=== PATIENT | female | born 1985 | race Caucasian/White ===

== ENCOUNTER 2024-04-23 13:15 | Outpatient (CLI) | payer OTHER, SELFPAY ==
--- NOTE | 2024-04-23 14:30 | NEURO_ITS ---
Impression: # Complains of numbness of hands. Not diabetic. # Normal Nerve Conduction Study. # Normal needle/EMG exam. # Clinical correlation recommended. Nerve Conduction Studies Anti Sensory Summary Table Stim Site NR Peak (ms) P-T Amp (?V) Site1 Site2 Delta-P (ms) Dist (cm) Felix (m/s) Left Median Anti Sensory (2-3nd Digit) Wrist 2.2 17.1 Wrist 2-3nd Digit 2.2 14.0 64 Wrist 2.4 12.6 Wrist 2-3nd Digit 2.2 14.0 64 Right Median Anti Sensory (2-3nd Digit) Wrist 2.5 3.0 Wrist 2-3nd Digit 2.5 14.0 56 Wrist 3.1 13.5 Wrist 2-3nd Digit 2.5 14.0 56 Left Radial Anti Sensory (Base 1st Digit) Wrist 1.5 58.8 Wrist Base 1st Digit 1.5 0.0 Right Radial Anti Sensory (Base 1st Digit) Wrist 1.9 46.8 Wrist Base 1st Digit 1.9 0.0 Left Ulnar Anti Sensory (5th Digit) Wrist 2.3 45.3 Wrist 5th Digit 2.3 14.0 61 Right Ulnar Anti Sensory (5th Digit) Wrist 2.1 48.6 Wrist 5th Digit 2.1 14.0 67 Motor Summary Table Stim Site NR Onset (ms) O-P Amp (mV) Site1 Site2 Delta-0 (ms) Dist (cm) Felix (m/s) Left Median Motor (Abd Poll Brev) Wrist 3.7 2.8 Elbow Wrist 5.1 28.0 55 Elbow 8.8 2.2 Right Median Motor (Abd Poll Brev) Wrist 3.5 4.1 Elbow Wrist 5.3 30.0 57 Elbow 8.8 1.8 Left Ulnar Motor (Abd Dig Minimi) Wrist 2.5 8.4 A Elbow Wrist 4.8 30.0 63 A Elbow 7.3 7.4 Right Ulnar Motor (Abd Dig Minimi) Wrist 2.4 7.3 A Elbow Wrist 4.9 30.0 61 A Elbow 7.3 6.3 F Wave Studies NR F-Lat (ms) L-R F-Lat (ms) Left Median (Mrkrs) (Abd Poll Brev) 28.12 1.23 Right Median (Mrkrs) (Abd Poll Brev) 29.34 1.23 Left Ulnar (Mrkrs) (Abd Dig Min) 27.62 0.48 Right Ulnar (Mrkrs) (Abd Dig Min) 28.10 0.48 EMG Side Muscle Nerve Root Ins Act Fibs Amp Dur Recrt Comment Right 1stDorInt Ulnar C8-T1 Nml Nml Nml Nml Nml Right Ext Indicis Radial (Post Int) C7-8 Nml Nml Nml Nml Nml Right Ext Digitorum Radial (Post Int) C7-8 Nml Nml Nml Nml Nml Right BrachioRad Radial C5-6 Nml Nml Nml Nml Nml Right PronatorTeres Median C6-7 Nml Nml Nml Nml Nml Right Abd Poll Brev Median C8-T1 Nml Nml Nml Nml Nml Right ABD Dig Min Ulnar C8-T1 Nml Nml Nml Nml Nml Left 1stDorInt Ulnar C8-T1 Nml Nml Nml Nml Nml Left Ext Indicis Radial (Post Int) C7-8 Nml Nml Nml Nml Nml Left Ext Digitorum Radial (Post Int) C7-8 Nml Nml Nml Nml Nml Left BrachioRad Radial C5-6 Nml Nml Nml Nml Nml Left PronatorTeres Median C6-7 Nml Nml Nml Nml Nml Left Abd Poll Brev Median C8-T1 Nml Nml Nml Nml Nml Left ABD Dig Min Ulnar C8-T1 Nml Nml Nml Nml Nml MTDD
== END 2024-04-23 13:16 | disposition home or self-care (01) ==
LOC: ANHNEURO 13:16
PROVIDERS: PCP Internal Medicine Infectious Disease; Visit Provider Internal Medicine Infectious Disease
DX: G62.9 Polyneuropathy, unspecified (principal)
CPT/HCPCS: 95886; 95911

== ENCOUNTER 2024-08-01 07:46 | Outpatient (CLI) | payer OTHER, SELFPAY ==
--- NOTE | ~2024-08-01 | MMUS_ITS ---
EXAMINATION: MM diagnostic shira BI w lexy, US breast BI complete HISTORY: Nipple discharge. TECHNIQUE: Additional 3-D tomosynthesis images of the breasts were performed and synthetic 2-D images were generated. CAD analysis was submitted and interpreted. High resolution bilateral complete breas t ultrasound was performed. COMPARISON: None BREAST PARENCHYMAL COMPOSITION: Not dense: There are scattered areas of fibroglandular density. FINDINGS: MAMMOGRAPHIC FINDINGS: The breasts are symmetric. No suspicious masses, calcifications or architectural distortion in either breast to suggest malignancy. ULTRASOUND: Complete US of all 4 quadrants of the breast/s and retroareolar region was reviewed. Right breast ultrasound: At 10:00 in the subareolar location there is a 6 mm cyst. There are mildly p rominent subareolar ducts. Left breast ultrasound: There are prominent subareolar ducts at 2:00. No discrete solid or cystic mas s identified. IMPRESSION: 1. No evidence for malignancy in either breast. 2. Recommend correlation with MRI of the breast with contrast for further evaluation of bloody nipple discharge. BI-RADS Category 0: Incomplete: Needs additional imaging evaluation. Reviewed, dictated and finalized at location B. IMPRESSION: 1. No evidence for malignancy in either breast. 2. Recommend correlation with MRI of the breast with contrast for further evalu ation of bloody nipple discharge. BI-RADS Category 0: Incomplete: Needs additional imaging evaluation.
== END 2024-08-01 07:47 | disposition home or self-care (01) ==
LOC: MICIMG 07:47
PROVIDERS: PCP Physician Assistant; Visit Provider Physician Assistant
DX: N64.52 Nipple discharge (principal); R92.8 Other abnormal and inconclusive findings on diagnostic imaging of breast
CPT/HCPCS: 76641; 77062; 77066; G0279

== ENCOUNTER 2024-09-19 13:54 | Outpatient (CLI) | payer OTHER, SELFPAY ==
--- NOTE | ~2024-09-19 | US_ITS ---
EXAMINATION: US venous doppler [facility] DATE: 09/19/2024 14:53 INDICATION: Bilateral lower limb swelling TECHNIQUE: Grayscale ultrasound images without and with compression and Doppler ultrasound images of the bilateral lower extremity veins were obtained. COMPARISON: None. FINDINGS: The visualized portions of right common femoral vein, profunda (deep) femoral vein, femoral vein, pop liteal vein, posterior tibial veins, peroneal veins, gastrocnemius vein and greater saphenous vein ou tflow are patent. The visualized portions of left common femoral vein, profunda femoral vein, femoral vein, popliteal v ein, posterior tibial veins, peroneal veins, gastrocnemius vein and greater saphenous vein outflow ar e patent. IMPRESSION: 1. No deep venous thrombosis in either lower limb. Reviewed, dictated and finalized at location A. PRIMER POWDER BLENDER
== END 2024-09-19 13:55 | disposition home or self-care (01) ==
PROVIDERS: PCP Physician Assistant
DX: R60.0 Localized edema (principal)
CPT/HCPCS: 93970

== ENCOUNTER 2024-10-03 14:41 | Outpatient (CLI) | payer OTHER, SELFPAY ==
--- NOTE | ~2024-10-03 | MR_ITS ---
MR breast BI wo/w con 10/06/2024 11:17 BIOPROCESS DEVELOPMENT ENGINEER INDICATION: Nipple discharge TECHNIQUE: MRI of the breasts perform using standard protocol pre-and post IV contrast with the follo wing sequences: Axial T2 STIR, axial T1, axial vibrant T1 with fat suppression precontrast and multip hasic postcontrast. 20 cc MultiHance administered intravenously. COMPARISON: Mammogram and ultrasound dated 08/01/2024 FINDINGS: There are prominent subareolar ducts containing debris. There is marked background parenchy mal enhancement. No enhancing lesions following contrast administration. No areas of enhancement me eting threshold criteria on CAD analysis. No evidence of signal abnormalities in the axillary or int ernal mammary node distributions. LEFT BREAST: There are prominent subareolar ducts containing debris. There is marked background paren chymal enhancement. In the left breast in the lower outer quadrant at approximately 4:00, middle thir d there is nonmass-like enhancement with rapid plateau enhancement characteristics measuring 2.1 x 1 x 0.7 cm. No evidence of signal abnormalities in the axillary or internal mammary node distributions. IMPRESSION: 1: Prominent bilateral subareolar ducts. No discrete suspicious enhancing mass is identified. There i s nonmasslike enhancement in the left breast in the lower outer quadrant, nonspecific. No correspondi ng finding was seen on recent mammogram or ultrasound. Recommendation: Six-month follow-up diagnostic bilateral mammogram and bilateral breast ultrasound re commended. BI-RADS CATEGORY 3-PROBABLY BENIGN FINDING RECOMMENDATION: 6 month follow up recommended. Reviewed, dictated and finalized at location B. ROCESS DEVELOPMENT ENGINEER IMPRESSION: 1: Prominent bilateral subareolar ducts. No discrete suspicious enhancing mass is identified. There is nonmasslike enhancement in the left breast in the lower outer quadrant, nonspecific. No corresponding finding was seen on recent mammo gram or ultrasound. Recommendation: Six-month follow-up diagnostic bilateral mammogram and bilatera l breast ultrasound recommended. BI-RADS CATEGORY 3-PROBABLY BENIGN FINDING RECOMMENDATION: 6 month follow up recommended.
--- OUTSIDE RECORDS SUMMARY | 2024-10-06 22:15 | XMS_ITS | Encounter Summary ---
Author Organization [facility] Address [address] [place] [address] Care Team Providers Care Cafeteria Or Lunchroom Checker Name Role Phone Unavailable Primary Care Provider Unavailabl e Reason for Visit * Reason Onset Date Comments Scheduling 03/24/2019 Encounter Details Date Type Department Care Team (Late st Contact Info) Description 03/24/2019 Telephone [facility] - DICE DEALER [id number] [facility] [address] [place] [id number] [place] [address] [facility] [address] [place] [address] Scheduling Social History Tobacco Use Types Packs/Day Years Used Date Smoking Tobacco: Former Cigarettes Q uit: 08/07/2018 Smokeless Tobacco: Never Alcohol Use Standard Drinks/Week Comments Yes 0 (1 standard drink = 0.6 oz pur e alcohol) Sex and Gender Information Value Date Recorded Sex Assigned at Not on file Gender Identity Not on file Sexual Orientation Not on file documented as of this encounter Functional Status Functional Status Response Date of Assess ment Is person deaf or have serious hearing difficult y? No 03/18/2019 Is person blind or have serious difficulty seein g? No 03/18/2019 Does person have serious dif ficulty walking/climbing stairs? No 03/18/2019 Does person have difficulty dressing/bathing? No 03/18/2019 Does person have difficulty doing errands alone? No 03/18/2019 Cognitive Status Response Date of Assessm ent Does person have difficulty concentrating/remembering/making decisions? No 03/18/2019 documented as of this encounter Miscellaneous Notes * Telephone Encounter - Libia Harrington - 03/24/2019 11:37 AM CDT Left message for patient to contact the office. Patient is ok to see [facility] for this appointment type. * Telephone Encounter - Evy Prince - 03/24/2019 10:16 AM CDT Who is calling? self What is the reason for call? Patient called to schedule a blood pressure check following delivery. DOD 03/19/19. Patient states she was instructed to schedule appointment on 03/24 or 03/25. Agent unable to find available slot. Expected Response from the Clinic? Call back. documented in this encounter Plan of Treatment Not on file documented as of this encounter Visit Diagnoses Not on filedocumented in this encounter
--- OUTSIDE RECORDS SUMMARY | 2024-10-06 22:15 | XMS_ITS | Encounter Summary ---
Author Organization [facility] Address [address] [place] [address] Care Team Providers Care Housekeeper Manager Name Role Phone Unavailable Primary Care Provider Unavailabl e Reason for Visit * Reason Comments Care 6 week post vaginal Encounter Details Date Type Department Care Team (Late st Contact Info) Description 04/30/2019 10:40 AM CDT Office Visit [facility] Medical [facility] - NAVAL AIRCREWMAN MECHANICAL [address] [facility] [address] [place] [id number] [place] [address] [facility] [address] [place] [address] exam (HCC) (Primary Dx) Social History Tobacco Use Types Packs/Day Years Used Date Smoking Tobacco: Former Cigarettes Q uit: 08/07/2018 Smokeless Tobacco: Never Alcohol Use Standard Drinks/Week Comments Yes 0 (1 standard drink = 0.6 oz pur e alcohol) Sex and Gender Information Value Date Recorded Sex Assigned at Not on file Gender Identity Not on file Sexual Orientation Not on file documented as of this encounter Last Filed Vital Signs Vital Sign Reading Time Taken Comments Blood Pressure 120/84 04/30/2019 10:58 AM CDT Pulse - - Temperature - - Respiratory Rate - - Oxygen Saturation - - Inhaled Oxygen Concentration - - Weight 113.9 kg (251 lb) 04/30/2019 10:58 AM CDT Height 170.2 cm (5' 7 ) 04/30/2019 10:58 AM CDT Body Mass Index 39.31 04/30/2019 10:58 AM CDT documented in this encounter Functional Status Functional Status Response [...] No 03/18/2019 documented as of this encounter Progress Notes * Julissa Mcwilliams, DO - 04/30/2019 11:24 AM CDT Subjective: Rachelle Dia is a 33 year [id number] female who presents 6 weeks post following a spontaneous vaginal delivery. I have fully reviewed the and intrapartum course. coursehas been uncomplicated. Baby is doing well without problems. Baby is feeding human milk. Bleeding staining only . Bowel function is normal. Bladder function is normal. depression screening: negative Past Medical History: Diagnosis Date ??? Abnormal Pap smear of cervix reports 3 colposcopies starting at 16 y.o. ??? Back problem ??? Depression ??? History of anemia ??? History of headache ??? HPV in female Past Surgical History: Procedure Laterality Date ??? [place] Tooth Extraction Allergies Allergen Reactions ??? Eggs [Albumin] Swelling OB History Para Term AB Living 3 3 3 0 0 3 SAB TAB Ectopic Multiple Live Births 0 0 0 0 3 Family History Problem Relation Age of Onset ??? Hypertension Father ??? Diabetes - Type 2 Father ??? Diabetes - Type 2 Sister ??? Other - Cardiac Sister 38 CHF ??? Diabetes - Type 2 Maternal Grandmother ??? Diabetes - Type 2 Paternal Grandmother ??? CVA Paternal Grandfather ??? Other Brother from MVA Review of Systems A comprehensive review of systems was negative except as described in HPI. Objective: BP 120/84 Ht 5' 7 Wt 251 lb BMI 39.31 kg/m2 General Appearance: alert, cooperative, no distress, oriented to person, place, and time Breasts: symmetric, nontender, no masses or discharge Heart: regular rhythm, normal S1 and S2, without murmurs, gallops or rubs Abdomen: soft without mass, non-tender, with normal bowel sounds Pelvic: Vulva and vagina appear normal. Bimanual exam reveals normal uterus and adnexa. Assessment: exam s/p Plan: See orders. Contraception options discussed. Risks and benefits reviewed. Patient's choice of contraception is vasectomy Julissa Mcwilliams DO documented in this encounter Plan of Treatment Not on file documented as of this encounter Visit Diagnoses Diagnosis exam (HCC)- Primary Routine follow-up documented in this encounter
--- OUTSIDE RECORDS SUMMARY | 2024-10-06 22:15 | XMS_ITS | Clinical Summary ---
Author Organization [email or web address] Address [address] [place] [address] Care Team Providers Care Slope Runner Name Role Phone Unavailable Primary Care Provider Unavailabl e Source Comments [email or web address],non-owned Affiliates and Associated Physician Practices is amultiple site organization consisting of ambulatory clinics and hospital sitesin [place], [place], [place] and [place]. This disclosure is being madepursuant to the Care Everywhere program and may not contain all information available regarding this patient. Last updated 18.[employer] [email or web address] Allergies Active Allergy Reactions Criticality Noted Date Comments Albumin Swelling 05/23/2017 Medications * Be aware that medications may not be up to date on this document. Alwaysverify current medications with the patient. Medication Sig Dispensed Refills Start Date End Date Status Vit-Fe Fumarate-FA ( VITAMIN) 27-0.8 MG tablet Take 1 tablet by mouth once daily Active ferrous gluconate 324 (38 Fe) MG tabletIndications: Iron Deficiency Anemia Take 324 mg by mouth daily with breakfast Reasons: Anemia From Inadequate Iron in the Body Active ibuprofen (MOTRIN) 600 MG tablet Take 1 tablet by mouth every 6 hours 40 tablet 03/21/2019 Active docusate sodium (COLACE) 100 MG capsule Take 1 capsule by mouth 2 times daily 60 capsule 03/21/2019 Active Additional Information Patient not taking.Reported on 03/25/2019 Active Problems Problem Noted Date Diagnosed Date BMI 40.0-44.9, adult 02/28/2019 Resolved Problems Problem Noted Date Diagnosed Date Resolved Date Encounter for supervision of normal in third trimester 02/28/2019 03/22/2019 Lower abdominal pain 02/26/2019 019 screening for feta l growth retardation using ultrasonics 12/09/2018 03/22/2019 Overview (07/22/2022): IMO 2021 Update Placenta previa without hemo rrhage, antepartum 12/09/2018 02/10/2019 Screening, , for ma lformation by ultrasound 11/07/2018 03/22/2019 Obesity affecting 11/07/2018 03/22/2019 Group b Streptococcus urinar y tract infection affecting , antepartum, first trimester 09/19/2018 03/22/2019 Overview (09/19/2018): Will require antibiotics in labor for GBBS Immunizations Name Administration Dates Next Due TDAP (7yrs+) 01/10/2019 Family History Medical History Relation Name Comments Other Brother 3 from MVA Diabetes - Type 2 Father Hypertension Father Diabetes - Type 2 Maternal Grandmother CVA Paternal Grandfather Diabetes - Type 2 Paternal Grandmother Diabetes - Type 2 Sister Other - Cardiac Sister CHF Relation Name Status Comments Brother 1 Alive Brother 2 Alive Brother 3 Father Alive Maternal Grandfather Maternal Grandmother Mother Alive Paternal Grandfather Paternal Grandmother Alive Sister Alive Social History Tobacco Use Types Packs/Day Years Used Date Smoking Tobacco: Former Cigarettes Q uit: 08/07/2018 Smokeless Tobacco: Never Tobacco Cessation:Ready to Q uit: No; Counseling Given: Yes Alcohol Use Standard Drinks/Week Comments Yes 0 (1 standard drink = 0.6 oz pur e alcohol) Sex and Gender Information Value Date Recorded Sex Assigned at Not on file Gender Identity Not on file Sexual Orientation Not on file Last Filed Vital Signs Vital Sign Reading Time Taken Comments Blood Pressure 120/84 04/30/2019 10:58 AM CDT Pulse 76 03/22/2019 7:45 AM CDT Temperature 36.3 ??C (97.3 ??F) 03/22/2019 7:45 AM CD T Respiratory Rate 18 03/22/2019 7:45 AM CDT Oxygen Saturation 100% 03/22/2019 7:45 AM CDT Inhaled Oxygen Concentration - - Weight 113.9 kg (251 lb) 04/30/2019 10:58 AM CDT Height 170.2 cm (5' 7 ) 04/30/2019 10:58 AM CDT Body Mass Index 39.31 04/30/2019 10:58 AM CDT Plan of Treatment Health Maintenance Due Date Last Done Comments HEPATITIS C SCREENING 08/02/2003 HEPATITIS B VACCINE (1 of 3 - 19+ 3-dose series) 2004 PAP with HPV 08/07/2023 08/07/2018, 05/23/2017 DEPRESSION SCREENING 10/22/2023 COVID-19 VACCINE (1 - 2023-2 5 season) 2024 INFLUENZA VACCINE (#1) 2024 DTAP/TDAP/TD VACCINES (2 - T d or Tdap) 01/10/2029 01/10/2019 ZOSTER VACCINE (1 of 2) 2035 HIV SCREENING Completed 08/07/2018 HIB VACCINE Aged Out No longer eligi ble based on patient's age to complete this topic HPV VACCINE Aged Out No longer eligi ble based on patient's age to complete this topic MENINGOCOCCAL VACCINE Aged Out No marge flakita eligible based on patient's age to complete this topic PNEUMOCOCCAL VACCINE Aged Out No long er eligible based on patient's age to complete this topic Procedures Procedure Name Priority Date/Time Associated Diagnosis Comments STREP B JOHN Routine 03/11/2019 2:03 PM CDT care, subsequent , third trimester (HCC) 37 weeks gestation of (HCC) GTT 3 HR (100G) GESTATIONAL DIAGNOSTIC Routine 01/20/2019 7:16 AM CDT Abnormal maternal glucose tolerance, antepartum (HCC) HIV-1 HIV-2 ANTIGEN/ANTIBODY W RFLX Routine 08/07/2018 4:50 PM CDT care, subsequent , first trimester (HCC) 7 weeks gestation of (HCC) Positive test (HCC) Special screening examination for human papillomavirus (HPV) Screening examination for venereal disease PAP IG LB+CT+NG+TV+HPV APTIMA RFLX Routine 08/07/2018 3:34 PM CDT care, subsequent , first trimester (HCC) 7 weeks gestation of (HCC) Positive test (HCC) Special screening examination for human papillomavirus (HPV) Screening examination for venereal disease from Last 3 Months or Most Recently Relevant to Health Maintenance Results * STREP B JOHN (03/11/2019 2:03 PM CDT) Strep B JOHN Negative Negative [facility] ACCOUNT BILL Comment: Centers for Disease Control and Prevention (CDC) and [place] [employer] of [employer]stetricians and Gynecologists (ACOG) guidelines for prevention of group B streptococcal (GBS) disease specify co-collection of a vaginal and rectal swab specimen to maximize sensitivity of GBS detection. Per the CDC and ACOG, swabbing both the lower vagina and rectum substantially increases the yield of detection compared with sampling the vagina alone. ? . Penicillin G, ampicillin, or cefazolin are indicated for intrapartum prophylaxis of GBS colonization. Reflex susceptibility testing should be performed prior to use of clindamycin only on GBS isolates from penicillin-allergic women who are considered a high risk for anaphylaxis. Treatment with vancomycin without additional testing is warranted if resistance to clindamycin is noted. Microbiology MISCELLANEOUS SAMPLES / Unknown 03/11/2019 2:03 PM CDT 03/11/2019 Narrative Resulting Agency Comment Lab Testing performed at: [address] ??[facility] [phone] Julissa Mcwilliams DO LAB - MICROBIOLOGY O RDERABLES [facility] ACCOUNT BILL [address] [place] [address] * (ABNORMAL) GTT 3 HR (100G) GESTATIONAL DIAGNOSTIC (01/20/2019 7:16 AM CDT) Glucose Fasting Gest Tolerance 78 65 - 94 mg/dL [facility] ACCOUNT BILL GTT1Hr 157 65 - 179 mg/dL [facility] ACCOUNT BILL Glucose - 2 hour 137 65 - 154 mg/dL [facility] ACCOUNT BILL GTT 3Hr 64(L) 65 - 139 mg/dL [facility] ACCOUNT BILL Note [facility] ACCOUNT BILL Comment: For diagnosis of gestational diabetes, at least two values must meet or exceed normal limits, which is based on 100 gm of oral glucose challenge. FASTING Blood BLOOD SPECIMEN / Unknown 01/20/2019 7:16 AM CDT 01/20/2019 Narrative Resulting Agency Comment [facility] [address] ??[facility] [id number] Julissa Mcwilliams DO LAB - CHEMISTRY ORDE RABLES [facility] ACCOUNT BILL [address] [place] [address] * HIV-1 HIV-2 ANTIGEN/ANTIBODY W RFLX (08/07/2018 4:50 PM CDT) HIV Screen 4th Generation w Reflex Non Reactive Non Reactive [facility] ACCOUNT BILL Blood BLOOD SPECIMEN / Unknown 08/07/2018 4:50 PM CDT 08/07/2018 Narrative Resulting Agency Comment [facility] [address] ??[facility] [phone] Julissa Mcwilliams DO LAB - SEROLOGY ORDER FADY Performing Organization Address City/[facility]/ZIP Co de Phone Number [facility] ACCOUNT BILL [address] [place] [address] * PAP IG LB+CT+NG+TV+HPV APTIMA RFLX 16,18/45 (08/07/2018 3:34 PM CDT) Diagnosis [facility] ACCOUNT BILL Comment: NEGATIVE FOR INTRAEPITHELIAL LESION AND MALIGNANCY. THIS SPECIMEN WAS RESCREENED PART OF OUR DYE RANGE FEEDER PROGRAM. Specimen Adequacy [facility] ACCOUNT BILL Comment: Satisfactory for evaluation. ??No endocervical component is identified. An endocervical component is not commonly seen in the patient. Clinician Provided ICD10 [facility] ACCOUNT BILL Comment: Z34.81 Z3A.01 Z32.01 Z11.51 Z11.3 Z68.36 Performed by [facility] ACCOUNT BILL Comment:Mercy Simons, Label Printing Machinist (ASCP) QC Reviewed by [facility] ACCOUNT BILL Comment:[facility] Label Printing Machinist (ASCP) Comment . [facility] ACCOUNT BILL Note [facility] ACCOUNT BILL Comment: The Pap smear is a screening test designed to aid in the detection of premalignant and malignant conditions of the uterine cervix. ??It is not a diagnostic procedure and should not be used as the sole means of detecting cervical cancer. ??Both false-positive and false-negative reports do occur. ? . IGLBP CPT Code Automation [facility] ACCOUNT BILL Comment: This liquid based ThinPrep(R) pap test was screened with the use of an image guided system. Human papillomavirus Aptima Negative Negative [facility] ACCOUNT BILL Comment: This test detects fourteen high-risk HPV types (16/18/31/33/35/39/45/ 51/52/56/58/59/66/68) without differentiation. Chlamydia trachomatis JOHN Negative Negative [facility] ACCOUNT BILL GC JOHN Negative Negative [facility] ACCOUNT BILL Trichomonas vaginalis by JOHN Negative Negative [facility] ACCOUNT BILL PART OF UTERINE CERVIX / Unknown 08/07/2018 3:34 PM CDT 08/07/2018 Narrative [facility] ACCOUNT BILL - 08/12/2018 11:06 PM CDT Source.............Cervix;Endocervix LMP / Prev Treat...None Other.............. No. of containers..01 ThinPrep Vial Resulting Agency Comment [facility] [address] [facility] ??[place] [phone] Julissa Mcwilliams DO LAB - PATHOLOGY/CYTO LOGY ORDERABLES [facility] ACCOUNT BILL [address] [place] [address] from Last 3 Months or Most Recently Relevant to Health Maintenance Advance Directives * Full Code (Latest Code Status on File) Date Activated Date Inactivated Comments 03/18/2019 11:54 PM 03/22/2019 12:05 PM * Full Code Date Activated Date Inactivated Comments 02/26/2019 12:58 PM 02/26/2019 3:41 PM
--- OUTSIDE RECORDS SUMMARY | 2024-10-06 22:15 | XMS_ITS | Patient Health Summary ---
Author Organization [facility] Address [address] [place] [address] Care Team Providers Care Extractor Operator Solvent Process Name Role Phone Unavailable Primary Care Provider Unavailabl e Note from [facility],non-owned Affiliates and Associated Physician Practices is amultiple site organization consisting of ambulatory clinics and hospital sitesin [place], [place], [place] and [place]. This disclosure is being madepursuant to the Care Everywhere program and may not contain all information available regarding this patient. Last updated 18.[facility] Allergies * Albumin(Swelling) Medications * Be aware that medications may not be up to date on this document. Alwaysverify current medications with the patient. * Vit-Fe Fumarate-FA ( VITAMIN) 27-0.8 MG tablet Take 1 tablet by mouth once daily * ferrous gluconate 324 (38 Fe) MG tablet Take 324 mg by mouth daily with breakfast Reasons: Anemia From Inadequate Iron in the Body * ibuprofen (MOTRIN) 600 MG tablet(Started 03/21/2019) Take 1 tablet by mouth every 6 hours * docusate sodium (COLACE) 100 MG capsule(Started 03/21/2019) Take 1 capsule by mouth 2 times daily Active Problems Problem Noted Date Diagnosed Date BMI 40.0-44.9, adult 02/28/2019 Resolved Problems Problem Noted Date Diagnosed Date Resolved Date Encounter for supervision of normal in third trimester 02/28/2019 03/22/2019 Lower abdominal pain 02/26/2019 019 screening for feta l growth retardation using ultrasonics 12/09/2018 03/22/2019 Placenta previa without hemo rrhage, antepartum 12/09/2018 02/10/2019 Screening, , for ma lformation by ultrasound 11/07/2018 03/22/2019 Obesity affecting 11/07/2018 03/22/2019 Group b Streptococcus urinar y tract infection affecting , antepartum, first trimester 09/19/2018 03/22/2019 Immunizations * TDAP (7yrs+)(Given 01/10/2019) Social History Tobacco Use Types Packs/Day Years [...] Mass Index 39.31 04/30/2019 10:58 AM CDT Procedures * LDH BLOOD(Performed 03/21/2019) * URIC ACID BLOOD(Performed 03/21/2019) * COMPREHENSIVE METABOLIC PANEL(Performed 03/21/2019) * CBC W AUTO DIFFERENTIAL(Performed 03/21/2019) * NEURAXIAL BLOCK(Performed 03/19/2019) * LDH BLOOD(Performed 03/19/2019) * URIC ACID BLOOD(Performed 03/19/2019) * COMPREHENSIVE METABOLIC PANEL(Performed 03/19/2019) * URINALYSIS REFLEX TO MICROSCOPIC NO CULTURE(Performed 03/19/2019) * PROTEIN CREATININE RATIO URINE RANDOM PNL(Performed 03/19/2019) * URINE DRUG SCREEN IMMUNOASSAY(Performed 03/19/2019) * TYPE + SCREEN PANEL(Performed 03/18/2019) * CBC W AUTO DIFFERENTIAL(Performed 03/18/2019) * BIOPHYSICAL PROFILE W NST(Performed 03/18/2019) Performed for Supervision of high-risk of young multigravida ([facility]), Obesity affecting in third trimester ([facility]), BMI 40.0-44.9, adult ([facility]) * STREP B JOHN(Performed 03/11/2019) Performed for care, subsequent , third trimester ([facility]), 37 weeks gestation of ([facility]) * BIOPHYSICAL PROFILE W NST(Performed 03/11/2019) Performed for Supervision of high-risk of young multigravida ([facility]), Obesity affecting in third trimester (HCC), BMI 40.0-44.9, adult ([facility]) * BIOPHYSICAL PROFILE W NST(Performed 03/04/2019) Performed for Obesity affecting in third trimester ([facility]) * BIOPHYSICAL PROFILE WO NST(Performed 02/28/2019) Performed for Excessive growth affecting management of in third trimester, single or unspecified fetus ([facility]) * URINE MICROSCOPIC ONLY REFLEX TO CULTURE(Performed 02/26/2019) Performed for Lower abdominal pain * URINALYSIS REFLEX MICROSCOPIC REFLEX CULTURE(Performed 02/26/2019) Performed for Lower abdominal pain * CULTURE URINE(Performed 02/26/2019) Performed for Lower abdominal pain * SONOGRAM - COMPLETE(Performed 02/14/2019) Performed for Excessive growth affecting management of in third trimester, single or unspecified fetus ([facility]) * CULTURE URINE(Performed 02/10/2019) Performed for care, subsequent , third trimester ([facility]), 33 weeks gestation of ([facility]), Hematuria, unspecified type * GTT 3 HR (100G) GESTATIONAL DIAGNOSTIC(Performed 01/20/2019) Performed for Abnormal maternal glucose tolerance, antepartum ([facility]) * SONOGRAM - COMPLETE(Performed 01/17/2019) Performed for Uterine size date discrepancy , third trimester ([facility]) * RPR(Performed 01/13/2019) Performed for care, subsequent , second trimester ([facility]), 25 weeks gestation of ([facility]) * CBC W/O DIFFERENTIAL(Performed 01/13/2019) Performed for care, subsequent , second trimester ([facility]), 25 weeks gestation of ([facility]) * GLUCOSE CHALLENGE(Performed 01/13/2019) Performed for care, subsequent , second trimester ([facility]), 25 weeks gestation of ([facility]) * SONOGRAM - LIMITED(Performed 12/10/2018) Performed for Screening, , for malformation by ultrasound (HCC) * SONOGRAM - COMPLETE(Performed 12/06/2018) Performed for Obesity affecting in second trimester (HCC) * SONOGRAM - COMPLETE(Performed 11/07/2018) Performed for care, subsequent , first trimester (HCC), 7 weeks gestation of (HCC), Positive test (HCC), Special screening examination for human papillomavirus (HPV), Screening examination for venereal disease * CULTURE URINE(Performed 10/23/2018) Performed for care, subsequent , second trimester (HCC), 18 weeks gestation of (HCC), Hematuria, unspecified type * FIRST TRI NUCHAL TRANSLUCENCY W:SEQ SCREEN(Performed 09/17/2018) Performed for care, subsequent , first trimester (HCC), 7 weeks gestation of (HCC), Positive test (HCC), Special screening examination for human papillomavirus (HPV), Screening examination for venereal disease * CULTURE URINE(Performed 09/16/2018) Performed for care, subsequent , first trimester (HCC), 12 weeks gestation of (HCC), Hematuria, unspecified type * HIV-1 HIV-2 ANTIGEN/ANTIBODY W RFLX(Performed 08/07/2018) Performed for care, subsequent , first trimester (HCC), 7 weeks gestation of (HCC), Positive test (HCC), Special screening examination for human papillomavirus (HPV), Screening examination for venereal disease * PROFILE I W/ HBSAG(Performed 08/07/2018) Performed for care, subsequent , first trimester (HCC), 7 weeks gestation of (HCC), Positive test (HCC), Special screening examination for human papillomavirus (HPV), Screening examination for venereal disease * HEMOGLOBIN ELECTROPHORESIS(Performed 08/07/2018) Performed for care, subsequent , first trimester (HCC), 7 weeks gestation of (HCC), Positive test (HCC), Special screening examination for human papillomavirus (HPV), Screening examination for venereal disease * CYSTIC FIBROSIS MUTATION PANEL(Performed 08/07/2018) Performed for care, subsequent , first trimester (HCC), 7 weeks gestation of (HCC), Positive test (HCC), Special screening examination for human papillomavirus (HPV), Screening examination for venereal disease * HEMOGLOBIN A1C(Performed 08/07/2018) Performed for care, subsequent , first trimester (HCC), 7 weeks gestation of (HCC), Positive test (HCC), Special screening examination for human papillomavirus (HPV), Screening examination for venereal disease * DRUG ABUSE URINE PANEL 7(Performed 08/07/2018) Performed for care, subsequent , first trimester (HCC), 7 weeks gestation of (HCC), Positive test (HCC), Special screening examination for human papillomavirus (HPV), Screening examination for venereal disease * CULTURE URINE(Performed 08/07/2018) Performed for care, subsequent , first trimester (HCC), 7 weeks gestation of (HCC), Positive test (HCC), Special screening examination for human papillomavirus (HPV), Screening examination for venereal disease * PAP IG LB+CT+NG+TV+HPV APTIMA RFLX 16,1845(Performed 08/07/2018) Performed for care, subsequent , first trimester (HCC), 7 weeks gestation of (HCC), Positive test (HCC), Special screening examination for human papillomavirus (HPV), Screening examination for venereal disease * HCG URINE QUALITATIVE - POINT OF CARE (AMB) STL(Performed 08/07/2018) Performed for care, subsequent , first trimester (HCC), 7 weeks gestation of (HCC), Positive test (HCC), Special screening examination for human papillomavirus (HPV), Screening examination for venereal disease * PATHOLOGY SPECIMEN(Performed 08/08/2017) Performed for ASCUS with positive high risk HPV cervical * ESTRADIOL(Performed 08/08/2017) Performed for Secondary amenorrhea * FSH + LH PANEL(Performed 08/08/2017) Performed for Secondary amenorrhea * PROLACTIN(Performed 08/08/2017) Performed for Secondary amenorrhea * HCG BETA BLOOD QUANTITATIVE(Performed 08/08/2017) Performed for Secondary amenorrhea * TSH HI LOW REFLEX FREE T4(Performed 08/08/2017) Performed for Secondary amenorrhea * TSH HI LOW REFLEX FREE T4(Performed 05/23/2017) Performed for Irregular menses * PAP IG LB+CT+NG+TV+HPV APTIMA RFLX 16,18/45(Performed 05/23/2017) Performed for Routine gynecological examination, Screening examination for venereal disease, Special screening examination for human papillomavirus (HPV) * XR HAND RIGHT 3VW OR MORE(Performed 04/19/2017) Performed for Fall, initial encounter * XR ELBOW RIGHT 3VW OR MORE(Performed 04/19/2017) Performed for Fall, initial encounter * VARICELLA ZOSTER ANTIBODY IGG(Performed 10/26/2015) * RUBEOLA ANTIBODY IGG(Performed 10/26/2015) * MUMPS ANTIBODY IGG(Performed 10/26/2015) * RUBELLA ANTIBODY IGG(Performed 10/26/2015) * HEPATITIS B SURFACE ANTIBODY(Performed 10/26/2015) Results * URIC ACID BLOOD (03/21/2019 8:56 AM CDT) Only the most recent of2 resultswithin the time period is included. Pathologist [facility] Uric Acid 5.9 2.6 - 6.0 mg/dL 03/21/2019 9:26 AM CDT [facility] Blood BLOOD SPECIMEN / Unknown Venipuncture / Unknown 03/21/2019 8:56 AM CDT 03/21/2019 9:01 AM CDT Julissa Mcwilliams DO LAB - CHEMISTRY PEDRO LANG [facility] [address] [place] [address] * (ABNORMAL) CBC W AUTO DIFFERENTIAL (03/21/2019 8:56 AM CDT) Only the most recent of2 resultswithin the time period is included. WBC 7.9 4.4 - 10.7 x10E9/L 03/21/2019 9:10 AM CDT [facility] WBC Corrected x10E9/L 03/21/2019 9:10 AM CDT [facility] RBC 3.64(L) 3.80 - 5.20 x10E12/L 03/21/2019 9:10 AM CDT [facility] Hemoglobin 10.4(L) 12.0 - 15.6 gm/dL 03/21/2019 9:10 AM CDT [facility] Hematocrit 31.2(L) 35.9 - 45.5 % 03/21/2019 9:10 AM CDT [facility] MCV 85.7 80.7 - 98.3 fl 03/21/2019 9:10 AM CDT [facility] MCH 28.6 26.7 - 34.0 pg 03/21/2019 9:10 AM CDT [facility] MCHC 33.3 30.8 - 35.9 gm/dL 03/21/2019 9:10 AM T [facility] Platelet Count 203 153 - 416 x10E9/L 03/21/2019 9:10 AM [facility] RDW-CV 13.8 12.1 - 14.9 % 03/21/2019 9:10 AM T [facility] MPV 9.0(L) 9.4 - 12.9 fl 03/21/2019 9:10 AM [facility] Neutrophils % 74.9(H) 44.0 - 73.0 % 03/21/2019 9:10 AM T [facility] Lymphocytes % 17.1(L) 20.0 - 43.0 % 03/21/2019 9:10 AM [facility] Monocytes % 5.2 5.0 - 13.0 % 03/21/2019 9:10 AM [facility] Eosinophils % 2.1 0.0 - 6.0 % 03/21/2019 9:10 AM [facility] Basophils % 0.3 0.0 - 2.0 % 03/21/2019 9:10 AM T [facility] Immature Granulocytes 0.4 0 - 1 % 03/21/2019 9:10 AM [facility] Neutrophil Absolute 5.93 2.01 - 7.14 x10E9/L 03/21/2019 9:10 AM [facility] Lymphocytes Absolute 1.35 1.07 - 3.94 x10E9/L 03/21/2019 9:10 AM [facility] Monocytes Absolute 0.41 0.26 - 1.07 x10E9/L 03/21/2019 9:10 AM T [facility] Eosinophils Absolute 0.17 0 - 0.47 x10E9/L 03/21/2019 9:10 AM [facility] Basophils Absolute 0.02 0 - 0.08 x10E9/L 03/21/2019 9:10 AM [facility] Immature Granulocytes Absolute 0.03 0.00 - 0.06 x10E9/L 03/21/2019 9:10 AM [facility] nRBC Auto 0 /100 WBC 03/21/2019 9:10 AM T [facility] Blood BLOOD SPECIMEN / Unknown Venipuncture / Unknown 03/21/2019 8:56 AM CDT 03/21/2019 9:01 AM CDT Julissa Mcwilliams LAB - HEMATOLOGY ORD ERABLES [facility] [address] [place] [address] * (ABNORMAL) COMPREHENSIVE METABOLIC PANEL (03/21/2019 8:56 AM CDT) Only the most recent of2 resultswithin the time period is included. Glucose 80 74 - 106 mg/dL 03/21/2019 9:29 AM [facility] Sodium 140 136 - 145 mmol/L 03/21/2019 9:29 AM [facility] Potassium 3.6 3.5 - 5.1 mmol/L 03/21/2019 9:29 AM [facility] Chloride 106 98 - 107 mmol/L 03/21/2019 9:29 AM T [facility] CO2 24 23 - 31 mmol/L 03/21/2019 9:29 AM T [facility] Calcium 9.0 8.4 - 10.2 mg/dL 03/21/2019 9:29 AM [facility] Anion Gap 10 8 - 16 mmol/L 03/21/2019 9:29 AM [facility] BUN 7 7 - 18.7 mg/dL 03/21/2019 9:29 AM T [facility] Creatinine 0.66 0.55 - 1.02 mg/dL 03/21/2019 9:29 AM [facility] Alkaline Phosphatase 110 40 - 150 U/L 03/21/2019 9:29 AM T [facility] ALT 17 13 - 61 U/L 03/21/2019 9:29 AM [facility] AST 25 5 - 34 U/L 03/21/2019 9:29 AM [facility] Protein Total 6.0(L) 6.4 - 8.3 gm/dL 03/21/2019 9:29 AM [facility] Albumin 3.1(L) 3.5 - 5.2 gm/dL 03/21/2019 9:29 AM CDT [facility] Bilirubin Total 0.3 0.2 - 1.0 mg/dL 03/21/2019 9:29 AM CDT [facility] eGFR by MDRD >60 >60 mL/min/1.7 3m2 03/21/2019 9:29 AM CDT [facility] eGFR by MDRD >60 >60 mL/min/1.7 3m2 03/21/2019 9:29 AM CDT [facility] Blood BLOOD SPECIMEN / Unknown Venipuncture / Unknown 03/21/2019 8:56 AM CDT 03/21/2019 9:01 AM CDT Narrative [facility] - 03/21/2019 9:29 AM CDT Attention clinician: BUN Reference Range has changed. Julissa Mcwilliams DO LAB - CHEMISTRY PEDRO LANG Performing Organization Address [facility] de Phone Number [facility] [address] [place], [place] [id number] * (ABNORMAL) LDH BLOOD (03/21/2019 8:56 AM CDT) Only the most recent of2 resultswithin the time period is included. LDH 271(H) 125 - 220 U/L 03/21/2019 9:26 AM CDT [facility] Blood BLOOD SPECIMEN / Unknown Venipuncture / Unknown 03/21/2019 8:56 AM CDT 03/21/2019 9:01 AM CDT Julissa Mcwilliams DO LAB - CHEMISTRY ORDNancy LANG Performing Organization Address [facility] de Phone Number [facility] [address] [place] [address] * (ABNORMAL) URINALYSIS REFLEX TO MICROSCOPIC NO CULTURE (03/19/2019 3:34 AM CDT) Color UA Yellow Straw, Yellow 03/19/2019 6:12 AM CDT [facility] Clarity UA Slt Cloudy(A) Clear 03/19/2019 6:12 AM CDT [facility] Glucose UA Negative Negative 03/19/2019 6:12 AM CDT [facility] Bilirubin UA Negative Negative 03/19/2019 6:12 AM CDT [facility] Ketone UA Negative Negative 03/19/2019 6:12 AM CDT [facility] Specific Dupo UA 1.011 1.005 - 1.030 03/19/2019 6:12 AM CDT [facility] Blood UA Negative Negative 03/19/2019 6:12 AM CDT [facility] pH UA 7.0 5.0 - 8.0 pH 03/19/2019 6:12 AM CDT [facility] Protein UA Negative Negative 03/19/2019 6:12 AM CDT [facility] Urobilinogen UA Negative Negative mg/dL 03/19/2019 6:12 AM CDT [facility] Nitrite UA Negative Negative 03/19/2019 6:12 AM CDT [facility] Leukocyte UA Negative Negative 03/19/2019 6:12 AM CDT [facility] Urine Microscopy Urine microscopy not indicated 03/19/2019 6:12 AM CDT [facility] Urine URINE SPECIMEN OBTAINED BY CLEAN CATCH PROCEDURE / Unknown Collection / Unknown 03/19/2019 3:34 AM CDT 03/19/2019 6:03 AM CDT Narrative [facility] - 03/19/2019 6:12 AM CDT Julissa Mcwilliams DO LAB - URINALYSIS ORD ERABLES [facility] [address] [place] [address] * DRUG SCREEN TOX URINE PANEL (03/19/2019 3:34 AM CDT) [facility] Amphetamines Screen Urine Not Detected Not Detected 03/19/2019 4:08 AM CDT [facility] Barbiturates Screen Urine Not Detected Not Detected 03/19/2019 4:08 AM CDT [facility] Benzodiazepines Screen Urine Not Detected Not Detected 03/19/2019 4:08 AM CDT [facility] Cannabinoids Screen Urine Not Detected Not Detected 03/19/2019 4:08 AM CDT [facility] Cocaine Screen Urine Not Detected Not Detected 03/19/2019 4:08 AM CDT [facility] Methadone Screen Urine Not Detected Not Detected 03/19/2019 4:08 AM CDT [facility] Opiate Screen Urine Not Detected Not Detected 03/19/2019 4:08 AM CDT [facility] Phencyclidine Screen Urine Not Detected Not Detected 03/19/2019 4:08 AM CDT [facility] Urine URINE / Unknown Collection / Unknown 03/19/2019 3:34 AM CDT 03/19/2019 3:43 AM CDT Narrative [facility] - 03/19/2019 4:08 AM CDT This drug screen is designed for MEDICAL purposes only. It is not to be used for legal purposes, including but not limited to worker's comp, police investigations, occupational issues, child custody, etc. ??Any positive result is only presumptive and must be confirmed with a separate confirmatory test ordered by the physician. Drug Screening Test Cutoff Values: AMPHETAMINES ?1000 ng/mL BARBITURATES ? 200 ng/mL BENZODIAZEPINES ??200 ng/mL CANNABINOIDS(THC) 50 ng/mL COCAINE ?300 ng/mL METHADONE ?300 ng/mL OPIATES ?300 ng/mL PHENCYCLIDINE(PCP)25 ng/mL Julissa Mcwilliams DO LAB - URINE CHEMISTR Y ORDERABLES Performing Organization Address [facility] Co de Phone Number [facility] [id number] [place] [address] * PROTEIN CREATININE RATIO URINE RANDOM PNL (03/19/2019 3:34 AM CDT) Protein Urine 7.8 mg/dL 03/19/2019 6:22 AM CDT [facility] Creatinine Urine 70.41 mg/dL 03/19/2019 6:22 AM CDT [facility] Protein/Creatin ine Ratio Urine 0.11 03/19/2019 6:22 AM CDT [facility] Urine URINE SPECIMEN OBTAINED BY CLEAN CATCH PROCEDURE / Unknown Collection / Unknown 03/19/2019 3:34 AM CDT 03/19/2019 6:03 AM CDT Julissa Mcwilliams DO LAB - URINE CHEMISTR Y ORDERABLES Performing Organization Address [facility] Co de Phone Number [facility] [address] [place] [address] * TYPE + SCREEN PANEL (03/18/2019 11:57 PM CDT) ABO O 03/19/2019 1:33 AM CDT [facility] Rh Type Positive 03/19/2019 1:33 AM CDT [facility] Comment:History checked. Col lect retype. Antibody Screen Negative 03/19/2019 1:33 AM CDT [facility] Blood Bank BLOOD SPECIMEN / Unknown Venipuncture / Unknown 03/18/2019 11:57 PM CDT 03/19/2019 12:10 AM CDT Julissa Mcwilliams DO LAB - BLOOD BANK ORD ERABLES [facility] [address] [place] [address], [facility] * BIOPHYSICAL PROFILE W NST (03/18/2019 11:42 AM CDT) Only the most recent of3 resultswithin the time period is included. Anatomical Region Laterality Modality Other 03/18/2019 11:4 2 AM CDT Narrative 03/18/2019 12:11 PM CDT ?[facility] ? TESTING CENTER ?FAX: ?? Pat. Name: ?RACHELLE DIA. No: ?[id number] Study Date: ?? 03/18/2019 ??11:42am , Age: ? 1985, 33 Pregnancies: ?? 3, Para 2002 Height: ? 67 in Weight: ? 231 lb LMP: ?Unknown GA by Base: ?? 38w6d ?? HELEN: 03/26/2019 GA Selected: ??38w6d (From [facility]) HELEN: ?03/26/2019 Referring MD: Julissa Mcwilliams MD Group Work Program Director: ??Deisy Cordoba, [facility] CPT4: ? 90389,21427 BMI: ?36.18 Hist/Ind: ? testing (BPP) ?LGA (02/14, resolved on 03/11) ?Class II obesity ?Completed anatomy Heart Rate: 150 bpm Amniotic Fluid Index: 16.9cm (07.2-22.8) Biophysical Profile: 05/29 Breathin ?? Tone: 2 ?? Movement: ??2 ?? AFV: ??2 EVAL, PLACENTA Presentation: cephalic Placenta: right lateral Heart Rate: 150 bpm Amniotic Fluid Volume: normal CLINICAL SUMMARY Study Number: 10 ?? A single fetus is identified in cephalic presentation. ??The placenta is right lateral. ??The amniotic fluid volume is normal. ?? The amniotic fluid index is 16.86 cm. ?? IMPRESSION: Single, cephalic IUP at 38w6d. ?? normal amniotic fluid volume. ?? Reassuring BPP. RECOMMEND: Follow up ultrasound as clinically indicated. ?? Thanks for allowing us the opportunity to care for your patient. Tejinder Solorio MD <Electronic Signature> ??03/18/2019 12:11pm Julissa Mcwilliams DO [facility] ORDERABLES * STREP B JOHN (03/11/2019 2:03 PM CDT) Strep B JOHN Negative Negative [facility] ACCOUNT BILL Comment: Centers for Disease Control and Prevention (CDC) and [place] [employer]ians [employer] Gynec[employer] (ACOG) guidelines [...] Resulting Agency Comment Lab Testing performed at: [facility] ??[facility] [id number] Julissa Mcwilliams DO LAB - MICROBIOLOGY O RDERABLES [facility] ACCOUNT [facility] [address] [place] [address] * BIOPHYSICAL PROFILE WO NST (02/28/2019 9:53 AM CDT) Anatomical Region Laterality Modality Other 02/28/2019 9:53 AM CDT Narrative 02/28/2019 10:29 AM CDT ?[facility] ?[facility] ? TESTING CENTER ?FAX: ?? Pat. Name: ?RACHELLE DIA Pat. No: ?[id number] Study Date: ?? 02/28/2019 ??9:53am , Age: ? 1985, 33 Pregnancies: ?? 3, Para 2002 Height: ? 67 in Weight: ? 231 lb LMP: ?Unknown GA by Base: ?? 36w2d ?? HELEN: 03/26/2019 GA Selected: ??36w2d (From [facility]) HELEN: ?03/26/2019 Referring MD: Julissa Mcwilliams MD Group Work Program Director: ??Maryam Lara, [place], [place] CPT4: ? 37193,75103 BMI: ?36.18 Hist/Ind: ? LGA ?Class II obesity ?Completed Anatomy Heart Rate: 164 bpm Amniotic Fluid Index: 16.0cm (07.6-24.8) Q1: 3.2cm ??Q2: 2.7cm ??Q3: 3.3cm ??Q4: 6.8cm ?? Biophysical Profile: 05/29 Breathin ?? Tone: 2 ?? Movement: ??2 ?? AFV: ??2 EVAL, PLACENTA Presentation: cephalic Placenta: right lateral:posterior Heart Rate: 164 bpm Amniotic Fluid Volume: Normal CLINICAL SUMMARY Study Number: 7 ?? A tucker fetus is identified in cephalic presentation. ??The placenta is right lateral,posterior. ??The amniotic fluid volume Normal. IMPRESSION: Single, live IUP at 36w2d. Normal amniotic fluid volume Reassuring BPP without NST RECOMMEND: Continue weekly 8 point biophysical profiles. Thank you for allowing us the opportunity to care for your patient Flo Beltran MD <Electronic Signature> ??02/28/2019 10:29am Julissa Mcwilliams [facility] ORDERABLES * (ABNORMAL) URINE MICROSCOPIC ONLY REFLEX TO CULTURE (02/26/2019 1:18 PM CDT) Reflex Status Culture to follow 02/26/2019 1:36 PM CDT [facility] RBC UA 0-2 None Seen, 0-2, 3-5 # /hpf 02/26/2019 1:36 PM CDT [facility] WBC UA 11-20(A) None Seen, 0-5 # /hpf 02/26/2019 1:36 PM CDT [facility] Bacteria UA 3+(A) None Seen 02/26/2019 1:36 PM CDT [facility] Squamous Epithelial Cells 11-20(A) None Seen, 0-2, 3-5 /hpf 02/26/2019 1:36 PM CDT [facility] Mucus UA 2+ /LPF 02/26/2019 1:36 PM CDT [facility] Amorphous Crystals Occasional( A) None seen /hpf 02/26/2019 1:36 PM CDT [facility] Urine URINE SPECIMEN OBTAINED BY CLEAN CATCH PROCEDURE / Unknown Collection / Unknown 02/26/2019 1:18 PM CDT 02/26/2019 1:22 PM CDT Narrative [facility] - 02/26/2019 1:36 PM CDT Cheryl Germain XRAY TECH-IT SUPPORT SPECIALIST LAB - URINALYSI S ORDERABLES [facility] [address] [place] [address] * (ABNORMAL) URINALYSIS REFLEX MICROSCOPIC REFLEX CULTURE (02/26/2019 1:18 PM CDT) Color UA Yellow Straw, Yellow 02/26/2019 1:35 PM CDT [facility] Clarity UA Cloudy(A) Clear 02/26/2019 1:35 PM CDT [facility] Glucose UA Negative Negative 02/26/2019 1:35 PM CDT [facility] Bilirubin UA Negative Negative 02/26/2019 1:35 PM CDT [facility] Ketone UA Negative Negative 02/26/2019 1:35 PM CDT [facility] Specific Dupo UA 1.023 1.005 - 1.030 02/26/2019 1:35 PM CDT [facility] Blood UA Negative Negative 02/26/2019 1:35 PM CDT [facility] pH UA 6.0 5.0 - 8.0 pH 02/26/2019 1:35 PM CDT [facility] Protein UA 1+(A) Negative 02/26/2019 1:35 PM CDT [facility] Urobilinogen UA Negative Negative mg/dL 02/26/2019 1:35 PM CDT [facility] Nitrite UA Negative Negative 02/26/2019 1:35 PM CDT [facility] Leukocyte UA 3+(A) Negative 02/26/2019 1:35 PM CDT [facility] Urine Microscopy Urine microscopy to follow 02/26/2019 1:35 PM CDT [facility] Reflex Status Culture to follow 02/26/2019 1:35 PM CDT [facility] Urine URINE SPECIMEN OBTAINED BY CLEAN CATCH PROCEDURE / Unknown Collection / Unknown 02/26/2019 1:18 PM CDT 02/26/2019 1:22 PM CDT Narrative [facility] - 02/26/2019 1:35 PM CDT Ascorbic Acid can cause false negative urine strip tests for blood, glucose, nitrite, and bilirubin. Cheryl Germain APRN-[facility] LAB - URINALYSI S ORDERABLES Performing Organization Address City/[facility]/ZIP Co de Phone Number [facility] [address] [place] [address] * CULTURE URINE (02/26/2019 1:18 PM CDT) Only the most recent of5 resultswithin the time period is included. Culture Urine 10,000-50,000 CFU/mL urogenital sirena CHUCK 02/27/2019 1:34 PM CDT [facility] Urine URINE SPECIMEN OBTAINED BY CLEAN CATCH PROCEDURE / Unknown Collection / Unknown 02/26/2019 1:18 PM CDT 02/26/2019 1:22 PM CDT Cheryl Bryant [place] XRAY TECH-IT SUPPORT SPECIALIST LAB - MICROBIOL OGY ORDERABLES [facility] [address] [place] [id number] [place] [address] * SONOGRAM - COMPLETE (02/14/2019 11:31 AM CDT) Only the most recent of4 resultswithin the time period is included. Anatomical Region Laterality Modality Other 02/14/2019 11:3 1 AM CDT Narrative 02/14/2019 1:31 PM CDT ?[facility] ?[facility] ? TESTING CENTER ?FAX: ?? Pat. Name: ?RACHELLE DIA Pat. No: ?[id number] Study Date: ?? 02/14/2019 ??11:31am , Age: ? 1985, 33 Pregnancies: ?? 3, Para 2002 Height: ? 67 in Weight: ? 231 lb LMP: ?Unknown GA by Base: ?? 34w2d ?? HELEN: 03/26/2019 GA by US: ? 36w1d ?? HELEN: 03/13/2019 GA Selected: ??34w2d (From [facility]) HELEN: ?03/26/2019 Referring MD: Julissa Mcwilliams MD Group Work Program Director: ??Maryam Lara, MONICA, JESS CPT4: ? 88869 BMI: ?36.18 Hist/Ind: ? LGA ?Class II obesity ?Completed Anatomy MEASUREMENTS & AGE ? GROWTH EVALUATION Measurement ??GA ? Range ? Srce %for GA Ratios ----- ---- ------- BPD ??8.6 cm 34w4d (61c4p-39g4z) Hadl BPD 56% FL/BPD 0.83 (0.71 - 0.87) HC ??32.1 cm 36w2d (29j4j-11e3h) Hadl HC ??65% FL/AC ??0.21 (0.20 - 0.24) AC ??33.5 cm 37w3d (89q2o-29e3l) Hadl AC ??>99 HC/AC ??0.96 (0.94 - 1.13) FL ?? 7.1 cm 36w3d (69h5h-12j1n) Hadl FL ??89% CI ? 0.74 (0.70 - 0.86) HL ?? 6.7 cm 39w1d (31f6n-43f3n) Chente HL ??>95 GA for sonogram 36w1d (92f2w-66j7p) ?? Weight Estimate: based on (BPD,HC,AC,FL) Avg ?Weight: 3001 gm (2563-3439gm) Had ? : 6lbs, 9oz ? Normal: 2439 gm (1830- 3049gm) Had ? Wt% ? 96% for 34w2d Heart Rate: 144 bpm Amniotic Fluid Index: 19.0cm (08.0-24.8) Q1: 3.5cm ??Q2: 4.6cm ??Q3: 5.4cm ??Q4: 5.5cm ?? EVAL, PLACENTA Presentation: cephalic Placenta: right lateral:posterior Heart Rate: 144 bpm Amniotic Fluid Volume: Normal CLINICAL SUMMARY Study Number: 6 ?? A single fetus is identified in cephalic presentation. ??The measurements today are consistent with Excessive growth. ??The HELEN selected is based on a prior ultrasound. ??The amniotic fluid volume is Normal. ??The placenta is right lateral,posterior. ??No major malformations are seen within the limitations of ultrasound examination. ?? IMPRESSION: Single, live, IUP at 34w2d . EFW at the 96th %ile . ?? normal amniotic fluid volume. ?? RECOMMEND: Begin weekly 8 point biophysical profile at 36 weeks through delivery. ?? Thank you for allowing us the opportunity to care for your patient. Flo Beltran MD <Electronic Signature> ??02/14/2019 01:31pm Julissa Posey Oj ANAYA MFM ORDERABLES * (ABNORMAL) GTT 3 HR (100G) GESTATIONAL [...] AM CDT 01/20/2019 Narrative Resulting Agency Comment [facility] ??[facility] [phone] Julissa Kalpesh Mcwilliams DO LAB - CHEMISTRY ORDNancy LANG [facility] ACCOUNT BILL [address] [place] [address] * RPR (01/13/2019 10:54 AM CDT) Pathologist [facility] RPR Non Reactive Non Reactive [facility] ACCOUNT BILL Blood BLOOD SPECIMEN / Unknown 01/13/2019 10:54 AM CDT 01/13/2019 Narrative Resulting Agency Comment [facility] [place] [address] ??[facility] [phone] Julissa Posey Oj ANAYA LAB - CHEMISTRY ORDE RICKEY [facility] ACCOUNT BILL [address] [place] [address] * (ABNORMAL) CBC W/O DIFFERENTIAL (01/13/2019 10:53 AM CDT) WBC 8.4 3.4 - 10.8 x10E3/uL [facility] ACCOUNT BILL RBC 3.96 3.77 - 5.28 x10E6/uL [facility] ACCOUNT BILL Hemoglobin 11.0(L) 11.1 - 15.9 g/dL [facility] ACCOUNT BILL Hematocrit 33.6(L) 34.0 - 46.6 % [facility] ACCOUNT BILL MCV 85 79 - 97 fL [facility] ACCOUNT BILL MCH 27.8 26.6 - 33.0 pg [facility] ACCOUNT BILL MCHC 32.7 31.5 - 35.7 g/dL [facility] ACCOUNT BILL RDW 13.6 12.3 - 15.4 % [facility] ACCOUNT BILL Platelet Count 237 150 - 379 x10E3/uL [facility] ACCOUNT BILL nRBC NOT NEEDED [facility] ACCOUNT BILL Comment: FASTING Ancillary determined the test is not needed Blood BLOOD SPECIMEN / Unknown 01/13/2019 10:53 AM CDT 01/13/2019 Narrative Resulting Agency Comment [facility] [address] ??[facility] [phone] Julissa Mcwilliams DO LAB - HEMATOLOGY ORD NKECHI Performing Organization Address City/[facility]/ZIP Co de Phone Number [facility] ACCOUNT BILL [address] [place] [address] * GLUCOSE CHALLENGE (01/13/2019 10:53 AM CDT) [facility] Signature GTT 1Hr 134 65 - 139 mg/dL [facility] ACCOUNT BILL Comment: According to ADA, a glucose threshold of >139 mg/dL after 50-gram load identifies approximately 80% of women with gestational diabetes mellitus, while the sensitivity is further increased to approximately 90% by a threshold of >129 mg/dL. FASTING Blood BLOOD SPECIMEN / Unknown 01/13/2019 10:53 AM CDT 01/13/2019 Narrative Resulting Agency Comment [facility] [address] ??[facility] [phone] Julissa Mcwilliams DO LAB - CHEMISTRY PEDRO LANG Performing Organization Address City/[facility]/ZIP Co de Phone Number [facility] ACCOUNT BILL [address] [place] [address] * SONOGRAM - LIMITED (12/10/2018 7:13 AM RUBBER COMPOUNDER) Anatomical Region Laterality Modality Other 12/10/2018 7:13 AM RUBBER COMPOUNDER Narrative 12/10/2018 10:58 AM RUBBER COMPOUNDER ?[facility] ?[facility] ? TESTING [facility]ENTER ?FAX: ?? Pat. Name: ?RACHELLE DIA Pat. No: ?[id number] Study Date: ?? 12/10/2018 ??7:13am , Age: ? 1985, 33 Pregnancies: ?? 3, Para 2 Height: ? 67 in Weight: ? 231 lb LMP: ?Unknown GA by Base: ?? 24w6d ?? HELEN: 03/26/2019 GA Selected: ??24w6d (From [facility]) HELEN: ?03/26/2019 Referring MD: Julissa Mcwilliams MD Group Work Program Director: ??Emma Fagan RDMS CPT4: ? 54774 BMI: ?36.18 Hist/Ind: ? Follow up anatomic survey ?Class II obesity Heart Rate: 150 bpm Amniotic Fluid Index: 06.2cm (Deepest Pocket) EVAL, PLACENTA Presentation: breech Placenta: posterior Heart Rate: 150 bpm Amniotic Fluid Volume: normal Anatomy!Normal!Abnormal!Suboptimal!Prev. Seen!Comments Cranium ?! ?! ?! ?! ? x ?! Mdl (CSP/Thal! ?! ?! ?! ? x ?! Ventricles ?? ! ?! ?! ?! ? x ?! Choroid Plexu! ?! ?! ?! ? x ?! Cerebellum ?? ! ?! ?! ?! ? x ?! Cisterna M. ??! ?! ?! ?! ? x ?! Nuchal Fold ??! ?! ?! ?! ? x ?! Profile ?! ?! ?! ?! ? x ?! Nasal Bone ?? ! ?! ?! ?! ? x ?! Lip ?! ?! ?! ?! ? x ?! Spine ?! ?! ?! ?! ? x ?! Lungs ?! ?! ?! ?! ? x ?! 4 Chamber Hea! ?! ?! ?! ? x ?! LVOT ? ! ?! ?! ?! ? x ?! RVOT ? ! ?! ?! ?! ? x ?! 3 Vessel View! ?! ?! ?! ? x ?! Cross-over ?? ! ?! ?! ?! ? x ?! Ductal Arch ??! ?! ?! ?! ? x ?! Aortic Arch ??! ?! ?! ?! ? x ?! Caval View ?? ! ?! ?! ?! ? x ?! Situs ?! ?! ?! ?! ? x ?! Diaphragm ?! ?! ?! ?! ? x ?! Stomach ?! ?! ?! ?! ? x ?! Bowel ?! ?! ?! ?! ? x ?! Kidneys ?! ?! ?! ?! ? x ?! Bladder ?! ?! ?! ?! ? x ?! 3 Vessel Cord! ?! ?! ?! ? x ?! Cord In! ?! ?! ?! ? x ?! Upper Extremi! ?? x ??! ?! ?! ?! Hands ?! ?? x ??! ?! ?! ?! Lower Extreme! ?! ?! ?! ? x ?! Feet ? ! ?! ?! ?! ? x ?! External Cady! ?! ?! ?! ? x ?! CLINICAL SUMMARY Study Number: 4 A single fetus is identified in breech presentation. ??The placenta is posterior. ??The amniotic fluid volume is normal. The amniotic fluid index is N/A cm. IMPRESSION: Single, breech IUP at 24w6d ?? normal amniotic fluid volume Completed anatomy screen RECOMMEND: Follow up ultrasound as clinically indicated. Thanks for allowing us the opportunity to care for your patient. Tejinder Solorio MD <Electronic Signature> ??12/10/2018 10:58am Tejinder Solorio MD [facility] ORDERABLES * FIRST TRI NUCHAL TRANSLUCENCY W:SEQ SCREEN (09/17/2018 7:32 AM RUBBER COMPOUNDER) Anatomical Region Laterality Modality Other 09/17/2018 7:32 AM RUBBER COMPOUNDER Narrative 09/17/2018 4:41 PM RUBBER COMPOUNDER ?[facility] ?[facility] ? TESTING CENTER ?FAX: ?? Pat. Name: ?MINH DIAICA Pat. No: ?[id number] Study Date: ?? 09/17/2018 ??7:32am , Age: ? 1985, 33 Pregnancies: ?? 3, Para 2 Height: ? 67 in Weight: ? 231 lb LMP: ?Unknown GA by US: ? 13w1d ?? HELEN: 03/24/2019 GA Selected: ??12w6d (From Known E) HELEN: ?03/26/2019 Referring MD: Julissa Mcwilliams MD Group Work Program Director: ??Maryam Lara RDMS CPT4: ? 67486,[address] BMI: ?36.18 Hist/Ind: ? Nuchal Translucency ?Maternal obesity MEASUREMENTS & AGE ? GROWTH EVALUATION Measurement ??GA ? Range ? Srce %for GA Ratios ----- ---- ------- CRL ??6.9 cm 13w1d (05p3e-92s2b) Hadl CRL 61% GA for sonogram 13w1d (16b0a-14a3x) based on (CRL) Avg ? Markers for Chromosomal Abnormality: NT ?? 2.0 mm (Normal) Heart Rate: 162 bpm EVAL, PLACENTA Location: intrauterine Gestational Sac: normal Yolk Sac: visualized Embryo: visualized Heart Rate: 162 bpm Anatomy!Seen!Not Seen!Comments Myometrium ?? ! ??x ! ?! Right Ovary ??! ??x ! ?! Left Ovary ?? ! ??x ! ?! Cul de sac ?? ! ??x ! ?! Calvarium ?! ??x ! ?! Midline Falx ! ??x ! ?! 4th Ventricle! ??x ! ?! Ventricles ?? ! ??x ! ?! Choroid Plexu! ??x ! ?! Neck/Dorsum ??! ??x ! ?! Stomach ?! ??x ! ?! Upper Extremi! ??x ! ?! Lower Extremi! ??x ! ?! CLINICAL SUMMARY Study Number 1 A tucker intrauterine with cardiac activity is see. ?? The heart rate is 162 bpm. ??The HELEN selected is confirmed by a prior ultrasound. ??No evidence of free fluid is seen in the pelvis. ?? The right ovary was seen and appears normal. ??The left ovary was seen and appears normal. NUCHAL TRANSLUCENCY: The nuchal translucency is 2.0 mm and blood was obtained for serum screening. IMPRESSION: Tucker, live, IUP at 12w6d Normal NT measurement, sequential screen initiated No major malformations seen at this time RECOMMEND: Patient may return for 2nd blood draw to complete sequential screen at 15-22 weeks. Repeat ultrasound at 20 weeks to evaluate anatomy We anticipate results of first look aneuploidy screening within one week Thank you for allowing us the opportunity to care for your patient. Tejinder Solorio MD <Electronic Signature> ??09/17/2018 04:40pm Julissa Mcwilliams DO MFM ORDERABLES * HIV-1 HIV-2 ANTIGEN/ANTIBODY W RFLX (08/07/2018 4:50 PM CDT) HIV Screen 4th Generation w Reflex Non Reactive Non Reactive [facility] ACCOUNT BILL Blood BLOOD SPECIMEN / Unknown 08/07/2018 4:50 PM CDT 08/07/2018 Narrative Resulting Agency Comment [facility] [address] ??[facility] [phone] Julissa Mcwilliams DO LAB - SEROLOGY ORDER FADY [facility] ACCOUNT BILL [address] [place] [address] * (ABNORMAL) PROFILE I W/ HBSAG (08/07/2018 4:49 PM CDT) Hepatitis B Virus Surface Antigen Negative Negative [facility] ACCOUNT BILL RPR Non Reactive Non Reactive [facility] ACCOUNT BILL Rubella Antibody 2.06 Immune >0.99 index [facility] ACCOUNT BILL Comment: ? Non-immune ? <0.90 ? Equivocal ??0.90 - 0.99 ? Immune ? >0.99 ABO O [facility] ACCOUNT BILL Rh Type Positive [facility] ACCOUNT BILL Comment: Please note: Prior records for this patient's ABO / Rh type are not available for additional verification. Antibody Screen Negative Negative [facility] ACCOUNT BILL WBC 10.6 3.4 - 10.8 x10E3/uL [facility] ACCOUNT BILL RBC 4.42 3.77 - 5.28 x10E6/uL [facility] ACCOUNT BILL Hemoglobin 13.3 11.1 - 15.9 g/dL [facility] ACCOUNT BILL Hematocrit 38.0 34.0 - 46.6 % [facility] ACCOUNT BILL MCV 86 79 - 97 fL [facility] ACCOUNT BILL MCH 30.1 26.6 - 33.0 pg [facility] ACCOUNT BILL MCHC 35.0 31.5 - 35.7 g/dL [facility] ACCOUNT BILL RDW 13.9 12.3 - 15.4 % [facility] ACCOUNT BILL Platelet Count 269 150 - 379 x10E3/uL [facility] ACCOUNT BILL Granulocytes % 68 Not Estab. % [facility] ACCOUNT BILL Lymphocytes % 23 Not Estab. % [facility] Monocytes % 6 Not Estab. % [facility] Eosinophils % 3 Not Estab. % [facility] ACCOUNT BILL Basophils % 0 Not Estab. % [facility] ACCOUNT BILL Immature Cells NOT NEEDED [facility] ACCOUNT BILL Comment:Ancillary determined the test is not needed Granulocytes Absolute 7.1(H) 1.4 - 7.0 x10E3/uL [facility] ACCOUNT BILL Lymphocytes Absolute 2.5 0.7 - 3.1 x10E3/uL [facility] ACCOUNT BILL Monocytes Absolute 0.7 0.1 - 0.9 x10E3/uL [facility] ACCOUNT BILL Eosinophils Absolute 0.3 0.0 - 0.4 x10E3/uL [facility] ACCOUNT BILL Basophils Absolute 0.0 0.0 - 0.2 x10E3/uL [facility] ACCOUNT BILL Immature Granulocytes 0 Not Estab. % [facility] ACCOUNT BILL Immature Granulocytes Absolute 0.0 0.0 - 0.1 x10E3/uL [facility] ACCOUNT BILL nRBC NOT NEEDED [facility] ACCOUNT BILL Comment:Ancillary determined the test is not needed Comment Hematology NOT NEEDED [facility] ACCOUNT BILL Comment:Ancillary determined the test is not needed Blood BLOOD SPECIMEN / Unknown 08/07/2018 4:49 PM CDT 08/07/2018 Narrative Resulting Agency Comment [facility] [address] [place] [address] ??[facility] [phone] Julissa Mcwilliams DO LAB - CHEMISTRY PEDRO LANG [facility] ACCOUNT BILL [address] [place] [address] * HEMOGLOBIN ELECTROPHORESIS (08/07/2018 4:49 PM CDT) Hemoglobin F 0.0 0.0 - 2.0 % [facility] ACCOUNT BILL Hemoglobin A 97.4 96.4 - 98.8 % [facility] ACCOUNT BILL Hemoglobin S 0.0 0.0 % [facility] ACCOUNT BILL Hemoglobin C 0.0 0.0 % [facility] ACCOUNT BILL Hemoglobin A2 2.6 1.8 - 3.2 % [facility] ACCOUNT BILL Hemoglobin Variant NOT NEEDED [facility] ACCOUNT BILL Comment:Ancillary determined the test is not needed Interpretation [facility] ACCOUNT BILL Comment:Normal adult hemoglo bin present. Blood BLOOD SPECIMEN / Unknown 08/07/2018 4:49 PM CDT 08/07/2018 Narrative Resulting Agency Comment [facility] [place] [address] ??[place] [phone] Julissa Mcwilliams DO LAB - CHEMISTRY PEDRO LANG [facility] ACCOUNT ARVIND [address] [place] [address] * CYSTIC FIBROSIS MUTATION PNL (08/07/2018 4:49 PM CDT) Cystic Fibrosis Screen Comment: [facility] ACCOUNT ARVIND Comment: RESULTS: Negative for 32 mutations analyzed INTERPRETATION: This individual is negative for the mutations analyzed. This negative result may need further interpretation depending on the clinical indication. ??This result reduces but does not eliminate the risk to be a CF carrier. COMMENTS: The detection rate varies with ethnicity and is listed below. ??The presence of an undetected mutation in the CF gene cannot be ruled out. ??In the absence of family history, the remaining risk that a person with a negative result could have at least one CF mutation is listed in the table. ??If there is a family history of CF, these risk figures do not apply. ??As detailed information regarding this individual's family history would permit a more accurate assessment of this individual's risk to be a carrier of cystic fibrosis, please contact [facility] [email or web address] at for a revised report. Mutation Detection ??Detection rates are based on mutation Rates among Ethnic ??frequencies in patients affected with Groups ?cystic fibrosis. ??Among individuals ?with an atypical or mild presentation ?(e.g. congenital absence of the vas ?deferens, pancreatitis) detection ? rates may vary from those provided here: ? Carrier risk ?reduction when no ? family history ?Detection Ethnicity ? Rate Ashkenazi ? 11/16 to ?97% Spiritism ? 11/15 to ?90% (non-) -Uruguayan ? to ?69% ? to ?73% ? to ?55% This interpretation is based on the clinical and family relationship information provided and the current understanding of the molecular genetics of this condition. MUTATIONS ANALYZED: G85E ?V520F ?V1962A ? 2183AA to G R117H ? G542X ?L7769T ? 2184delA R334W ? S549N ?394delTT ? 2789+5G to A R347H ? S549R ?621+1G to T ?3120+1G to A R347P ? G551D ?711+1G to T ?3659delC A455E ? R553X ?1078delT ? 3849+10kbC to T DannuH485 ?? R560T ?1717-1G to A ?? 3876delA JwkzeG529 ?? R4755V ?? 1898+1G to A ?? 3905insT METHODS/LIMITATIONS: DNA is isolated from the sample and tested for the 32 CF mutations on the Holmes Array Platform ([employer]). Regions of the CFTR gene are amplified enzymatically and subjected to a solution-phase multiplex allele-specific primer extension with subsequent hybridization to a bead array and fluorescence detection. ??Polymorphisms F508C, I506V and I507V are included in this panel to rule out false positive [id number] homozygotes. ??Reflex testing of 5T is included in the panel for R117H interpretation. False positive or negative results may occur for reasons that include genetic variants, blood transfusions, bone marrow transplantation, erroneous representation of family relationships or contamination of a sample with maternal cells. REFERENCES: 1. Updates on Carrier Screening for Cystic Fibrosis. (2011) ?? Am J Ob Gynecol 117(4):6296-6268 2. Torey et al. (2004) Dea Med 6:387-91 3. Yasmin et al. (2002) Dea Med 4:379-391 4. Preconception and carrier screening for cystic ?? fibrosis: (2001)ACOG.ACMG publication Results Released By: Dustin Mccallum, Ph.D., Explosion Welder Released By: Dustin Mccallum, Ph.D., Director Comment [facility] ACCOUNT BILL Comment: The assay provides information intended to be used for carrier screening in adults of reproductive age, as an aid in screening, and as a confirmatory test for another medically established diagnosis in newborns and children. The test is not indicated for use in diagnostic testing, pre-implantation screening, or for any stand-alone diagnostic purposes without confirmation by another medically established diagnostic product or procedure. Blood BLOOD SPECIMEN / Unknown 08/07/2018 4:49 PM CDT 08/07/2018 Narrative Resulting Agency Comment [facility] [place] [address] [place] [phone] Julissa Mcwilliams DO LAB - HEMATOLOGY ORD ERABLES [facility] ACCOUNT BILL [address] [place] [address] * HEMOGLOBIN A1C (08/07/2018 3:51 PM CDT) Hemoglobin A1c 5.2 4.2 - 6.3 % [facility] ACCOUNT BILL Comment:AVERAGE GLUCOSE MG/D L BLOOD 103 mg/dL Blood BLOOD SPECIMEN / Unknown 08/07/2018 3:51 PM CDT 08/07/2018 Narrative Resulting Agency Comment [facility] [address] ??[place] [phone] Julissa Mcwilliams DO LAB - CHEMISTRY ORDE RICKEY [facility] ACCOUNT BILL [address] [place] [address] * (ABNORMAL) DRUG ABUSE URINE PANEL 7 (08/07/2018 3:35 PM CDT) Amphetamines Screen Urine Negative Cutoff=1 000 ng/mL [facility] ACCOUNT BILL Comment:Amphetamine test inc ludes Amphetamine and Methamphetamine. Barbiturates Screen Urine Negative Cutoff=3 00 ng/mL [facility] ACCOUNT BILL Benzodiazepines Screen Urine Negative Cutoff=3 00 ng/mL [facility] ACCOUNT BILL Cannabinoids Screen Urine See Final Results Cutoff=5 0 ng/mL [facility] ACCOUNT BILL Cannabinoid Positive(A) Cutoff=5 0 [facility] ACCOUNT BILL Carboxy THC GC/MS Confirmation >300 Cutoff=1 5 ng/mL [facility] ACCOUNT BILL Cocaine Screen Urine Negative Cutoff=3 00 ng/mL [facility] ACCOUNT BILL Opiate Screen Urine Negative Cutoff=3 00 ng/mL [facility] ACCOUNT BILL Comment:Opiate test includes Codeine and Morphine only. Phencyclidine Screen Urine Negative Cutoff=2 5 ng/mL [facility] ACCOUNT BILL Urine URINE / Unknown 08/07/2018 3 :35 PM CDT 08/07/2018 Narrative Resulting Agency Comment [facility] [place] [address] ??[place] [phone] Julissa Mcwilliams DO LAB - URINE CHEMISTR Y ORDERABLES [facility] ACCOUNT BILL [address] [place] [address] * PAP IG LB+CT+NG+TV+HPV APTIMA RFLX 16,18/45 (08/07/2018 3:34 PM CDT) Only the most recent of2 resultswithin the time period is included. Diagnosis [facility] ACCOUNT BILL Comment: NEGATIVE FOR INTRAEPITHELIAL LESION AND MALIGNANCY. THIS SPECIMEN WAS RESCREENED PART OF OUR DISK OPERATOR PROGRAM. Specimen Adequacy [facility] ACCOUNT BILL Comment: Satisfactory for evaluation. ??No endocervical component is identified. An endocervical component is not commonly seen in the patient. Clinician Provided ICD10 [facility] ACCOUNT BILL Comment: Z34.81 Z3A.01 Z32.01 Z11.51 Z11.3 Z68.36 Performed by [facility] ACCOUNT BILL Comment:Mercy Simons, [place] (ASCP) QC Reviewed by [facility] ACCOUNT BILL Comment:Jo Melgar Bosch [facility] [place] (ASC) Comment . [facility] ACCOUNT BILL Note [facility] [...] ThinPrep Vial Resulting Agency Comment [facility] [place] [phone] Julissa Mcwilliams DO LAB - PATHOLOGY/CYTO LOGY ORDERABLES [facility] ACCOUNT BILL [address] [place] [address] * (ABNORMAL) HCG URINE QUALITATIVE - POINT OF CARE (AMB) STL (08/07/2018) HCG Qual Urine Positive(A) Negative HCG Urine QC NEG NEGATIVE NEGATIVE - POSITIVE HCG Urine QC POS POSITIVE NEGATIVE - POSITIVE Expiration Date 02/19/2020 Lot # [id number] Urine URINE / Unknown 08/07/2018 Julissa Mcwilliams DO LAB - POINT OF CARE ORDERABLES * PATHOLOGY SPECIMEN (08/08/2017 1:13 PM CDT) Material [facility] ACCOUNT BILL Comment: Material submitted: ?. PART A: CERVICAL BIOPSY PART B: CERVICAL BIOPSY Clinician Provided ICD10 [facility] ACCOUNT BILL Comment: Clinician provided ICD-10: R87.610 R87.810 N91.1 F Diagnosis [facility] ACCOUNT BILL Comment: Diagnosis: Part A: CERVICAL BIOPSY: LOW-GRADE SQUAMOUS INTRAEPITHELIAL LESION (ZACKERY 1). TRANSFORMATION ZONE IDENTIFIED. . Part B: CERVICAL BIOPSY: BENIGN ENDOCERVICAL TISSUE AND MUCUS. . COMMENT: The histologic features of this specimen are consistent with patient's recent pap smear. MXB/08/13/2017 Signed [facility] ACCOUNT BILL Comment: Electronically signed: ? . Kristina Buchanan MD, Pathologist Grossed [facility] ACCOUNT BILL Comment: Gross description: ? . 2 CONTAINERS, FORMALIN-FILLED, LABELED WITH PATIENT IDENTIFICATION. Part A: CERVICAL BIOPSY: 1 FRAGMENT(S) OF WIGGINS MUCOID TISSUE MEASURING 0.4 X 0.3 X 0.1 CM. FILTERED AND SUBMITTED RECEIVED IN CASSETTE(S) A. Part B: CERVICAL BIOPSY: MULTIPLE FRAGMENT(S) OF SOFT MATERIAL, BLOOD, AND MUCUS MEASURING 1.8 X 1.6 X 0.2 CM IN AGGREGATE. FILTERED AND SUBMITTED IN CASSETTE(S) B. /MIL LMS/MIL Pathologist Provided ICD10 [facility] ACCOUNT BILL Comment: Pathologist provided ICD-10: N87.0 CPT [facility] ACCOUNT BILL Comment: CPT ?. 826822, [id number] Pathology/Cytolog y CERVICAL BIOPSY SPECIMEN / Unknown 08/08/2017 1:13 PM CDT 08/09/2017 Narrative Resulting Agency Comment [facility] [address] ??[facility] [phone] Julissa Mcwilliams DO LAB - PATHOLOGY/CYTO LOGY ORDERABLES [facility] ACCOUNT BILL [address] [place] [address] * TSH HI LOW REFLEX FREE T4 (08/08/2017 12:58 PM CDT) Only the most recent of2 resultswithin the time period is included. TSH 1.04 0.358 - 3.740 ulU/mL [facility] ACCOUNT BILL Blood BLOOD SPECIMEN / Unknown 08/08/2017 12:58 PM CDT 08/08/2017 Narrative Resulting Agency Comment [facility] [address] ??[place] [phone] Julissa Posey Tiffanywesly DO LAB - CHEMISTRY ORDE [employer] [facility] ACCOUNT BILL [address] [place] [address] * PROLACTIN (08/08/2017 12:58 PM CDT) Prolactin 15.00 ng/mL [facility] ACCOUNT BILL Comment: Prolactin Reference Interval: ?Female Non: 2.80 - ??29.20 ??ng/mL ? Female : 9.70 - 208.50 ??ng/mL Female Postmenopausal: 1.80 - ??20.39 ??ng/mL ?Male: 2.10 - ??17.70 ??ng/mL Blood BLOOD SPECIMEN / Unknown 08/08/2017 12:58 PM CDT 08/08/2017 Narrative Resulting Agency Comment [facility] [address] ??[place] [phone] Julissa Kalpesh Mcwilliams DO LAB - CHEMISTRY ORDE RABIMANIN [facility] ACCOUNT BILL [address] [place] [address] * ESTRADIOL (08/08/2017 12:58 PM CDT) Estradiol 172.6 pg/mL [facility] ACCOUNT BILL Comment: ? Adult Female: ? Follicular phase ?? 12.5 - ?? 166.0 ? Ovulation phase ?85.8 - ?? 498.0 ? Luteal phase ? 43.8 - ?? 211.0 ? Postmenopausal ? <6.0 - ?54.7 ? 1st trimester ? 215.0 - >4300.0 ? Girls (1-10 years) ?6.0 - ?27.0 Viky ECLIA methodology Blood BLOOD SPECIMEN / Unknown 08/08/2017 12:58 PM CDT 08/08/2017 Narrative Resulting Agency Comment [facility] [address] ??[facility] [phone] Julissa Mcwilliams DO LAB - CHEMISTRY PEDRO LANG [facility] ACCOUNT BILL [address] [place] [address] * HCG BETA BLOOD QUANTITATIVE (08/08/2017 12:58 PM CDT) hCG Value <1 mIU/mL [facility] ACCOUNT BILL Comment: ? hCG Reference Range, mIU/mL: ? Males ? 0-2.0 ? Non Females ? 0-6.0 ? Perimenopausal Females ages 41-55* ?0-7.7 ? Postmenopausal Females age >55* ? 0-14 ? Females, Weeks after Last Menstrual Period ?0.2-1 week ? 5-50 ?1 - 2 weeks ?50-500 ?2 - 3 weeks ?100-5000 ?3 - 4 weeks ?500-10,000 ?4 - 5 weeks ?1000-50,000 ?5 - 6 weeks ?10,000-100,000 ?6 - 8 weeks ?15,000-200,000 ?2 - 3 months ? 10,000-100,000 ?Trophoblastic Disease ?>100,000 *In higher than expected hCG in females > age 40, a serum FSH >20 IU/L makes unlikely. Blood BLOOD SPECIMEN / Unknown 08/08/2017 12:58 PM CDT 08/08/2017 Narrative Resulting Agency Comment [facility] [address] ??[place] [phone] Julissa Mcwilliams DO LAB - CHEMISTRY PEDRO LANG [facility] ACCOUNT BILL [address] [place] [address] * FSH + LH PANEL (08/08/2017 12:58 PM CDT) LH 3.7 mIU/mL [facility] ACCOUNT BILL Comment: ? LH Reference Range Adult Female: ?Normally menstruating: ?Follicular ? 1.9 - 12.5 ??mIU/mL ?Midcycle Peak ?8.7 - 76.3 ??mIU/mL ?Luteal ? 0.5 - 16.9 ??mIU/mL ?<0.1 - ??1.5 ??mIU/mL ?Postmenopausal ?15.9 - 54.0 ??mIU/mL ?Contraceptives ? 0.7 - ??5.6 ??mIU/mL Adult Male: 20 - 70 years : 1.5 - ??9.3 ??mIU/mL ?> 70 years : 3.1 - 34.6 ??mIU/mL Children : ? <0.1 - 6.0 ?? mIU/mL FSH 1.84 mIU/mL [facility] ACCOUNT BILL Comment: ?FSH Reference Range Adult Female: ? Normally menstruating: ? Follicular ?2.5 - 10.2 ??mIU/mL ? Midcycle Peak ? 3.4 - 33.4 ??mIU/mL ? Luteal ?1.5 - ??9.1 ??mIU/mL ?<0.3 ??mIU/mL ? Postmenopausal ?? 23.0 - 116.3 mIU/mL Males 13-70 years: ?1.4 - 18.1 ??mIU/mL Blood BLOOD SPECIMEN / Unknown 08/08/2017 12:58 PM CDT 08/08/2017 Narrative Resulting Agency Comment [facility] [address] [place] [address] ??[facility] [phone] Julissa Mcwilliams DO LAB - CHEMISTRY PEDRO LANG [facility] Organization Address City/State/ZIP Co de Phone Number [facility] ACCOUNT BILL [address] [place] [address] * XR HAND 3+ VW RIGHT (04/19/2017 4:42 PM CDT) Anatomical Region Laterality Modality Wrist / Hand Radiographic Natalia ging 04/19/2017 4:41 PM CDT Impressions 04/19/2017 4:42 PM CDT No acute fracture. Narrative 04/19/2017 4:42 PM CDT Right hand 3 views unilateral INDICATION: Fall right hand pain 3 views of the right hand are provided. There is normal alignment. There is no fracture or dislocation evident. Procedure Note Columba Berger MD - 04/19/2017 Right hand 3 views unilateral INDICATION: Fall right hand pain 3 views of the right hand are provided. There is normal alignment. There is no fracture or dislocation evident. IMPRESSION No acute fracture. Mulu Jamie Viau XRAY TECH-IT SUPPORT SPECIALIST DIAGNOSTIC IMAGIN G ORDERABLES * XR ELBOW 3+ VW RIGHT (04/19/2017 4:42 PM CDT) Anatomical Region Laterality Modality Upper Extremity Radiographic Natalia ging 04/19/2017 4:42 PM CDT Impressions 04/19/2017 4:43 PM CDT No acute fracture. Narrative 04/19/2017 4:43 PM CDT Right elbow 3 views unilateral INDICATION: Fall right elbow pain 3 views of the right elbow are provided. There is normal alignment. There is normal mineralization. No acute fractures are evident. Procedure Note Columba Berger MD - 04/19/2017 Right elbow 3 views unilateral INDICATION: Fall right elbow pain 3 views of the right elbow are provided. There is normal alignment. There is normal mineralization. No acute fractures are evident. IMPRESSION No acute fracture. Mulu Mendez XRAY TECH-IT SUPPORT SPECIALIST DIAGNOSTIC IMAGIN G ORDERABLES * RUBEOLA ANTIBODY IGG (10/26/2015 8:15 AM RUBBER COMPOUNDER) Measles (Rubeola) Antibody IgG 131.0 Immune >29.9 AU/mL 10/28/2015 12:21 PM RUBBER COMPOUNDER [facility] ([facility]) Comment: ? Negative ?<25.0 ? Equivocal 25.0 - 29.9 ? Positive ?>29.9 Presence of antibodies to Rubeola is presumptive evidence of immunity except when acute infection is suspected. Blood specimen (specimen) BLOOD SPECIMEN / Unknown Venipuncture / Unknown 10/26/2015 8:15 AM RUBBER COMPOUNDER 10/26/2015 7:57 PM RUBBER COMPOUNDER Narrative [facility] ([facility]) - 10/28/2015 12:21 PM RUBBER COMPOUNDER Performed at: ??01 - [address] ??[id number] Client Account Representative: Karsten Lake PhD, Phone: ??[phone] Provider Unknown LAB - CHEMISTRY PEDRO LANG Performing Organization Address City/[facility]/ZIP Co de Phone Number [facility] ([facility]) * MUMPS ANTIBODY IGG (10/26/2015 8:15 AM RUBBER COMPOUNDER) Mumps Virus Antibody IgG Index 93.4 Immune >10.9 AU/mL 10/28/2015 12:21 PM RUBBER COMPOUNDER [facility] ([facility]) Comment: ?Negative ? <9.0 ?Equivocal ??9.0 - 10.9 ?Positive ?>10.9 A positive result generally indicates past exposure to Mumps virus or previous vaccination. Blood specimen (specimen) BLOOD SPECIMEN / Unknown Venipuncture / Unknown 10/26/2015 8:15 AM RUBBER COMPOUNDER 10/26/2015 7:57 PM RUBBER COMPOUNDER Narrative [facility] ([facility]) - 10/28/2015 12:21 PM RUBBER COMPOUNDER Performed at: ??[address] - [address] ??[id number] Client Account Representative: Karsten Lake PhD, Phone: ??[phone] Provider Unknown LAB - CHEMISTRY PEDRO LNAG Performing Organization Address [facility]/ZIP Co de Phone Number [facility] ([facility]) * VARICELLA ZOSTER ANTIBODY IGG (10/26/2015 8:15 AM RUBBER COMPOUNDER) Varicella zoster Virus Antibody IgG 2153 Immune >165 index 10/28/2015 12:21 PM RUBBER COMPOUNDER [facility] ([facility]) Comment: ? Negative ?<135 ? Equivocal ?135 - 165 ? Positive ?>165 A positive result generally indicates exposure to the pathogen or administration of specific immunoglobulins, but it is not indication of active infection or stage of disease. Blood specimen (specimen) BLOOD SPECIMEN / Unknown Venipuncture / Unknown 10/26/2015 8:15 AM RUBBER COMPOUNDER 10/26/2015 7:57 PM RUBBER COMPOUNDER Narrative [facility] ([facility]) - 10/28/2015 12:21 PM RUBBER COMPOUNDER Performed at: ??[address] ??[id number] Client Account Representative: Karsten Lake PhD, Phone: ??[phone] Provider Unknown LAB - CHEMISTRY ORDE RICKEY Performing Organization Address [facility] de Phone Number [facility] * RUBELLA ANTIBODY IGG (10/26/2015 8:15 AM RUBBER COMPOUNDER) Rubella Antibody IgG Positive - Immune 10/26/2015 8:36 PM RUBBER COMPOUNDER [facility] Blood BLOOD SPECIMEN / Unknown Venipuncture / Unknown 10/26/2015 8:15 AM RUBBER COMPOUNDER 10/26/2015 7:57 PM RUBBER COMPOUNDER Provider Unknown LAB - SEROLOGY ORDER FADY Performing Organization Address [facility] Co de Phone Number [facility] [address] [place] [address] * HEPATITIS B SURFACE ANTIBODY (10/26/2015 8:15 AM RUBBER COMPOUNDER) HBsAb Non Reactive Non Reactive 10/26/2015 8:23 PM RUBBER COMPOUNDER [facility] Blood BLOOD SPECIMEN / Unknown Venipuncture / Unknown 10/26/2015 8:15 AM RUBBER COMPOUNDER 10/26/2015 7:57 PM RUBBER COMPOUNDER Provider Unknown LAB - CHEMISTRY PEDRO LANG [facility] [address] [place], [place] [id number]
--- OUTSIDE RECORDS SUMMARY | 2024-10-06 22:15 | XMS_ITS | Encounter Summary ---
Author Organization [facility] Address [address] [place] [place] [address] Care Team Providers Care Whipper Name Role Phone Unavailable Primary Care Provider Unavailabl e Reason for Visit * Reason Comments Hospital Follow-up b/p check Encounter Details Date Type Department Care Team (Late st Contact Info) Description 03/25/2019 9:30 AM CDT Office Visit [facility] - GOVERNMENT SALES MANAGER [address] [place] [id number] Marilee Pete APRN-[facility] [address] [address] care and examination (HCC) (Primary Dx) Social History Tobacco Use [...] Sign Reading Time Taken Comments Blood Pressure 130/90 03/25/2019 9:36 AM CDT Pulse - - Temperature - - Respiratory Rate - - Oxygen Saturation - - Inhaled Oxygen Concentration - - Weight 116.8 kg (257 lb 6.4 oz) 03/25/2019 9:36 AM CDT Height 170.2 cm (5' 7 ) 03/25/2019 9:36 AM CDT Body Mass Index 40.31 03/25/2019 9:36 AM CDT documented in this encounter Functional [...] as of this encounter Progress Notes * Marilee Pete APRN-CNP - 03/25/2019 9:41 AM CDT BP check Subjective: Rachelle Dia is a 33 year old female who presents to the office 6 days following Vaginal delivery with mildly elevaed BP . Eating a regular diet without difficulty. Bowel movements and urination are Normal. The patient is not having any pain except knees and at epidural site. No headache, visual changes. Slight pedal edema. . Baby has been to dental professional and is doing well. Denies symptoms of depression. Objective: BP 130/90 Ht 5' 7 Wt 257 lb 6.4 oz BMI 40.31 kg/m2 Body mass index is 40.31 kg/(m^2). General: alert, cooperative, no distress Abdomen: soft without mass, non-tender, with normal bowel sounds, no organomegaly Incision: none Pelvic: examination not indicated Assessment: ICD-10-CM 1. care and examination Z39.2 Plan: Report any increased swelling, headaches. Increase activity slowly and as tolerated. Healthy diets, plenty of fluids. Return at 6 weeks post op . No orders of the defined types were placed in this encounter. documented in this encounter Plan of Treatment Not on file documented as of this encounter Visit Diagnoses Diagnosis care and examination (HCC)- Primary documented in this encounter
--- OUTSIDE RECORDS SUMMARY | 2024-10-06 22:15 | XMS_ITS | Referral Summary ---
Author Organization [facility] Address [address] [place] [address] Care Team Providers Care Chlorine Operator Name Role Phone Unavailable Primary Care Provider Unavailabl e Source Comments [facility],non-owned Affiliates and Associated Physician Practices is amultiple site organization consisting of ambulatory clinics and hospital sitesin [place], [place], [place] and [place]. This disclosure is being madepursuant to the Care Everywhere program and may not contain all information available regarding this patient. Last updated 18.[facility] Allergies Active Allergy Reactions Criticality Noted Date [...] Administration Dates Next Due TDAP (7yrs+) 01/10/2019 Social History Tobacco Use Types Packs/Day Years [...] Mass Index 39.31 04/30/2019 10:58 AM CDT Functional Status Functional Status Response Date of [...] person have difficulty concentrating/remembering/making decisions? No 03/18/2019 Plan of Treatment Not on file Procedures Procedure Name Priority Date/Time Associated Diagnosis [...] venereal disease PAP IG LB+CT+NG+TV+HPV APTIMA RFLX 16,18/45 Routine 08/07/2018 3:34 PM CDT care, subsequent [...] for Disease Control and Prevention (CDC) and Citizen Of The [place] Congress of Obstetricians and Gynecologists (ACOG) guidelines [...] Resulting Agency Comment Lab Testing performed at: [facility] [address] ??[facility] [id number] Julissa Mcwilliams DO LAB - MICROBIOLOGY O RDERAELAINA [facility] ACCOUNT BILL [address] [place] [address] * (ABNORMAL) GTT 3 HR (100G) GESTATIONAL DIAGNOSTIC (01/20/2019 7:16 AM CDT) Pathologist [facility] Glucose Fasting Gest Tolerance 78 65 - [...] CDT 01/20/2019 Narrative Resulting Agency Comment [facility] [address] [facility] ??[facility] [phone] Julissa Mcwilliams DO LAB - CHEMISTRY ORDE RAB Performing Organization Address City/[facility]/ZIP Co de Phone Number [facility] ACCOUNT BILL [address] [place] [address] * HIV-1 HIV-2 ANTIGEN/ANTIBODY W RFLX (08/07/2018 4:50 PM CDT) Pathologist [facility] HIV Screen 4th Generation w Reflex Non Reactive Non Reactive [facility] ACCOUNT BILL Blood BLOOD SPECIMEN / Unknown 08/07/2018 4:50 PM CDT 08/07/2018 Narrative Resulting Agency Comment [facility] [address] ??[place] [id number] Julissa Mcwilliams DO LAB - SEROLOGY ORDER FADY [facility] ACCOUNT BILL [address] [place] [address] * PAP IG LB+CT+NG+TV+HPV APTIMA RFLX 16,18/45 (08/07/2018 3:34 PM CDT) Diagnosis [facility] ACCOUNT BILL Comment: NEGATIVE FOR INTRAEPITHELIAL LESION AND MALIGNANCY. THIS SPECIMEN WAS RESCREENED PART OF OUR TRAFFIC ANALYSIS TECHNICIAN PROGRAM. Specimen Adequacy [facility] ACCOUNT BILL Comment: Satisfactory for evaluation. ??No endocervical component is identified. An endocervical component is not commonly seen in the patient. Clinician Provided ICD10 [facility] ACCOUNT BILL Comment: Z34.81 Z3A.01 Z32.01 Z11.51 Z11.3 Z68.36 Performed by [facility] ACCOUNT BILL Comment:Mercy Simons, Showroom Salesperson (ASC) QC Reviewed by [facility] ACCOUNT BILL Comment:Danitza [facility] Showroom Salesperson ([facility]) Comment . [facility] ACCOUNT BILL Note [facility] [...] containers..01 ThinPrep Vial Resulting Agency Comment [facility] [address] ??[place] [phone] Julissa Mcwilliams DO LAB - PATHOLOGY/CYTO LOGY ORDERABLES [facility] ACCOUNT BILL [address] [place] [address] from Last 3 Months or Most Recently Relevant to Health Maintenance Advance Directives * Full Code (Latest Code Status on File) Date Activated Date Inactivated Comments 03/18/2019 11:54 PM 03/22/2019 12:05 PM * Full Code Date Activated Date Inactivated Comments 02/26/2019 12:58 PM 02/26/2019 3:41 PM
--- OUTSIDE RECORDS SUMMARY | 2024-10-06 22:16 | XMS_ITS | Encounter Summary ---
Author Organization [facility] Address [address] [facility] [place] [address] Care Team Providers Care Brazing Machine Operator Helper Name Role Phone Unavailable Primary Care Provider Unavailabl e Reason for Visit * Reason Comments Routine Visit Encounter Details Date Type Department Care Team (Late st Contact Info) Description 02/28/2019 10:40 AM CDT visit [facility] - DIRECTOR ON AIR [id number] [place] [address] [place] [address] [place]us[place] [id number] [place] [address] [place] [id number] GA: 36w2d Social History Tobacco Use Types Packs/Day Years Used Date Smoking Tobacco: Former Cigarettes Q uit: 08/07/2018 Smokeless Tobacco: Never Alcohol Use Standard Drinks/Week Comments Yes 0 (1 standard drink = 0.6 oz pur e alcohol) Comments Yes Sex and Gender Information Value Date Recorded Sex Assigned at Not on file Gender Identity Not on file Sexual Orientation Not on file documented as of this encounter Last Filed Vital Signs Vital Sign Reading Time Taken Comments Blood Pressure 120/78 02/28/2019 11:30 AM CDT Pulse - - Temperature - - Respiratory Rate - - Oxygen Saturation - - Inhaled Oxygen Concentration - - Weight 121.1 kg (267 lb) 02/28/2019 11:30 AM CDT Height 170.2 cm (5' 7 ) 02/28/2019 11:30 AM CDT Body Mass Index 41.82 02/28/2019 11:30 AM CDT documented in this encounter Patient Instructions * Patient Instructions* Eusebio Powell MD - 02/28/2019 12:17 PM CDT Return to office in 1 week for your next visit. documented in this encounter Progress Notes * Eusebio Powell MD - 02/28/2019 11:56 AM CDT S: Patient has no obstetric complaints or issues. motion has been good. No spotting. Contractions: None. No abnormal vaginal discharge or leaking fluid. Last ultrasound on 02/14 had LGA fetus in96%tile (AC 99%tile). Has weekly monitoring with MFM. O: Obstetric exam is normal. See flowchart. SVE cl//-3 A/P: 1. IUP at 36.2wks 2. status reassuring 3. kick counts were reviewed, to be performed BID. PIH and PTL precautions reviewed. 4. Patient to present to L&D if water breaks, bleeding or decreased movement. 5. LGA fetus- f/b MFM and has growth scan in 1-2 weeks (fetus in 96%tile). 6. Rachelle to RTO in 1 week. Patient had GBS in urine on urine culture in 08/2018, for which she was treated. Will need GBS prophylaxis in labor. Eusebio Powell MD documented in this encounter Plan of Treatment Not on file documented as of this encounter Visit Diagnoses Diagnosis care, subsequent , third trimester (HCC)- Primary 36 weeks gestation of (HCC) state, incidental documented in this encounter
--- OUTSIDE RECORDS SUMMARY | 2024-10-06 22:16 | XMS_ITS | Encounter Summary ---
Author Organization [facility] Address [address] [facility] [place] [address] Care Team Providers Care Donor Recruiter Name Role Phone Unavailable Primary Care Provider Unavailabl e Encounter Details Date Type Department Care Team (Late st Contact Info) Description 02/17/2019 Orders Only [facility] - NEEDLE LOOM OPERATOR HELPER [address] [facility] [address] [place] [address] [place] [address] [facility] [address] [place] [address] Excessive growth affecting management of in third trimester, single or unspecified fetus (HCC) Social History Tobacco Use Types Packs/Day Years [...] on file documented as of this encounter Plan of Treatment Scheduled Orders Name Type Priority Associated Diagnoses Orde r Schedule BIOPHYSICAL PROFILE WO NST MATRNL MED Routine Excessive growth affecting management of in third trimester, single or unspecified fetus (HCC) Once weekly for 4 Occurrences starting 02/17/2019 until 02/18/2020, 1 completed documented as of this encounter Results * BIOPHYSICAL PROFILE WO NST (02/28/2019 9:53 AM CDT) Anatomical Region Laterality Modality Other 02/28/2019 9:53 AM CDT Narrative 02/28/2019 10:29 AM CDT ?[facility] ?[facility] ? TESTING CENTER ?FAX: ?? Pat. Name: ?RACHELLE DIA Pat. No: ?[id number] Study Date: ?? 02/28/2019 ??9:53am , Age: ? 1985, 33 Pregnancies: ?? 3, Para 2002 Height: ? 67 in Weight: ? 231 lb LMP: ?Unknown GA by Base: ?? 36w2d ?? HELEN: 03/26/2019 GA Selected: ??36w2d (From Baselfl) HELEN: ?03/26/2019 Referring MD: Julissa Mcwilliams MD Supervisor Litharge: ??Maryam Lara, [place], [facility] CPT4: ? 73941,[id number] BMI: ?36.18 Hist/Ind: ? LGA ?Class II [...] MD <Electronic Signature> ??02/28/2019 10:29am Julissa Mcwilliams DO M ORDERABLES documented in this encounter Visit Diagnoses Diagnosis Excessive growth affecting management of in third trimester, single or unspecified fetus (HCC)- Primary Excessive growth affecting management of in third trimester, single or unspecified fetus (HCC) BMI 40.0-44.9, adult (HCC) Body Mass Index 40.0-44.9, adult Encounter for supervision of other normal in third trimester (HCC) Obesity affecting in third trimester (HCC) Obesity complicating in third trimester (HCC) Obesity complicating , childbirth, or the puerperium, antepartum condition or complication Obesity, unspecified classification, unspecified obesity type, unspecified whether serious comorbidity present 36 weeks gestation of (HCC) state, incidental documented in this encounter
--- OUTSIDE RECORDS SUMMARY | 2024-10-06 22:16 | XMS_ITS | Encounter Summary ---
Author Organization [facility] Address [address] [place] [address] Care Team Providers Care Sausage Machine Operator Name Role Phone Unavailable Primary Care Provider Unavailabl e Encounter Details Date Type Department Care Team (Late st Contact Info) Description 09/19/2018 Orders Only [facility] - PROFESSOR OF EARLY CHILDHOOD EDUCATION [address] [facility] [address] [place] [address] [place] [address] [facility] [address] [place] [address] Group b Streptococcus urinary tract infection affecting , antepartum, first trimester (HCC) Social History Tobacco Use Types Packs/Day Years Used Date Smoking Tobacco: Every Day Cigarettes Smokeless Tobacco: Never Alcohol Use Standard Drinks/Week Comments Yes 0 (1 standard drink = 0.6 oz pur e alcohol) Comments Yes Sex and Gender Information Value Date Recorded Sex Assigned at Not on file Gender Identity Not on file Sexual Orientation Not on file documented as of this encounter Plan of Treatment Not on file documented as of this encounter Visit Diagnoses Diagnosis Group b Streptococcus urinary tract infection affecting , antepartum, first trimester (HCC)- Primary documented in this encounter
--- OUTSIDE RECORDS SUMMARY | 2024-10-06 22:16 | XMS_ITS | Encounter Summary ---
Author Organization [facility] Address [address] [place] [address] Care Team Providers Care Clerk Guide Name Role Phone Unavailable Primary Care Provider Unavailabl e Reason for Visit * Reason Onset Date Comments Pain 02/26/2019 Encounter Details Date Type Department Care Team (Late st Contact Info) Description 02/26/2019 Telephone [facility] - COMPOSITION MIXER [address] [facility] [address] [place] [address] [place] [address] [facility] [address] [place] [address] Pain Social History Tobacco Use Types Packs/Day Years [...] on file documented as of this encounter Miscellaneous Notes * Telephone Encounter - Marina Chiu RN - 02/26/2019 12:11 PM CDT Pt reports having cramping like contractions.She states she has been drinking adequate amounts of fluids. She states she is having some drainage. Advised pt to go to OB Triage at [facility] for evaluation. Pt given directions. documented in this encounter Plan of Treatment Not on file documented as of this encounter Visit Diagnoses Not on filedocumented in this encounter
--- OUTSIDE RECORDS SUMMARY | 2024-10-06 22:16 | XMS_ITS | Encounter Summary ---
Author Organization [facility] Address [address] [place] [address] Care Team Providers Care Assembler Liquid Center Name Role Phone Unavailable Primary Care Provider Unavailabl e Encounter Details Date Type Department Care Team (Latest Contact Info) Description 11/07/2018 10:05 AM PAPER PROCESSING MACHINE HELPER - 11/07/2018 10:09 AM [facility] Hospital Encounter Maternal & Care at [facility] [address] [facility] , [address] [place] [address] Tejinder Solorio MD [address] [facility] [address] [place] [address] Discharge Disposition: Home or Self Care Social History Tobacco Use Types Packs/Day Years Used Date Smoking Tobacco: Every Day Cigarettes Smokeless Tobacco: Never Alcohol Use Standard Drinks/Week Comments Yes 0 (1 standard drink = 0.6 oz pur e alcohol) Comments Yes Sex and Gender Information Value Date Recorded Sex Assigned at Not on file Gender Identity Not on file Sexual Orientation Not on file documented as of this encounter Medications at Time of Discharge Medication Sig Dispensed Refills Start Date End Date Vit-Fe Fumarate-FA ( VITAMIN) 27-0.8 MG tablet Take 1 tablet by mouth once daily documented as of this encounter Plan of Treatment Not on file documented as of this encounter Visit Diagnoses Not on filedocumented in this encounter
--- OUTSIDE RECORDS SUMMARY | 2024-10-06 22:16 | XMS_ITS | Encounter Summary ---
Author Organization [facility] Address [address] [facility] [place] [address] Care Team Providers Care Master Welder Name Role Phone Unavailable Primary Care Provider Unavailabl e Encounter Details Date Type Department Care Team (Latest Contact Info) Description 02/14/2019 11:04 AM CDT - 02/14/2019 11:59 PM CDT Hospital Encounter Maternal & Care at [facility] [address] [facility] , [address] [place] [address] Flo Beltran MD Discharge Disposition: Home or Self Care Social [...] on file documented as of this encounter Procedures Procedure Name Priority Date/Time Associated Diagnosis Comments SONOGRAM - COMPLETE Routine 02/14/2019 1 1:31 AM CDT Excessive growth affecting management of in third trimester, single or unspecified fetus (HCC) documented in this encounter Results * SONOGRAM - COMPLETE (02/14/2019 11:31 AM CDT) Anatomical Region Laterality Modality Other 02/14/2019 11:3 1 AM CDT Narrative 02/14/2019 1:31 PM CDT ?[facility] ?[facility] DIVISION OF MATERNAL MEDICINE ? TESTING CENTER ?FAX: ?? Pat. Name: ?RACHELLE DIA Pat. No: ?[id number] Study Date: ?? 02/14/2019 ??11:31am , Age: ? 1985, 33 Pregnancies: ?? 3, Para 2002 Height: ? 67 in Weight: ? 231 lb LMP: ?Unknown GA by Base: ?? 34w2d ?? HELEN: 03/26/2019 GA by US: ? 36w1d ?? HELEN: 03/13/2019 GA Selected: ??34w2d (From [facility]) HELEN: ?03/26/2019 Referring MD: Julissa Mcwilliams MD Printer Technician: ??Maryam Lara, MONICA, RDLUNA CPT4: ? 40493 BMI: ?36.18 Hist/Ind: ? LGA ?Class II obesity ?Completed Anatomy MEASUREMENTS & AGE ? GROWTH EVALUATION Measurement ??GA ? Range ? Srce %for GA Ratios ----- ---- ------- BPD ??8.6 cm 34w4d (76t2u-15z6t) Hadl BPD 56% FL/BPD 0.83 (0.71 - 0.87) HC ??32.1 cm 36w2d (80w5y-65u8k) Hadl HC ??65% FL/AC ??0.21 (0.20 - 0.24) AC ??33.5 cm 37w3d (48x0e-97b0r) Hadl AC ??>99 HC/AC ??0.96 (0.94 - 1.13) FL ?? 7.1 cm 36w3d (05h1w-97d2l) Hadl FL ??89% CI ? 0.74 (0.70 - 0.86) HL ?? 6.7 cm 39w1d (57b0f-44y8b) Chente HL ??>95 GA for sonogram 36w1d (85y0v-43v9l) ?? Weight Estimate: based on (BPD,HC,AC,FL) Avg [...] Beltran MD <Electronic Signature> ??02/14/2019 01:31pm Julissa Mcwilliams DO MFM ORDERABLES documented in this encounter Visit Diagnoses Diagnosis Excessive growth affecting management of in third trimester, single or unspecified fetus (HCC) screening for growth retardation using ultrasonics (HCC) screening for growth retardation using ultrasonics Obesity affecting in third trimester (HCC) Screening, , for malformation by ultrasound ([facility]) Encounter for routine screening for malformation using ultrasonics 34 weeks gestation of ([facility]) state, incidental documented in this encounter
--- OUTSIDE RECORDS SUMMARY | 2024-10-06 22:16 | XMS_ITS | Encounter Summary ---
Author Organization [facility] Address [address] [facility] [place] [address] Care Team Providers Care Coating Manager Name Role Phone Unavailable Primary Care Provider Unavailabl e Encounter Details Date Type Department Care Team (Late st Contact Info) Description 10/26/2015 Lab Requisition [facility] [address] [place] [address] Unknown, Provider Social History Tobacco Use Types Packs/Day Years Used Date Smoking Tobacco: Never Assessed Sex and Gender Information Value Date Recorded Sex Assigned at Not on file Gender Identity Not on file Sexual Orientation Not on file documented as of this encounter Plan of Treatment Not on file documented as of this encounter Visit Diagnoses Not on filedocumented in this encounter
--- OUTSIDE RECORDS SUMMARY | 2024-10-06 22:16 | XMS_ITS | Encounter Summary ---
Author Organization [facility] Address [address] [place] [address] Care Team Providers Care Rn Neonatal Icu Name Role Phone Unavailable Primary Care Provider Unavailabl e Encounter Details Date Type Department Care Team (Latest Contact Info) Description 02/28/2019 9:30 AM CDT - 02/28/2019 11:59 PM CDT Hospital Encounter Maternal & Care at [facility] [address] [facility] , [address] [place] [address] Flo Beltran MD Discharge Disposition: [...] Sig Dispensed Refills Start Date End Date ferrous gluconate 324 (38 Fe) MG tabletIndications:Iron Deficiency Anemia Take 324 mg by mouth daily with breakfast Reasons: Anemia From Inadequate Iron in the Body Vit-Fe Fumarate-FA ( VITAMIN) 27-0.8 MG tablet Take 1 tablet by mouth once daily documented as of this encounter Plan of Treatment Not on file documented as of this encounter Procedures Procedure Name Priority Date/Time Associated Diagnosis Comments BIOPHYSICAL PROFILE WO NST Routine 02/28/2019 9:53 AM CDT Excessive growth affecting management of in third trimester, single or unspecified fetus (HCC) documented in this encounter Results * BIOPHYSICAL PROFILE WO NST (02/28/2019 9:53 AM CDT) Anatomical Region Laterality Modality Other 02/28/2019 9:53 AM CDT Narrative 02/28/2019 10:29 AM CDT ?[facility] ?[facility] DIVISION OF MATERNAL MEDICINE ? TESTING CENTER ?FAX: ?? Pat. Name: ?RACHELLE DIA Pat. No: ?[id number] Study Date: ?? 02/28/2019 ??9:53am , Age: ? 1985, 33 Pregnancies: ?? 3, Para 2002 Height: ? 67 in Weight: ? 231 lb LMP: ?Unknown GA by Base: ?? 36w2d ?? HELEN: 03/26/2019 GA Selected: ??36w2d (From [facility]) HELEN: ?03/26/2019 Referring MD: Julissa Mcwilliams MD 4 H Youth Development Specialist: ??Maryam Lara RDMS, JESS CPT4: ? 27346,35865 BMI: ?36.18 Hist/Ind: ? LGA ?Class II [...] <Electronic Signature> ??02/28/2019 10:29am Julissa Mcwilliams DO Diana ORDERABLES documented in this encounter Visit Diagnoses Diagnosis Excessive growth affecting management of in third trimester, single or unspecified fetus (HCC) BMI 40.0-44.9, adult ([facility]) Body Mass Index 40.0-44.9, adult Encounter for [...]
--- OUTSIDE RECORDS SUMMARY | 2024-10-06 22:16 | XMS_ITS | Encounter Summary ---
Author Organization [facility] Address [address] [place] [address] Care Team Providers Care Debt Management Counselor Name Role Phone Unavailable Primary Care Provider Unavailabl e Reason for Visit * Reason Onset Date Comments Appointment 01/21/2019 Encounter Details Date Type Department Care Team (Late st Contact Info) Description 01/21/2019 Telephone [facility] Group - COLLISION WORKER [address] [facility] [address] [place] [address] [place] [address] [facility] [address] [place] [address] Appointment Social History Tobacco Use Types Packs/Day Years [...] encounter Miscellaneous Notes * Telephone Encounter - Mela Calvillo RN - 01/21/2019 10:27 AM CDT Patient notified of date/time/location of appointment in [facility]. * Telephone Encounter - Mela Calvillo RN - 01/21/2019 10:27 AM CDT ----- Message from Loni Forte sent at 01/21/2019 9:04 AM CDT ----- Regarding: RE: Growth in 4 weeks Sunday, 02/14, 8:45; arrival time 8:30. Please notify patient. Thank you. ----- Message ----- From: Mela Calvillo RN Sent: 01/20/2019 3:40 PM To: [facility] Med Pool Subject: Growth in 4 weeks Order Placed?:Yes New Patient or F/U:Follow up Insurance:[employer] Referring OB:Oj HELEN: 03/26/2019 Diabetic: YES or NO: Type 1 or GDM: No Multiple Fetuses: No Procedure:Growth Indication/s for procedure:LGA Clinical Sales Consultant needed? No Language: MFM Co-Management ( state on order)::No Additional studies as recommended ( state on order):[YES /NO:[id number]) Additional Comments: documented in this encounter Plan of Treatment Not on file documented as of this encounter Visit Diagnoses Not on filedocumented in this encounter
--- OUTSIDE RECORDS SUMMARY | 2024-10-06 22:16 | XMS_ITS | Encounter Summary ---
Author Organization [facility] Address [address] [place] [address] Care Team Providers Care Ship Scaler Name Role Phone Unavailable Primary Care Provider Unavailabl e Encounter Details Date Type Department Care Team (Late st Contact Info) Description 02/21/2019 Orders Only [facility] - PROOF READER [address] [facility] [address] [place] [address] [place] [address] [facility] [place] [address] Excessive growth affecting management of [...] as of this encounter Visit Diagnoses Diagnosis Excessive growth affecting management of in third trimester, single or unspecified fetus (HCC) documented in this encounter
--- OUTSIDE RECORDS SUMMARY | 2024-10-06 22:16 | XMS_ITS | Encounter Summary ---
Author Organization [facility] Address [address] [place] [address] Care Team Providers Care Record Changer Tester Name Role Phone Unavailable Primary Care Provider Unavailabl e Reason for Referral * Evaluate - Closed Specialty Diagnoses / Procedures Referred By Eileen potter Referred To Contact Nutrition Services Diagnoses Excessive weight gain during in first trimester (HCC[place] [address] [facility] [employer] [address] [place] [id number] Referral ID Status Reason Start Date Expiration Date V isits Requested Visits Authorized [id number] Closed Specialty Services Required 09/16/2018 03/15/2019 4 4 DDLE BUG DRIVER Reason for Visit * Reason Comments Routine Visit Encounter Details Date Type Department Care Team (Late st Contact Info) Description 09/16/2018 3:20 PM STRADDLE BUG DRIVER visit [facility] - CONSTRUCTION COST ESTIMATOR [address] [facility] [address] [place] [address] [place] [address] [address] [address] [place] [address] GA: 12w5d Social History Tobacco Use Types Packs/Day Years [...] Sign Reading Time Taken Comments Blood Pressure 126/80 09/16/2018 3:34 PM STRADDLE BUG DRIVER Pulse - - Temperature - - Respiratory Rate - - Oxygen Saturation - - Inhaled Oxygen Concentration - - Weight 109.3 kg (241 lb) 09/16/2018 3:34 PM STRADDLE BUG DRIVER Height 170.2 cm (5' 7 ) 09/16/2018 3:34 PM STRADDLE BUG DRIVER Body Mass Index 37.75 09/16/2018 3:34 PM STRADDLE BUG DRIVER documented in this encounter Progress Notes * Julissa Mcwilliams DO - 09/16/2018 9:50 PM CST 12w5d Patient has no obstetric complaints or issues. motion has not been detected. No spotting. Contractions: None. No LOF. Obstetric exam is normal. Rachelle to RTO in 4 weeks. Has NT scheduled for tomorrow. Patient to present for evaluation if water breaks or bleeding. Weight gain of 10 pounds in 3 weeks, excessive. Patient reports 100 pound weight gain in previous pregnancies. Plan nutrition consult now. DDLE BUG DRIVER * Gricelda Ramírez LPN - 09/16/2018 3:38 PM CST 1+ blood DDLE BUG DRIVER documented in this encounter Plan of Treatment Scheduled Referrals Name Type Priority Associated Diagnoses Order Schedule AMB REFERRAL TO MED NUTRITION THERAPY Outpatient Referral Routine Excessive weight gain during in first trimester (HCC) 1 Occurrences starting 09/16/2018 until 09/16/2019 documented as of this encounter Procedures Procedure Name Priority Date/Time Associated Diagnosis Comments CULTURE URINE Routine 09/16/2018 3:39 PM STRADDLE BUG DRIVER care, subsequent , first trimester (HCC) 12 weeks gestation of (HCC) Hematuria, unspecified type documented in this encounter Results * (ABNORMAL) CULTURE URINE (09/16/2018 3:39 PM STRADDLE BUG DRIVER) Urine Culture Routine Final report(A) [facility] ACCOUNT BILL Result 1 (A) [facility] ACCOUNT BILL Comment: Beta hemolytic Streptococcus, group B 10,000-25,000 colony forming units per mL Penicillin and ampicillin are drugs of choice for treatment of beta-hemolytic streptococcal infections. Susceptibility testing of penicillins and other beta-lactam agents approved by the FDA for treatment of beta-hemolytic streptococcal infections need not be performed routinely because nonsusceptible isolates are extremely rare in any beta-hemolytic streptococcus and have not been reported for Streptococcus pyogenes (group A). (CLSI 2011) Result 2 [facility] ACCOUNT BILL Comment: Mixed urogenital sirena 25,000-50,000 colony forming units per mL Urine URINE SPECIMEN OBTAINED BY CLEAN CATCH PROCEDURE / Unknown 09/16/2018 3:39 PM STRADDLE BUG DRIVER 09/16/2018 Narrative Resulting Agency Comment [facility] [address] [facility] ??[facility] [id number] Julisas Mcwilliams DO LAB - MICROBIOLOGY O RDERABLES [facility] ACCOUNT BILL [address] [place] [address] documented in this encounter Visit Diagnoses Diagnosis care, subsequent , first trimester (HCC)- Primary 12 weeks gestation of (HCC) state, incidental Hematuria, unspecified type Excessive weight gain during in first trimester (HCC) documented in this encounter
--- OUTSIDE RECORDS SUMMARY | 2024-10-06 22:16 | XMS_ITS | Encounter Summary ---
Author Organization [facility] Address [address] [facility] [address] Care Team Providers Care Sheltered Workshop Worker Name Role Phone Unavailable Primary Care Provider Unavailabl e Reason for Visit * Reason Comments Ultrasound Encounter Details Date Type Department Care Team (Latest Contact Info) Description 12/10/2018 7:00 AM EXCELLENCE CONSULTANT - 12/10/2018 11:59 PM EXCELLENCE CONSULTANT Hospital Encounter Maternal & Care at [facility] [address] [facility] , [address] [place] [address] Tejinder Solorio MD [address] [facility] [address] [place], [place] [id number] Discharge Disposition: Home or Self Care Social [...] once daily documented as of this encounter Progress Notes * Emma Fagan, LUXMS - 12/10/2018 11:59 PM CST Immediately following patients departure from the [facility] dept on 12/06 it was brought to my attention that I had accidentally scanned the incorrect arm on the ultrasound. I immediately called the patient in attempt to have her return for correct imaging to complete her exam. Mrs. Dia was not able to return at that time so she was set up to return to the department on the next business day that I was in the office. Since the return visit was an error on my part I have asked that she not bebilled for the Limited ultrasound on 12/10. LLENCE CONSULTANT documented in this encounter Plan of Treatment Not on file documented as of this encounter Procedures Procedure Name Priority Date/Time Associated Diagnosis Comments SONOGRAM - LIMITED Routine 12/10/2018 7: 13 AM EXCELLENCE CONSULTANT Screening, , for malformation by ultrasound (HCC) documented in this encounter Results * SONOGRAM - LIMITED (12/10/2018 7:13 AM EXCELLENCE CONSULTANT) Anatomical Region Laterality Modality Other 12/10/2018 7:13 AM EXCELLENCE CONSULTANT Narrative 12/10/2018 10:58 AM EXCELLENCE CONSULTANT ?[facility] ?[facility] DIVISION OF MATERNAL MEDICINE ? TESTING CENTER ?FAX: ?? Pat. Name: ?RACHELLE DIA Pat. No: ?[id number] Study Date: ?? 12/10/2018 ??7:13am , Age: ? 1985, 33 Pregnancies: ?? 3, Para 2 Height: ? 67 in Weight: ? 231 lb LMP: ?Unknown GA by Base: ?? 24w6d ?? HELEN: 03/26/2019 GA Selected: ??24w6d (From [facility]) HELEN: ?03/26/2019 Referring MD: Julissa Mcwilliams MD Readiness Paraprofessional: ??Emma Payalkelin, [facility] CPT4: ? [address]242 BMI: ?36.18 Hist/Ind: ? Follow up anatomic [...] <Electronic Signature> ??12/10/2018 10:58am Tejinder Solorio MD [facility] ORDERABLES documented in this encounter Visit Diagnoses Diagnosis Screening, , for malformation by ultrasound (HCC)- Primary Encounter for routine screening for malformation using ultrasonics Encounter for other screening follow-up (HCC) 24 weeks gestation of (HCC) state, incidental documented in this encounter
--- OUTSIDE RECORDS SUMMARY | 2024-10-06 22:16 | XMS_ITS | Encounter Summary ---
Author Organization [facility] Address [address] [place] [address] Care Team Providers Care Actimize Architect Name Role Phone Unavailable Primary Care Provider Unavailabl e Reason for Visit * Reason Onset Date Comments Letter for School or Work 09/17/2018 Encounter Details Date Type Department Care Team (Late st Contact Info) Description 09/17/2018 Telephone [facility] - ENTRY LEVEL MARKETING REPRESENTATIVE [address] [facility] [address] [place] [address] [place] [address] [facility] [address] [place] [address] Letter for School or Work Social History Tobacco Use Types Packs/Day Years [...] Telephone Encounter - Marina Chiu RN - 09/18/2018 8:31 AM CST Letter at front end mechanic. Pt will pick it up today. L ENGINEER'S AIDE * Telephone Encounter - Julissa Mcwilliams DO - 09/17/2018 6:29 PM CST Letter written. Please send to her work. Julissa Mcwilliams DO L ENGINEER'S AIDE * Telephone Encounter - Sarahi Melgar - 09/17/2018 9:45 AM CST Who is calling? self What is the reason for call? Dr. Mcwilliams told patient not to lift more than 20 lbs and not to push more than 50 lbs at her appointment yesterday. The patient's boss needs that in writing. Expected Response from the Clinic? The patient is requesting a call when the letter is ready to be picked up. 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
--- OUTSIDE RECORDS SUMMARY | 2024-10-06 22:16 | XMS_ITS | Encounter Summary ---
Author Organization [facility] Address [address] [facility] [place] [address] Care Team Providers Care Securities Analyst Name Role Phone Unavailable Primary Care Provider Unavailabl e Reason for Visit * Reason Onset Date Comments Encounter Opened In Error 07/06/2017 Encounter Details Date Type Department Care Team (Late st Contact Info) Description 07/06/2017 Telephone [facility] - GRAINING OPERATOR [address] [facility] [address] [place] [address] Stacey Rolbero, TOOL GRINDING TECHNICIAN-HYDRO GENERATION SUPERVISOR [address] [facility] [address] [place] [address] Encounter Opened In Error Social History Tobacco Use Types Packs/Day Years [...]
--- OUTSIDE RECORDS SUMMARY | 2024-10-06 22:16 | XMS_ITS | Encounter Summary ---
Author Organization [facility] Address [address] [facility] [place] [address] Care Team Providers Care Hospital Account Liaison Name Role Phone Unavailable Primary Care Provider Unavailabl e Reason for Visit * Reason Comments Routine Visit Encounter Details Date Type Department Care Team (Late st Contact Info) Description 03/05/2019 1:00 PM CDT visit [facility] - VIDEO PRODUCTION INTERN [address] [facility] [address] [place] [address] [place] [address] [facility] [address] [place] [address] GA: 37w0d Social History Tobacco Use Types Packs/Day Years [...] Sign Reading Time Taken Comments Blood Pressure 126/74 03/05/2019 1:05 PM CDT Pulse - - Temperature - - Respiratory Rate - - Oxygen Saturation - - Inhaled Oxygen Concentration - - Weight 122 kg (269 lb) 03/05/2019 1:05 PM CDT Height 170.2 cm (5' 7 ) 03/05/2019 1:05 PM CDT Body Mass Index 42.13 03/05/2019 1:05 PM CDT documented in this encounter Progress Notes * Julissa Mcwilliams DO - 03/05/2019 1:16 PM CDT 37w0d Patient has no obstetric complaints or issues. motion has been good. No spotting. Contractions: None. No LOF. Obstetric exam is normal. See obstetrical flow sheet above. Rachelle to RTO in 1 weeks. Has 8/ BPP yesterday. Growth scheduled for last week. kick counts recommended twice a day (4 kicks per hour). Patient to present to L&D if water breaks, bleeding or decreased movement. documented in this encounter Plan of Treatment Not on file documented as of this encounter Visit Diagnoses Diagnosis care, subsequent , third trimester (HCC)- Primary 37 weeks gestation of (HCC) state, incidental documented in this encounter
--- OUTSIDE RECORDS SUMMARY | 2024-10-06 22:16 | XMS_ITS | Encounter Summary ---
Author Organization [facility] Address [address] [place] [address] Care Team Providers Care Location And Measurement Technician Name Role Phone Unavailable Primary Care Provider Unavailabl e Reason for Visit * Reason Onset Date Comments Appointment 01/14/2019 Encounter Details Date Type Department Care Team (Late st Contact Info) Description 01/14/2019 Telephone [facility] Group - DIPLOMATIC INTERPRETER [address] [facility] [address] [place] [id number] [place] [address] [facility] [address] [place] [address] Appointment Social History Tobacco Use [...] Telephone Encounter - Mela Calvillo RN - 01/14/2019 4:03 PM CDT Patient notified of date/time/location of appointment in [facility]. * Telephone Encounter - Mela Calvillo RN - 01/14/2019 4:02 PM CDT ----- Message from Saba Chapin sent at 01/13/2019 2:55 PM CDT ----- Regarding: RE: Growth Growth US - 01/17/19 - 7:15; arrival time 7:05. Please notify the patient. Thanks! ----- Message ----- From: Mela Calvillo RN Sent: 01/10/2019 1:14 PM To: [facility] Med Pool Subject: Growth Order Placed?:Yes New Patient or F/U:Follow up Insurance:[employer] Referring OB:Oj HELEN: 03/26/19 Diabetic: YES or NO: Type 1 or GDM: No Multiple Fetuses: No Procedure:Growth Indication/s for procedure:LGA, Measures 34 cm at 29 weeks Glass Technician needed? No Language: MFM Co-Management ( state on order)::No Additional studies as recommended ( state on order):[YES /NO:[id number]) Additional Comments: documented in this encounter Plan of Treatment Not on file documented as of this encounter Visit Diagnoses Not on filedocumented in this encounter
--- OUTSIDE RECORDS SUMMARY | 2024-10-06 22:16 | XMS_ITS | Encounter Summary ---
Author Organization [facility] Address [address] [place] [address] Care Team Providers Care Correctional Officer Name Role Phone Unavailable Primary Care Provider Unavailabl e Reason for Visit * Reason Onset Date Comments Lab Collection Draw 01/06/2019 Encounter Details Date Type Department Care Team (Late st Contact Info) Description 01/06/2019 Telephone [facility] Medical Group - CREATIVE ART DIRECTOR [address] [facility] [address] [place] [id number] [place] [address] [facility] [address] [place] [address] Lab Collection Draw Social History Tobacco Use Types Packs/Day Years [...] encounter Miscellaneous Notes * Telephone Encounter - Cynthia Catherine - 01/06/2019 3:09 PM CDT Patient due for blood work, calling to remind patient. Orders are in Epic, 1hr gtt, CBC, RPR. Patient verbalized understanding. documented in this encounter Plan of Treatment Not on file documented as of this encounter Visit Diagnoses Not on filedocumented in this encounter
--- OUTSIDE RECORDS SUMMARY | 2024-10-06 22:16 | XMS_ITS | Encounter Summary ---
Author Organization [facility] Address [address] [place] [address] Care Team Providers Care Land Manager Name Role Phone Unavailable Primary Care Provider Unavailabl e Encounter Details Date Type Department Care Team (Late st Contact Info) Description 01/10/2019 11:40 AM CDT visit [facility] Medical [facility] - CONTRIBUTION SOLICITOR [address] [facility] [address] [place] [id number] [place] [address] [address] [address] [place] [id number] GA: 29w2d Social History Tobacco Use Types Packs/Day Years [...] Sign Reading Time Taken Comments Blood Pressure 116/70 01/10/2019 11:43 AM CDT Pulse - - Temperature - - Respiratory Rate - - Oxygen Saturation - - Inhaled Oxygen Concentration - - Weight 116.6 kg (257 lb) 01/10/2019 11:43 AM CDT Height 170.2 cm (5' 7 ) 01/10/2019 11:43 AM CDT Body Mass Index 40.25 01/10/2019 11:43 AM CDT documented in this encounter Progress Notes * Julissa Mcwilliams DO - 01/10/2019 12:23 PM CDT 29w2d Patient has no obstetric complaints or issues. Both hands tingling and pain after sleeping. motion has been good. No spotting. Contractions: None. No LOF. Obstetric exam is LGA. See obstetrical flow sheet above. Rachelle to RTO in 2 weeks. Needs 1 hour glucose and CBC next week. Plan growth scan with LGA kick counts recommended twice a day (4 kicks per hour). Patient to present to L&D if water breaks, bleeding or decreased movement. * Gricelda Ramírez LPN - 01/10/2019 11:54 AM CDT T dap 0.5 ml administered to right deltoid with no s/s of adverse reactions displayed. Tolerated injection well. No s/s of acute distress displayed. Consent signed. documented in this encounter Plan of Treatment Not on file documented as of this encounter Results * SONOGRAM - COMPLETE (01/17/2019 7:07 AM CDT) Anatomical Region Laterality Modality Other 01/17/2019 7:07 AM CDT Narrative 01/17/2019 9:10 AM CDT ?[facility] ?[facility] ? TESTING CENTER ?FAX: ?? Name: ?RACHELLE DIA. No: ?[id number] Study Date: ?? 01/17/2019 ??7:07am , Age: ? 1985, 33 Pregnancies: ?? 3, Para 2 Height: ? 67 in Weight: ? 231 lb LMP: ?Unknown GA by Base: ?? 30w2d ?? HELEN: 03/26/2019 GA by US: ? 32w4d ?? HELEN: 03/10/2019 GA Selected: ??30w2d (From [facility]) HELEN: ?03/26/2019 Referring MD: Julissa Mcwilliams MD Felt Washing Machine Tender: ??Maryam Lara, MONICA, RDCS CPT4: ? 34421 BMI: ?36.18 Hist/Ind: ? Size > Dates ?Class II obesity ?Completed Anatomy MEASUREMENTS & AGE ? GROWTH EVALUATION Measurement ??GA ? Range ? Srce %for GA Ratios ----- ---- ------- BPD ??8.0 cm 32w0d (25f8b-65f0e) Hadl BPD 85% FL/BPD 0.83 (0.71 - 0.87) HC ??29.7 cm 32w6d (05s5y-05c4l) Hadl HC ??84% FL/AC ??0.24 (0.20 - 0.24) AC ??27.7 cm 31w5d (70k7f-60g1k) Hadl AC ??85% HC/AC ??1.07 (0.97 - 1.16) FL ?? 6.6 cm 33w6d (24l7b-69w0j) Hadl FL ??98% CI ? 0.76 (0.70 - 0.86) HL ?? 5.8 cm 33w5d (27t1w-07v6i) Chente HL ??>95 GA for sonogram 32w4d (23o6z-83x8r) ?? Weight Estimate: based on (BPD,HC,AC,FL) Avg ?Weight: 1995 gm (1704-2287gm) Had ? : 4lbs, 6oz ? Normal: 1614 gm (1210- 2018gm) Had ? Wt% ? 97% for 30w2d Heart Rate: 148 bpm Amniotic Fluid Index: 16.8cm (08.9-23.5) Q1: 4.3cm ??Q2: 3.8cm ??Q3: 4.6cm ??Q4: 4.1cm ?? EVAL, PLACENTA Presentation: breech Placenta: posterior:right lateral Heart Rate: 148 bpm Amniotic Fluid Volume: normal CLINICAL SUMMARY Study Number: 5 ?? A single fetus is identified in breech presentation. ??The measurements today are consistent with Borderline LGA for the HELEN provided. ??The HELEN selected is based on a prior ultrasound examination. ??The amniotic fluid volume is normal. ??The placenta is posterior,right lateral. ??No major malformations are seen within the limitations of ultrasound examination. ?? IMPRESSION: Single, live, IUP at 30w2d . size at > 97 %ile. ?? normal amniotic fluid volume. ?? Anatomy survey is complete. ?? RECOMMEND: Follow up ultrasound in 4 weeks for growth. ?? Thank you for allowing us the opportunity to care for your patient. Flo Beltran MD <Electronic Signature> ??01/17/2019 09:10am Julissa Mcwilliams DO [employer] ORDERABLES documented in this encounter Visit Diagnoses Diagnosis care, subsequent , third trimester ([facility])- Primary 29 weeks gestation of ([facility]) state, incidental Need for Tdap vaccination Need for prophylactic vaccination with combined rjqlmssitd-[id number]-xdqrmvgwg (DTP) vaccine Uterine size date discrepancy , third trimester ([facility]) Uterine size date discrepancy , third trimester ([facility]) screening for growth retardation using ultrasonics ([facility]) screening for growth retardation using ultrasonics Placenta previa without hemorrhage, antepartum ([facility]) Placenta previa without hemorrhage, antepartum Screening, , for malformation by ultrasound ([facility]) Encounter for routine screening for malformation using ultrasonics Encounter for ultrasound to check growth ([facility]) 30 weeks gestation of ([facility]) state, incidental documented in this encounter
--- OUTSIDE RECORDS SUMMARY | 2024-10-06 22:16 | XMS_ITS | Encounter Summary ---
Author Organization [facility] Address [address] [place] [address] Care Team Providers Care Digester Operator Helper Name Role Phone Unavailable Primary Care Provider Unavailabl e Reason for Visit * Reason Onset Date Comments Scheduling 07/10/2017 Encounter Details Date Type Department Care Team (Late st Contact Info) Description 07/10/2017 Telephone [facility] - CANDY COUNTER CLERK [address] [facility] [address] [place] [address] Julissa Mcwilliams, [address] [facility] [address] [place] [address] Scheduling Social History Tobacco Use [...] * Telephone Encounter - Libia Harrington - 07/10/2017 11:07 AM CDT Left message for patient to contact the office to schedule a colposcopy with Dr. Mcwilliams next available. documented in this encounter Plan of Treatment Not on file documented as of this encounter Visit Diagnoses Not on filedocumented in this encounter
--- OUTSIDE RECORDS SUMMARY | 2024-10-06 22:16 | XMS_ITS | Encounter Summary ---
Author Organization [facility] Address [address] [place] [address] Care Team Providers Care Fabricator Special Items Name Role Phone Unavailable Primary Care Provider Unavailabl e Encounter Details Date Type Department Care Team (Late st Contact Info) Description 04/19/2017 3:50 PM CDT - 04/19/2017 4:25 PM CDT Hospital Encounter [facility] [address] [place] [address] Mulu Mendez, SUPERVISOR SHRIMP POND-OUTSIDE SALES ACCOUNT REPRESENTATIVE [address] [place] [address] Discharge Disposition: Home or Self Care Social History Tobacco Use Types Packs/Day Years Used Date Smoking Tobacco: Every Day Smokeless Tobacco: Never Sex and Gender Information Value Date Recorded Sex Assigned at Not on file Gender Identity Not on file Sexual Orientation Not on file documented as of this encounter Last Filed Vital Signs Vital Sign Reading Time Taken Comments Blood Pressure 126/73 04/19/2017 3:57 PM CDT Pulse 75 04/19/2017 3:57 PM CDT Temperature 37.1 ??C (98.8 ??F) 04/19/2017 3:57 PM CD T Respiratory Rate 18 04/19/2017 3:57 PM CDT Oxygen Saturation 99% 04/19/2017 3:57 PM CDT Inhaled Oxygen Concentration - - Weight 104.3 kg (230 lb) 04/19/2017 3:57 PM CDT Height 170.2 cm (5' 7 ) 04/19/2017 3:57 PM CDT Body Mass Index 36.02 04/19/2017 3:57 PM CDT documented in this encounter Discharge Instructions * Patient Instructions* Mulu Mendez, SUPERVISOR [employer]-OUTSIDE SALES ACCOUNT REPRESENTATIVE - 04/19/2017 4:47 PM CDT Images from the original note were not included. Instruction for Muscle Strain Negative for fracture today for both images obtained (elbow and hand) however some fx may not be present on xray immediately and that repeat imaging may be necessary or positive in the future. Recommend Ice, Elevation, Rest, and Compression. Sling for comfort as needed. Robaxin (muscle relaxer every 6 hours as needed for pain) may cause drowsiness, do not drive until you know how this medication affects you. Follow up If symptoms persist more than 1 week, please f/u with your Primary Care Provider (PCP), sooner for worsening symptoms. If you do not have one, I am happy to put in a referral for a PCP today for you and they will contact you in 24 hours to establish care. See information below regarding home care and when to seek immediate care in the ER. Muscle Strain WHAT YOU NEED TO KNOW: A muscle strain is a twist, pull, or tear of a muscle or tendon. A tendon is a strong elastic tissue that connects a muscle to a bone. Signs of a strained muscle include bruising and swelling over the area, pain with movement, and loss of strength. DISCHARGE INSTRUCTIONS: Seek care immediately or call 911 if: ?? You suddenly cannot feel or move your injured muscle. Contact your healthcare provider if: ?? Your pain and swelling worsen or do not go away. ?? You have questions or concerns about your condition or care. Medicines: ?? NSAIDs , such as ibuprofen, help decrease swelling, pain, and fever. This medicine is available with or without a doctor's order. NSAIDs can cause stomach bleeding or kidney problems in certain people. If you take blood thinner medicine, always ask your healthcare provider if NSAIDs are safe foryou. Always read the medicine label and follow directions. ?? Muscle relaxers help decrease pain and muscle spasms. ?? Take your medicine as directed. Contact your healthcare provider if you think your medicine is not helping or if you have side effects. Tell him or her if you are allergic to any medicine. Keep a list of the medicines, vitamins, and herbs you take. Include the amounts, and when and why you take them. Bring the list or the pill bottles to follow-up visits. Carry your medicine list with you in case of an emergency. Follow up with your healthcare provider as directed: Your healthcare provider may suggest that you have a follow-up visit before you go back to your usual activity. Write down your questions so you remember to ask them during your visits. Self-care: ?? 3 to 7 days after the injury: Use Rest, Ice, Compression, and Elevation (RICE) to help stop bruising and decrease pain and swelling. ?? Rest: Rest your muscle to allow your injury to heal. When the pain decreases, begin normal, slowmovements. For mild and moderate muscle strains, you should rest your muscles for about 2 days. However, if you have a severe muscle strain, you should rest for 10 to 14 days. You may need to use crutches to walk if your muscle strain is in your legs or lower body. ?? Ice: Put an ice pack on the injured area. Put a towel between the ice pack and your skin. Do notput the ice pack directly on your skin. You can use a package of frozen peas instead of an ice pack. ?? Compression: You may need to wrap an elastic bandage around the area to decrease swelling. It should be tight enough for you to feel support. Do not wrap it too tightly. ?? Elevation: Keep the injured muscle raised above your heart if possible. For example, if you havea strain of your lower leg muscle, lie down and prop your leg up on pillows. This helps decrease pain and swelling. ?? 3 to 21 days after the injury: Start to slowly and regularly exercise your strained muscle. Thiswill help it heal. If you feel pain, decrease how hard you are exercising. ?? 1 to 6 weeks after the injury: Stretch the injured muscle. Hold the stretch for about 30 seconds. Do this 4 times a day. You may stretch the muscle until you feel a slight pull. Stop stretching ifyou feel pain. ?? 2 weeks to 6 months after the injury: The goal of this phase is to return to the activity you were doing before the injury happened, without hurting the muscle again. ?? 3 weeks to 6 months after the injury: Keep stretching and strengthening your muscles to avoid injury. Slowly increase the time and distance that you exercise. You may still have signs and symptomsof muscle strain 6 months after the injury, even if you do things to help it heal. In this case, you may need surgery on the muscle. Prevent muscle strains: ?? Always wear proper shoes when you play sports: Replace your old running shoes with new ones often if you are a runner. Use special shoe inserts or arch supports to correct leg or foot problems. Ask your healthcare provider for more information on shoe supports. ?? Do warm up and cool down exercises: Do stretching exercises before you work out or do sports activities. These exercises will help loosen and decrease stress on your muscles. Cool down and stretchafter your workout. Do not stop and rest after a workout without cooling down first. ?? Keep your muscles strong with strength training exercises: Exercises such as weight lifting and stretching exercises help keep your muscles flexible and strong. A physical therapist or small engine trainer mayhelp you with these exercises. ?? Slowly start your exercise or sports training program: Follow your healthcare provider's advice on when to start exercising. Slowly increase time, distance, and how often you train. Sudden increases in how often you train may cause you to injure your muscle again. ?? 2016 [employer]. Information is for End User's use only and may not be sold, redistributed or otherwise used for commercial purposes. All illustrations and images included in CareNotes?? are the copyrighted property of [employer], [employer]. or [employer]. The above information is an educational interpreter only. It is not intended as medical advice for individual conditions or treatments. Talk to your doctor, nurse or pharmacist before following any medical regimen to see if it is safe and effective for you. documented in this encounter Progress Notes * Mulu Mendez APRN-CNP - 04/19/2017 4:14 PM CDT Provider contact with the patient: 04/19/2017 16:14 Rachelle Dia [id number] [facility] History Arm pain s/p fall HPI Source of information obtained from patient. Pt. is an obese 31 y.o. White/ female With no significant PMHwho presents to today for RUE pain s/p fall from a ladder approx. 5 ft. At 1930 yesterday. Pt. Reports she grabbed onto rope with right hand to brace/decr. Impact of fall and immediately felt pain in her right elbow and hand. Fell onto back. No head injury reported no LOC. Ibuprofen 800 mg this a.m. Without relief. No other symptomatic treatment measures trialed. Patient reports no Fever/chills,N/V/D and/or abdominal pain. No reports of shortness of breath/difficulty breathing or chest pain. Patient is fully immunized to the best of their knowledge. No history of travel outside the continental [place] within the last 21 days. No Known Allergies There is no immunization history on file for this patient. No past medical history on file. Social History Social History ??? Marital status: Single Spouse name: N/A ??? Number of children: N/A ??? Years of education: N/A Occupational History ??? Not on file. Social History Main Topics ??? Smoking status: Current Every Day Smoker ??? Smokeless tobacco: Never Used ??? Alcohol use Not on file ??? Drug use: Not on file ??? Sexual activity: Not on file Other Topics Concern ??? Not on file Social History Narrative ??? No narrative on file No past medical history on file. No past surgical history on file. No family history on file. Social History Social History ??? Marital status: Single Spouse name: N/A ??? Number of children: N/A ??? Years of education: N/A Occupational History ??? Not on file. Social History Main Topics ??? Smoking status: Current Every Day Smoker ??? Smokeless tobacco: Never Used ??? Alcohol use Not on file ??? Drug use: Not on file ??? Sexual activity: Not on file Other Topics Concern ??? Not on file Social History Narrative ??? No narrative on file No Known Allergies Review of Systems Review of Systems Constitutional: Negative for chills, fever and malaise/fatigue. Eyes: Negative for blurred vision, double vision and photophobia. Respiratory: Negative for cough, hemoptysis, shortness of breath and wheezing. Cardiovascular: Negative for chest pain, palpitations, leg swelling and PND. Gastrointestinal: Negative for abdominal pain, nausea and vomiting. Genitourinary: Negative for flank pain and hematuria. Musculoskeletal: Positive for falls and joint pain. Negative for back pain, myalgias and neck pain. Neurological: Negative for dizziness, tingling, sensory change, focal weakness, seizures, loss of consciousness, weakness and headaches. Physical Exam BP 126/73 Pulse 75 Temp 98.8 ??F (Oral) Resp 18 Ht 1.702 m (5' 7 ) Wt 104.3 kg (230 lb) LMP 02/22/2017 SpO2 99% BMI 36.02 kg/m2 Physical Exam Constitutional: She is oriented to person, place, and time. Vital signs are normal. She appears well-developed and well-nourished. She is cooperative. Non- toxic appearance. She does not appear ill. No distress. HENT: Head: Normocephalic and atraumatic. Head is without raccoon's eyes, without Waldron's sign, without abrasion and without laceration. Eyes: Pupils are equal, round, and reactive to light. Neck: Normal range of motion. Neck supple. No spinous process tenderness and no muscular tendernesspresent. No rigidity. No tracheal deviation and normal range of motion present. Cardiovascular: Normal rate and regular rhythm. Exam reveals no friction rub. No murmur heard. Pulmonary/Chest: Effort normal. No accessory muscle usage. No respiratory distress. She has no decreased breath sounds. She has no wheezes. She has no rales. Musculoskeletal: Normal range of motion. Right shoulder: She exhibits normal range of motion, no tenderness, no bony tenderness, no swelling, no effusion, no crepitus, no pain, no spasm, normal pulse and normal strength. Right elbow: She exhibits normal range of motion, no swelling and no deformity. Tenderness found. Medial epicondyle, lateral epicondyle and olecranon process tenderness noted. No radial head tenderness noted. Left forearm: She exhibits tenderness and swelling. She exhibits no bony tenderness. Right hand: She exhibits tenderness and swelling. She exhibits no bony tenderness, normal capillaryrefill and no deformity. Normal sensation noted. Decreased sensation is not present in the ulnar distribution, is not present in the medial distribution and is not present in the radial distribution.Decreased strength noted. She exhibits no finger abduction, no thumb/finger opposition and no wristextension trouble. Tenderness along the 4th and 5th metacarpals. Muscle tightness noted to the right proximal forearm Neurological: She is alert and oriented to person, place, and time. Skin: Skin is warm, dry and intact. No abrasion, no bruising and no ecchymosis noted. She is not diaphoretic. Nursing note and vitals reviewed. Medications Current Outpatient Prescriptions Medication Sig Dispense Refill ??? methocarbamol (ROBAXIN) 500 MG tablet Take 1 Tab by mouth every 6 hours as needed for Muscle Spasms Reasons: Musculoskeletal Pain 15 Tab 0 Procedures Procedures ECG Interpretation ECG Interpretation Lab/SPO2 Interpretation No results found for this visit on 04/19/17. No orders to display Progress Notes UC Course Patient well-appearing, A&O X3 and in no acute distress at time of arrival. After ROS and PE there were no concerning findings nor changes in patient's presentation during length of stay which would warrant immediate referral to the Emergency Department. Imaging Right elbow, right hand x-rays obtained to r/o fx and/or other bony abnormality in the presences ofpain/swelling, decr. ROM s/p Fall with no relief from Ibuprofen. Xr Elbow 3+ Vw Right Result Date: 04/19/2017 Right elbow 3 views unilateral INDICATION: Fall right elbow pain 3 views of the right elbow are provided. There is normal alignment. There is normal mineralization. No acute fractures are evident. No acute fracture. Xr Hand 3+ Vw Right Result Date: 04/19/2017 Right hand 3 views unilateral INDICATION: Fall right hand pain 3 views of the right hand are provided. There is normal alignment. There is no fracture or dislocation evident. No acute fracture. Ortho Care Pt. Declined offer for arm sling. An jace wrap was applied to the right hand/wrist with appropriate instructions on application and use. There was no neurovascular compromise appreciated s/p application. Referral Pt. currently not under the care of a primary care physician. Discussed with patient the importance of having an assigned PCP for continuum of Care to include the evaluation and management of acute/chronic conditions and preventative health services. Pt. Verbalized understanding. Order for PCP referral submitted per patient request. Patient Education Discussed with patient plan of care and recommended treatment diagnoses of muscle strain as well asrecommendations for follow up. Medical Decision Making I have reviewed the: Nursing Notes, Vitals. I have interpreted the following results: Oxygen Saturation. Clinical picture consistent with acute MSK strain vs sprain. Pt afebrile and non-septic appearing doubt septic joint or septic bursitis especially in current clinical setting. No indication for jointaspiration. No hx of gouty arthritis. No bony abnormality noted on XR. Tolerates PO OTC analgesics at home w/o difficulty, will prescribe Robaxin for muscle spasm/pain and encourage supportive care with RICE, and OTC analgesic. Pt. Declined sling for comfort, but did accept JACE wrap to right hand/wrist to support extremity while driving. Pt. Also advised that some fx may not be present on xray immediately and that repeat imaging may benecessary or positive in the future.Pt is appropriate for discharge home in setting of strict precautions with close follow up. Furthermore, patient understands return precautions and agrees to plan.All questions answered. Orders Placed This Encounter ??? XR HAND 3+ VW RIGHT ??? XR ELBOW 3+ VW RIGHT ??? AMB REFERRAL TO FAMILY PRACTICE ??? methocarbamol (ROBAXIN) 500 MG tablet Clinical Impression Final diagnoses: Elbow strain, right, initial encounter (Primary) Patient endorses good/positive support system, is in no acute distress at this time and is appropriate for discharge home from the Urgent Care setting. Pt. educated on diagnosis, prevention, treatment and plan of care. Also discussed with patient potential complications that may develop and was given specific warning signs to watch for that would require immediate ER evaluation. Discharge instructions and After Visit Summary reviewed and given to patient. Additional handout/information on Elbow pain also provided for patient to review. Patient instructed to follow up with PCP in 1 week for persistent and/or worsening symptoms-sooner for any other concerns. Questions encouraged; all questions answered. documented in this encounter Miscellaneous Notes * Addendum Note - Inez Omalley CPC - 04/19/2017 4:25 PM CDTEncounter addended by: Inez Omalley CPC on: 04/20/2017 11:10 AM
Actions taken: Visit diagnoses modified, Charge Capture section accepted documented in this encounter Plan of Treatment Not on file documented as of this encounter Results * XR HAND 3+ VW RIGHT (04/19/2017 [...] dislocation evident. IMPRESSION No acute fracture. Mulu L Enidu SUPERVISOR SHRIMP [employer]-OUTSIDE SALES ACCOUNT REPRESENTATIVE DIAGNOSTIC IMAGIN G ORDERABLES * XR ELBOW [...] are evident. IMPRESSION No acute fracture. Mulu L Viau SUPERVISOR [employer]-OUTSIDE SALES ACCOUNT REPRESENTATIVE DIAGNOSTIC IMAGIN G ORDERABLES documented in this encounter Visit Diagnoses Diagnosis Elbow strain, right, initial encounter- Primary Fall from ladder, initial encounter Fall, initial encounter Fall, initial encounter documented in this encounter
--- OUTSIDE RECORDS SUMMARY | 2024-10-06 22:16 | XMS_ITS | Encounter Summary ---
Author Organization [facility] Address [address] [place] [address] Care Team Providers Care Wedding Makeup Artist Name Role Phone Unavailable Primary Care Provider Unavailabl e Reason for Visit * Reason Comments Routine Visit Encounter Details Date Type Department Care Team (Late st Contact Info) Description 02/10/2019 2:40 PM CDT visit [facility] Medical [facility] [place] SCREED OPERATOR [id number] [facility] [address] [place] [id number] Julissa Mcwilliams, [address] [facility] [address] [place] [address] GA: 33w5d Social History Tobacco Use Types Packs/Day Years [...] Sign Reading Time Taken Comments Blood Pressure 118/72 02/10/2019 2:48 PM CDT Pulse - - Temperature - - Respiratory Rate - - Oxygen Saturation - - Inhaled Oxygen Concentration - - Weight 117.5 kg (259 lb) 02/10/2019 2:48 PM CDT Height 170.2 cm (5' 7 ) 02/10/2019 2:48 PM CDT Body Mass Index 40.57 02/10/2019 2:48 PM CDT documented in this encounter Progress Notes * Gricelda Ramírez LPN - 02/10/2019 3:04 PM CDT Trace of blood * Julissa Mcwilliams DO - 02/10/2019 2:56 PM CDT 33w5d Patient has no obstetric complaints or issues. motion has been good. No spotting. Contractions: None. No LOF. Obstetric exam is large for dates. See obstetrical flow sheet above. Rachelleto RTO in 2 weeks. Has ultrasound scheduled Sunday. Urine sent for culture kick counts recommended twice a day (4 kicks per hour). Patient to present to L&D if water breaks, bleeding or decreased movement. documented in this encounter Plan of Treatment Not on file documented as of this encounter Procedures Procedure Name Priority Date/Time Associated Diagnosis Comments CULTURE URINE Routine 02/10/2019 3:16 PM CDT care, subsequent , third trimester (HCC) 33 weeks gestation of (HCC) Hematuria, unspecified type documented in this encounter Results * CULTURE URINE (02/10/2019 3:16 PM CDT) Urine Culture Routine Final report [facility] ACCOUNT BILL Result 1 [facility] ACCOUNT BILL Comment: Mixed urogenital sirena 25,000-50,000 colony forming units per mL Urine URINE SPECIMEN OBTAINED BY CLEAN CATCH PROCEDURE / Unknown 02/10/2019 3:16 PM CDT 02/10/2019 Narrative Resulting Agency Comment Lab Testing performed at: [facility] [address] [facility] [address] ??[facility] [id number] Julissa Mcwilliams DO LAB - MICROBIOLOGY O RDERABLES [facility] ACCOUNT BILL [address] [place] [address] documented in this encounter Visit Diagnoses Diagnosis care, subsequent , third trimester (HCC)- Primary 33 weeks gestation of (HCC) state, incidental Hematuria, unspecified type documented in this encounter
--- OUTSIDE RECORDS SUMMARY | 2024-10-06 22:16 | XMS_ITS | Encounter Summary ---
Author Organization [facility] Address [address] [place] [address] Care Team Providers Care Microstrategy Architect Developer Name Role Phone Unavailable Primary Care Provider Unavailabl e Encounter Details Date Type Department Care Team (Latest Contact Info) Description 09/17/2018 7:15 AM MANAGER LICENSING - 09/17/2018 7:17 AM MANAGER LICENSING Hospital Encounter [facility] & Care at [facility] [address] , [address] [place] [address] Tejinder Solorio MD [address] [facility] [address] [place] [address] Discharge Disposition: Home or Self Care Social [...] Procedure Name Priority Date/Time Associated Diagnosis Comments FIRST TRI NUCHAL TRANSLUCENCY W:SEQ SCREEN Routine 09/17/2018 7:32 AM MANAGER LICENSING care, subsequent , first trimester (HCC) 7 weeks gestation of (HCC) Positive test (HCC) Special screening examination for human papillomavirus (HPV) Screening examination for venereal disease documented in this encounter Results * FIRST TRI NUCHAL TRANSLUCENCY W:SEQ SCREEN (09/17/2018 7:32 AM MANAGER LICENSING) Anatomical Region Laterality Modality Other 09/17/2018 7:32 AM MANAGER LICENSING Narrative 09/17/2018 4:41 PM MANAGER LICENSING ?[facility] ? TESTING CENTER ?FAX: ?? Pat. Name: ?RACHELLE DIA Pat. No: ?[id number] Study Date: ?? 09/17/2018 ??7:32am , Age: ? 1985, 33 Pregnancies: ?? 3, Para 2 Height: ? 67 in Weight: ? 231 lb LMP: ?Unknown GA by US: ? 13w1d ?? HELEN: 03/24/2019 GA Selected: ??12w6d (From Known E) HELEN: ?03/26/2019 Referring MD: Julissa Mcwilliams MD Biomedical Repair Technician: ??Maryam Lara RDMS CPT4: ? 46885,61744 BMI: ?36.18 Hist/Ind: ? Nuchal Translucency ?Maternal obesity MEASUREMENTS & AGE ? GROWTH EVALUATION Measurement ??GA ? Range ? Srce %for GA Ratios ----- ---- ------- CRL ??6.9 cm 13w1d ([id number]) Hadl CRL 61% GA for sonogram 13w1d ([id number]) based on (CRL) Avg ? Markers for [...] Solorio MD <Electronic Signature> ??09/17/2018 04:40pm Julissa PECK ORDERABLES documented in this encounter Visit Diagnoses Diagnosis care, subsequent , first trimester (HCC) 7 weeks gestation of (HCC) Positive test (HCC) examination or test, positive result Special screening examination for human papillomavirus (HPV) Screening examination for venereal disease Encounter for nuchal translucency testing (HCC) Other specified screening Obesity complicating in first trimester (HCC) Obesity complicating , childbirth, or the puerperium, antepartum condition or complication Obesity, unspecified classification, unspecified obesity type, unspecified whether serious comorbidity present 12 weeks gestation of (HCC) state, incidental documented in this encounter
--- OUTSIDE RECORDS SUMMARY | 2024-10-06 22:16 | XMS_ITS | Encounter Summary ---
Author Organization [facility] Address [address] [facility] [place] [address] Care Team Providers Care Assembler Final Name Role Phone Unavailable Primary Care Provider Unavailabl e Reason for Visit * Reason Comments Routine Visit Encounter Details Date Type Department Care Team (Late st Contact Info) Description 10/23/2018 9:20 AM WHEELAGE CLERK visit [facility] Medical [facility] - TRANSIT SPECIALIST [address] [facility] [address] [place] [address] [place] [address] [facility] [address] [place] [address] GA: 18w0d Social History Tobacco Use Types Packs/Day Years [...] Sign Reading Time Taken Comments Blood Pressure 116/72 10/23/2018 9:30 AM WHEELAGE CLERK Pulse - - Temperature - - Respiratory Rate - - Oxygen Saturation - - Inhaled Oxygen Concentration - - Weight 112 kg (247 lb) 10/23/2018 9:30 AM WHEELAGE CLERK Height 170.2 cm (5' 7 ) 10/23/2018 9:30 AM WHEELAGE CLERK Body Mass Index 38.69 10/23/2018 9:30 AM WHEELAGE CLERK documented in this encounter Progress Notes * Julissa Mcwilliams DO - 10/23/2018 10:14 AM CST 18w0d Patient has no obstetric complaints or issues. motion has been good. No spotting. Contractions: None. No LOF. Obstetric exam is normal. See obstetrical flow sheet above. Rachelle to RTO in 4 weeks. Weight gain discussed. Decrease apple juice and fried food. Patient to present to L&D if water breaks, bleeding or decreased movement. LAGE CLERK * Gricelda Ramírez LPN - 10/23/2018 9:31 AM CST Trace of blood LAGE CLERK documented in this encounter Plan of Treatment Not on file documented as of this encounter Procedures Procedure Name Priority Date/Time Associated Diagnosis Comments CULTURE URINE Routine 10/23/2018 9:33 AM WHEELAGE CLERK care, subsequent , second trimester (HCC) 18 weeks gestation of (HCC) Hematuria, unspecified type documented in this encounter Results * CULTURE URINE (10/23/2018 9:33 AM WHEELAGE CLERK) Urine Culture Routine Final report [facility] ACCOUNT BILL Result 1 [facility] ACCOUNT BILL Comment: Culture shows less than 10,000 colony forming units of bacteria per milliliter of urine. This colony count is not generally considered to be clinically significant. Urine URINE SPECIMEN OBTAINED BY CLEAN CATCH PROCEDURE / Unknown 10/23/2018 9:33 AM WHEELAGE CLERK 10/23/2018 Narrative Resulting Agency Comment [facility] [place] [address] ??[facility] [phone] Julissa Mcwilliams DO LAB - MICROBIOLOGY O RDERABLES [facility] ACCOUNT BILL [address] [place] [address] documented in this encounter Visit Diagnoses Diagnosis care, subsequent , second trimester (HCC)- Primary 18 weeks gestation of (HCC) state, incidental Hematuria, unspecified type documented in this encounter
--- OUTSIDE RECORDS SUMMARY | 2024-10-06 22:16 | XMS_ITS | Encounter Summary ---
Author Organization [facility] Address [address] [place] [address] Care Team Providers Care Hook Puller Name Role Phone Unavailable Primary Care Provider Unavailabl e Reason for Visit * Reason Comments Confirmation Of Encounter Details Date Type Department Care Team (Latest Contact Info) Description 08/07/2018 3:30 PM CDT Office Visit [facility] Medical [facility] - COMMUNICATION PROFESSOR [address] [facility] [address] [place] [address] Julissa Mcwilliams, [address] [facility] [address] [place] [address] care, subsequent , first trimester (HCC) (Primary Dx); 7 weeks gestation of (HCC); Positive test (HCC); Special screening examination for human papillomavirus (HPV); Screening examination for venereal disease; BMI 36.0-36.9,adult Social History Tobacco Use Types Packs/Day Years [...] Sign Reading Time Taken Comments Blood Pressure 118/74 08/07/2018 3:29 PM CDT Pulse - - Temperature - - Respiratory Rate - - Oxygen Saturation - - Inhaled Oxygen Concentration - - Weight 104.8 kg (231 lb) 08/07/2018 3:29 PM CDT Height 170.2 cm (5' 7 ) 08/07/2018 3:29 PM CDT Body Mass Index 36.18 08/07/2018 3:29 PM CDT documented in this encounter Progress Notes * Julissa Mcwilliams DO - 08/07/2018 4:14 PM CDT History and physical completed in navigator Ultrasound confirmed Intrauterine at 7 wks 0 days. Yolk sac visible. ASSESSMENT: New Ob Patient/Obesity (already had flu shot with work) PLAN: 1. vitamin prescription sent to pharmacy. 2. labs ordered 3. GC/CHL/BV cultures performed 4. Pap performed 5. Expected weight gain and nutrition reviewed 6. RTO 2 weeks with DOCTOR OF NAPRAPATHY for education 7. Urine sent for culture. 8. Plan first trimester NT Julissa Mcwilliams DO * Gricelda Ramírez LPN - 08/07/2018 3:50 PM CDT TRACE OF BLOOD documented in this encounter Plan of Treatment Not on file documented as of this encounter Procedures Procedure Name Priority Date/Time Associated Diagnosis Comments HIV-1 HIV-2 ANTIGEN/ANTIBODY W RFLX Routine 08/07/2018 4:50 PM CDT care, subsequent , first trimester (HCC) 7 weeks gestation of (HCC) Positive test (HCC) Special screening examination for human papillomavirus (HPV) Screening examination for venereal disease PROFILE I W/ HBSAG Routine 08/07/2018 4:49 PM CDT care, subsequent , first trimester (HCC) 7 weeks gestation of (HCC) Positive test (HCC) Special screening examination for human papillomavirus (HPV) Screening examination for venereal disease HEMOGLOBIN ELECTROPHORESIS Routine 08/07/2018 4:49 PM CDT care, subsequent , first trimester (HCC) 7 weeks gestation of (HCC) Positive test (HCC) Special screening examination for human papillomavirus (HPV) Screening examination for venereal disease CYSTIC FIBROSIS MUTATION PANEL Routine 08/07/2018 4:49 PM CDT care, subsequent , first trimester (HCC) 7 weeks gestation of (HCC) Positive test (HCC) Special screening examination for human papillomavirus (HPV) Screening examination for venereal disease HEMOGLOBIN A1C Routine 08/07/2018 3:51 PM CDT care, subsequent , first trimester (HCC) 7 weeks gestation of (HCC) Positive test (HCC) Special screening examination for human papillomavirus (HPV) Screening examination for venereal disease DRUG ABUSE URINE PANEL 7 Routine 08/07/2018 3:35 PM CDT care, subsequent , first trimester (HCC) 7 weeks gestation of (HCC) Positive test (HCC) Special screening examination for human papillomavirus (HPV) Screening examination for venereal disease CULTURE URINE Routine 08/07/2018 3:35 PM CDT care, subsequent , first trimester [...] papillomavirus (HPV) Screening examination for venereal disease HCG URINE QUALITATIVE - POINT OF CARE (AMB) STL Routine 08/07/2018 care, subsequent , first trimester (HCC) 7 weeks gestation of (HCC) Positive test (HCC) Special screening examination for human papillomavirus (HPV) Screening examination for venereal disease documented in this encounter Results * SONOGRAM - COMPLETE (11/07/2018 10:19 AM LAB TECHNICIAN) Anatomical Region Laterality Modality Other 11/07/2018 10:1 9 AM LAB TECHNICIAN Narrative 11/07/2018 1:33 PM LAB TECHNICIAN ?[facility] ?[facility]IC[facility] ? TESTING CENTER ?FAX: ?? Pat. Name: ?RACHELLE DIA Pat. No: ?[id number] Study Date: ?? 11/07/2018 ??10:19am , Age: ? 1985, 33 Pregnancies: ?? 3, Para 2 Height: ? 67 in Weight: ? 231 lb LMP: ?Unknown GA by Base: ?? 20w1d ?? HELEN: 03/26/2019 GA by US: ? 20w6d ?? HELEN: 03/21/2019 GA Selected: ??20w1d (From [facility]) HELEN: ?03/26/2019 Referring MD: Julissa Mcwilliams MD Ceo & Board Director: ??Emma Fagan RDMS CPT4: ? 56882,51987 BMI: ?36.18 Hist/Ind: ? anatomic survey ?Class II obesity MEASUREMENTS & AGE ? GROWTH EVALUATION Measurement ??GA ? Range ? Srce %for GA Ratios ----- ---- ------- BPD ??4.8 cm 20w4d (71x8e-70x8e) Hadl BPD 70% FL/BPD 0.72 HC ??17.8 cm 20w2d (93v7g-43s4v) Hadl HC ??46% FL/AC ??0.22 AC ??16.3 cm 21w2d (26j8x-92w9c) Hadl AC ??80% HC/AC ??1.09 (1.06 - 1.24) FL ?? 3.5 cm 21w0d (65g9y-23b2s) Hadl FL ??73% CI ? 0.77 (0.70 - 0.86) HL ?? 3.3 cm 20w6d (31v4q-94m5l) Chente HL ??63% Cere 2.0 cm 19w4d (91s6e-64o1k) Hill Cere36% GA for sonogram 20w6d (43n5l-99v7k) ?? Weight Estimate: based on (BPD,HC,AC,FL) Avg ?Weight: 399 gm (341-457gm) Hadloc ? : 0lbs, 14oz ? Normal: 341 gm (255-426gm) Hadloc ? Wt% ? 91% for 20w1d Cervix: ??Length: 4.3 cm ??Approach: transvaginal Heart Rate: 155 bpm Amniotic Fluid Index: 04.7cm (Deepest Pocket) EVAL, PLACENTA Presentation: variable Umbilical Cord: 3 Vessels Placenta: posterior Cord Insert: not velamentous Heart Rate: 155 bpm Amniotic Fluid Volume: normal Anatomy!Normal!Abnormal!Suboptimal!Prev. Seen!Comments Cranium ?! ?? x ??! ?! ?! ?! Mdl (CSP/Thal! ?? x ??! ?! ?! ?! Ventricles ?? ! ?? x ??! ?! ?! ?! Choroid Plexu! ?? x ??! ?! ?! ?! Cerebellum ?? ! ?? x ??! ?! ?! ?! Cisterna M. ??! ?? x ??! ?! ?! ?! Nuchal Fold ??! ?? x ??! ?! ?! ?! Profile ?! ?? x ??! ?! ?! ?! Nasal Bone ?? ! ?? x ??! ?! ?! ?! Lip ?! ?? x ??! ?! ?! ?! Spine ?! ?? x ??! ?! ?! ?! Lungs ?! ?? x ??! ?! ?! ?! 4 Chamber Hea! ?? x ??! ?! ?! ?! LVOT ? ! ?? x ??! ?! ?! ?! RVOT ? ! ?? x ??! ?! ?! ?! 3 Vessel View! ?? x ??! ?! ?! ?! Cross-over ?? ! ?? x ??! ?! ?! ?! Ductal Arch ??! ?! ?! ?! ? x ?! Aortic Arch ??! ?? x ??! ?! ?! ?! Caval View ?? ! ?? x ??! ?! ?! ? x ?! Situs ?! ?? x ??! ?! ?! ?! Diaphragm ?! ?? x ??! ?! ?! ?! Stomach ?! ?? x ??! ?! ?! ?! Bowel ?! ?? x ??! ?! ?! ?! Kidneys ?! ?? x ??! ?! ?! ?! Bladder ?! ?? x ??! ?! ?! ?! 3 Vessel Cord! ?? x ??! ?! ?! ?! Cord In! ?? x ??! ?! ?! ?! Upper Extremi! ?! ?! ? x ?! ?!Left forearm is ?unremarkable, ?imaging of the ?right is ?suboptimal Hands ?! ?! ?! ? x ?! ?!Left hand is ?unremarkable, ?imaging of the ?right is ?suboptimal Lower Extreme! ?? x ??! ?! ?! ?! Feet ? ! ?? x ??! ?! ?! ?! External Cady! ?? x ??! ?! ?! ?!Female CLINICAL SUMMARY Study Number: 2 IMPRESSION: 1) Tucker gestation, 20w1d 2) Biometry is consistent with the previously established HELEN of 03/26/19 3) No abnormalities were detected on detailed anatomic survey 4) Imaging of the ductal arch and right forearm and hand was suboptimal, secondary to positioning 5) Transvaginal ultrasound reveals a minimum cervical length of 4.3 cm 6) A low-lying placenta cannot be excluded at this time secondary to a persistent lower uterine segment contraction during today's transvaginal imaging NOTE: The patient was advised that ultrasound does not allow detection of all structural or chromosomal abnormalities. ?? RECOMMEND: ?? Follow up ultrasound in 4 weeks to complete the anatomic survey and reevaluate placenta location and growth Thank you for allowing us the opportunity to care for your patient. Mela Dougherty MD <Electronic Signature> ??11/07/2018 01:32pm Julissa Mcwilliams DO MFM ORDERABLES * FIRST TRI NUCHAL TRANSLUCENCY W:SEQ SCREEN (09/17/2018 7:32 AM LAB TECHNICIAN) Anatomical Region Laterality Modality Other 09/17/2018 7:32 AM LAB TECHNICIAN Narrative 09/17/2018 4:41 PM LAB TECHNICIAN ?[facility] ?[facility] ? TESTING CENTER ?FAX: ?? Pat. Name: ?RACHELLE DIA Pat. No: ?[id number] Study Date: ?? 09/17/2018 ??7:32am , Age: ? 1985, 33 Pregnancies: ?? 3, Para 2 Height: ? 67 in Weight: ? 231 lb LMP: ?Unknown GA by US: ? 13w1d ?? HELEN: 03/24/2019 GA Selected: ??12w6d (From Known E) HELEN: ?03/26/2019 Referring MD: Julissa Mcwilliams MD Ceo & Board Director: ??Maryam Lara RDMS CPT4: ? 57953,67671 BMI: ?36.18 Hist/Ind: ? Nuchal Translucency ?Maternal obesity MEASUREMENTS & AGE ? GROWTH EVALUATION Measurement ??GA ? Range ? Srce %for GA Ratios ----- ---- ------- CRL ??6.9 cm 13w1d (13i5g-04q3z) Hadl CRL 61% GA for sonogram 13w1d (96j3u-94w5v) based on (CRL) Avg ? Markers for [...] <Electronic Signature> ??09/17/2018 04:40pm Julissa Mcwilliams DO [facility] ORDERABLES * HIV-1 HIV-2 ANTIGEN/ANTIBODY W RFLX (08/07/2018 4:50 PM CDT) HIV Screen 4th Generation w Reflex Non Reactive Non Reactive [facility] ACCOUNT BILL Blood BLOOD SPECIMEN / Unknown 08/07/2018 4:50 PM CDT 08/07/2018 Narrative Resulting Agency Comment [facility] [address] ??[facility] [phone] Julissa W Laue DO LAB - SEROLOGY ORDER FADY [facility] ACCOUNT BILL [address] [place] [address] * (ABNORMAL) PROFILE I W/ HBSAG (08/07/2018 [...] CDT 08/07/2018 Narrative Resulting Agency Comment [facility] [place] [address] [facility] ??[facility] [phone] Julissa Mcwilliams DO LAB - CHEMISTRY PEDRO LANG [facility] ACCOUNT BILL [address] [place] [address] * HEMOGLOBIN ELECTROPHORESIS (08/07/2018 4:49 PM CDT) [...] PM CDT 08/07/2018 Narrative Resulting Agency Comment [facility] [place] [address] ??[place] [phone] Julissa Mcwilliams DO LAB - CHEMISTRY PEDRO LANG [facility] ACCOUNT BILL [address] [place] [address] * CYSTIC FIBROSIS MUTATION PNL (08/07/2018 4:49 PM CDT) Cystic Fibrosis Screen Comment: [facility] ACCOUNT BILL Comment: RESULTS: Negative for 32 mutations analyzed [...] a carrier of cystic fibrosis, please contact [facility] at for a revised report. Mutation [...] ? Rate Ashkenazi ? 11/16 to ?97% Orthodoxy ? 11/15 to ?90% (non-) -Macedonian ? to ?69% ? to ?73% ? to ?55% This interpretation is based on the clinical and family relationship information provided and the current understanding of the molecular genetics of this condition. MUTATIONS ANALYZED: G85E ?V520F ?A2292H ? 2183AA to G R117H ? G542X ?T4086A ? 2184delA R334W ? S549N ?394delTT ? 2789+5G to A R347H ? S549R ?621+1G to T ?3120+1G to A R347P ? G551D ?711+1G to T ?3659delC A455E ? R553X ?1078delT ? 3849+10kbC to T PhbfnI871 ?? R560T ?1717-1G to A ?? 3876delA KyynzF226 ?? R1098D ?? 1898+1G to A ?? 3905insT METHODS/LIMITATIONS: DNA is isolated from the sample and tested for the 32 CF mutations on the Almo Array Platform (Jumptap). Regions of the CFTR gene are amplified enzymatically and subjected to a solution-phase multiplex allele-specific primer extension with subsequent hybridization to a bead array and fluorescence detection. ??Polymorphisms F508C, I506V and I507V are included in this panel to rule out false positive [id number] homozygotes. ??Reflex testing of 5T is included in the panel for R117H interpretation. False positive or negative results may occur for reasons that include genetic variants, blood transfusions, bone marrow transplantation, erroneous representation of family relationships or contamination of a sample with maternal cells. REFERENCES: 1. Updates on Carrier Screening for Cystic Fibrosis. (2011) ?? Am J Ob Gynecol 117(4):7495-5070 2. Torey et al. (2004) Dea Med 6:387-91 3. Yasmin et al. (2002) Dea Med 4:379-391 4. Preconception and carrier screening for cystic ?? fibrosis: (2001)ACOG.ACMG publication Results Released By: Dustin Mccallum, Ph.D., Welder Assistant Released By: Dustin Mccallum, Ph.D., Director Comment [...] Resulting Agency Comment [facility] [place] [address] [employer] ??[place] [id number] Julissa Mcwilliams DO LAB - HEMATOLOGY ORD ERABLES [facility] ACCOUNT BILL [address] [place] [address] * HEMOGLOBIN A1C (08/07/2018 3:51 PM CDT) Hemoglobin A1c 5.2 4.2 - 6.3 % [facility] ACCOUNT BILL Comment:AVERAGE GLUCOSE MG/D L BLOOD 103 mg/dL Blood BLOOD SPECIMEN / Unknown 08/07/2018 3:51 PM CDT 08/07/2018 Narrative Resulting Agency Comment [facility] [address] ??[facility] [phone] Julissa Mcwilliams DO LAB - CHEMISTRY ORDE RABLES [facility] ACCOUNT BILL [address] [place] [address] * CULTURE URINE (08/07/2018 3:35 PM CDT) Urine Culture Routine Final report [facility] ACCOUNT BILL Result 1 [facility] ACCOUNT BILL Comment: Mixed urogenital sirena Less than 10,000 colonies/mL Urine URINE SPECIMEN OBTAINED BY CLEAN CATCH PROCEDURE / Unknown 08/07/2018 3:35 PM CDT 08/07/2018 Narrative Resulting Agency Comment [facility] [address] ??[facility] [phone] Julissa Mcwilliams DO LAB - MICROBIOLOGY O RDERABLES [facility] ACCOUNT BILL [address] [place] [address] * (ABNORMAL) DRUG ABUSE URINE PANEL 7 [...] [place] [place] [address] ??[place] [id number] Julissa Mcwilliams DO LAB - URINE CHEMISTR Y ORDERABLES [facility] ACCOUNT BILL [address] [place] [address] * PAP IG LB+CT+NG+TV+HPV APTIMA RFLX 16,18/45 (08/07/2018 3:34 PM CDT) Diagnosis [facility] ACCOUNT BILL Comment: NEGATIVE FOR INTRAEPITHELIAL LESION AND MALIGNANCY. THIS SPECIMEN WAS RESCREENED PART OF OUR LINER CHECKER PROGRAM. Specimen Adequacy [facility] ACCOUNT BILL Comment: Satisfactory for evaluation. ??No endocervical component is identified. An endocervical component is not commonly seen in the patient. Clinician Provided ICD10 [facility] ACCOUNT BILL Comment: Z34.81 Z3A.01 Z32.01 Z11.51 Z11.3 Z68.36 Performed by [facility] ACCOUNT BILL Comment:Mercy Simons, Automobiles Salesperson ([facility]) QC Reviewed by [facility] ACCOUNT BILL Comment:Danitza Dougherty [facility] Autom[employer] Salesperson [facility] Comment . [facility] ACCOUNT BILL Note [facility] [...] Vial Resulting Agency Comment [facility] [place] [address] [facility] ??[place] [phone] Julissa Mcwilliams DO LAB - PATHOLOGY/CYTO LOGY ORDERABLES [facility] ACCOUNT BILL [address] [place] [address] * (ABNORMAL) HCG URINE QUALITATIVE - POINT OF CARE (AMB) STL (08/07/2018) HCG Qual Urine Positive(A) Negative HCG Urine QC NEG NEGATIVE NEGATIVE - POSITIVE HCG Urine QC POS POSITIVE NEGATIVE - POSITIVE Expiration Date 02/19/2020 Lot # [id number] Urine URINE / Unknown 08/07/2018 Julissa Mcwilliams DO LAB - POINT OF CARE ORDERABLES documented in this encounter Visit Diagnoses Diagnosis care, subsequent , first trimester (HCC)- Primary 7 weeks gestation of (HCC) Positive test (HCC) examination or test, positive result Special screening examination for human papillomavirus (HPV) Screening examination for venereal disease BMI 36.0-36.9,adult Body Mass Index 36.0-36.9, adult care, subsequent , first trimester ([facility]) 7 weeks gestation of ([facility]) Positive test ([facility]) examination or test, positive result Special screening examination for human papillomavirus (HPV) Screening examination for venereal disease Encounter for nuchal translucency testing ([facility]) Other specified screening Obesity complicating in first trimester ([facility]) Obesity complicating , childbirth, or the puerperium, antepartum condition or complication Obesity, unspecified classification, unspecified obesity type, unspecified whether serious comorbidity present 12 weeks gestation of ([facility]) state, incidental care, subsequent , first trimester ([facility]) 7 weeks gestation of ([facility]) Positive test ([facility]) examination or test, positive result Special screening examination for human papillomavirus (HPV) Screening examination for venereal disease Obesity affecting in second trimester ([facility]) Screening, , for malformation by ultrasound ([facility]) Encounter for routine screening for malformation using ultrasonics Encounter for screening for malformation ([facility]) 20 weeks gestation of ([facility]) state, incidental documented in this encounter
--- OUTSIDE RECORDS SUMMARY | 2024-10-06 22:16 | XMS_ITS | Encounter Summary ---
Author Organization [facility] Address [address] [place] [address] Care Team Providers Care Certified Medication Technician Name Role Phone Unavailable Primary Care Provider Unavailabl e Encounter Details Date Type Department Care Team (Late st Contact Info) Description 02/28/2019 Orders Only [facility] - ROUTE RELIEF DRIVER [address] [facility] [address] [place] [address] [place] [address] [facility] [address] [facility] [address] [place] [address] Excessive growth affecting management of [...]
--- OUTSIDE RECORDS SUMMARY | 2024-10-06 22:16 | XMS_ITS | Encounter Summary ---
Author Organization [facility] Address [address] [facility] [place] [address] Care Team Providers Care Fire Engine Pump Operator Name Role Phone Unavailable Primary Care Provider Unavailabl e Encounter Details Date Type Department Care Team (Latest Contact Info) Description 03/18/2019 11:15 AM CDT - 03/18/2019 11:14 PM CDT Hospital Encounter [facility] at [facility] [address] [facility] , [address] [place] [address] Tejinder Solorio MD [address] [facility] [address] [place] [address] Discharge Disposition: Home or Self Care Social [...] Sig Dispensed Refills Start Date End Date docusate sodium (COLACE) 100 MG capsule Take 1 capsule by mouth 2 times daily 60 capsule 03/21/2019 ferrous gluconate 324 (38 Fe) MG tabletIndications:Iro n Deficiency Anemia Take 324 mg by mouth daily with breakfast Reasons: Anemia From Inadequate Iron in the Body ibuprofen (MOTRIN) 600 MG tablet Take 1 tablet by mouth every 6 hours 40 tablet 03/21/2019 Vit-Fe Fumarate-FA ( VITAMIN) 27-0.8 MG tablet Take 1 tablet by mouth once daily ibuprofen (MOTRIN) 600 MG tablet Take 1 tablet by mouth every 6 hours as needed for Pain 120 tablet 03/22/2019 03/25/2019 documented as of this encounter Plan of Treatment Not on file documented as of this encounter Procedures Procedure Name Priority Date/Time Associated Diagnosis Comments BIOPHYSICAL PROFILE W NST Routine 03/18/2019 11:42 AM CDT Supervision of high-risk of young multigravida (HCC) Obesity affecting in third trimester (HCC) BMI 40.0-44.9, adult (HCC) documented in this encounter Results * BIOPHYSICAL PROFILE W NST (03/18/2019 11:42 AM CDT) Anatomical Region Laterality Modality Other 03/18/2019 11:4 2 AM CDT Narrative 03/18/2019 12:11 PM CDT ?[facility] ?[facility] ? TESTING CENTER ?FAX: ?? Pat. Name: ?RACHELLE DIA. No: ?[id number] Study Date: ?? 03/18/2019 ??11:42am , Age: ? 1985, 33 Pregnancies: ?? 3, Para 2002 Height: ? 67 in Weight: ? 231 lb LMP: ?Unknown GA by Base: ?? 38w6d ?? HELEN: 03/26/2019 GA Selected: ??38w6d (From [facility]) HELEN: ?03/26/2019 Referring MD: Julissa Mcwilliams MD Outside Industrial Sales Representative: ??Deisy Cordoba RDMS CPT4: ? 74983,49057 BMI: ?36.18 Hist/Ind: ? testing ([facility]) ?LGA [...] <Electronic Signature> ??03/18/2019 12:11pm Julissa Mcwilliams DO [facility] ORDERABLES documented in this encounter Visit Diagnoses Diagnosis Supervision of high-risk of young multigravida ([facility]) Supervision of high-risk of young multigravida Obesity affecting in third trimester ([facility]) BMI 40.0-44.9, adult ([facility]) Body Mass Index 40.0-44.9, adult screening for growth retardation using ultrasonics ([facility]) screening for growth retardation using ultrasonics Screening, , for malformation by ultrasound ([facility]) Encounter for routine screening for malformation using ultrasonics Obesity complicating in third trimester ([facility]) Obesity complicating , childbirth, or the puerperium, antepartum condition or complication Obesity, unspecified classification, unspecified obesity type, unspecified whether serious comorbidity present 38 weeks gestation of ([facility]) state, incidental documented in this encounter
--- OUTSIDE RECORDS SUMMARY | 2024-10-06 22:16 | XMS_ITS | Encounter Summary ---
Author Organization [facility] Address [address] [place] [address] Care Team Providers Care Mate Ship Name Role Phone Unavailable Primary Care Provider Unavailabl e Encounter Details Date Type Department Care Team (Latest Contact Info) Description 09/17/2018 7:18 AM LITHARGE MILL OPERATOR - 09/17/2018 11:59 PM LITHARGE MILL OPERATOR Hospital Encounter Maternal & Care at [facility] [address] [facility] , [address] [place] [address] Tejinder Solorio MD [address] [facility] [address] [place] [address] Discharge Disposition: Home or Self Care Social [...] Sign Reading Time Taken Comments Blood Pressure - - Pulse - - Temperature - - Respiratory Rate - - Oxygen Saturation - - Inhaled Oxygen Concentration - - Weight 108.9 kg (240 lb) 09/17/2018 8:05 AM LITHARGE MILL OPERATOR Height - - Body Mass Index 37.59 09/16/2018 3:34 PM LITHARGE MILL OPERATOR documented in this encounter Medications at Time of Discharge Medication Sig Dispensed Refills Start Date End Date Vit-Fe Fumarate-FA ( VITAMIN) 27-0.8 MG tablet Take 1 tablet by mouth once daily documented as of this encounter Progress Notes * Jocelyn Meier RN - 09/17/2018 8:06 AM CST NT fingerstick done and sent to lab. ARGE MILL OPERATOR documented in this encounter Plan of Treatment Not on file documented as of this encounter Visit Diagnoses Not on filedocumented in this encounter
--- OUTSIDE RECORDS SUMMARY | 2024-10-06 22:16 | XMS_ITS | Encounter Summary ---
Author Organization [facility] Address [address] [place] [address] Care Team Providers Care Felling Machine Operator Name Role Phone Unavailable Primary Care Provider Unavailabl e Reason for Visit * Reason Onset Date Comments Forms 03/10/2019 Encounter Details Date Type Department Care Team (Late st Contact Info) Description 03/10/2019 Telephone [facility] - TRAFFIC CONTROL SUPERVISOR [address] [facility] [address] [place] [address] Julissa Mcwilliams, [address] [facility] [address] [place] [address] Forms Social History Tobacco Use Types Packs/Day Years [...] encounter Miscellaneous Notes * Telephone Encounter - Quique Ashley - 03/10/2019 1:47 PM CDT Called patient to see how many weeks of FMLA she will be taking once the baby is born. documented in this encounter Plan of Treatment Not on file documented as of this encounter Visit Diagnoses Not on filedocumented in this encounter
--- OUTSIDE RECORDS SUMMARY | 2024-10-06 22:16 | XMS_ITS | Encounter Summary ---
Author Organization [facility] Address [address] [facility] [place] [address] Care Team Providers Care Ergonomics Consultant Name Role Phone Unavailable Primary Care Provider Unavailabl e Reason for Visit * Reason Comments Routine Visit Encounter Details Date Type Department Care Team (Late st Contact Info) Description 12/16/2018 3:40 PM ORGAN GRINDER visit [facility] Medical [facility] - LOGISTICS INTERN [address] [facility] [address] [place] [address] [place] [address] [facility] [address] [place] [address] GA: 25w5d Social History Tobacco Use Types Packs/Day Years [...] Sign Reading Time Taken Comments Blood Pressure 118/70 12/16/2018 3:58 PM ORGAN GRINDER Pulse - - Temperature - - Respiratory Rate - - Oxygen Saturation - - Inhaled Oxygen Concentration - - Weight 114.8 kg (253 lb) 12/16/2018 3:58 PM ORGAN GRINDER Height 170.2 cm (5' 7 ) 12/16/2018 3:58 PM ORGAN GRINDER Body Mass Index 39.63 12/16/2018 3:58 PM ORGAN GRINDER documented in this encounter Progress Notes * Julissa Mcwilliams DO - 12/16/2018 4:29 PM CST 25w5d Patient has no obstetric complaints or issues. motion has been good. No spotting. Contractions: None. No LOF. Obstetric exam is normal. See obstetrical flow sheet above. Rachelle to RTO in 3 weeks. Placenta low lying resolved. Works in [employer] shop. Worried about cleanliness of L&D andhospital. 1 hour GTT and H/H ordered. Patient to present to L&D if water breaks, bleeding or decreased movement. N GRINDER documented in this encounter Plan of Treatment Not on file documented as of this encounter Procedures Procedure Name Priority Date/Time Associated Diagnosis Comments RPR Routine 01/13/2019 10:54 AM CDT care, subsequent , second trimester (HCC) 25 weeks gestation of (HCC) CBC W/O DIFFERENTIAL Routine 01/13/2019 10:53 AM CDT care, subsequent , second trimester (HCC) 25 weeks gestation of (HCC) GLUCOSE CHALLENGE Routine 01/13/2019 10: 53 AM CDT care, subsequent , second trimester (HCC) 25 weeks gestation of (HCC) documented in this encounter Results * RPR (01/13/2019 10:54 AM CDT) RPR Non Reactive Non Reactive [facility] ACCOUNT BILL Blood BLOOD SPECIMEN / Unknown 01/13/2019 10:54 AM CDT 01/13/2019 Narrative Resulting Agency Comment [facility] [address] ??[facility] [phone] Julissa Mcwilliams DO LAB - CHEMISTRY PEDRO LANG [facility] Organization Address City/State/ZIP Co de Phone Number [facility] ACCOUNT BILL [address] [place] [address] * (ABNORMAL) CBC W/O DIFFERENTIAL (01/13/2019 10:53 [...] CDT 01/13/2019 Narrative Resulting Agency Comment [facility] [address] ??[facility] [phone] Julissa Mcwilliams DO LAB - HEMATOLOGY ORD ERABLES [facility] ACCOUNT BILL [address] [place] [address] * GLUCOSE CHALLENGE (01/13/2019 10:53 AM CDT) GTT 1Hr 134 65 - 139 mg/dL [facility] ACCOUNT BILL Comment: According to ADA, a glucose threshold of >139 mg/dL after 50-gram load identifies approximately 80% of women with gestational diabetes mellitus, while the sensitivity is further increased to approximately 90% by a threshold of >129 mg/dL. FASTING Blood BLOOD SPECIMEN / Unknown 01/13/2019 10:53 AM CDT 01/13/2019 Narrative Resulting Agency Comment [facility] [address] ??[facility] [phone] Julissa Mcwilliams DO LAB - CHEMISTRY ORDNancy LANG [facility] ACCOUNT BILL [address] [place] [address] documented in this encounter Visit Diagnoses Diagnosis care, subsequent , second trimester (HCC)- Primary 25 weeks gestation of (HCC) state, incidental documented in this encounter
--- OUTSIDE RECORDS SUMMARY | 2024-10-06 22:16 | XMS_ITS | Encounter Summary ---
Author Organization [facility] Address [address] [facility] [place] [address] Care Team Providers Care Environmental Scientists Name Role Phone Unavailable Primary Care Provider Unavailabl e Encounter Details Date Type Department Care Team (Late st Contact Info) Description 10/26/2015 Lab Requisition [facility] [address] [place] [address] Unknown, Provider Social History Tobacco Use Types Packs/Day Years Used Date Smoking Tobacco: Never Assessed Sex and Gender Information Value Date Recorded Sex Assigned at Not on file Gender Identity Not on file Sexual Orientation Not on file documented as of this encounter Plan of Treatment Not on file documented as of this encounter Procedures Procedure Name Priority Date/Time Associated Diagnosis Comments RUBEOLA ANTIBODY IGG Routine 10/26/2015 8:15 AM TAX ANALYST MUMPS ANTIBODY IGG Routine 10/26/2015 8: 15 AM TAX ANALYST VARICELLA ZOSTER ANTIBODY IGG Routine 10/26/2015 8:15 AM TAX ANALYST RUBELLA ANTIBODY IGG Routine 10/26/2015 8:15 AM TAX ANALYST HEPATITIS B SURFACE ANTIBODY Routine 10/26/2015 8:15 AM TAX ANALYST documented in this encounter Results * VARICELLA ZOSTER ANTIBODY IGG (10/26/2015 8:15 AM TAX ANALYST) Varicella zoster Virus Antibody IgG 2153 Immune >165 index 10/28/2015 12:21 PM TAX ANALYST [facility] ([facility]) Comment: ? Negative ?<135 ? Equivocal ?135 - 165 ? Positive ?>165 A positive result generally indicates exposure to the pathogen or administration of specific immunoglobulins, but it is not indication of active infection or stage of disease. Blood specimen (specimen) BLOOD SPECIMEN / Unknown Venipuncture / Unknown 10/26/2015 8:15 AM TAX ANALYST 10/26/2015 7:57 PM TAX ANALYST Narrative [facility] ([facility]) - 10/28/2015 12:21 PM TAX ANALYST Performed at: ??[address] - [address] ??[id number] Developer: Karsten Lake PhD, Phone: ??[phone] Provider Unknown LAB - CHEMI[facility]Y PEDRO [facility]ANG [facility] * RUBEOLA ANTIBODY IGG (10/26/2015 8:15 AM TAX ANALYST) Measles (Rubeola) Antibody IgG 131.0 Immune >29.9 AU/mL 10/28/2015 12:21 PM TAX ANALYST [facility] ([facility]) Comment: ? Negative ?<25.0 ? Equivocal 25.0 - 29.9 ? Positive ?>29.9 Presence of antibodies to Rubeola is presumptive evidence of immunity except when acute infection is suspected. Blood specimen (specimen) BLOOD SPECIMEN / Unknown Venipuncture / Unknown 10/26/2015 8:15 AM TAX ANALYST 10/26/2015 7:57 PM TAX ANALYST Narrative [facility] - 10/28/2015 12:21 PM TAX ANALYST Performed at: ??01 - [address] ??[id number] As400 Developer: Karsten Lake PhD, Phone: ??[phone] Provider Unknown LAB - CHEMISTRY PEDRO LANG Performing Organization Address [facility] de Phone Number [facility] ([facility]) * MUMPS ANTIBODY IGG (10/26/2015 8:15 AM TAX ANALYST) Pathologist [facility] Mumps Virus Antibody IgG Index 93.4 Immune >10.9 AU/mL 10/28/2015 12:21 PM TAX ANALYST [facility] Comment: ?Negative ? <9.0 ?Equivocal ??9.0 - 10.9 ?Positive ?>10.9 A positive result generally indicates past exposure to Mumps virus or previous vaccination. Blood specimen (specimen) BLOOD SPECIMEN / Unknown Venipuncture / Unknown 10/26/2015 8:15 AM TAX ANALYST 10/26/2015 7:57 PM TAX ANALYST Narrative [facility] ([facility]) - 10/28/2015 12:21 PM TAX ANALYST Performed at: ??01 - [address] ??[id number] As400 Developer: Karsten Lake PhD, Phone: ??[phone] Provider Unknown LAB - CHEMISTRY PEDRO LANG [facility] ([facility]) * RUBELLA ANTIBODY IGG (10/26/2015 8:15 AM TAX ANALYST) Rubella Antibody IgG Positive - Immune 10/26/2015 8:36 PM TAX ANALYST [facility] Blood BLOOD SPECIMEN / Unknown Venipuncture / Unknown 10/26/2015 8:15 AM TAX ANALYST 10/26/2015 7:57 PM TAX ANALYST Provider Unknown LAB - SEROLOGY ORDER FADY [facility] [address] [place], [place] [id number] * HEPATITIS B SURFACE ANTIBODY (10/26/2015 8:15 AM TAX ANALYST) Pathologist [facility] HBsAb Non Reactive Non Reactive 10/26/2015 8:23 PM TAX ANALYST [facility] Blood BLOOD SPECIMEN / Unknown Venipuncture / Unknown 10/26/2015 8:15 AM TAX ANALYST 10/26/2015 7:57 PM TAX ANALYST Provider Unknown LAB - CHEMISTRY ORDE RAB [facility] [address] [place] [address] documented in this encounter Visit Diagnoses Not on filedocumented in this encounter
--- OUTSIDE RECORDS SUMMARY | 2024-10-06 22:16 | XMS_ITS | Encounter Summary ---
Author Organization [facility] Address [address] [place] [address] Care Team Providers Care Gasoline Pump Installer Name Role Phone Unavailable Primary Care Provider Unavailabl e Reason for Visit * Reason Comments Routine Visit Encounter Details Date Type Department Care Team (Late st Contact Info) Description 11/21/2018 4:00 PM PHOTONICS TECHNICIAN visit [facility] Medical [facility] - PERSONAL ASSISTANT [address] [facility] [address] [place] [address] Marilee Pete APRN-CNP [address] [facility] [address] [place] [address] GA: 22w1d Social History Tobacco Use Types Packs/Day Years [...] Sign Reading Time Taken Comments Blood Pressure 104/62 11/21/2018 4:04 PM PHOTONICS TECHNICIAN Pulse - - Temperature - - Respiratory Rate - - Oxygen Saturation - - Inhaled Oxygen Concentration - - Weight 114.6 kg (252 lb 9.6 oz) 11/21/2018 4:04 PM PHOTONICS TECHNICIAN Height 170.2 cm (5' 7 ) 11/21/2018 4:04 PM PHOTONICS TECHNICIAN Body Mass Index 39.56 11/21/2018 4:04 PM PHOTONICS TECHNICIAN documented in this encounter Progress Notes * Marilee Pete APRN-CNP - 11/21/2018 4:19 PM CST 22w1d Patient has no obstetric complaints or issues. Taking PNV. motion has been good. No spotting.Contractions: None. No abnormal vaginal discharge or leaking fluid. Has f/u u/s scheduled. Obstetric exam is normal. See flowchart. ASSESSMENT ICD-10-CM 1. care, subsequent , second trimester Z34.82 2. 22 weeks gestation of Z3A.22 PLAN No orders of the defined types were placed in this encounter. Pelvic rest. kick counts were reviewed, to be performed BID. PTL precautions reviewed. Patient to present to L&D if water breaks, bleeding or decreased movement. Rachelle to RTO in 4 weeks. ONICS TECHNICIAN documented in this encounter Plan of Treatment Not on file documented as of this encounter Visit Diagnoses Diagnosis care, subsequent , second trimester (HCC)- Primary 22 weeks gestation of (HCC) state, incidental documented in this encounter
--- OUTSIDE RECORDS SUMMARY | 2024-10-06 22:16 | XMS_ITS | Encounter Summary ---
Author Organization [facility] Address [address] [facility] [place] [address] Care Team Providers Care Armature Winder Repair Helper Name Role Phone Unavailable Primary Care Provider Unavailabl e Encounter Details Date Type Department Care Team (Latest Contact Info) Description 03/11/2019 12:58 PM CDT - 03/11/2019 11:59 PM CDT Hospital Encounter Maternal & Care at [facility] [address] [facility] , [address] [place] [address] Tejinder Solorio MD [address] [facility] [address] [place] [address] Discharge Disposition: Home or Self Care Social [...] Diagnosis Comments BIOPHYSICAL PROFILE W NST Routine 03/11/2019 1:21 PM CDT Supervision of high-risk of young multigravida (HCC) Obesity affecting in third trimester (HCC) BMI 40.0-44.9, adult (HCC) documented in this encounter Results * BIOPHYSICAL PROFILE W NST (03/18/2019 11:42 AM CDT) Anatomical Region Laterality Modality Other 03/18/2019 11:4 2 AM CDT Narrative 03/18/2019 12:11 PM CDT ?[facility] ? TESTING CENTER ?FAX: ?? Pat. Name: ?RACHELLE DIA Pat. No: ?[id number] Study Date: ?? 03/18/2019 ??11:42am , Age: ? 1985, 33 Pregnancies: ?? 3, Para 2002 Height: ? 67 in Weight: ? 231 lb LMP: ?Unknown GA by Base: ?? 38w6d ?? HELEN: 03/26/2019 GA Selected: ??38w6d (From [facility]) HELEN: ?03/26/2019 Referring MD: Julissa Mcwilliams MD Card Checker: ??Deisy Cordoba RDMS CPT4: ? 95424,[id number] BMI: ?36.18 Hist/Ind: ? testing (BPP) ?LGA [...] <Electronic Signature> ??03/18/2019 12:11pm Julissa Mcwilliams DO MFM ORDERABLES * BIOPHYSICAL PROFILE W NST (03/11/2019 1:21 PM CDT) Anatomical Region Laterality Modality Other 03/11/2019 1:21 PM CDT Narrative 03/11/2019 1:45 PM CDT ?[facility] ?[facility] ? TESTING CENTER ?FAX: ?? Pat. Name: ?RACHELLE DIA Pat. No: ?[id number] Study Date: ?? 03/11/2019 ??1:21pm , Age: ? 1985, 33 Pregnancies: ?? 3, Para 2002 Height: ? 67 in Weight: ? 231 lb LMP: ?Unknown GA by Base: ?? 37w6d ?? HELEN: 03/26/2019 GA by US: ? 37w6d ?? HELEN: 03/26/2019 GA Selected: ??37w6d (From [facility]) HELEN: ?03/26/2019 Referring MD: Julissa Mcwilliams MD Card Checker: ??Maryam Lara, MONICA, JESS CPT4: ? 48020,[id number] BMI: ?36.18 Hist/Ind: ? testing (BPP) ?LGA ?Class II obesity ?Completed Anatomy MEASUREMENTS & AGE ? GROWTH EVALUATION Measurement ??GA ? Range ? Srce %for GA Ratios ----- ---- ------- BPD ??9.1 cm 37w0d (11v8q-70f2u) Hadl BPD 50% FL/BPD 0.84 (0.71 - 0.87) HC ??33.0 cm 37w4d (65d1n-36s4z) Hadl HC ??20% FL/AC ??0.22 (0.20 - 0.24) AC ??34.1 cm 38w0d (23v7p-23q2k) Hadl AC ??73% HC/AC ??0.97 (0.91 - 1.10) FL ?? 7.6 cm 39w0d (81n4f-91i5n) Hadl FL ??81% CI ? 0.80 (0.70 - 0.86) HL ?? 6.8 cm 39w4d (05t8c-98y1f) Chente HL ??78% GA for sonogram 37w6d (19f6o-14t3d) ?? Weight Estimate: based on (BPD,HC,AC,FL) Avg ?Weight: 3392 gm (2896-3887gm) Had ? : 7lbs, 7oz ? Normal: 3206 gm (2405- 4008gm) Had ? Wt% ? 67% for 37w6d Heart Rate: 160 bpm Amniotic Fluid Index: 17.0cm (07.3-24.0) Q1: 5.4cm ??Q2: 3.2cm ??Q3: 3.8cm ??Q4: 4.6cm ?? Biophysical Profile: 05/29 Breathin ?? Tone: 2 ?? Movement: ??2 ?? AFV: ??2 EVAL, PLACENTA Presentation: cephalic Placenta: posterior Heart Rate: 160 bpm Amniotic Fluid Volume: normal CLINICAL SUMMARY Study Number: 9 ?? A single fetus is identified in cephalic presentation. ??The measurements today are consistent with appropriate interval growth compared to previous study growth. ??The HELEN selected is based on a prior ultrasound. ??The estimated weight percentile is 67%. ??The placenta is posterior. ??The amniotic fluid volume is normal. ??The amniotic fluid index is 16.95 cm. ?? IMPRESSION: Single, cephalic IUP at 37w6d. ?? normal amniotic fluid volume. ?? AGA growth. ?? Reassuring BPP without NST RECOMMEND: Follow up ultrasound as clinically indicated and weekly BPP through delivery. Thanks for allowing us the opportunity to care for your patient. Tejinder Solorio MD <Electronic Signature> ??03/11/2019 01:44pm Julissa Mcwilliams DO Diana ORDERABLES documented in this encounter Visit Diagnoses Diagnosis Excessive growth affecting management of , antepartum, single or unspecified fetus ([facility])- Primary Supervision of high-risk of young multigravida ([facility]) Supervision of high-risk of young multigravida Obesity affecting in third trimester ([facility]) BMI 40.0-44.9, adult ([facility]) Body Mass Index 40.0-44.9, adult Obesity complicating in third trimester ([facility]) Obesity complicating , childbirth, or the puerperium, antepartum condition or complication Obesity, unspecified classification, unspecified obesity type, unspecified whether serious comorbidity present 37 weeks gestation of ([facility]) state, incidental Supervision of high-risk of young multigravida ([facility]) Supervision of high-risk of young multigravida Obesity affecting in third trimester ([facility]) BMI 40.0-44.9, adult ([facility]) Body Mass Index 40.0-44.9, adult screening for growth retardation using ultrasonics ([facility]) screening for growth retardation using ultrasonics Screening, , for malformation by ultrasound ([facility]) Encounter for routine screening for malformation using ultrasonics Obesity complicating in third trimester ([facility]) Obesity complicating , childbirth, or the puerperium, antepartum condition or complication Obesity, unspecified classification, unspecified obesity type, unspecified whether serious comorbidity present 38 weeks gestation of ([facility]) state, incidental documented in this encounter
--- OUTSIDE RECORDS SUMMARY | 2024-10-06 22:16 | XMS_ITS | Encounter Summary ---
Author Organization [facility] Address [address] [place] [address] Care Team Providers Care Sales Floor Team Member Name Role Phone Unavailable Primary Care Provider Unavailabl e Reason for Visit * Reason Comments Cramps Pt states she starte d cramping around 1100 today Encounter Details Date Type Department Care Team (Latest Contact Info) Description 02/26/2019 12:22 PM CDT - 02/26/2019 2:16 PM CDT Hospital Encounter Replaced by [facility] - Labor & Delivery [address] [place] [address] [place] [address] [facility] [address] [place] [address] Discharge Disposition: Home or Self Care Social [...] Sign Reading Time Taken Comments Blood Pressure 131/80 02/26/2019 1:48 PM CDT Pulse - - Temperature 36.7 ??C (98 ??F) 02/26/2019 1:48 PM CDT Respiratory Rate 18 02/26/2019 1:48 PM CDT Oxygen Saturation - - Inhaled Oxygen Concentration - - Weight 117.5 kg (259 lb) 02/26/2019 12:39 PM CDT Height 170.2 cm (5' 7 ) 02/26/2019 12:39 PM CDT Body Mass Index 40.57 02/26/2019 12:39 PM CDT documented in this encounter Discharge Summaries * Cheryl Germain - 02/26/2019 2:09 PM CDT DISCHARGE SUMMARY 02/26/2019 2:[address] Powell, agrees pt is stable medically to d/c home. Pt is not in labor Pt is patient doing well FHR is Baseline: 140 bpm Uterine contractions irregular mild Membranes intact Vitals: 02/26/19 1237 02/26/19 1239 BP: 121/78 Resp: 18 Temp: 98.2 ??F (36.8 ??C) Weight: 117.5 kg (259 lb) Height: 1.702 m (5' 7 ) Labs reviewed. Discharge disposition home Discharge activity activity as tolerated. Reviewed PTL, FKC, Pre-E education with pt. Discharge follow up: keep next scheduled appt. ALIVIA Murphy Time spent on discharge less than 30 min. documented in this encounter Discharge Instructions * Discharge Instructions* Jan Sanchez RN - 02/26/2019 2:13 PM CDT UNDELIVERED PATIENT DISCHARGE INSTRUCTIONS CALL YOUR DOCTOR ?? If you are less than 37 weeks and have move than 5 contractions an hour. ?? Blurring ofvision or spots before your eyes. ?? Ruptured membranes or leakage of vaginal fluid. ?? May be a steady trickle or large gush ?? May be clear, yellow, pink or green ?? Decreased movement--if your baby has stopped movingor is moving less than it normally does. Do Kick Counts as instructed. ?? Vaginal bleeding--bright red bleeding and/or clots needs medical care immediately. ?? Any temperature above 100 degrees. ?? Headache ?? Any burning or painful urination. ?? Increased swelling in your face, hands, or feet. ?? Stomach pains, cramps, nausea,or diarrhea. documented in this encounter Medications at Time [...] as of this encounter Progress Notes * Jan Sanchez RN - 02/26/2019 2:11 PM CDT Discharged patient instructions given pt verbalized understanding pt will follow up with her OB documented in this encounter H&P Notes * Cheryl Germain - 02/26/2019 12:51 PM CDT OB History and Physical Exam Subjective: Rachelle Dia is a 33 year old G 3 P 2 A 0 Estimated Date of Delivery: 03/26/19 female at 36w0d weeks tucker gestation. CC: She comes to OB triage for cramping HPI: Reports intermittent cramping rated 6-7/10 since 1100 this am. No alleviating/aggravating factors. Cramping about 20 minutes aprt. Hasn't felt since shortly before 12 pm. States would not have come to triage if not for her boss making her come.. +FM. Reports red discoloration in panties, unsure if it was blood. Last sex Sunday. Denies LOW Dating: LMP=US@ PNC: Dr. Mcwilliams, next appt Sunday Patient's complicated by: Patient Active Problem List: Group b Streptococcus urinary tract infection affecting , antepartum, first trimester Screening, , for malformation by ultrasound Obesity affecting screening for growth retardation using ultrasonics Gynecologic History: Pt has h/o abnl Pap smears Pt has h/o Cervical procedures, colpos Pt has h/oSTI's, HPV Obstetric History T2 L2 SAB0 TAB0 Ectopic0 Multiple0 Live Births2 # Outcome Date GA Lbr Darryl/2nd Weight Sex Delivery Anes PTL Lv 3 Current 2 Term 2012 41w0d 3629 g (8 lb) F Vag-Spont N KHADRA Name: Sallie 1 Term 2005 37w0d 3317 g (7 lb 5 oz) M Vag-Spont N KHADRA Name: Jorge Objective: Patient Vitals for the past 24 hrs: Temp Resp BP 02/26/19 1237 98.2 ??F (36.8 ??C) 18 121/78 Medical History: Past Medical History: Diagnosis Date ??? Abnormal Pap smear of cervix reports 3 colposcopies starting at 16 y.o. ??? Back problem ??? Depression ??? History of anemia ??? History of headache ??? HPV in female Surgical History: Past Surgical History: Procedure Laterality Date ??? [place] Tooth Extraction Family History: Family History Problem Relation Age of Onset ??? Hypertension Father ??? Diabetes - Type 2 Father ??? Diabetes - Type 2 Sister ??? Other - Cardiac Sister 38 CHF ??? Diabetes - Type 2 Maternal Grandmother ??? Diabetes - Type 2 Paternal Grandmother ??? CVA Paternal Grandfather ??? Other Brother from MVA Social History: Social History Substance Use Topics ??? Smoking status: Former Smoker Packs/day: 0.50 Types: Cigarettes Quit date: 08/07/2018 ??? Smokeless tobacco: Never Used ??? Alcohol use Yes ALLERGIES: Allergies Allergen Reactions ??? Eggs [Albumin] Swelling CURRENT MEDS: Prescriptions Prior to Admission Medication Sig Dispense Refill ??? ferrous gluconate 324 (38 Fe) MG tablet Take 324 mg by mouth daily with breakfast Reasons: Anemia From Inadequate Iron in the Body ??? Vit-Fe Fumarate-FA ( VITAMIN) 27-0.8 MG tablet Take 1 tablet by mouth once daily Review of Systems: Denies fevers/chills/nausea/vomitting/diarrhea Denies CP/calf tenderness. SOB 2 days ago, now resolved Denies LING/vision chg/RUQ pain Denies dysuria/urgency. Hematuria on urine dip in office per pt Physical Exam: General appearance:alert, cooperative,no distress Lungs: clear to auscultation bilaterally Heart: regular rate and rhythm Abdomen:gravid,NT,+ BS Extremities: NT bilat, edema absent Contractions: Irregular and mild Pelvis: EFG: nl appearing Urethra: nl Bladder: nl Vaginal/Pelvic Support: nl Perineum: nl Presentation: unsure Cervix: Dilation: Closed Effacement: Long Station: Floating Consistency: Medium Position: Posterior heart tones:baseline rate 140, variability: moderate, accelerations present, no decelerationspresent appropriate for GA Membranes: intact SSE: Lab Review: Blood type: O+/RI/-/-/-/- GBS: unknown UA: Assessment/Plan: IUP in a G 3 P 2 A 0 Estimated Date of Delivery: 03/26/19 female at 36w0d weeks gestation. 1. Admitted to OB triage-MDB 2. FWB: EFM- approp for GA, reassuring 3. R/O UTI 1. UA- Pending 4. R/O labor- not in 5. R/O Vaginal bleeding: Pt unsure if has been having vaginal bleeding. No blood noted on spec exam Dr. Mylene Calderon OB was notified of the patient's arrival to OB triage, discussed above findings, agrees with POC. Cheryl Schmidt APRN-FURNACE LOADER Time Spent: less than 30 min documented in this encounter Plan of Treatment Scheduled Orders Name Type Priority Associated Diagnoses Orde r Schedule NONSTRESS TEST OB Routine ONCE for 1 Occurrences starting 02/26/2019 until 02/26/2019 documented as of this encounter Procedures Procedure Name Priority Date/Time Associated Diagnosis Comments URINE MICROSCOPIC ONLY REFLEX TO CULTURE Routine 02/26/2019 1:18 PM CDT Lower abdominal pain URINALYSIS REFLEX MICROSCOPIC REFLEX CULTURE STAT 02/26/2019 1:18 PM CDT Lower abdominal pain CULTURE URINE Routine 02/26/2019 1:18 PM CDT Lower abdominal pain documented in this encounter Results * CULTURE URINE (02/26/2019 1:18 PM CDT) Culture Urine 10,000-50,000 CFU/mL urogenital sirena CHUCK 02/27/2019 1:34 PM CDT [facility] MICRO[facility]OLOG[facility] Urine URINE SPECIMEN OBTAINED BY CLEAN CATCH PROCEDURE / Unknown Collection / Unknown 02/26/2019 1:18 PM CDT 02/26/2019 1:22 PM CDT Cheryl Germain KILN STOKER-FURNACE LOADER LAB - MICROBIOL OGY ORDERABLES [facility] MICROBIOLOGY [address] [place] [address], [facility] [phone] * (ABNORMAL) URINE MICROSCOPIC ONLY REFLEX TO CULTURE (02/26/2019 1:18 PM CDT) Reflex Status Culture to follow 02/26/2019 1:36 PM CDT [facility] RBC UA 0-2 None Seen, 0-2, 3-5 # /hpf 02/26/2019 1:36 PM CDT [facility] WBC UA 11-20(A) None Seen, 0-5 # /hpf 02/26/2019 1:36 PM CDT [facility] Bacteria UA 3+(A) None Seen 02/26/2019 1:36 PM CDT [facility] Squamous Epithelial Cells 11-20(A) None Seen, 0-2, 3-5 /hpf 02/26/2019 1:36 PM CDT [facility] Mucus UA 2+ /LPF 02/26/2019 1:36 PM CDT [facility] Amorphous Crystals Occasional( A) None seen /hpf 02/26/2019 1:36 PM CDT [facility] Urine URINE SPECIMEN OBTAINED BY CLEAN CATCH PROCEDURE / Unknown Collection / Unknown 02/26/2019 1:18 PM CDT 02/26/2019 1:22 PM CDT Narrative [facility] - 02/26/2019 1:36 PM CDT Cheryl Bryant Esters KILN STOKER-FURNACE LOADER LAB - URINALYSI S ORDERABLES [facility] [address] [place] [address] * (ABNORMAL) URINALYSIS REFLEX MICROSCOPIC REFLEX CULTURE (02/26/2019 1:18 PM CDT) Color UA Yellow Straw, Yellow 02/26/2019 1:35 PM CDT [facility] Clarity UA Cloudy(A) Clear 02/26/2019 1:35 PM CDT [facility] Glucose UA Negative Negative 02/26/2019 1:35 PM CDT [facility] Bilirubin UA Negative Negative 02/26/2019 1:35 PM CDT [facility] Ketone UA Negative Negative 02/26/2019 1:35 PM CDT [facility] Specific Hope UA 1.023 1.005 - 1.030 02/26/2019 1:35 PM CDT [facility] Blood UA Negative Negative 02/26/2019 1:35 PM CDT [facility] pH UA 6.0 5.0 - 8.0 pH 02/26/2019 1:35 PM CDT [facility] Protein UA 1+(A) Negative 02/26/2019 1:35 PM CDT [facility] Urobilinogen UA Negative Negative mg/dL 02/26/2019 1:35 PM CDT [facility] Nitrite UA Negative Negative 02/26/2019 1:35 PM CDT [facility] Leukocyte UA 3+(A) Negative 02/26/2019 1:35 PM CDT [facility] Urine Microscopy Urine microscopy to follow 02/26/2019 1:35 PM CDT [facility] Reflex Status Culture to follow 02/26/2019 1:35 PM CDT [facility] Urine URINE SPECIMEN OBTAINED BY CLEAN CATCH PROCEDURE / Unknown Collection / Unknown 02/26/2019 1:18 PM CDT 02/26/2019 1:22 PM CDT Narrative [facility] - 02/26/2019 1:35 PM CDT Ascorbic Acid can cause false negative urine strip tests for blood, glucose, nitrite, and bilirubin. Cheryl Germain KILN STOKER-FURNACE LOADER LAB - URINALYSI S ORDERABLES [facility] [address] [place] [address] documented in this encounter Visit Diagnoses Diagnosis Lower abdominal pain- Primary Abdominal pain, other specified site Lower abdominal pain Abdominal pain, other specified site Other specified related conditions, third trimester (HCC) Abdominal pain, unspecified abdominal location 36 weeks gestation of (HCC) state, incidental documented in this encounter
--- OUTSIDE RECORDS SUMMARY | 2024-10-06 22:16 | XMS_ITS | Encounter Summary ---
Author Organization [facility] Address [address] [place] [address] Care Team Providers Care Grain Combiner Name Role Phone Unavailable Primary Care Provider Unavailabl e Encounter Details Date Type Department Care Team (Late st Contact Info) Description 04/19/2017 4:26 PM CDT - 04/19/2017 11:59 PM CDT Hospital Encounter [facility] [address] [place] [address] Mulu Mendez, DOULA-FURNACE CHARGING MACHINE OPERATOR [address] [place] [address] Discharge Disposition: Home or Self Care Social History Tobacco Use Types Packs/Day Years Used Date Smoking Tobacco: Every Day Smokeless Tobacco: Never Sex and Gender Information Value Date Recorded Sex Assigned at Not on file Gender Identity Not on file Sexual Orientation Not on file documented as of this encounter Medications at Time of Discharge Medication Sig Dispensed Refills Start Date End Date methocarbamol (ROBAXIN) 500 MG tabletIndications:Mu sculoskeletal Pain Take 1 Tab by mouth every 6 hours as needed for Muscle Spasms Reasons: Musculoskeletal Pain 15 Tab 04/19/2017 05/23/2017 documented as of this encounter Plan of Treatment Not on file documented as of this encounter Procedures Procedure Name Priority Date/Time Associated Diagnosis Comments XR ELBOW RIGHT 3VW OR MORE STAT 04/19/2017 4:42 PM CDT Fall, initial encounter documented in this encounter Results * XR ELBOW 3+ VW RIGHT (04/19/2017 [...] evident. IMPRESSION No acute fracture. Mulu Mendez DOULA-FURNACE CHARGING MACHINE OPERATOR DIAGNOSTIC IMAGIN G ORDERABLES documented in this encounter Visit Diagnoses Diagnosis Fall, initial encounter documented in this encounter
--- OUTSIDE RECORDS SUMMARY | 2024-10-06 22:16 | XMS_ITS | Clinical Summary ---
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 Gender Identity Not on file Sexual Orientation Not on file Plan of Treatment Health Maintenance Due Date Last Done Comments Hepatitis C Virus (HCV) Screening 1985 TdaP Immunization 1985 Hepatitis B Immunization (1 of 3 - 19+ 3-dose series) 2004 Pap Smear 2006 Cervical Cancer Screening (CCS) 2015 HPV/Cotest 2015 SARS-COV-2 Immunization ( season) 2023 Influenza Immunization (Seas on Ended) 2024 Meningococcal Immunization (ACWY) Aged Out No longer eligible based on patient's age to complete this topic Pneumococcal Immunization Combined Aged Out No longer eligible based on patient's age to complete this topic Rotavirus Immunization Aged Out No lo nger eligible based on patient's age to complete this topic
--- OUTSIDE RECORDS SUMMARY | 2024-10-06 22:16 | XMS_ITS | Encounter Summary ---
Author Organization [facility] Address [address] [place] [address] Care Team Providers Care Ip Counsel Name Role Phone Unavailable Primary Care Provider Unavailabl e Reason for Visit * Reason Comments Ultrasound Encounter Details Date Type Department Care Team (Latest Contact Info) Description 03/04/2019 2:15 PM CDT - 03/04/2019 11:59 PM CDT Hospital Encounter [facility] at [facility] [address] , [address] [place] [address] Tejinder Solorio MD [address] [facility] [address] [place] [address] Discharge Disposition: Home or Self Care Social [...] Diagnosis Comments BIOPHYSICAL PROFILE W NST Routine 03/04/2019 2:36 PM CDT Obesity affecting in third trimester (HCC) documented in this encounter Results * BIOPHYSICAL PROFILE W NST (03/04/2019 2:36 PM CDT) Anatomical Region Laterality Modality Other 03/04/2019 2:36 PM CDT Narrative 03/04/2019 3:57 PM CDT ?[facility] ? TESTING [facility]ENTER ?FAX: ?? Pat. Name: ?RACHELLE DIA Pat. No: ?[id number] Study Date: ?? 03/04/2019 ??2:36pm , Age: ? 1985, 33 Pregnancies: ?? 3, Para 2002 Height: ? 67 in Weight: ? 231 lb LMP: ?Unknown GA by Base: ?? 36w6d ?? HELEN: 03/26/2019 GA Selected: ??36w6d (From Baselin) HELEN: ?03/26/2019 Referring MD: Julissa Mcwilliams MD Pharmacist Helper: ??Emma Fagan RDMS CPT4: ? 18352,42831 BMI: ?36.18 Hist/Ind: ? testing (BPP) ?LGA ?Class II obesity ?Completed Anatomy Heart Rate: 155 bpm Amniotic Fluid Index: 17.9cm (07.5-24.5) Q1: 2.8cm ??Q2: 5.3cm ??Q3: 2.9cm ??Q4: 6.9cm ?? Biophysical Profile: 05/29 Breathin ?? Tone: 2 ?? Movement: ??2 ?? AFV: ??2 EVAL, PLACENTA Presentation: cephalic Placenta: right lateral Heart Rate: 155 bpm Amniotic Fluid Volume: normal CLINICAL SUMMARY Study Number: 8 ?? A single fetus is identified in cephalic presentation. ??The placenta is right lateral. ??The amniotic fluid volume is normal. ?? The amniotic fluid index is 17.93 cm. ?? IMPRESSION: Single, cephalic IUP at 36w6d. ?? normal amniotic fluid volume. ?? Reassuring testing. ?? RECOMMEND: Continue testing as scheduled. Reassess growth in 1 week. Thanks for allowing us the opportunity to care for your patient. Tejinder Solorio MD <Electronic Signature> ??03/04/2019 03:57pm Tejinder Solorio MD [facility] ORDERABLES documented in this encounter Visit Diagnoses Diagnosis Obesity affecting in third trimester ([facility])- Primary BMI 40.0-44.9, adult ([facility]) Body Mass Index 40.0-44.9, adult Encounter for supervision of other normal in third trimester ([facility]) Excessive growth affecting management of in third trimester, single or unspecified fetus (HCC) Obesity complicating in third trimester (HCC) Obesity complicating , childbirth, or the puerperium, antepartum condition or complication Obesity, unspecified classification, unspecified obesity type, unspecified whether serious comorbidity present 36 weeks gestation of (HCC) state, incidental documented in this encounter
--- OUTSIDE RECORDS SUMMARY | 2024-10-06 22:16 | XMS_ITS | Encounter Summary ---
Author Organization [facility] Address [address] [facility] [place] [address] Care Team Providers Care Senior Microsoft Consultant Name Role Phone Unavailable Primary Care Provider Unavailabl e Reason for Visit * Reason Comments Colposcopy Encounter Details Date Type Department Care Team (Late st Contact Info) Description 08/08/2017 11:20 AM CDT Office Visit [facility] Medical [facility] - DIRECTOR GIFT [address] [facility] [address] [place] [address] [place] [address] [facility] [address] [place] [address] ASCUS with positive high risk HPV cervical (Primary Dx); Secondary amenorrhea Social History Tobacco Use Types Packs/Day Years Used Date Smoking Tobacco: Every Day Cigarettes Smokeless Tobacco: Never Tobacco Cessation:Ready to Q [...] Sign Reading Time Taken Comments Blood Pressure 138/90 08/08/2017 11:55 AM CDT Pulse - - Temperature - - Respiratory Rate - - Oxygen Saturation - - Inhaled Oxygen Concentration - - Weight 99.8 kg (220 lb) 08/08/2017 11:55 AM CDT Height 170.2 cm (5' 7 ) 08/08/2017 11:55 AM CDT Body Mass Index 34.46 08/08/2017 11:55 AM CDT documented in this encounter Progress Notes * Marina Chiu, BRENDA - 08/14/2017 10:58 AM CDT Pt notified that the thyroid is normal. Hcg is negative. Prolactin is normal. Female hormones are normal. Should be having periods. Pt notified that the ZACKERY 1 (mild dysplasia) on biopsies. Plan to repeat pap/ hpv testing in 12 months. * Julia Osborne - 08/14/2017 9:57 AM CDT LM on VM for patient to call office for results to biopsies. * Julissa Mcwilliams DO - 08/14/2017 9:31 AM CDT Please notify patient ZACKERY 1 (mild dysplasia) on biopsies. Plan repeat pap and HPV in 12 months. * Julissa Mcwilliams DO - 08/10/2017 4:37 PM CDT Please notify patient thyroid is normal. HCG is negative. Prolactin is normal. Female hormones are normal. Should be having periods. * Julissa Mcwilliams DO - 08/08/2017 1:05 PM CDT Images from the original note were not included. 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 Procedure Details The risks and benefits of the procedure and verbal informed consent obtained. Speculum placed in vagina and excellent visualization of cervix achieved, cervix swabbed with acetic acid solution. Cervix is visualized under colposcopic magnification. Colposcopy performed in the usual manner. Cervical Findings: SCJ Visualized: Yes Findings: acetowhite lesion(s) noted at 10-12 o'clock and mosaicism noted at 12 o'clock ECC Performed: Yes Cervical biopsies taken: Yes Actions taken: endocervical curettage performed, cervical biopsies taken at 10 and 12 o'clock and hemostasis achieved with Monsel's solution Vaginal inspection: vaginal colposcopy not performed. Vulvar colposcopy: vulvar colposcopy not performed. Complications: none. Follow Up Plans: No vaginal activity for 48 hours. Will base further treatment on Pathology findings. Specimens labelled and sent to Pathology. Julissa Mcwilliams DO documented in this encounter Plan of Treatment Scheduled Orders Name Type Priority Associated Diagnoses Orde r Schedule PATHOLOGY SPECIMEN Pathology Cytology Routine ASCUS with positive high risk HPV cervical Ordered: 08/08/2017 documented as of this encounter Procedures Procedure Name Priority Date/Time Associated Diagnosis Comments PATHOLOGY SPECIMEN Routine 08/08/2017 1: 13 PM CDT ASCUS with positive high risk HPV cervical TSH HI LOW REFLEX FREE T4 Routine 08/08/2017 12:58 PM CDT Secondary amenorrhea PROLACTIN Routine 08/08/2017 12:58 PM CDT Secondary amenorrhea ESTRADIOL Routine 08/08/2017 12:58 PM CDT Secondary amenorrhea HCG BETA BLOOD QUANTITATIVE Routine 08/08/2017 12:58 PM CDT Secondary amenorrhea FSH + LH PANEL Routine 08/08/2017 12:58 PM CDT Secondary amenorrhea documented in this encounter Results * PATHOLOGY SPECIMEN (08/08/2017 1:13 PM CDT) [...] CPT [facility] ACCOUNT BILL Comment: CPT ?. 557446, [id number] Pathology/Cytolog y CERVICAL BIOPSY SPECIMEN / Unknown 08/08/2017 1:13 PM CDT 08/09/2017 Narrative Resulting Agency Comment [facility] [address] ??[facility] [phone] Julissa Mcwilliams DO LAB - PATHOLOGY/CYTO LOGY ORDERABLES [facility] ACCOUNT BILL [address] [place] [address] * ESTRADIOL (08/08/2017 12:58 PM CDT) Estradiol [...] 08/08/2017 Narrative Resulting Agency Comment [facility] [address] ??[facility] hospital [phone] Julissa Mcwilliams DO LAB - CHEMISTRY PEDRO LANG [facility] ACCOUNT BILL [address] [place] [address] * FSH + LH PANEL (08/08/2017 12:58 [...] PM CDT 08/08/2017 Narrative Resulting Agency Comment [address] ??[facility] [phone] Julissa Mcwilliams DO LAB - CHEMISTRY PEDRO LANG [facility] ACCOUNT BILL [address] [place] [address] * PROLACTIN (08/08/2017 12:58 PM CDT) Prolactin 15.00 ng/mL [facility] ACCOUNT BILL Comment: Prolactin Reference Interval: ?Female Non: 2.80 - ??29.20 ??ng/mL ? Female : 9.70 - 208.50 ??ng/mL Female Postmenopausal: 1.80 - ??20.39 ??ng/mL ?Male: 2.10 - ??17.70 ??ng/mL Blood BLOOD SPECIMEN / Unknown 08/08/2017 12:58 PM CDT 08/08/2017 Narrative Resulting Agency Comment [facility] Health [facility] [address] ??[place] [phone] Julissa Mcwilliams DO LAB - CHEMISTRY PEDRO LANG [facility] ACCOUNT BILL [address] [place] [address] * HCG BETA BLOOD QUANTITATIVE (08/08/2017 12:58 [...] PM CDT 08/08/2017 Narrative Resulting Agency Comment [facility] [address] ??[place] [phone] Julissa Mcwilliams DO LAB - CHEMISTRY [employer] Performing Organization Address City/[facility] Co de Phone Number [facility] ACCOUNT BILL [address] [place] [address] * TSH HI LOW REFLEX FREE T4 (08/08/2017 12:58 PM CDT) TSH 1.04 0.358 - 3.740 ulU/mL [facility] ACCOUNT BILL Blood BLOOD SPECIMEN / Unknown 08/08/2017 12:58 PM CDT 08/08/2017 Narrative Resulting Agency Comment [facility] Health [facility] [address] ??[place] [phone] Julissa Mcwilliams DO LAB - CHEMISTRY PEDRO LANG Performing Organization Address City/[facility]/ZIP Co de Phone Number [facility] ACCOUNT BILL [address] [place] [address] documented in this encounter Visit Diagnoses Diagnosis ASCUS with positive high risk HPV cervical- Primary Secondary amenorrhea Absence of menstruation documented in this encounter
--- OUTSIDE RECORDS SUMMARY | 2024-10-06 22:16 | XMS_ITS | Encounter Summary ---
Author Organization [facility] Address [address] [place] [address] Care Team Providers Care Kettle Fry Cook Operator Name Role Phone Unavailable Primary Care Provider Unavailabl e Reason for Visit * Reason Comments Ultrasound Encounter Details Date Type Department Care Team (Latest Contact Info) Description 11/07/2018 10:10 AM TRANSPORTATION INSPECTOR - 11/07/2018 11:59 PM TRANSPORTATION INSPECTOR Hospital Encounter Maternal & Care at [facility] [address] [facility] , [address] [place] [address] Tejinder Solorio MD [address] [facility] [address] [place] [address] Discharge Disposition: Home or Self [...] of this encounter Progress Notes * Jan Sheikh RN - 11/07/2018 12:16 PM CST 2nd trimester screen drawn and sent. SPORTATION INSPECTOR documented in this encounter Plan of Treatment Not on file documented as of this encounter Procedures Procedure Name Priority Date/Time Associated Diagnosis Comments SONOGRAM - COMPLETE Routine 11/07/2018 10:19 AM TRANSPORTATION INSPECTOR care, subsequent , first trimester (HCC) 7 weeks gestation of (HCC) Positive test (HCC) Special screening examination for human papillomavirus (HPV) Screening examination for venereal disease documented in this encounter Results * SONOGRAM - COMPLETE (11/07/2018 10:19 AM TRANSPORTATION INSPECTOR) Anatomical Region Laterality Modality Other 11/07/2018 10:1 9 AM TRANSPORTATION INSPECTOR Narrative 11/07/2018 1:33 PM TRANSPORTATION INSPECTOR ?[facility] ?[facility] ? TESTING CENTER ?FAX: ?? Pat. Name: ?DIA, RACHELLE Pat. No: ?[id number] Study Date: ?? 11/07/2018 ??10:19am , Age: ? 1985, 33 Pregnancies: ?? 3, Para 2 Height: ? 67 in Weight: ? 231 lb LMP: ?Unknown GA by Base: ?? 20w1d ?? HELEN: 03/26/2019 GA by US: ? 20w6d ?? HELEN: 03/21/2019 GA Selected: ??20w1d (From [facility]) HELEN: ?03/26/2019 Referring MD: Julissa Mcwilliams MD [place] Barrel Assembly Cleaner: ??Emma Fagan RDMS CPT4: ? 73002,14650 BMI: ?36.18 Hist/Ind: ? anatomic survey ?Class II obesity MEASUREMENTS & AGE ? GROWTH EVALUATION Measurement ??GA ? Range ? Srce %for GA Ratios ----- ---- ------- BPD ??4.8 cm 20w4d (22p4h-62d6k) Hadl BPD 70% FL/BPD 0.72 HC ??17.8 cm 20w2d (80k1h-56c3l) Hadl HC ??46% FL/AC ??0.22 AC ??16.3 cm 21w2d (34r1g-42b8x) Hadl AC ??80% HC/AC ??1.09 (1.06 - 1.24) FL ?? 3.5 cm 21w0d (98g5j-58u2k) Hadl FL ??73% CI ? 0.77 (0.70 - 0.86) HL ?? 3.3 cm 20w6d (06q6p-81l1k) Chente HL ??63% Cere 2.0 cm 19w4d (72u4a-06j6s) Hill Cere36% GA for sonogram 20w6d (99b3f-12a9r) ?? Weight Estimate: based on (BPD,HC,AC,FL) Avg [...] CLINICAL SUMMARY Study Number: 2 IMPRESSION: 1) [place] gestation, 20w1d 2) Biometry is consistent with [...] Dougherty MD <Electronic Signature> ??11/07/2018 01:32pm Julissa Posey O[facility] ORDERABLES documented in this encounter Visit Diagnoses Diagnosis care, subsequent , first trimester ([facility]) 7 weeks gestation of ([facility]) Positive test ([facility]) examination or test, positive result Special screening examination for human papillomavirus (HPV) Screening examination for venereal disease Obesity affecting in second trimester ([facility]) Screening, , for malformation by ultrasound ([facility]) Encounter for routine screening for malformation using ultrasonics Encounter for screening for malformation ([facility]) 20 weeks gestation of ([facility]) state, incidental documented in this encounter
--- OUTSIDE RECORDS SUMMARY | 2024-10-06 22:16 | XMS_ITS | Encounter Summary ---
Author Organization [facility] Address [address] [facility] [place] [address] Care Team Providers Care Streetcar Starter Name Role Phone Unavailable Primary Care Provider Unavailabl e Encounter Details Date Type Department Care Team (Late st Contact Info) Description 04/19/2017 4:26 PM CDT Hospital Encounter [facility] [address] [place] [address] Mulu Mendez, INTERNAL AUDIT CONSULTANT-MOTORS ASSEMBLER [address] [place] [address] Discharge Disposition: Home or Self Care Social [...] Name Priority Date/Time Associated Diagnosis Comments XR HAND RIGHT 3VW OR MORE STAT 04/19/2017 4:42 PM CDT Fall, initial encounter documented in this encounter Results * XR HAND 3+ [...] dislocation evident. IMPRESSION No acute fracture. Mulu Mendez INTERNAL AUDIT CONSULTANT-MOTORS ASSEMBLER DIAGNOSTIC IMAGIN G ORDERABLES documented in this encounter Visit Diagnoses Diagnosis Fall, initial encounter documented in this encounter
--- OUTSIDE RECORDS SUMMARY | 2024-10-06 22:16 | XMS_ITS | Encounter Summary ---
Author Organization [facility] Address [address] [place] [address] Care Team Providers Care Levelman Name Role Phone Unavailable Primary Care Provider Unavailabl e Reason for Visit * Auth/Cert Specialty Diagnoses / Procedures Referred By Eileen t Referred To Contact Referral ID Status Reason Start Date Expiration Date Visits Re quested Visits Authorized [id number] 1 1 Encounter Details Date Type Department Care Team (Late st Contact Info) Description 03/19/2019 10:35 AM CDT Anesthesia Event [facility] - Labor & Delivery [address] [place] [address] [place] [address] [place] [address] Jeison Figueroa DO [address] [place] [id number] Anesthesia Record Procedure Summary Procedure Name Responsible Anesthesiologist Anesthesia Start Time Anesthesia Stop Time EPIDURAL BLOCK Sami Pitt MD 03/19/19 1035 1720 Events Date Time Event Comment 03/19/2019 1000 1035 An Start 1035 Electnc Sig 1035 PT Reassessment 1035 Timeout Anesthesia part icipated in timeout at the time documented in the record by nursing. 1720 An Stop Meds * Agents No agents on file. * Blood No blood administrations on file. Lines, Drains, and Airways Type Details Placement Removal Peripheral IV Date: 03/18/19; Time : 2339; Orientation: Left; Placed By: BRENDA Banks 03/18/19 2340 by Maryam Barth RN 03/21/19 2230 by Jo Adam, BRENDA Urethral Catheter 03/19/19; 1130; Melany Melgar RN; No; 16; 03/19/19; 1710; Per order; Andria Melgar RN 03/19/19 1130 by Andria Melgar RN 03/19/19 1710 by Andria Melgar RN Epidural Date: 03/19/19; Time : 1130; Placed By: Sami Pitt 03/19/19 1130 by Andria Melgar RN 03/19/19 1936 by Eusebio Roberts RN documented in this encounter Social History Tobacco Use Types Packs/Day Years [...] as of this encounter Progress Notes * Norris Hendrickson, BEATER WORKER HELPER-STUFFED CASING TIER - 03/19/2019 5:50 PM CDT ANESTHESIA POSTOP EVALUATION NOTE Procedure: EPIDURAL BLOCK Rachelle Dia is a 33 year old female Patient Vitals for the past 6 hrs: Temp Resp Pain Rating Score #1 03/19/19 1300 - - 0 03/19/19 1400 - - 0 03/19/19 1500 - - 0 03/19/19 1515 - 18 - 03/19/19 1600 98.4 ??F (36.9 ??C) - - Anesthesia Type: No value filed. * No Diagnosis Codes entered * Mental Status: awake and sufficiently recovered from acute administration of anesthesia to participate in the evaluation Neuro Status: No numbess, tingling or visual disturbances Respiratory Function: natural Cardiac Function: stable Postop Hydration: adequate Postop Nausea: none Assessment: no apparent anesthetic complications, patient tolerated procedure well and no evidence of recall Patient Disposition: Release from Anesthesia Care documented in this encounter Consult Notes * Jeison Figueroa DO - 03/19/2019 10:21 AM CDT ANESTHESIA PREOPERATIVE EVALUATION NOTE Procedure: EPIDURAL BLOCK Vitals: Patient Vitals for the past 6 hrs: BP Pain Rating Score #1 03/19/19 0830 - 0 03/19/19 0800 - 0 03/19/19 0700 - 5 03/19/19 0630 135/67 - 03/19/19 0537 126/73 - 03/19/19 0500 - 5 03/19/19 0422 116/73 - ANESTHESIA PRE-EVALUATION NOTE Physical Exam: Orientation X3 Airway/Mallampati Score: II Mouth Opening Distance: 3 fingerwidths Neck ROM: full TM Distance: > 3 FB Heart: regular rate rhythm Lungs: normal Review of Systems: History of anesthetic complications: No GERD: No Poor Exercise Tolerance: No Recent Chest Pain: No Shortness of Breath: No AICD/Pacemaker: No Renal Disease: No Diagnostic Tests: Lab(s) reviewed: Yes. ANESTHESIA PLAN ASA Score: 2 NPO Status: Continuous clear liquids Anesthesia Plan: epidural Planned Postop Destination: OB Anesthetic plan was discussed with: patient Anesthetic Plan discussion was: Consented BMI, Height, Weight Tobacco History Estimated body mass index is 42.29 kg/(m^2) as calculated from the following: Height as of this encounter: 1.702 m (5' 7 ). Weight as of this encounter: 122.5 kg (270 lb). History Smoking Status ??? Former Smoker ??? Packs/day: 0.50 ??? Types: Cigarettes ??? Quit date: 08/07/2018 Smokeless Tobacco ??? Never Used Alcohol History Drug History History Alcohol Use ??? Yes History Drug Use No Outpatient Medications: Inpatient Medications: Outpatient Prescriptions Marked as Taking for the 03/18/19 encounter (Hospital Encounter) with Julissa Mcwilliams, DO Medication Sig Last Dose ??? ferrous gluconate Take 324 mg by mouth daily with breakfast Reasons: Anemia From Inadequate Iron in the Body 03/18/2019 at Unknown time ??? vitamin Take 1 tablet by mouth once daily 03/18/2019 at Unknown time Current Facility-Administered Medications Medication Dose Last Dose ??? ampicillin 1 g Stopped at 03/19/19 0445 ??? dextrose 5% and lactated ringers ??? lactated ringers ??? lactated ringers 500 mL ??? miSOPROStol ??? oxytocin 0-20 bernice-units/min 2 bernice-units/min at 03/19/19 0826 ??? oxytocin 100-999 bernice-units/min ??? terbutaline 0.25 mg ??? tranexamic acid 1,000 mg Allergies: Allergies Allergen Reactions ??? Eggs [Albumin] Swelling Problem List: Patient Active Problem List Diagnosis Date Noted ??? BMI 40.0-44.9, adult 02/28/2019 Priority: Not Prioritized ??? Encounter for supervision of normal in third trimester 02/28/2019 Priority: Not Prioritized ??? Lower abdominal pain 02/26/2019 Priority: Not Prioritized ??? screening for growth retardation using ultrasonics 12/09/2018 Priority: Not Prioritized ??? Screening, , for malformation by ultrasound 11/07/2018 Priority: Not Prioritized ??? Obesity affecting 11/07/2018 Priority: Not Prioritized ??? Group b Streptococcus urinary tract infection affecting , antepartum, first trimester 09/19/2018 Priority: Not Prioritized Will require antibiotics in labor for GBBS Medical History: Past Medical History: Diagnosis Date ??? Abnormal Pap smear of cervix reports 3 colposcopies starting at 16 y.o. ??? Back problem ??? Depression ??? History of anemia ??? History of headache ??? HPV in female Surgical History: Past Surgical History: Procedure Laterality Date ??? [place] Tooth Extraction Lab Results: Recent Labs Component Name 03/18/19 2357 WBC 7.0 HGB 11.3* HCT 34.2* PLTCOUNT 206 Recent Labs Component Name 03/19/19 0554 SODIUM 141 POTASSIUM 3.6 CHLORIDE 108* CO2 19* BUN 6* CREATININE 0.66 Recent Labs Component Name 03/19/19 0554 GLUCOSE 93 CALCIUM 10.3* ALT 15 AST 24 documented in this encounter Plan of Treatment Not on file documented as of this encounter Procedures Procedure Name Priority Date/Time Associated Diagnosis Comments NEURAXIAL BLOCK Routine 03/19/2019 11:17 AM CDT documented in this encounter Visit Diagnoses Not on filedocumented in this encounter
--- OUTSIDE RECORDS SUMMARY | 2024-10-06 22:16 | XMS_ITS | Encounter Summary ---
Author Organization [facility] Address [address] [place] [address] Care Team Providers Care Administrative Operations Coordinator Name Role Phone Unavailable Primary Care Provider Unavailabl e Encounter Details Date Type Department Care Team (Latest Contact Info) Description 01/17/2019 7:01 AM CDT - 01/17/2019 11:59 PM CDT Hospital Encounter Maternal & Care at [facility] [address] [address] [facility] , [address] [place] [address] Flo Beltran MD Discharge Disposition: [...] Associated Diagnosis Comments SONOGRAM - COMPLETE Routine 01/17/2019 7 :07 AM CDT Uterine size date discrepancy , third trimester (HCC) documented in this encounter Results * SONOGRAM - COMPLETE (01/17/2019 7:07 AM CDT) Anatomical Region Laterality Modality Other 01/17/2019 7:07 AM CDT Narrative 01/17/2019 9:10 AM CDT ?[facility] ?[facility] ? TESTING CENTER ?FAX: ?? Pat. Name: ?RACHELLE DIA Pat. No: ?[id number] Study Date: ?? 01/17/2019 ??7:07am , Age: ? 1985, 33 Pregnancies: ?? 3, Para 2 Height: ? 67 in Weight: ? 231 lb LMP: ?Unknown GA by Base: ?? 30w2d ?? HELEN: 03/26/2019 GA by US: ? 32w4d ?? HELEN: 03/10/2019 GA Selected: ??30w2d (From [facility]) HELEN: ?03/26/2019 Referring MD: Julissa Mcwilliams MD Hand Mold Maker: ??Maryam Lara RDMS, JESS CPT4: ? 11778 BMI: ?36.18 Hist/Ind: ? Size > Dates ?Class II obesity ?Completed Anatomy MEASUREMENTS & AGE ? GROWTH EVALUATION Measurement ??GA ? Range ? Srce %for GA Ratios ----- ---- ------- BPD ??8.0 cm 32w0d (20g0n-90j9s) Hadl BPD 85% FL/BPD 0.83 (0.71 - 0.87) HC ??29.7 cm 32w6d (12h7c-29a6c) Hadl HC ??84% FL/AC ??0.24 (0.20 - 0.24) AC ??27.7 cm 31w5d (92o2u-89o7w) Hadl AC ??85% HC/AC ??1.07 (0.97 - 1.16) FL ?? 6.6 cm 33w6d (12l2o-38a3o) Hadl FL ??98% CI ? 0.76 (0.70 - 0.86) HL ?? 5.8 cm 33w5d (60r0r-35i8o) Chente HL ??>95 GA for sonogram 32w4d (86j7z-58m0i) ?? Weight Estimate: based on (BPD,HC,AC,FL) Avg [...] <Electronic Signature> ??01/17/2019 09:10am Julissa Mcwilliams DO M ORDERABLES documented in this encounter Visit Diagnoses Diagnosis Uterine size date discrepancy , third trimester (HCC) screening for growth retardation using ultrasonics (HCC) screening for growth retardation using ultrasonics Placenta previa without hemorrhage, antepartum (HCC) Placenta previa without hemorrhage, antepartum Screening, , for malformation by ultrasound ([facility]) Encounter for routine screening for malformation using ultrasonics Encounter for ultrasound to check growth ([facility]) 30 weeks gestation of (HCC) state, incidental documented in this encounter
--- OUTSIDE RECORDS SUMMARY | 2024-10-06 22:16 | XMS_ITS | Encounter Summary ---
Author Organization [facility] Address [address] [facility] [place] [address] Care Team Providers Care Public Relations Senior Associate Name Role Phone Unavailable Primary Care Provider Unavailabl e Reason for Visit * Reason Comments Routine Visit Encounter Details Date Type Department Care Team (Late st Contact Info) Description 01/27/2019 10:15 AM CDT visit [facility] Medical [facility] - LO[facility] [address] [facility] [address] [place] [address] Marilee Pete APRN-CNP [address] [facility] [address] [place] [address] GA: 31w5d Social History Tobacco Use Types Packs/Day Years [...] Sign Reading Time Taken Comments Blood Pressure 122/72 01/27/2019 10:16 AM CDT Pulse - - Temperature - - Respiratory Rate - - Oxygen Saturation - - Inhaled Oxygen Concentration - - Weight 116.7 kg (257 lb 3.2 oz) 019 10:16 AM CDT Height - - Body Mass Index 40.28 01/10/2019 11:43 AM CDT documented in this encounter Progress Notes * Marilee Pete APRN-CNP - 01/27/2019 10:30 AM CDT 31w5d Patient has no obstetric complaints or issues. Denies headaches, visual changes, upper abdominal pain.Taking PNV. motion has been good. Contractions: None. No bleeding or abnormal vaginal discharge or leaking fluid. F/U u/s for LGA scheduled. Obstetric exam is normal. See flowchart. Mild swelling hands and ankles end of day. ASSESSMENT ICD-10-CM 1. care, subsequent , third trimester Z34.83 2. 31 weeks gestation of Z3A.31 3. Large for gestational age fetus affecting management of mother, third trimester, fetus 3 O36.63X3 PLAN No orders of the defined types were placed in this encounter. kick counts were reviewed, to be performed BID. PIH and PTL precautions reviewed. Patient to present to L&D if water breaks, bleeding or decreased movement. Rachelle to RTO in 2 weeks. documented in this encounter Plan of Treatment Not on file documented as of this encounter Visit Diagnoses Diagnosis care, subsequent , third trimester (HCC)- Primary 31 weeks gestation of (HCC) state, incidental Large for gestational age fetus affecting management of mother, third trimester, fetus 3 (HCC) documented in this encounter
--- OUTSIDE RECORDS SUMMARY | 2024-10-06 22:16 | XMS_ITS | Encounter Summary ---
Author Organization [facility] Address [address] [place] [address] Care Team Providers Care President Educational Institution Name Role Phone Unavailable Primary Care Provider Unavailabl e Reason for Visit * Reason Comments Routine Visit Encounter Details Date Type Department Care Team (Late st Contact Info) Description 03/11/2019 2:00 PM CDT visit [facility] Medical [facility] - EMPLOYMENT EVALUATOR/CASE MANAGER [id number] [facility] [address] [place] [id number] [place] [id number] [facility] [address] [place] [address] GA: [id number] Social History Tobacco Use Types Packs/Day Years [...] Sign Reading Time Taken Comments Blood Pressure 118/78 03/11/2019 1:54 PM CDT Pulse - - Temperature - - Respiratory Rate - - Oxygen Saturation - - Inhaled Oxygen Concentration - - Weight 122.5 kg (270 lb) 03/11/2019 1:54 PM CDT Height 170.2 cm (5' 7 ) 03/11/2019 1:54 PM CDT Body Mass Index 42.29 03/11/2019 1:54 PM CDT documented in this encounter Progress Notes * Julissa Mcwilliams DO - 03/11/2019 2:00 PM CDT 37w6d Patient has no obstetric complaints or issues. motion has been good. No spotting. Contractions: None. No LOF. Obstetric exam is normal. See obstetrical flow sheet above. Rachelle to RTO in 1 weeks. Continue weekly BPP on Sunday. Plan IOL on Sunday evening (midnight 03/19/19) at [facility].Group B strep performed today. Growth scan today 67th percentile kick counts recommended twice a day (4 [...] trimester (HCC) 37 weeks gestation of (HCC) documented in this encounter Results * STREP B JOHN (03/11/2019 2:03 PM CDT) Strep B JOHN Negative Negative [facility] ACCOUNT BILL Comment: Centers for Disease Control and Prevention (CDC) and [place] [employer] of Obstetricians and Gynecologists (ACOG) guidelines [...] Resulting Agency Comment Lab [facility] at: [facility] [address] [facility] ??[facility] [phone] Julissa Mcwilliams DO LAB - MICROBIOLOGY O RDERABLES [facility] ACCOUNT BILL [address] [place] [address] documented in this encounter Visit Diagnoses Diagnosis care, subsequent , third trimester (HCC)- Primary 37 weeks gestation of (HCC) state, incidental documented in this encounter
--- OUTSIDE RECORDS SUMMARY | 2024-10-06 22:16 | XMS_ITS | Encounter Summary ---
Author Organization [facility] Address [address] [place] [address] Care Team Providers Care Goods Layer Name Role Phone Unavailable Primary Care Provider Unavailabl e Reason for Visit * Reason Comments Induction * Auth/Cert Specialty Diagnoses / Procedures Referred By Contac t Referred To Contact Referral ID Status Reason Start Date Expiration Date Visits Re quested Visits Authorized [id number] 1 1 Encounter Details Date Type Department Care Team (Latest Contact Info) Description 03/18/2019 11:15 PM CDT - 03/22/2019 10:50 AM CDT Hospital Encounter [facility] [address] [id number] Julissa Mcwilliams, [id number] [facility] [address] [place] [id number] [employer] [employer]ILLER Discharge Disposition: Home or Self Care Social [...] Sign Reading Time Taken Comments Blood Pressure 143/93 03/22/2019 7:45 AM CDT wit h activity Pulse 76 03/22/2019 7:45 AM CDT Temperature 36.3 ??C (97.3 ??F) 03/22/2019 7:45 AM CD T Respiratory Rate 18 03/22/2019 7:45 AM CDT Oxygen Saturation 100% 03/22/2019 7:45 AM CDT Inhaled Oxygen Concentration - - Weight 122.5 kg (270 lb) 03/18/2019 11: 40 PM CDT Height 170.2 cm (5' 7 ) 03/18/2019 11:4 0 PM CDT Body Mass Index 42.29 03/18/2019 11:40 PM CDT documented in this encounter Functional Status [...] No 03/18/2019 documented as of this encounter Discharge Summaries * Belinda Lopez MD - 03/22/2019 6:34 AM CDT OB Progress Note/Discharge Summary Rachelle Dia 1985 03/22/2019 6:34 AM Admitting Provider: Julissa Mcwilliams DO Covering Provider: Belinda Lopez MD Admit Date: 03/18/2019 Admit Time: 2315 Subjective: Patient is feeling well, pain adequately controlled, passing flatus, tolerating diet, ambulating. Bladder function: voided without difficulty Fever symptomatology: has not had chills, sweats, rigors Vaginal bleeding: small amount Patient denies headache, no dizziness or visual changes. Was kept an extra day for BP management. Objective: Temp (36hrs) Max:98.6 ??F (37 ??C) Vitals: 03/21/19 1630 03/21/19 2010 03/22/19 0115 03/22/19 0410 BP: 132/87 127/80 105/64 117/69 Pulse: 76 Resp: 18 18 16 18 Temp: 98.3 ??F (36.8 ??C) 98.3 ??F (36.8 ??C) 98.3 ??F (36.8 ??C) 98.1 ??F (36.7 ??C) SpO2: 100% 99% 100% 100% Weight: Height: No intake or output data in the 24 hours ending 03/22/19 0634 Current Facility-Administered Medications Medication Dose Route Frequency Provider Last Rate Last Dose ??? 0.9% NaCl injection 3 mL 3 mL Intracatheter q8h Julissa Mcwilliams., DO 3 mL at 03/21/19 1407 ??? 0.9% NaCl injection 3 mL 3 mL Intracatheter PRN Julissa Mcwilliams, DO 3 mL at 03/19/19 2158 ??? acetaminophen (TYLENOL) tablet 1,000 mg 1,000 mg Oral q6h PRN Julissa Mcwilliams., DO ??? acetaminophen (TYLENOL) tablet 650 mg 650 mg Oral q6h PRN Julissa Mcwilliams., DO ??? benzocaine-menthol (DERMOPLAST) spray Topical PRN Julissa Mcwilliams, DO ??? diphenhydrAMINE (BENADRYL) injection 25 mg 25 mg Intravenous q6h PRN Julissa Mcwilliams., DO ??? docusate sodium (COLACE) capsule 100 mg 100 mg Oral BID Julissa Mcwilliams, DO 100 mg at 03/21/192013 ??? ibuprofen (MOTRIN) tablet 600 mg 600 mg Oral q6h Julissa Mcwilliams., DO 600 mg at 03/22/19 0545 ??? iron polysaccharides (NIFEREX 150) capsule 150 mg 150 mg Oral QDAY Julissa Mcwilliams, DO 150 mg at03/21/19 0848 ??? lanolin (LANOLIN) ointment Topical PRN Julissa Mcwilliams, DO 1 applicator at 03/21/19 0847 ??? ondansetron (disintegrating) (ZOFRAN ODT) tablet 4 mg 4 mg Oral q6h PRN Julissa Mcwilliams, DO ??? pramoxine hcl (rectal) (PROCTOFOAM) 1 % foam Rectal TID PRN Julissa Mcwilliams, DO ??? vitamin with iron tablet 1 tablet 1 tablet Oral QDAY Julissa Mcwilliams, DO 1 tablet at 03/21/19 0848 Exam: General: alert, cooperative, no distress Bowel Sounds: active Lochia: appropriate Uterine Fundus: firm Incision: none DVT Evaluation: No evidence of DVT seen on physical exam. Data: Intake and output were reviewed and unremarkable. No intake or output data in the 24 hours ending 03/22/19 0634 My review of labs, imaging, notes and other tests shows no new significant findings. Recent Labs Component Name 03/21/19 0856 03/18/19 2357 01/13/19 1053 WBC 7.9 7.0 8.4 HGB 10.4* 11.3* 11.0* HCT 31.2* 34.2* 33.6* PLTCOUNT 203 206 237 Recent Labs Component Name 03/21/19 0856 03/19/19 0554 SODIUM 140 141 POTASSIUM 3.6 3.6 CHLORIDE 106 108* CO2 24 19* BUN 7 6* CREATININE 0.66 0.66 GLUCOSE 80 93 CALCIUM 9.0 10.3* Assessment: day 3., s/p spontaneous vaginal delivery. Complications: hypertension, BP stable. Labs stable no sx 1) Afebrile. 2) The patient feels well. 3) Pain is well controlled with current medications. 4) Denies sx of preE 5) Anemia Plan: Discharge Procedure Orders Why you were hospitalized Order Specific Question Answer Comments Your discharge diagnosis is: (spontaneous vaginal delivery) [877716] No special diet needed Resume your normal home diet as tolerated. Eat well-balanced meals that include foods from all of the food groups. Drink plenty of fluids It is important that you stay well hydrated. You should drink at least eight to ten 8-ounce glassesof water per day. Nothing per vagina For 6 week(s) Do not drive For 2 week(s) No heavy lifting Do not lift anything over 8 pounds for 6 week(s). Do not lifting in car seat for 6 weeks. Contact your provider Call Dr. Mcwilliams if you have questions or concerns, or for any of the following issues: -- for a temperature higher than 100. 4 F -- for pain that gets worse or does not get better after taking your pain medication(s) as directed -- if you see a lot of bleeding from your incision -- if your incision or IV site looks infected (red, swollen, warm to the touch, or non-clear, foul-smelling drainage) -- if you have severe cramping or increased vaginal bleeding (greater than 1 pad per hour) When to call your provider CALL 911 IF YOU HAVE: Pain in chest Obstructed breathing or shortness of breath Seizures Thoughts of hurting yourself or your baby NOTIFY YOUR PROVIDER IF YOU HAVE: Bleeding, soaking through one pad/hour, or blood clots, the size of an egg or bigger Incision that is not healing Red or swollen leg that is painful or warm to touch Temperature of 100.4??F or higher Headache that does not get better, even after taking medicine, or bad headache with vision changes Shower and bathing instructions May shower daily. May bathe 6 weeks from today. Follow up with provider Order Specific Question Answer Comments Follow Up Instructions: call [phone] for appointment early next week for BP check Why you were hospitalized Order Specific Question Answer Comments Your discharge diagnosis is: (spontaneous vaginal delivery) [608921] When to call your provider CALL 911 IF YOU HAVE: Pain in chest Obstructed breathing or shortness of breath Seizures Thoughts of hurting yourself or your baby NOTIFY YOUR PROVIDER IF YOU HAVE: Bleeding, soaking through one pad/hour, or blood clots, the size of an egg or bigger Incision that is not healing Red or swollen leg that is painful or warm to touch Temperature of 100.4??F or higher Headache that does not get better, even after taking medicine, or bad headache with vision changes No special diet needed Resume your normal home diet as tolerated. Eat well-balanced meals that include foods from all of the food groups. Light activity For 6 week(s) Do not drive Until no longer taking narcotic pain medication No heavy lifting Do not lift anything over 20 pounds For 6 week(s). Contact your provider Call Dr. Mcwilliams if you have questions or concerns, or for any of the following issues: -- for a temperature higher than 100.4 F -- for pain that gets worse or does not get better after taking your pain medication(s) as directed -- if you see bleeding from your incision/laceration (if applicable) please refer to your dischargeinstructions. -- if your incision looks infected (red, swollen, warm to the touch, or non- clear, foul-smelling drainage) -- if you have severe cramping or increased vaginal bleeding -- if you experience new onset headaches, visual changes or increased abdominal pain not relieved with pain medication Shower and bathing instructions May shower any time. May resume tub bathing in 4-6 weeks. Follow up with provider Order Specific Question Answer Comments Follow Up Instructions: blood pressure check Sunday03/24/19 Current Discharge Medication List START taking these medications Instructions Authorizing Provider docusate sodium 100 MG capsule Commonly known as: COLACE Quantity Dispensed: 60 capsule Take 1 capsule by mouth 2 times daily Julissa Mcwilliams * ibuprofen 600 MG tablet Commonly known as: MOTRIN Quantity Dispensed: 40 tablet Take 1 tablet by mouth every 6 hours Julissa Mcwilliams * ibuprofen 600 MG tablet Commonly known as: MOTRIN Quantity Dispensed: 120 tablet Take 1 tablet by mouth every 6 hours as needed for Pain Belinda Lopez * Notice: This list has 2 medication(s) that are the same as other medications prescribed for you. Read the directions carefully, and ask your doctor or other care provider to review them with you. CONTINUE taking these medications which have NOT CHANGED Instructions Authorizing Provider ferrous gluconate 324 (38 Fe) MG tablet Take 324 mg by mouth daily with breakfast Reasons: Anemia From Inadequate Iron in the Body vitamin 27-0.8 MG tablet Take 1 tablet by mouth once daily 1) Discharge to home, stable condition. Follow up: Dr. Mcwilliams in office next week for blood pressure check. 2) Delivery Type: spontaneous vaginal delivery, 3) Antepartum complications: LGA, 4) hypertension - BP Stable today. Labs stable. No sx of preE 5) Feeding method: human milk 6) Rhogam: not indicated 7) Rubella: not indicated 8) Home with PO iron Belinda Lopez MD documented in this encounter Discharge Instructions * Discharge Instructions* Julissa Mcwilliams, DO - 03/21/2019 8:33 AM CDT Discharge Instructions General instructions for the first two weeks at home - Breastfeed every 2-3 hours, at least 8 times in 24 hours. - Feed on one breast completely, then offer second breast. Burping and diapering will often awaken baby for feeding. - Massage breasts before and during feeding to help the milk to flow. - should have 6 or more wet diapers and several yellow bowel movements each day by end of the first week. - Drink enough fluids throughout the day to avoid becoming thirsty, one glass every time you breastfeed or pump (8-10 per day). - Rest when the baby rests. - For tender nipples, use expressed milk or lanolin after feeding, review proper positioning for good latch. - Eat nutritious snacks between meals to add the extra calories needed for . - Continue taking your pre-george vitamins. Call your engagement quality consultant and your doctor if: * Your baby will not wake up to eat after 5 hours (after trying wake up techniques). * Your baby has less than 6 wet diapers and 2 bowel movements in 24 hours by the end of the first week. * Your baby will not stay latched on and is not swallowing and feeding for at least 10-15 minutes, for 2 feedings in a row. * You have pain or problems with your nipples or breasts. * You are worried about your baby or have questions about feedings. * Your baby is a and his skin becomes yellow or jaundice extending below the waist. Proper positioning for good latch - Baby is tummy to tummy, facing breast. - Mouth wide open, like a yawn, pull baby to the breast. - Tongue down. - 1 to 1.5 inch of nipple and areola in mouth. - Support neck and head of , use a pillow under your arm if necessary. Proper Sucking - Lips are wide and curled outward from breast. - No smacking, clicking, dimpling of the cheeks. - You can hear and see the swallowing, drinking the milk. - By the end of the first week your breasts feel full before feeding and softer after feeding. Hungry baby cues Wake up techniques - Stretching - Undress baby - Hand to mouth - Hold [id number] - Eye blinking - Rub baby's hands, feet, legs - Making sucking noises - Massage baby's cheeks, lips and mouth - Rooting - Wipe baby's face with wet wash cloth - Change diaper phone number: [phone] Breast Feeding Support Group: Weigh in Wednesdays--meets weekly at [facility] from 1000 am until 1200. (No appointment necessary). The following belongings have been returned to you: POST- INSTRUCTIONS Activity: ?? No lifting greater than a gallon of milk (about 8 pounds) ?? No housecleaning, laundry, bed making ?? No driving for two weeks ?? Stairs only if necessary, not carrying objects ?? If in bed or couch for extended periods, wear support hose ?? Pelvic rest... No sex, tampons, or douching ?? Showers are okay, no tub baths ?? No lifting infant in car seat for 6 weeks Diet: ?? Regular diet ?? Avoid alcohol with pain meds ?? Avoid dairy or fat foods if gassy ?? Drink plenty of water Medications: ?? Prescription pain meds as written, avoid alcohol or driving ?? Percocet, Darvocet, Vicodin, Ultracet all have acetominophen, so no extra Tylenol or acetominophen with these medications. All safe with . ?? Over the counter meds are great with the above prescription meds ?? Ibuprofen 600-800 mg every 6 hours with food or ?? Aleve or generic (naproxen) 1-2 tablets every 8-12 hours with food ?? Iron as prescribed ?? Stool softener 1-2 times daily if needed, such as Colace ?? Simethicone (Mylicon, Gas X or Phazyme) for gas per instructions for gas Wound Care ( Delivery): ?? Keep incision clean and dry. Shower daily, let warm soapy water rinse over incision and blot dry. NO tub baths or swimming for 6 weeks. ?? Use peroxide on a cotton ball or gauze pad twice daily to clean incision if lora in place ?? Steristrips will fall off on their own in 1-2 weeks ?? If we used Dermabond, no additional wound care is necessary Call if you have: ?? Worsening pain ?? Increased bleeding ?? Temperature over 100.4 F or chills ?? Signs of infection at incision, such as redness, pus, drainage ?? Nausea/vomiting ?? Uncontrolled crying spells, hallucinations or depressive symptoms ?? Signs of preeclampsia: seeing light spots in vision, double vision, severe headache in back of head, pain in upper abdomen on right side, increased swelling in extremities, or shortness of breath Please call for an appointment in 4-6 weeks for check. Home Medications: None documented in this encounter Medications at Time [...] 03/22/2019 03/25/2019 documented as of this encounter Progress Notes * Nenita Alvarez RN - 03/22/2019 10:58 AM CDT Pt discharge instructions given and reviewed. Opportunity given to address questions and concerns. Scripts electronically sent and medications reviewed. Patient verbalized understanding of all teaching and information. Will be returning to home. Will be discharged via wheelchair with family. * Jo Adam RN - 03/22/2019 6:07 AM CDT Mother and baby bonding well. using nipple shield, independent with latching. Has sore nipples, using lanolin and keeping nipples open to air. Pt ambulating in room without difficulty. Vitals have been stable. Fundus firm, midline. Pain is controlled with scheduled Motrin. FOB at bedside. Baby did fall from fathers arms due to falling asleep in chair, mother was sleepingalso. Baby was assessed by Dr. Good. No abnormal findings. See baby's chart for note. * Homar Pelletier RN - 03/21/2019 10:[address] Mcwilliams notified of [facility] lab results and orders received to no discharge patient today. Do BP's every for hours. * Homar Pelletier RN - 03/21/2019 10:35 AM CDT Problem: Goal: Status is maintained within the expected range. Outcome: Ongoing Do BP's every four hours until discharge * Julissa Mcwilliams DO - 03/21/2019 8:27 AM CDT Progress Note Subjective: day #2 from a vaginal delivery. Rachelle Dia is without complaint. Flatus has been passed. Pain is 0 out of 10 pain scale with oral pain medicines. Moderate decresaing Lochia. No headache. No RUQ pain. No increased swelling. Baby is doing well without problems Objective: Temp (36hrs) Max:98.7 ??F (37.1 ??C) Vitals: 03/20/19 0756 03/20/19 1610 03/20/19 2038 03/21/19 0447 BP: 128/77 137/94 130/89 139/88 Pulse: 87 79 Resp: 18 18 18 18 Temp: 97.6 ??F (36.4 ??C) 98.7 ??F (37.1 ??C) 98.6 ??F (37 ??C) 98.1 ??F (36.7 ??C) SpO2: 100% 98% 95% 98% Weight: Height: General: Alert, cooperative, comfortable, and orientated x3 Lochia: Lochia is normal Abdomen: Abdomen soft. Uterus nontender and involuting well Extremities: There is no calf tenderness, and there is 1+ edema. Perineum: not inspected Assessment: Normal history and exam. PPD #2 Elevated BP Plan: Plan [facility] labs now. Preeclampsia precautions discussed. Expectant management. Julissa DO Julissa Dalal DO * Estefani Pfeiffer - 03/21/2019 12:03 AM CDT Patient alert and oriented. VSS. Patient voiding. Pain managed with scheduled medications. Fundus midline Patient tolerating diet. Patient up ad mary. Bonding with baby Father at bedside Bed in lowest position, call light within reach No complaints at this time Needs attended. * Shannon Acosta MD - 03/20/2019 10:05 AM CDT Progress Note Subjective: day #1 from a spontaneous vaginal delivery. Rachelle Dia is without complaint. She is tolerating a regular diet, ambulating, voiding, and passing flatus. Pain is well controlled with oral pain medicines. Moderate Lochia, no clots. Baby is doing well without problems Objective: Temp (36hrs) Max:98.7 ??F (37.1 ??C) Vitals: 03/19/19 1932 03/20/19 0128 03/20/19 0428 03/20/19 0756 BP: 136/87 139/83 129/72 128/77 Resp: 18 18 18 18 Temp: 98.6 ??F (37 ??C) 98.1 ??F (36.7 ??C) 98.1 ??F (36.7 ??C) 97.6 ??F (36.4 ??C) SpO2: 100% Weight: Height: General: Alert, cooperative, comfortable, and orientated x3 Lochia: Lochia is normal Abdomen: Abdomen soft. Uterus nontender and involuting well Extremities: There is no calf tenderness, and there is no significant edema. Perineum: Intact, healing. Lab: MBT O+ ppHgb pending Rub I RPR NR HIV NR Assessment: PPD #1 - Normal history and exam. Plan: Encourage ambulation Patient may shower Continue routine care. Mildly elevated BPs yesterday during lab, normal labs. Normotensive since this time. No si/sx preeclampsia. No indication for Mag or BP meds at this time. On track for discharge PPD2. Shannon Acosta MD * Eusebio Roberts RN - 03/20/2019 4:55 AM CDT Shift Summary Pt resting in bed; VSS; fundus firm, bleeding is minimal; pt up ad mary and tolerating regular diet;voiding without cx; bonding well with ; IV capped and flushing without resistance; pain scores met with medication. * Eusebio Roberts RN - 03/19/2019 8:34 PM CDT Problem: Emotional Well-Being Goal: Participates in decision-making Outcome: Goal Met Date Met: 03/19/19 Goal: Verbalizes coping strategies Outcome: Goal Met Date Met: 03/19/19 Goal: Patient/Support person will have all essential information communicated in language they can understand Outcome: Goal Met Date Met: 03/19/19 Goal: Care delivered is culturally relevant Outcome: Goal Met Date Met: 03/19/19 Goal: Parent- bonding occurs As evidenced by: A. Eye contact B. Holding close C. Frequently touching Outcome: Ongoing Bonding well with ; and holding Problem: Goal: Status is maintained within the expected range. Outcome: Ongoing VSS; fundus is firm; bleeding is minimal to moderate with some clots; pt up ad mary; voiding withoutcx Problem: Emotional Well-Being Goal: Parent- bonding occurs As evidenced by: A. Eye contact B. Holding close C. Frequently touching Outcome: Ongoing Bonding well with ; and holding * Julissa Mcwilliams DO - 03/19/2019 5:52 PM CDT Patient Name: Rachelle Dia Patient Age: [age] year old Today's Date: 03/19/2019 DELIVERY SUMMARY Estimated Date of Delivery: 03/26/19 Delivery Summary Patient Information Patient Name Sex Rachelle Bansal ([id number]) Female 1985 OB History Para Term AB Living 3 3 3 0 0 3 SAB TAB Ectopic Multiple Live Births 0 0 0 0 3 1 Outcome: Term Date: 2005 GA: 37w0d Sex: M Delivery: Vag-Spont Living: KHADRA Name: Jorge Weight: 3317 g (7 lb 5 oz) PTL: N 2 Outcome: Term Date: 2012 GA: 41w0d Sex: F Delivery: Vag-Spont Living: KHADRA Name: Sallie Weight: 3629 g (8 lb) PTL: N 3 Outcome: Term Date: 02/2019 GA: 39w0d Sex: F Delivery: Vag-Spont Living: KHADRA Name: VANNA DIA Weight: 3960 g (8 lb 11.7 oz) PTL: N Location: [facility] Delivering Clinician: Julissa Mcwilliams DO Transcribed Labs 03/19/19 0253 RH (Manually Reproduced) Positive Blood Type (Manually Reproduced) O Syphilis Serology (Manually Reproduced) Negative HIV (Manually Reproduced) Negative Date of HIV Lab 08/07/19 Hepatitis B Surface Antigen (Manually Reproduced) Negative Rubella Status ( Manually Reproduced) Immune Beta Strep Culture (Manually Reproduced) Positive Labor Length Hours Minutes 1st stage: 2nd stage: 3rd stage: 0 2 Blood Loss Admission (Current) from 03/18/2019 [facility] Labor and Delivery Estimated Blood Loss 450 mL [Filed from Delivery Summary] Quantitated Blood Loss Vanna Dia [[id number]] Patient Information Patient Name Sex Vanna Bansal ([id number]) Female 03/19/2019 Labor Events labor?: No steroids: None Cervical ripening type: Misoprostol GBS Status: negative Antibiotic: ampicillin Number of Antibiotic Doses: 3 Rupture Date: 03/19/19 Time: 1553 Rupture type: Artificial Fluid color: Clear, [place] Fluid odor: Normal Odor Induction: Oxytocin Indications for induction: Elective Labor complications: None [place] Delivery Details Forceps attempted?: No Vacuum extractor attempted?: No Shoulder dystocia present?: No Presentation Presentation: Vertex Delivery (Maternal) Episiotomy: None Perineal lacerations: None Vaginal laceration?: No Cervical laceration?: No Repair suture: None Placenta Date/time: 03/19/20191721 Disposition: Discarded Removal: Spontaneous Appearance: Intact Other Delivery Procedures Procedures: None Comments: Rachelle Dia 33 year old y/o female now P 3 delivered by delivery over intact perineum @ 5:20 pm with epidural anesthesia. The 's head was delivered in a controlled manner. The oropharynx and nares were then bulb suctioned on the perineum. Amniotic fluid was clear. No nuchalcord was noted. The 's body was then delivered in the usual manner without difficulty. The cord was clamped x 2 and transected without difficulty. The infant was handed to pediatric nurse in attendance. The placenta delivered spontaneously, intact with 3 Vessel cord followed by 30 units of Pitocin IV and uterine massage. Bladder in and out catheterized 200 cc. Uterine atony resolved with cytotec 800 mcg NH, hemabate 0.25 mg IM and TXA IV. EBL= 450 cc. The vulva, vagina and cervix were then inspected without noted. She delivered a viable female , with Apgars 8 at 1 minute and 9 at 5 minutes, weighing 8 lbs 12 oz. was taken to well baby nursery in stable condition. Mother and in stable condition. Cord blood collected. Cord blood donation was not collected. Delivery - Physician I was present at delivery (physician name): Julissa Mcwilliams, DO Counts Initial count personnel: DR. MCWILLIAMS Initial count verified by: CASSI Trinidad [employer] Lap Pads Sponges Initial counts 0 11 5 1 Added to counts 0 11 5 1 Final counts 0 11 5 1 Final count personnel: DR. MCWILLIAMS Final count verified by: CARLOS HAYDEN RN Vaginal packing left in?: Neg Accurate final count?: Yes Delivery () Head delivery date/time: 03/19/20191719 Delivery Date: 03/19/19 Time: 1719 Delivery type: Vaginal, Spontaneous Delivery Assessment Living status: Living Apgars 1 Minute: 5 Minute: 10 Minute 15 Minute 20 Minute Skin Color: 0 1 Heart Rate: 2 2 Reflex Irritability: 2 2 Muscle Tone: 2 2 Respiratory Effort: 2 2 Total: 8 9 Apgars Assigned By: SHEA Hurt RN Delivery [place] Stabilization Equipment Checked by: Shea Mahoney at ? (Heart rate greater than 100, normal respirations and normal muscle tone): Yes Suction Method: Bulb Secretions (Amount in Comment): Clear Requires more than warming, stimulation, and suction?: No Intubation Performed?: No Chest Compressions: No Thermoregulation Support: Overhead Warmer, Warm Blankets, Cap, Skin to Skin Cord Complications: None Vessels: 3 Vessels Time delayed: 31 to 59 seconds Cord blood disposition: Bank Gases sent?: No Stem cell collection (by MD)?: No [place] Measurements Weight: 3960 g Pounds and Ounces: 8 lb 11.7 oz Length: 20.5 Head circumference: 13.78 Chest circumference: Disposition: Mother Baby Unit Feeding and Elimination Mother's Feeding Choice During Stay ( Core Measure PC05): Human Milk Voided in Delivery Room?: No Stooled in Delivery Room?: No I have reviewed and agree with the delivery summary. I am the delivering physician. Julissa Mcwilliams DO * Carlos Hayden RN - 03/19/2019 3:[address] Chakraborty at bedside membranes ruptured, clear fluids with pink tinged. fse and iupc placed. documented in this encounter H&P Notes * Julissa Mcwilliams DO - 03/18/2019 7:04 PM CDT Obstetric History and Physical Exam Subjective: Rachelle Dia is a 33 year old G3 P 2 A 0 female at 39 0/7 weeks gestation admitted for induction of labor. dated by 1st trimester ultrasound. Her current obstetrical history is significant for: group B strep UTI complicating , excessive weight gain in , BMI 42 and resolved placenta previa. is tucker. Movement: normal. Patient reports: no bleeding, cramping/contractions or leaking of fluid. Past Medical History: Diagnosis Date ??? Abnormal Pap smear of cervix reports 3 colposcopies starting at 16 y.o. ??? Back problem ??? Depression ??? History of anemia ??? History of headache ??? HPV in female Past Surgical History: Procedure Laterality Date ??? [place] Tooth Extraction Social History Social History ??? Marital status: Single Spouse name: N/A ??? Number of children: N/A ??? 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 Smoking status: Former Smoker Packs/day: 0.50 Types: Cigarettes Quit date: 08/07/2018 ??? Smokeless tobacco: Never Used ??? Alcohol use Yes ??? Drug use: No ??? Sexual activity: Not Currently Partners: Male Comment: menarche age 13 Other Topics Concern ??? Seat Belt Yes Social History Narrative Allergies Allergen Reactions ??? Eggs [Albumin] Swelling Obstetric History T2 L2 SAB0 TAB0 Ectopic0 Multiple0 Live Births2 OB History Para Term AB Living 3 2 2 0 0 2 SAB TAB Ectopic Multiple Live Births 0 0 0 0 2 # Outcome Date GA Lbr Darryl/2nd Weight Sex Delivery Anes PTL Lv 3 Current 2 Term 2012 41w0d 3629 g (8 lb) F Vag-Spont N KHADRA 1 Term 2005 37w0d 3317 g (7 lb 5 oz) M Vag-Spont N KHADRA . Family History Problem Relation Age of Onset ??? Hypertension Father ??? Diabetes - Type 2 Father ??? Diabetes - Type 2 Sister ??? Other - Cardiac Sister 38 CHF ??? Diabetes - Type 2 Maternal Grandmother ??? Diabetes - Type 2 Paternal Grandmother ??? CVA Paternal Grandfather ??? Other Brother from MVA Review of Systems Constitutional: No appetite changes. Eyes: No double vision, dizziness, headache, or visual changes. EENT: No sore throat, coryza, cough, or neck stiffness. CV: No palpitations or chest pain. Able to walk one flight of steps. Respiratory: No shortness of breath. GI: No nausea, vomiting, diarrhea, constipation, hemoptysis, melena, or hematochezia. : No UTIs, frequency, urgency, pain, hematuria, vaginal dryness or vaginal discharge. Patient reports good movement, No loss of fluid, No vaginal bleeding. MS: No weakness, imbalance, or pain. Skin: No rash, changing moles, or bruises. Neuro: No syncope or neurological changes. Psychiatric: No depression or suicidal ideation. No mood changes. Endocrine: No thyroid or diabetes problems. Hematologic: No bruising or bleeding disorders. Lymphatic: No lymph node enlargement. EXAMINATION See nursing intake vitals, BMI 42.29, weight gain in 39 lbs NEURO: The patient is oriented x3. Cranial nerves 2-12 grossly intact. NAD. HEENT: Normocephalic, atraumatic. Pupils equally round and reactive to light and accommodation. Extraocular muscles are intact. NECK: Supple and symmetrical, without any masses. Thyroid is normal without any masses or enlargement. Trachea is midline. RESP: Lungs are clear to auscultation and percussion, nonlabored CV: Heart with regular rate and rhythm. No murmurs, rubs, clicks, or gallops. No JVD. SKIN: No rashes, lesions, or ulcers. ABDOMEN: Gravid, Fundal height: 43 cm. Fundus soft. Soft with good bowel sounds x4 quadrants. No masses or tenderness noted. There is no liver or spleen enlargement. No evidence of hernia. BACK: No tenderness, masses, or abnormalities noted. EXT: Nontender, +1 edema, full range of motion. There is no clubbing or cyanosis. LYMPHATIC: No supraclavicular, axillary or inguinal adenopathy. EGBUS: Without any lesions or abnormalities. Normal [place]'s and [place]'s. Vagina: Moist, pink rugae without any lesions. Well supported with no evidence of relaxation. Cervix: 1 cm dilation, 20% effacement, floating station, posterior position, medium consistency Urinary: Urethral meatus normal without palpable masses. Urethra without masses or tenderness. No suprapubic tenderness associated with bladder. Rectovaginal: Deferred. Lab Review: Blood type: O+ GBS: positive ( in urine culture on 09/16/18) Rubella: Immune RPR: NR 1 hour GTT:134, 3 hour normal Assessment: , Estimated Date of Delivery: 03/26/19 Gestational Age 39 weeks Group B strep in urine culture 67 th percentile fetus Plan: Plan IOL with cytotec 50 mg PO every 4 hours x 2 doses. In am plan pitocin per high dose protocol. Plan epidural for pain management. Ampicillin for group B strep prophylaxis. Julissa Mcwilliams DO documented in this encounter Procedure Notes * Lamont Bolanos MD - 03/19/2019 3:36 PM CDT OB Labor Progress Note Subjective: Called to see patient for: Artificial rupture of membranes, Placement of internal monitors Objective: Vitals: 03/19/19 0422 03/19/19 0537 03/19/19 0630 03/19/19 1515 BP: 116/73 126/73 135/67 Resp: 18 Temp: Weight: Height: Physical Exam: Cervix: Dilation: 5 cms Effacement: 75% Station: -2 Consistency: Soft Position: Posterior Assessment: 3, Para 2, 0, Estimated Date of Delivery: 03/26/19 Gestational Age 39w0d Early labor. Plan: amniotomy and place IUPC. fse applied Lamont Bolanos MD documented in this encounter Nursing Notes * Lydia Geurra RN - 03/22/2019 9:25 AM CDT This note was copied from a baby's chart. Consult: Mother states she is pumping to rest tender healing nipples. States one side bled with previous feeding. Mother is shy with showing LC her breasts, as she is an employee here. Mother states she is using her personal medela pump in style double electric pump per her choice. Statesshe has had an oversupply with previous children and donated ebm with them. Mother states she had hydrogel pads and is using lanolin prn. Mother states she is using nipple shield. Mother states awareof tongue tie, LC noted tie when cried out,. Mother gave bottle ebm to lc to feed , infant will not maintain latch well to artificial nipple, infant is able to cup her tongue, not lift it well , she can bring her tongue to her lower lip line. Mother aware of lc services and has contact information. Mother packing and is ready for discharge. Mother denies questions or concerns. Encouraged mother to call/consult with lc services. Mother states insurance gives new breast pump every 7 years, and will call to procure a newer pump; states other LC RN told her advantages/risks with older pump; and recommendation for multi user pump (of which she does not want at this time). Previous children are 7 and 13 y/os. Discussed use of breast shells for healing nipples. States understands. Updated nick rn Encouraged mother to call for /pumping support/assistance prn. Lydia Guerra RNC-MNN, MSN, IBCLC, RLC * Emma Cee RN - 03/21/2019 8:10 AM CDT This note was copied from a baby's chart. Consult: Mother in bed holding crying NB. Mother tearful. Mother states bilateral breastsare very sore. Mother does not desire to feed at breast at this time. Mother states she prefers to use her Medela personal pump that is 6 years old which she used for one year with her middle child. RN states understands mother's desire to rest nipples. RN explains risks of using her older pump andoffers her a Medela Symphony breast pump during hospital stay. Mother declines. Encourage mother tocontact her health insurance provider and/or WIC for a new breastpump. Mother lives in [place], [place]. RN holds NB and performs finger suck training. NB holds tongue to roof of mouth, uncoordinated suck. NB calms with finger suck training and goes to sleep. 0850, RN sets up Medela personal pump for mother. Mother states understands to pump for 15-20 minutes. RN lubricates size 27 mm breast flanges with lanolin for comfort. Visitors arrive. RN requests mother to call for hand expression demonstration. Mother states understands. 1025, Mother pumping again. Mother states she expressed 4 mL earlier and bottlefed NB. Mother states she prefers to bottlefeed over alternative feeding methods discussed. Mother pumps and additional 4 mL now. Mother plans to bottlefeed again. RN discouraged use of artificial nipples, especially with NB's poor suckling pattern. Mother states understands. Mother agrees to hand expression demonstration. Mother successful at teach back. EBM applied to bilateral nipples. Hydrogel pads applied. Discouraged use on lanolin on nipples while using gel pads. Instructed on use of hydrogel pads. Mother states understands. Discussed breast pump use and care including: cleaning, safe breast milk storage and preparation, bottle feeding a breast fed baby, frequency and duration of breast pumping. Breast pump handouts given and reviewed with mother. Mother states understands. Mother states she is comfortable with current feeding plan. Mother denies further questions/concerns at this time. Nancy Pelletier RN, updated regarding consult. Emma Cee RN 03/21/2019 11:46 AM * Emma Cee RN - 03/20/2019 2:30 PM CDT This note was copied from a baby's chart. Consult: NB in cradle hold on right breast with abdomen distal to mother. Mother states she has nipple trauma on right nipple. When NB breaks latch, RN visualizes compressed, reddened nipple with abrasions at 2 o'clock. RN encourages mother to work for deep latch. With mother's permission, RN assesses NB's oral anatomy and notes type 3 tongue tie with free movement. Upper lip tie noted as well. Showed findings to mother and encouraged goal for deep latch. Mother and utilization review specialist positions in Mother[employer]Baby Care magazine. Mother chooses cross-cradle on right breast. Mother independent with hold, needsinstruction for optimal breast hold. Deep, comfortable latch achieved. Mother denies pain. Mother states she is very pleased NB is latching she is hesitant to break poor latch. Explained risks of poor latch to dyad and benefits of correct latch. Mother states understands. Visitors enter room. information packet covering topics such as how to know if baby is getting enough breast milk, stomach size, when to call the doctor or engagement quality consultant,cluster feeding, diaper/feeding diary, given to mother and reviewed with her. Encouraged mother to review Mother&Baby Care magazine. Discussed the importance of ongoing support and e ncouraged mother to contact services as needed. Encouraged mother to participate in a community support group. Contact information given for services at [facility]. Mother states understands. Encouraged use of EBM and lanolin on damaged nipples as well as goal for correct latch. Mother states understands. Roxie Wu RN, enters room and is updated on consult. Emma Cee RN 03/20/2019 4:22 PM * Emma Cee RN - 03/19/2019 2:50 PM CDT Consult: Visitor requests RN to take gift to pt in pt's room. Pt resting in bed. Pt in labor with epidural. Pt states she is now comfortable. Pt states her plan is to breastfeed. Pt has a 13 yo son and 6 yo daughter, neither latched well. Ptstopped son after 7 days. Pt exclusively pumped for 1 year for daughter. Pt states she had abundant supply with daughter. Pt states unsure why previous children had difficulty latching. Pt's mother states that pt's nipples are inverted. Pt agrees. RN visualizes left nipple with mother's permission. Nipple dimpled. Nipple flattens with compression. Pt's breasts are large and heavy. Pt states breasts grew larger during . Discussed how feeding positions like football and cross-cradle may be helpful to compress breast tissue. Discussed possible need for nipple shield. Pt states she was not successful with nipple shieldin the past. Suggested that breast shells may also help with inversion. Pt states she also used them with little success. Encouraged pt that Team will work with her to help achieve her goals throughout her journey. Provided mother with [facility] contact information. Encouraged pt to call prn. Message left for Shai Hayden RN, regarding consult. Emma Cee RN 03/19/2019 2:58 PM documented in this encounter OR Notes * Operative - Julissa Mcwilliams DO - 03/19/2019 5:40 PM CDT Physician Vaginal Delivery Note 03/19/2019 5:45 PM Rachelle Dia is a 33 year old female 3, Para 2, 0, Estimated Date of Delivery:03/26/19 Gestational Age 39w0d Complication: Group B strep UTI, BMI 42, resolved placenta previa, large for gestational age Labor: induced Anesthesia: epidural Delivered by: Julissa Mcwilliams DO Delivery: Spontaneous Vaginal Delivery Presentation: vertex Position: [place] Episiotomy: No Laceration/Repair: None Information for the patient's : Vanna Dia Girl Rachelle [[id number]] Date of 03/19/2019 Time of : 5:20 PM Sex: Female Weight: (1 min): (5 min): (10 min): Placenta: 3 vessel cord, spontaneous and intact EBL: 450 cc's Delivery Complications: uterine atony resolved with cytotec 800 mcg, hemabate 0.25 mg IM, uterine massage and TXA IV Rachelle Dia 33 year old y/o female now P 3 delivered by delivery over intact perineum @ 5:20 pm with epidural anesthesia. The infant's head was delivered in a controlled manner. The oropharynx and nares were then bulb suctioned on the perineum. Amniotic fluid was clear. No nuchal cord was noted. The 's body was then delivered in the usual manner without difficulty. The cord was clamped x 2 and transected without difficulty. The was handed to pediatric nurse in attendance. The placenta delivered spontaneously, intact with 3 Vessel cord followed by 30 units of Pitocin IV and uterine massage. Bladder in and out catheterized 200 cc. Uterine atony resolved with cytotec 800 mcg NH, hemabate 0.25 mg IM and TXA IV. EBL= 450 cc. The vulva, vagina and cervix were then inspected without noted. She delivered a viable female , with Apgars 8 at 1 minute and 9 at 5 minutes,weighing 8 lbs 12 oz. Infant was taken to well baby nursery in stable condition. Mother and in stable condition. Cord blood collected. Cord blood donation was not collected. Julissa Mcwilliams DO documented in this encounter Plan of Treatment Not on file documented as of this encounter Procedures Procedure Name Priority Date/Time Associated Diagnosis Comments URIC ACID BLOOD STAT 03/21/2019 8:56 AM CDT CBC W AUTO DIFFERENTIAL STAT 03/21/2019 8:56 AM CDT COMPREHENSIVE METABOLIC PANEL STAT 03/21/2019 8:56 AM CDT LDH BLOOD STAT 03/21/2019 8:56 AM CDT URIC ACID BLOOD STAT 03/19/2019 5:54 AM CDT COMPREHENSIVE METABOLIC PANEL STAT 03/19/2019 5:54 AM CDT LDH BLOOD STAT 03/19/2019 5:54 AM CDT URINALYSIS REFLEX TO MICROSCOPIC NO CULTURE Add on 03/19/2019 3:34 AM CDT URINE DRUG SCREEN IMMUNOASSAY Routine 03/19/2019 3:34 AM CDT PROTEIN CREATININE RATIO URINE RANDOM PNL Add on 03/19/2019 3:34 AM CDT TYPE + SCREEN PANEL STAT 03/18/2019 1 1:57 PM CDT CBC W AUTO DIFFERENTIAL STAT 03/18/2019 11:57 PM CDT documented in this encounter Results * (ABNORMAL) LDH BLOOD (03/21/2019 8:56 AM CDT) LDH 271(H) 125 - 220 U/L 03/21/2019 9:26 AM CDT [facility] Blood BLOOD SPECIMEN / Unknown Venipuncture / Unknown 03/21/2019 8:56 AM CDT 03/21/2019 9:01 AM CDT Julissa Mcwilliams DO LAB - CHEMISTRY PEDRO LANG [facility] [address] [place] [address] * URIC ACID BLOOD (03/21/2019 8:56 AM CDT) Pathologist [facility] Uric Acid 5.9 2.6 - 6.0 mg/dL 03/21/2019 9:26 AM [facility] Blood BLOOD SPECIMEN / Unknown Venipuncture / Unknown 03/21/2019 8:56 AM CDT 03/21/2019 9:01 AM CDT Julissa Kalpesh Mcwilliams DO LAB - CHEMISTRY PEDRO LANG [facility] [address] [place] [address] * (ABNORMAL) COMPREHENSIVE METABOLIC PANEL (03/21/2019 8:56 AM CDT) Pathologist [facility] Glucose 80 74 - 106 mg/dL 03/21/2019 9:29 AM [facility] Sodium 140 136 - 145 mmol/L 03/21/2019 9:29 AM [facility] Potassium 3.6 3.5 - 5.1 mmol/L 03/21/2019 9:29 AM [facility] Chloride 106 98 - 107 mmol/L 03/21/2019 9:29 AM [facility] CO2 24 23 - 31 mmol/L 03/21/2019 9:29 AM [facility] Calcium 9.0 8.4 - 10.2 mg/dL 03/21/2019 9:29 AM [facility] Anion Gap 10 8 - 16 mmol/L 03/21/2019 9:29 AM [facility] BUN 7 7 - 18.7 mg/dL 03/21/2019 9:29 AM [facility] Creatinine 0.66 0.55 - 1.02 mg/dL 03/21/2019 9:29 AM [facility] Alkaline Phosphatase 110 40 - 150 U/L 03/21/2019 9:29 AM [facility] ALT 17 13 - 61 U/L 03/21/2019 9:29 AM [facility] AST 25 5 - 34 U/L 03/21/2019 9:29 AM [facility] Protein Total 6.0(L) 6.4 - 8.3 gm/dL 03/21/2019 9:29 AM [facility] Albumin 3.1(L) 3.5 - 5.2 gm/dL 03/21/2019 9:29 AM CDT [facility] Bilirubin Total 0.3 0.2 - 1.0 mg/dL 03/21/2019 9:29 AM CDT [facility] eGFR by MDRD >60 >60 mL/min/1.7 3m2 03/21/2019 9:29 AM CDT [facility] eGFR by MDRD >60 >60 mL/min/1.7 3m2 03/21/2019 9:29 AM CDT [facility] Blood BLOOD SPECIMEN / Unknown Venipuncture / Unknown 03/21/2019 8:56 AM CDT 03/21/2019 9:01 AM CDT Narrative [facility] - 03/21/2019 9:29 AM CDT Attention clinician: BUN Reference Range has changed. Julissa Mcwilliams DO LAB - CHEMISTRY PEDRO LANG [facility] [id number] [place] [address] * (ABNORMAL) CBC W AUTO DIFFERENTIAL (03/21/2019 8:56 AM CDT) WBC 7.9 4.4 - 10.7 x10E9/L 03/21/2019 9:10 AM CDT [facility] WBC Corrected x10E9/L 03/21/2019 9:10 AM CDT [facility] RBC 3.64(L) 3.80 - 5.20 x10E12/L 03/21/2019 9:10 AM CDT [facility] Hemoglobin 10.4(L) 12.0 - 15.6 gm/dL 03/21/2019 9:10 AM CDT [facility] Hematocrit 31.2(L) 35.9 - 45.5 % 03/21/2019 9:10 AM CDT [facility] MCV 85.7 80.7 - 98.3 fl 03/21/2019 9:10 AM CDT [facility] MCH 28.6 26.7 - 34.0 pg 03/21/2019 9:10 AM CDT [facility] MCHC 33.3 30.8 - 35.9 gm/dL 03/21/2019 9:10 AM CDT [facility] Platelet Count 203 153 - 416 x10E9/L 03/21/2019 9:10 AM CDT [facility] RDW-CV 13.8 12.1 - 14.9 % 03/21/2019 9:10 AM CDT [facility] MPV 9.0(L) 9.4 - 12.9 fl 03/21/2019 9:10 AM CDT [facility] Neutrophils % 74.9(H) 44.0 - 73.0 % 03/21/2019 9:10 AM CDT [facility] Lymphocytes % 17.1(L) 20.0 - 43.0 % 03/21/2019 9:10 AM CDT [facility] Monocytes % 5.2 5.0 - 13.0 % 03/21/2019 9:10 AM CDT [facility] Eosinophils % 2.1 0.0 - 6.0 % 03/21/2019 9:10 AM CDT [facility] Basophils % 0.3 0.0 - 2.0 % 03/21/2019 9:10 AM CDT [facility] Immature Granulocytes 0.4 0 - 1 % 03/21/2019 9:10 AM CDT [facility] Neutrophil Absolute 5.93 2.01 - 7.14 x10E9/L 03/21/2019 9:10 AM CDT [facility] Lymphocytes Absolute 1.35 1.07 - 3.94 x10E9/L 03/21/2019 9:10 AM CDT [facility] Monocytes Absolute 0.41 0.26 - 1.07 x10E9/L 03/21/2019 9:10 AM CDT [facility] Eosinophils Absolute 0.17 0 - 0.47 x10E9/L 03/21/2019 9:10 AM CDT [facility] Basophils Absolute 0.02 0 - 0.08 x10E9/L 03/21/2019 9:10 AM CDT [facility] Immature Granulocytes Absolute 0.03 0.00 - 0.06 x10E9/L 03/21/2019 9:10 AM CDT [facility] nRBC Auto 0 /100 WBC 03/21/2019 9:10 AM CDT [facility] Blood BLOOD SPECIMEN / Unknown Venipuncture / Unknown 03/21/2019 8:56 AM CDT 03/21/2019 9:01 AM CDT Julissa Mcwilliams LAB - HEMATOLOGY ORD ERABLES Performing Organization Address [facility]/ZIP Co de Phone Number [facility] [id number] [place] [address] * (ABNORMAL) LDH BLOOD (03/19/2019 5:54 AM CDT) LDH 224(H) 125 - 220 U/L 03/19/2019 6:38 AM CDT [facility] Blood BLOOD SPECIMEN / Unknown Venipuncture / Unknown 03/19/2019 5:54 AM CDT 03/19/2019 5:57 AM CDT Julissa Mcwilliams DO LAB - CHEMISTRY MELYE RICKEY Performing Organization Address [facility] Co de Phone Number [facility] [id number] [place] [id number] * URIC ACID BLOOD (03/19/2019 5:54 AM CDT) Uric Acid 4.9 2.6 - 6.0 mg/dL 03/19/2019 6:38 AM CDT [facility] Blood BLOOD SPECIMEN / Unknown Venipuncture / Unknown 03/19/2019 5:54 AM CDT 03/19/2019 5:57 AM CDT Julissa Mcwilliams DO LAB - CHEMISTRY ORDNancy LANG Performing Organization Address [facility]/ZIP Co de Phone Number [facility] [id number] [place], [place] [id number] * (ABNORMAL) COMPREHENSIVE METABOLIC PANEL (03/19/2019 5:54 AM CDT) Glucose 93 74 - 106 mg/dL 03/19/2019 6:38 AM CDT [facility] Sodium 141 136 - 145 mmol/L 03/19/2019 6:38 AM CDT [facility] Potassium 3.6 3.5 - 5.1 mmol/L 03/19/2019 6:38 AM CDT [facility] Chloride 108(H) 98 - 107 mmol/L 03/19/2019 6:38 AM CDT [facility] CO2 19(L) 23 - 31 mmol/L 03/19/2019 6:38 AM CDT [facility] Calcium 10.3(H) 8.4 - 10.2 mg/dL 03/19/2019 6:38 AM CDT [facility] Anion Gap 14 8 - 16 mmol/L 03/19/2019 6:38 AM CDT [facility] BUN 6(L) 7 - 18.7 mg/dL 03/19/2019 6:38 AM CDT [facility] Creatinine 0.66 0.55 - 1.02 mg/dL 03/19/2019 6:38 AM CDT [facility] Alkaline Phosphatase 142 40 - 150 U/L 03/19/2019 6:38 AM CDT [facility] ALT 15 13 - 61 U/L 03/19/2019 6:38 AM CDT [facility] AST 24 5 - 34 U/L 03/19/2019 6:38 AM CDT [facility] Protein Total 6.5 6.4 - 8.3 gm/dL 03/19/2019 6:38 AM CDT [facility] Albumin 3.3(L) 3.5 - 5.2 gm/dL 03/19/2019 6:38 AM CDT [facility] Bilirubin Total 0.3 0.2 - 1.0 mg/dL 03/19/2019 6:38 AM CDT [facility] eGFR by MDRD >60 >60 mL/min/1.7 3m2 03/19/2019 6:38 AM CDT [facility] eGFR by MDRD >60 >60 mL/min/1.7 3m2 03/19/2019 6:38 AM CDT [facility] Blood BLOOD SPECIMEN / Unknown Venipuncture / Unknown 03/19/2019 5:54 AM CDT 03/19/2019 5:57 AM CDT Narrative [facility] - 03/19/2019 6:38 AM CDT Attention clinician: BUN Reference Range has changed. Julissa Mcwilliams DO LAB - CHEMISTRY PEDRO LANG [facility] [address] [place] [address] * (ABNORMAL) URINALYSIS REFLEX TO MICROSCOPIC NO CULTURE (03/19/2019 3:34 AM CDT) Color UA Yellow Straw, Yellow 03/19/2019 6:12 AM CDT [facility] Clarity UA Slt Cloudy(A) Clear 03/19/2019 6:12 AM CDT [facility] Glucose UA Negative Negative 03/19/2019 6:12 AM CDT [facility] Bilirubin UA Negative Negative 03/19/2019 6:12 AM CDT [facility] Ketone UA Negative Negative 03/19/2019 6:12 AM CDT [facility] Specific [place] UA 1.011 1.005 - 1.030 03/19/2019 6:12 AM CDT [facility] Blood UA Negative Negative 03/19/2019 6:12 AM CDT [facility] pH UA 7.0 5.0 - 8.0 pH 03/19/2019 6:12 AM CDT [facility] Protein UA Negative Negative 03/19/2019 6:12 AM CDT [facility] Urobilinogen UA Negative Negative mg/dL 03/19/2019 6:12 AM CDT [facility] Nitrite UA Negative Negative 03/19/2019 6:12 AM CDT [facility] Leukocyte UA Negative Negative 03/19/2019 6:12 AM CDT [facility] Urine Microscopy Urine microscopy not indicated 03/19/2019 6:12 AM CDT [facility] Urine URINE SPECIMEN OBTAINED BY CLEAN CATCH PROCEDURE / Unknown Collection / Unknown 03/19/2019 3:34 AM CDT 03/19/2019 6:03 AM CDT Narrative [facility] - 03/19/2019 6:12 AM CDT Julissa Mcwilliams DO LAB - URINALYSIS ORD ERABLES [facility] [address] [place] [address] * PROTEIN CREATININE RATIO URINE RANDOM PNL (03/19/2019 3:34 AM CDT) Protein Urine 7.8 mg/dL 03/19/2019 6:22 AM CDT [facility] Creatinine Urine 70.41 mg/dL 03/19/2019 6:22 AM CDT [facility] Protein/Creatin ine Ratio Urine 0.11 03/19/2019 6:22 AM CDT [facility] Urine URINE SPECIMEN OBTAINED BY CLEAN CATCH PROCEDURE / Unknown Collection / Unknown 03/19/2019 3:34 AM CDT 03/19/2019 6:03 AM CDT Julissa Mcwilliams DO LAB - URINE CHEMISTR Y ORDERABLES [facility] [address] [place] [address] * DRUG SCREEN TOX URINE PANEL (03/19/2019 3:34 AM CDT) [facility] Amphetamines Screen Urine Not Detected Not Detected 03/19/2019 4:08 AM CDT [facility] Barbiturates Screen Urine Not Detected Not Detected 03/19/2019 4:08 AM CDT [facility] Benzodiazepines Screen Urine Not Detected Not Detected 03/19/2019 4:08 AM CDT [facility] Cannabinoids Screen Urine Not Detected Not Detected 03/19/2019 4:08 AM CDT [facility] Cocaine Screen Urine Not Detected Not Detected 03/19/2019 4:08 AM CDT [facility] Methadone Screen Urine Not Detected Not Detected 03/19/2019 4:08 AM CDT [facility] Opiate Screen Urine Not Detected Not Detected 03/19/2019 4:08 AM CDT [facility] Phencyclidine Screen Urine Not Detected Not Detected 03/19/2019 4:08 AM CDT [facility] Urine URINE / Unknown Collection / Unknown 03/19/2019 3:34 AM CDT 03/19/2019 3:43 AM CDT Narrative [facility] - 03/19/2019 4:08 AM CDT [...] DO LAB - URINE CHEMISTR Y ORDERABLES [facility] [address] [place] [address] * (ABNORMAL) CBC W AUTO DIFFERENTIAL (03/18/2019 11:57 PM CDT) WBC 7.0 4.4 - 10.7 x10E9/L 03/19/2019 12:14 AM CDT [facility] WBC Corrected x10E9/L 03/19/2019 12:14 AM CDT [facility] RBC 3.99 3.80 - 5.20 x10E12/L 03/19/2019 12:14 AM CDT [facility] Hemoglobin 11.3(L) 12.0 - 15.6 gm/dL 03/19/2019 12:14 AM CDT [facility] Hematocrit 34.2(L) 35.9 - 45.5 % 03/19/2019 12:14 AM CDT [facility] MCV 85.7 80.7 - 98.3 fl 03/19/2019 12:14 AM CDT [facility] MCH 28.3 26.7 - 34.0 pg 03/19/2019 12:14 AM CDT [facility] MCHC 33.0 30.8 - 35.9 gm/dL 03/19/2019 12:14 AM CDT [facility] Platelet Count 206 153 - 416 x10E9/L 03/19/2019 12:14 AM CDT [facility] RDW-CV 13.5 12.1 - 14.9 % 03/19/2019 12:14 AM CDT [facility] MPV 9.1(L) 9.4 - 12.9 fl 03/19/2019 12:14 AM CDT [facility] Neutrophils % 70.0 44.0 - 73.0 % 03/19/2019 12:14 AM CDT [facility] Lymphocytes % 21.6 20.0 - 43.0 % 03/19/2019 12:14 AM CDT [facility] Monocytes % 6.5 5.0 - 13.0 % 03/19/2019 12:14 AM CDT [facility] Eosinophils % 1.4 0.0 - 6.0 % 03/19/2019 12:14 AM CDT [facility] Basophils % 0.1 0.0 - 2.0 % 03/19/2019 12:14 AM CDT [facility] Immature Granulocytes 0.4 0 - 1 % 03/19/2019 12:14 AM CDT [facility] Neutrophil Absolute 4.87 2.01 - 7.14 x10E9/L 03/19/2019 12:14 AM CDT [facility] Lymphocytes Absolute 1.50 1.07 - 3.94 x10E9/L 03/19/2019 12:14 AM CDT [facility] Monocytes Absolute 0.45 0.26 - 1.07 x10E9/L 03/19/2019 12:14 AM CDT [facility] Eosinophils Absolute 0.10 0 - 0.47 x10E9/L 03/19/2019 12:14 AM CDT [facility] Basophils Absolute 0.01 0 - 0.08 x10E9/L 03/19/2019 12:14 AM CDT [facility] Immature Granulocytes Absolute 0.03 0.00 - 0.06 x10E9/L 03/19/2019 12:14 AM CDT [facility] nRBC Auto 0 /100 WBC 03/19/2019 12:14 AM CDT [facility] Blood BLOOD SPECIMEN / Unknown Venipuncture / Unknown 03/18/2019 11:57 PM CDT 03/19/2019 12:10 AM CDT Julissa Mcwilliams DO LAB - HEMATOLOGY ORD ERABLES [facility] [address] [place] [address] * TYPE + SCREEN PANEL (03/18/2019 11:57 PM CDT) ABO O 03/19/2019 1:33 AM CDT [facility] Rh Type Positive 03/19/2019 1:33 AM CDT [facility] Comment:History checked. Col lect retype. Antibody Screen Negative 03/19/2019 1:33 AM CDT [facility] Blood Bank BLOOD SPECIMEN / Unknown Venipuncture / Unknown 03/18/2019 11:57 PM CDT 03/19/2019 12:10 AM CDT Julissa Mcwilliams DO LAB - BLOOD BANK ORD ERABLES [facility] [address] [place] [address], [facility] documented in this encounter Visit Diagnoses Diagnosis Encounter for supervision of other normal in third trimester ([facility])- Primary Full-term premature rupture of membranes, unspecified duration to onset of labor ([facility]) Encounter for supervision of normal in third trimester ([facility]) Supervision of other normal documented in this encounter Administered Medications Inactive Administered Medications - up to 3 most recent administrations Medication Order MAR Action Action Date Dose Rate Site 0.9% NaCl injection 3 mL 3 mL, Intracatheter, EVERY 8 HOURS, 1095 doses, First dose on Sun03/19/19 at 2200, Last dose on Sun03/18/20 at 1400, $ Given 03/21/2019 2:07 PM CDT 3 mL $ Given 03/21/2019 4:28 AM CDT 3 mL $ Given 03/20/2019 7:45 PM CDT 3 mL 0.9% NaCl injection 3 mL 3 mL, Intracatheter, PRN, Other, peripheral line flush, Starting on Sun03/19/19 at 1902, Until 03/22/19 at 1200, Flush after each use and blood draws., $ Given 03/19/2019 9:58 PM CDT 3 mL $ Given 03/19/2019 7:14 PM CDT 10 mL ampicillin (OMNIPEN) 2,000 mg in 0.9% NaCl 100 mL IVPB 2,000 mg (2 g), at 200 mL/hr, Intravenous, ONCE, 1 dose, On Sun03/19/19 at 0000, Indication for anti-infective therapy: Suspected infection, Site of anti-infective therapy: Other, Other site of infection (free text): GBS Prophylaxis, Labor and Delivery $ New Bag/Syringe 03/19/2019 12:20 AM CDT 2,000 mg 200 mL/hr ampicillin 1,000 mg in 0.9% NaCl 50 mL IVPB 1,000 mg (1 g), at 100 mL/hr, Intravenous, EVERY 4 HOURS, 42 doses, First dose on Sun03/19/19 at 0400, Last dose on Sun03/26/19 at 0000, Indication for anti-infective therapy: Suspected infection, Site of anti-infective therapy: Other, Other site of infection (free text): GBS Prophylaxis, Labor and Delivery $ New Bag/Syringe 03/19/2019 4:07 AM CDT 1,000 mg 100 mL/hr carboprost (HEMABATE) injection 250 mcg 250 mcg, Intramuscular, ONCE, 1 dose, On Sun03/19/19 at 1800, Injection should be deep within muscle using tuberculin syringe. $ Given 03/19/2019 5:31 PM CDT 250 mcg Left Dorsogluteal docusate sodium (COLACE) capsule 100 mg 100 mg, Oral, 2 TIMES DAILY, 730 doses, First dose on Sun03/19/19 at 2100, Last dose on Sun03/18/20 at 0900, $ Given 03/22/2019 10:25 AM CDT 100 mg $ Given 03/21/2019 8:14 PM CDT 100 mg $ Given 03/21/2019 8:47 AM CDT 100 mg fentaNYL 2 mcg/ml and ropivicaine 0.2% in 0.9% nacl Epidural at 10 mL/hr, Epidural, CONTINUOUS, Starting on Sun03/19/19 at 1100, Until Sun03/19/19 at 1902, Demand Dose: 5 mL Lock out: 15 minutes 1 hour limit: 30 mL $ New Bag/Syringe 03/19/2019 11:02 AM CDT 10 mL/hr 10 mL/hr ibuprofen (MOTRIN) tablet 600 mg 600 mg, Oral, EVERY 6 HOURS, 1460 doses, First dose on Sun03/19/19 at 1915, Last dose on Sun03/18/20 at 1200, Maximum allowable amount = 3200 mg / 24 hours., $ Given 03/22/2019 5:45 AM CDT 600 mg $ Given 03/22/2019 12:01 AM CDT 600 mg $ Given 03/21/2019 6:54 PM CDT 600 mg iron polysaccharides (NIFEREX 150) capsule 150 mg 150 mg, Oral, DAILY, First dose on Sun03/19/19 at 1915, Until Discontinued $ Given 03/22/2019 10:26 AM CDT 150 mg $ Given 03/21/2019 8:48 AM CDT 150 mg $ Given 03/20/2019 8:19 AM CDT 150 mg lactated ringers infusion at 125 mL/hr, Intravenous, CONTINUOUS, Starting on Sun03/19/19 at 0000, Until Sun03/19/19 at 1902, Start IV with 18 gauge angiocath., Labor and Delivery $ New Bag/Syringe 03/19/2019 2:20 AM CDT 125 mL/hr $ New Bag/Syringe 03/19/2019 12:03 AM CDT 125 m L/hr lactated ringers IV bolus 1,000 mL, BOLUS IV, 1 dose, On Sun03/19/19 at 0000 $ New Bag/Syringe 03/19/2019 1:15 AM CDT 999 mL lanolin (LANOLIN) ointment Topical, PRN, Sore or cracked nipples., Starting on Sun03/19/19 at 1902, Until Sun03/22/19 at 1200, Apply purified Lanolin to sore or cracked nipples, if needed. May keep at bedside., $ Given 03/21/2019 8:47 AM CDT 1 applicator $ Given 03/20/2019 8:19 AM CDT miSOPROStol (CYTOTEC) tablet 50 mcg 50 mcg, Oral, EVERY 4 HOURS, 2 doses, First dose on Sun03/19/19 at 0000, Last dose on Sun03/19/19 at 0400, Labor and Delivery $ Given 03/19/2019 4:10 AM CDT 50 m cg $ Given 03/19/2019 12:16 AM CDT 50 mcg miSOPROStol (CYTOTEC) tablet 800 mcg 800 mcg, Vaginal, ONCE, 1 dose, On Sun03/19/19 at 1745 $ Given 03/19/2019 5:27 PM CDT 800 mcg oxytocin (PITOCIN) 30 units in 500 mL 0.9% sodium chloride infusion 0-20 bernice-units/min (0-20 mL/hr), Intravenous, CONTINUOUS, Starting on Sun03/19/19 at 0800, Until Sun03/19/19 at 1902, Titration Parameters: High Dose, Indication: Induction/Augmentation of labor, Initiate infusion at: 2 bernice-units/min, Titrate infusion by: 2 bernice-units/min, Titrate every: 15 minutes, To maintain: May increase or decrease infusion to maintain contractions 2-3 minutes apart in the presence of reassuring heart tracing, but not to exceed 5 contractions in 10 minutes or exceed max infusion rate., Decrease Oxytocin rate: May decrease Oxytocin by half current dose in the presence of uterine tachysystole (greater than 5 contractions in 10 minutes) and notify provider. May decrease oxytocin by half current dose at the time of rupture of membranes once verified with provider, Discontinue Oxytocin infusion: Discontinue oxytocin immediately for abnormal or indeterminate status, and notify provider., Labor and Delivery $ New Bag/Syringe 03/19/2019 8:26 AM CDT 2 bernice-units/min 2 mL/hr vitamin with iron tablet 1 tablet 1 tablet, Oral, DAILY, First dose on Sun03/19/19 at 1915, Until Discontinued $ Given 03/22/2019 10:26 AM CDT 1 tablet $ Given 03/21/2019 8:48 AM CDT 1 tablet $ Given 03/20/2019 8:19 AM CDT 1 tablet tranexamic acid (CYKLOKAPRON) injection 1,000 mg 1,000 mg, Intravenous, ONCE PRN, OB Hemorrhage, 1 dose, Starting on Sun03/18/19 at 2354, Until Sun03/19/19 at 1732, Given by Anesthesia if available otherwise nurse may give IV push over 10 minutes., Labor and Delivery $ Given 03/19/2019 5:32 PM CDT 1,000 mg documented in this encounter Active and Recently Administered Medications Times are shown in CDT. Scheduled Medication Order 03/20/2019 03/21/2019 03/22/2019 0.9% NaCl injection 3 mL 3 mL, Intracatheter, EVERY 8 HOURS, 1095 doses, First dose on Sun03/19/19 at 2200, Last dose on Sun03/18/20 at 1400, 0712 ($ Given - Provider: Eusebio Roberts, BRENDA)1547 ($ Given - Provider: Barbara Wu, BRENDA)1945 ($ Given - Provider: Estefani Pfeiffer) 0428 ($ Given - Provider: Estefani Pfeiffer)1407 ($ Given - Provider: Homar Pelletier, BRENDA)2020 (Not Administered - Provider: Jo Adam, RN - Reason: Loss of Access) 0545 (Not Administered - Provider: Jo Adam, BRENDA - Reason: Loss of Access) docusate sodium (COLACE) capsule 100 mg 100 mg, Oral, 2 TIMES DAILY, 730 doses, First dose on Sun03/19/19 at 2100, Last dose on Sun03/18/20 at 0900, 0818 ($ Given - Provider: Jan Sanchez RN)194 ($ Given - Provider: Estefani Pfeiffer) 0847 ($ Given - Provider: Homar Pelletier, RN)2013 ($ Given - Provider: Jo Adam, BRENDA) 1025 ($ Given - Provider: Nenita Alvarez, BRENDA) ibuprofen (MOTRIN) tablet 600 mg 600 mg, Oral, EVERY 6 HOURS, 1460 doses, First dose on Sun03/19/19 at 1915, Last dose on Sun03/18/20 at 1200, Maximum allowable amount = 3200 mg / 24 hours., 0129 ($ Given - Provider: Eusebio Roberts RN)0710 (Not Administered - Provider: Eusebio Roberts RN - Reason: Refused-Patient)1222 ($ Given - Provider: Barbara Wu RN)1945 ($ Given - Provider: Estefani Pfeiffer)2242 ($ Given - Provider: Estefani Pfeiffer) 0428 ($ Given - Provider: Estefani Pfeiffer)1149 ($ Given - Provider: Homar Pelletier, BRENDA)1854 ($ Given - Provider: Nenita Alvarez, BRENDA) 0001 ($ Given - Provider: Jo Adam, BRENDA)0545 ($ Given - Provider: Jo Adam, BRENDA) iron polysaccharides (NIFEREX 150) capsule 150 mg 150 mg, Oral, DAILY, First dose on Sun03/19/19 at 1915, Until Discontinued 818 ($ Given - Provider: Jan Sanchez RN) 0848 ($ Given - Provider: Homar Pelletier, RN) 1026 ($ Given - Provider: Nenita Alvarez, BRENDA) vitamin with iron tablet 1 tablet 1 tablet, Oral, DAILY, First dose on Sun03/19/19 at 1915, Until Discontinued 818 ($ Given - Provider: Jan Sanchez, BRENDA) 0848 ($ Given - Provider: Homar Pelletier, BRENDA) 1026 ($ Given - Provider: Nenita Alvarez RN) PRN Medication Order 03/20/2019 03/21/2019 03/22/2019 0.9% NaCl injection 3 mL 3 mL, Intracatheter, PRN, Other, peripheral line flush, Starting on Sun03/19/19 at 1902, Until 03/22/19 at 1200, Flush after each use and blood draws., acetaminophen (TYLENOL) tablet 1,000 mg 1,000 mg, Oral, EVERY 6 HOURS PRN, Moderate Pain, Starting on Sun03/19/19 at 1902, Until 03/22/19 at 1200, Maximum allowable Acetaminophen amount = 4 Grams (4000 mg) / 24 hours. , , acetaminophen (TYLENOL) tablet 650 mg 650 mg, Oral, EVERY 6 HOURS PRN, Mild Pain, Starting on Sun03/19/19 at 1902, Until 03/22/19 at 1200, Maximum allowable Acetaminophen amount = 4 Grams (4000 mg) / 24 hours. , , benzocaine-menthol (DERMOPLAST) spray Topical, PRN, Mild Pain, Starting on Sun03/19/19 at 1902, Until 03/22/19 at 1200, Apply to affected area. . WASTE DISPOSAL INSTRUCTION: Send to Pharmacy for Disposal. . , diphenhydrAMINE (BENADRYL) injection 25 mg 25 mg, Intravenous, EVERY 6 HOURS PRN, Itching, Starting on Sun03/19/19 at 1902, Until 03/22/19 at 1200, Administer IV at a rate not exceeding 25 mg/min. Can dilute in 5-10 mL NS as needed for patient comfort., lanolin (LANOLIN) ointment Topical, PRN, Sore or cracked nipples., Starting on Sun03/19/19 at 1902, Until 03/22/19 at 1200, Apply purified Lanolin to sore or cracked nipples, if needed. May keep at bedside., 0819 ($ Given - Provider: Jan Sanchez RN) 0847 ($ Given - Provider: Homar Pelletier RN) ondansetron (disintegrating) (ZOFRAN ODT) tablet 4 mg 4 mg, Oral, EVERY 6 HOURS PRN, Nausea/Vomiting, Starting on Sun03/19/19 at 1902, Until 03/22/19 at 1200, Allow tablet to dissolve on the tongue, pramoxine hcl (rectal) (PROCTOFOAM) 1 % foam Rectal, 3 TIMES DAILY PRN, Hemorrhoids, Starting on Sun03/19/19 at 1902, Until 03/22/19 at 1200, . WASTE DISPOSAL INSTRUCTION: Send to Pharmacy for Disposal. . , documented in this encounter
--- OUTSIDE RECORDS SUMMARY | 2024-10-06 22:16 | XMS_ITS | Encounter Summary ---
Author Organization [facility] Address [address] [place] [address] Care Team Providers Care Jordan Worker Name Role Phone Unavailable Primary Care Provider Unavailabl e Reason for Visit * Reason Comments Ultrasound Encounter Details Date Type Department Care Team (Latest Contact Info) Description 12/06/2018 1:28 PM POWER ELECTRONICS RESEARCH ENGINEER - 12/06/2018 11:59 PM POWER ELECTRONICS RESEARCH ENGINEER Hospital Encounter [facility] & Care at [facility] [address] [address] [place] [address] Khushboo Hernandez MD [address] [place] [address] Discharge Disposition: Home or Self Care Social [...] Associated Diagnosis Comments SONOGRAM - COMPLETE Routine 12/06/2018 1 :48 PM POWER ELECTRONICS RESEARCH ENGINEER Obesity affecting in second trimester (HCC) documented in this encounter Results * SONOGRAM - COMPLETE (12/06/2018 1:48 PM POWER ELECTRONICS RESEARCH ENGINEER) Anatomical Region Laterality Modality Other 12/06/2018 1:48 PM POWER ELECTRONICS RESEARCH ENGINEER Narrative 12/06/2018 4:11 PM POWER ELECTRONICS RESEARCH ENGINEER ?[facility] ?[facility]NAL [facility]ICINE ? TESTING CENTER ?FAX: ?? Pat. Name: ?RACHELLE DIA Pat. No: ?[id number] Study Date: ?? 12/06/2018 ??1:48pm , Age: ? 1985, 33 Pregnancies: ?? 3, Para 2 Height: ? 67 in Weight: ? 231 lb LMP: ?Unknown GA by Base: ?? 24w2d ?? HELEN: 03/26/2019 GA by US: ? 25w3d ?? HELEN: 03/18/2019 GA Selected: ??24w2d (From [facility]) HELEN: ?03/26/2019 Referring MD: Julissa Mcwilliams MD [employer] Code Enforcement Officer: ??Emma Fagan RDMS CPT4: ? 62835,20326 BMI: ?36.18 Hist/Ind: ? anatomic survey ?Class II obesity MEASUREMENTS & AGE ? GROWTH EVALUATION Measurement ??GA ? Range ? Srce %for GA Ratios ----- ---- ------- BPD ??6.2 cm 25w0d (52d6d-04f8x) Hadl BPD 69% FL/BPD 0.77 (0.71 - 0.87) HC ??23.1 cm 25w1d (37n8r-19a8k) Hadl HC ??60% FL/AC ??0.22 (0.20 - 0.24) AC ??21.1 cm 25w4d (48c4y-64i1m) Hadl AC ??80% HC/AC ??1.09 (1.02 - 1.21) FL ?? 4.7 cm 25w5d (52p9m-13d2f) Hadl FL ??81% CI ? 0.75 (0.70 - 0.86) HL ?? 4.7 cm 27w4d (06m5k-38n3m) Chente HL ??>95 Cere 2.7 cm 24w2d (17v2d-45e8t) Hill Cere50% GA for sonogram 25w3d (66l3s-24g7q) ?? Weight Estimate: based on (BPD,HC,AC,FL) Avg ?Weight: 826 gm (705-947gm) Hadloc ? : 1lbs, 13oz ? Normal: 703 gm (528-879gm) Hadloc ? Wt% ? 91% for 24w2d Cervix: ??Length: 4.9 cm ??Approach: transvaginal Heart Rate: 154 bpm Amniotic Fluid Index: 07.1cm (Deepest Pocket) EVAL, PLACENTA Presentation: cephalic Placenta: posterior Previa: no previa seen Heart Rate: 154 bpm Amniotic Fluid Volume: normal Anatomy!Normal!Abnormal!Suboptimal!Prev. Seen!Comments Cranium ?! ?? x ??! ?! ?! ? x ?! Mdl (CSP/Thal! [...] ?! ? x ?! Ductal Arch ??! ?? x ??! ?! ?! ?! Aortic Arch ??! ?? x ??! ?! ?! ? x ?! Caval View ?? ! ?? x ??! ?! ?! ?! Situs ?! ?! ?! ?! ? x ?! Diaphragm ?! ?! ?! ?! ? x ?! Stomach ?! ?? x ??! ?! ?! ? x ?! Bowel ?! ?! ?! ?! ? x ?! Kidneys ?! ?? x ??! ?! ?! ? x ?! Bladder ?! ?? x ??! ?! ?! ? x ?! 3 Vessel Cord! ?! ?! ?! ? x ?! Cord In! ?! ?! ?! ? x ?! Upper Extremi! ?! ?! ? x ?! ?!unremarkable ?left, suboptimal ?right Hands ?! ?! ?! ? x ?! ?!unremarkable ?left, suboptimal ?right Lower Extreme! ?! ?! ?! ? x ?! Feet ? ! ?! ?! ?! ? x ?! External Cady! ?! ?! ?! ? x ?! CLINICAL SUMMARY Study Number: 3 A follow up exam was performed to complete anatomy and reassess placental location. The measurements today are consistent with appropriate growth. ??The HELEN is based on a prior outside ultrasound at 7 weeks ( confirmed ). ??The amniotic fluid volume is normal. ??The placenta is posterior. ??The anatomical screen remains suboptimal for the upper extremity. IMPRESSION: Single, live, IUP 24w2d Appropriate growth normal amniotic fluid Resolution of low lying placenta Reassuring cervical length Incomplete anatomical screen (upper extremity) RECOMMEND: Follow up ultrasound in 1-2 weeks complete anatomical screen Thank you for the opportunity to participate in the care of your patient. Khushboo Hernandez MD <Electronic Signature> ??12/06/2018 04:11pm Mela Dougherty MD [facility] ORDERABLES documented in this encounter Visit Diagnoses Diagnosis Obesity affecting in second trimester ([facility])- Primary screening for growth retardation using ultrasonics ([facility]) screening for growth retardation using ultrasonics Placenta previa without hemorrhage, antepartum ([facility]) Placenta previa without hemorrhage, antepartum Screening, , for malformation by ultrasound ([facility]) Encounter for routine screening for malformation using ultrasonics Obesity, unspecified classification, unspecified obesity type, unspecified whether serious comorbidity present 24 weeks gestation of ([facility]) state, incidental Encounter for suspected placental problem, ruled out Suspected placental problem not found documented in this encounter
--- OUTSIDE RECORDS SUMMARY | 2024-10-06 22:16 | XMS_ITS | Encounter Summary ---
Author Organization [facility] Address [address] [place] [address] Care Team Providers Care Custom Shop Worker Name Role Phone Unavailable Primary Care Provider Unavailabl e Encounter Details Date Type Department Care Team (Late st Contact Info) Description 01/20/2019 Orders Only [facility] - SHARED SERVICES AND OUTSOURCING MANAGER [address] [place] [address] Julissa Mcwilliams, [address] [place] [address] Excessive growth affecting management of in third trimester, single or unspecified fetus Social History Tobacco Use Types Packs/Day Years [...] AM CDT Narrative 02/14/2019 1:31 PM CDT ?[facility] ?[facility] DIVISION OF MATERNAL MEDICINE ? TESTING CENTER ?FAX: ?? Pat. Name: ?MINH DIAICA Pat. No: ?[id number] Study Date: ?? 02/14/2019 ??11:31am , Age: ? 1985, 33 Pregnancies: ?? 3, Para 2002 Height: ? 67 in Weight: ? 231 lb LMP: ?Unknown GA by Base: ?? 34w2d ?? HELEN: 03/26/2019 GA by US: ? 36w1d ?? HEELN: 03/13/2019 GA Selected: ??34w2d (From [facility]) HELEN: ?03/26/2019 Referring MD: Julissa Mcwilliams MD Contact Officer: ??Maryam Lara RDMS, JESS CPT4: ? 06491 BMI: ?36.18 Hist/Ind: ? LGA ?Class II obesity ?Completed Anatomy MEASUREMENTS & AGE ? GROWTH EVALUATION Measurement ??GA ? Range ? Srce %for GA Ratios ----- ---- ------- BPD ??8.6 cm 34w4d (91e8a-79r4j) Hadl BPD 56% FL/BPD 0.83 (0.71 - 0.87) HC ??32.1 cm 36w2d (33n1h-42l6w) Hadl HC ??65% FL/AC ??0.21 (0.20 - 0.24) AC ??33.5 cm 37w3d (55g7k-56k9j) Hadl AC ??>99 HC/AC ??0.96 (0.94 - 1.13) FL ?? 7.1 cm 36w3d (30v5l-43l8k) Hadl FL ??89% CI ? 0.74 (0.70 - 0.86) HL ?? 6.7 cm 39w1d (90z5j-99w9l) Chente HL ??>95 GA for sonogram 36w1d (21y0g-92f8x) ?? Weight Estimate: based on (BPD,HC,AC,FL) Avg [...] of in third trimester, single or unspecified fetus- Primary Excessive growth affecting management of in third trimester, single or unspecified fetus (HCC) screening for growth retardation using ultrasonics ([facility]) screening for growth retardation using ultrasonics Obesity affecting in third trimester (HCC) Screening, , for malformation by ultrasound ([facility]) Encounter for routine screening for malformation using ultrasonics 34 weeks gestation of ([facility]) state, incidental documented in this encounter
--- OUTSIDE RECORDS SUMMARY | 2024-10-06 22:16 | XMS_ITS | Encounter Summary ---
Author Organization [facility] Address [address] [facility] [place] [address] Care Team Providers Care Manual Qa Tester Name Role Phone Unavailable Primary Care Provider Unavailabl e Reason for Visit * Reason Comments Routine Visit Encounter Details Date Type Department Care Team (Late st Contact Info) Description 08/26/2018 3:30 PM CEMENTER HELPER visit [facility] Medical [facility] - GRAIN SHIPPER [address] [facility] [address] [place] [address] Marilee Pete APRN-COMPLIANCE ATTORNEY [address] [facility] [address] [place] [address] [place]: 9w5d Social History Tobacco Use Types Packs/Day Years [...] Sign Reading Time Taken Comments Blood Pressure 112/68 08/26/2018 3:37 PM CEMENTER HELPER Pulse - - Temperature - - Respiratory Rate - - Oxygen Saturation - - Inhaled Oxygen Concentration - - Weight 105.1 kg (231 lb 12.8 oz) 08/26/2018 3:37 PM CEMENTER HELPER Height - - Body Mass Index 36.31 08/07/2018 3:29 PM CDT documented in this encounter Progress Notes * Manasa Boyle - 08/26/2018 4:13 PM CST Urine showed trace of blood. NTER HELPER * Marilee Pete APRN-CNP - 08/26/2018 3:56 PM CST 9w5d Patient has no obstetric complaints or issues. Taking vitamins. No spotting or cramping. No abnormal vaginal discharge, itching or odor. No urinary complaints. First trimester education completed. Educational packet given to patient. Information discussed: Course of care and hospital options for delivery. Recommended classes if first .. Reviewed use of after hours line for emergencies. Continue to take vitamins daily. Reviewed lab results. Reviewed additional lab work during . Genetics/ Testing: Optional genetic counseling for women 35 and older. N/A Discussed First Trimester Screening and time constraints. Written info given. Will let us know if wishes to schedule. Declined today. Discussed second trimester screening. Written info given. Declines, plans just anatomy u/s. The next ultrasound will be at the center at 18-20 weeks. The baby is completely developed at his time and the ultrasound makes sure everything is normal. Additional ultrasounds are for medical necessity. Recommended no smoking, alcohol or recreational drug use during because of the potentially harmful affects to the baby. Denies use of these substances. Reviewed nutrition during and food safety. Reviewed common discomforts of , appropriate treatment and OTC medications. Reviewed the Do's and Don'ts of handouts. Reviewed Dangers During handout. ASSESSMENT ICD-10-CM 1. care, subsequent , first trimester Z34.81 2. 9 weeks gestation of Z3A.09 PLAN No orders of the defined types were placed in this encounter. She had already been scheduled for first trimester screen, will verify she does not want it. Return for next appointment in 4 weeks. Call with any questions. NTER HELPER documented in this encounter Plan of Treatment Not on file documented as of this encounter Visit Diagnoses Diagnosis care, subsequent , first trimester (HCC)- Primary 9 weeks gestation of (HCC) state, incidental documented in this encounter
--- OUTSIDE RECORDS SUMMARY | 2024-10-06 22:16 | XMS_ITS | Encounter Summary ---
Author Organization [facility] Address [address] [place] [address] Care Team Providers Care Senior Strategy Analyst Name Role Phone Unavailable Primary Care Provider Unavailabl e Reason for Referral * Evaluate - Closed Specialty Diagnoses / Procedures Referred By Contac t Referred To Contact Nutrition Services Diagnoses Excessive weight gain during in first trimester (HCC) [place] [address] [facility] ([place] [place]) [address] [place] [id number] Referral ID Status Reason Start Date Expiration Date V isits Requested Visits Authorized [id number] Closed Specialty Services Required 09/16/2018 03/15/2019 4 4 TECH Reason for Visit * Evaluate - Closed Specialty Diagnoses / Procedures Referred By Contac t Referred To Contact Nutrition Services Diagnoses Excessive weight gain during in first trimester (HCC) [place] [address] [facility] ([place] [place]) [address] [place] [address] Referral ID Status Reason Start Date Expiration Date V isits Requested Visits Authorized [id number] Closed Specialty Services Required 09/16/2018 03/15/2019 4 4 Encounter Details Date Type Department Care Team (Latest Contact Info) Description 09/19/2018 2:00 PM ECHO TECH - 09/19/2018 11:59 PM ECHO TECH Hospital Encounter [facility] - Nutrition Services [address] [place] [address] [place] [address] [facility] ([place] [place] [address] [place] [address] Discharge Disposition: Home or Self [...] - - Weight 104.8 kg (231 lb) 09/19/2018 3:00 PM ECHO TECH Height 170.2 cm (5' 7 ) 09/19/2018 3:00 PM ECHO TECH Body Mass Index 36.18 09/19/2018 3:00 PM ECHO TECH documented in this encounter Medications at Time of Discharge Medication Sig Dispensed Refills Start Date End Date Vit-Fe Fumarate-FA ( VITAMIN) 27-0.8 MG tablet Take 1 tablet by mouth once daily amoxicillin-clavulanate (AUGMENTIN) 875-125 MG tabletIndications:Group b Streptococcus urinary tract infection affecting , antepartum, first trimester (HCC) Take 1 tablet by mouth 2 times daily with morning and evening meal for 7 days 14 tablet 09/19/2018 09/26/2018 documented as of this encounter Progress Notes * Georgia Hollins, RD/LD - 09/19/2018 3:33 PM CST MNT: Balanced Nutrition for Session Number: Session I Date: 09/19/2018 Patient: Rachelle Dia (33 y.o.) PCP: No primary care provider on file. Referring Provider: Julissa Mcwilliams DO Patient Summary: Pt seen for Primary Diagnoses/Co-morbidities: (Excessive Weight Gain in ) Assessment: Patient reports gaining 10 pounds in the past three weeks. She feels her baby is swelling. She has been trying to eat healthy and watch portion sizes. During her first -12 years ago she reports gaining 100#. She worked hard to lose weight by exercising two hours a day. She gained 40# on her last five years ago. She would like to eat healthy and monitor more closely what she is eating. Nutrition history revealed consumption of five feedings daily. She is including foods from each of the food groups. She does not drink alcohol or smoke. She is taking vit/min daily. Her activity level is low. Walking daily at work was encouraged. Presented meal plan that includes 3 meals & 3 snacks with protein, portion control, reading the food label, limiting fat in diet, choosing lean protein sources. Provided diet materials, which includes daily meal planning guide with contact information. Encouraged patient to use My Fitness pal to record foods eaten. Clinical Data: Height: 5' 7 (170.2 cm) Pre Pregancy Weight: 241 lb (109.3 kg) Weight: 231 lb (104.8 kg) Gestational Age in weeks: 13 Pertinent Labs: Reviewed Pertinent Meds: Reviewed Nutritional Diagnostic Statement: Diagnosis: (NB 1.1) Food-Nutrition related knowledge deficit Related to: lack of prior nutrition-related education As evidenced by: patient not knowing what to eat during prgnancy. Intervention: Patient educated on Balanced meal planning for healthy baby. Please refer to the Gestational MNT Doc Flowsheet for further details. Materials provided: MNT: Nutrition Guide for Healthy Baby, High sodium food list to avoid, sample menus, 2200 calorie meal plan Teaching Method: Explanation;Demonstration;Handout;Teach Back Goals: Nutrition Goal #1: Eat six nutrient dense feedings daily with foods from each of the food groups a outlined on plan. Nutrition Goal #1Progress: New goal established Nutrition Goal #2: Drink 8-10 cups of water or sugar free caffeine free liquids daily. Nutrition Goal #2 Progress: New goal established Nutrition Goal #3: Avoid salt, salted seasonings, high sodium canned and processed foods. Nutrition Goal #3 Progress: New goal established Nutrition Goals /Outcomes: Goal: Kcalories: 2200 Monitor: Patient encouraged to call/email RD with questions and/or concerns. Evaluation of Overall Compliance Potential: Comprehension: Often Demonstrated Receptivity: Often Demonstrated Adherence: Often Demonstrated Session Date: 09/19/18 Session beginning time: 1403 Session ending time: 1504 Session total minutes: 60 Minutes Next visit: (Patient was encouraged to schedule follow up appointment.) Thank you for the referral. Georgia Hollins RD/KIRAN TECH documented in this encounter Plan of Treatment Scheduled Referrals Name Type Priority Associated Diagnoses Order Schedule AMB REFERRAL TO MED NUTRITION THERAPY Outpatient Referral Routine Excessive weight gain during in first trimester (HCC) 1 Occurrences starting 09/19/2018 until 09/19/2018 documented as of this encounter Visit Diagnoses Diagnosis Excessive weight gain during in first trimester (HCC) documented in this encounter
--- OUTSIDE RECORDS SUMMARY | 2024-10-06 22:16 | XMS_ITS | Encounter Summary ---
Author Organization [facility] Address [address] [facility] [place] [address] Care Team Providers Care Engineer Byproduct Name Role Phone Unavailable Primary Care Provider Unavailabl e Reason for Visit * Reason Comments Well Women Exam Encounter Details Date Type Department Care Team (Latest Contact Info) Description 05/23/2017 9:30 AM CDT Office Visit [facility] - SOCIAL INSURANCE SPECIALIST [id number] [facility] [address] [place] [address] Stacey Roblero, REKHA-PRINTED FORMS PROOFREADER [address] [facility] [address] [place] [address] Routine gynecological examination (Primary Dx); Screening examination for venereal disease; Special screening examination for human papillomavirus (HPV); Irregular menses Social History Tobacco Use Types Packs/Day Years [...] Sign Reading Time Taken Comments Blood Pressure 114/78 05/23/2017 9:34 AM CDT Pulse - - Temperature - - Respiratory Rate - - Oxygen Saturation - - Inhaled Oxygen Concentration - - Weight 100.7 kg (222 lb) 05/23/2017 9:34 AM CDT Height 170.2 cm (5' 7 ) 05/23/2017 9:34 AM CDT Body Mass Index 34.77 05/23/2017 9:34 AM CDT documented in this encounter Progress Notes * Brittanie Lemus LPN - 05/28/2017 2:51 PM CDT Pt advised that pap was ASCUS, NEG HPV, no further testing needs at this time, HOWEVER, her recordsfrom previous physician have not been rec'd yet. I informed pt RIKKI Ibarra will contact her once reviewed and to Contact office if she has not heard back from Stacey in 4 weeks, records have been requested. Pt also made aware of STD screening negative and TSH normal. Pt voiced understanding. No further questions at this time. * Brittanie Lemus LPN - 05/28/2017 2:43 PM CDT Left msg for pt to contact office. * Stacey Roblero APRN-CHRISTOPHER - 05/23/2017 9:36 AM CDT Well Woman Yearly Exam (Premenopausal) HISTORY: This is a new patient for Dr Oj Dia is a 31 y.o. No obstetric history on file. female, Patient's last menstrual periodwas 04/20/2017., here for a Well Woman exam. Menses: usually regular monthly cycle without intermenstrual spotting but has skipped 2 cycles a year for past 2 years. No h/o infertility Current bleeding pattern: 5 days. At the heaviest she has to change pad or tampon 4-6 times a day, uses overnight pads. Clots: no. Sexually active:no, abstinent past year, has had sex once in past 2 years control: condom Social: 1/2 ppd smoker, works at [employer], 2 healthy kids, feels safe History of abnormal paps: yes. Will get records from [facility]. Last pap was abnormal, was supposed to repap in August but they didn't take her insurance States she has been having abnormal paps occassionally since age 16, all have been abnormal in the past 3 years, has had 1 colposcopy in the past coitarche age 15, multiple partners in the past Did get 1 dose of gardasil around 2009 Patient does not have other gynecological issues or concerns. No past medical history on file. Past Surgical History: Procedure Laterality Date ??? [place] Tooth Extraction Social History Social History ??? Marital status: Single Spouse name: N/A ??? Number of children: N/A ??? 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 Smoking status: Current Every Day Smoker Packs/day: 0.50 ??? Smokeless tobacco: Never Used ??? Alcohol use Yes ??? Drug use: No ??? Sexual activity: Not Currently Partners: Male Comment: menarche age 13 Other Topics Concern ??? Seat Belt Yes Social History Narrative Allergies Allergen Reactions ??? Eggs [Albumin] Swelling OB History Para Term AB Living 2 2 SAB TAB Ectopic Multiple Live Births Family History Problem Relation Age of Onset ??? Hypertension Father ??? Diabetes - Type 2 Father ??? Diabetes - Type 2 Sister ??? Other - Cardiac Sister 38 CHF ??? Diabetes - Type 2 Maternal Grandmother ??? Diabetes - Type 2 Paternal Grandmother ??? CVA Paternal Grandfather ??? Other Brother from MVA Review of Systems Constitutional: No weight or appetite changes. EENT: No visual changes, no URI symptoms. CV: No palpitations or chest pain. Able to walk one flight of steps. Respiratory: No shortness of breath. GI: No nausea, diarrhea, constipation. : No dysuria or vaginal discharge. MS: No weakness, imbalance, or pain. Skin: No rash, changing moles. Neuro: No syncope or neurological changes. Psychiatric: No symptoms of depression. EXAMINATION BP 114/78 Ht 5' 7 Wt 222 lb BMI 34.77 kg/m2 Body mass index is 34.77 kg/(m^2). NEURO: The patient is oriented x3. NAD. HEENT: Normocephalic, atraumatic. NECK: Supple and symmetrical, without any masses. Thyroid is normal without any masses or enlargement. Trachea is midline. RESP: Lungs are clear to auscultation, nonlabored CV: Heart with regular rate and rhythm. No murmurs. BREASTS: Nontender, without any masses or discharge. No tissue texture changes or dimpling. The patient is counseled on breast self-exam. SKIN: No rashes, lesions. ABDOMEN: No masses or tenderness noted. There is no liver or spleen enlargement. No evidence of hernia. EXT: Nontender, nonedematous, full range of motion. LYMPHATIC: No supraclavicular, axillary or inguinal adenopathy. EGBUS: Without any lesions or abnormalities. Normal Bartholin's and [place]'s. Vagina: Moist, pink rugae without any lesions. Well supported with no evidence of relaxation. Discharge: normal and physiologic Cervix: Closed, without any lesions. A thin prep Pap smear was obtained without any difficulty. Uterus: Small, mobile, nontender. Well supported. Adnexa: Nontender without palpable masses. Urinary: Urethral meatus normal without palpable masses. Urethra without masses or tenderness. No suprapubic tenderness associated with bladder. Rectovaginal: Deferred. ASSESSMENT ICD-10-CM 1. Routine gynecological examination Z01.419 PAP IG LB+CT+NG+TV+HPV APTIMA RFLX 16,18/45 2. Screening examination for venereal disease Z11.3 PAP IG LB+CT+NG+TV+HPV APTIMA RFLX 16,18/45 3. Special screening examination for human papillomavirus (HPV) Z11.51 PAP IG LB+CT+NG+TV+HPV APTIMA RFLX 16,18/45 4. Irregular menses N92.6 TSH HI LOW REFLEX FREE T4 PLAN 1. Preventative medicine: A thin prep pap was performed of cervix: yes. Screen for ct/gc/trich: Yes. Will request pap records and call after review Breast self exam reviewed, patient encouraged to perform monthly. Healthy diet and exercise 30-45 minutes three times weekly discussed. Safe sex encouraged. 2. Check TSH Follow up for further eval if misses 3 consecutive cycles See orders, medications, patient instructions. Orders Placed This Encounter ??? TSH HI LOW REFLEX FREE T4 ??? PAP IG LB+CT+NG+TV+HPV APTIMA RFLX 16,18/45 documented in this encounter Plan of Treatment Not on file documented as of this encounter Procedures Procedure Name Priority Date/Time Associated Diagnosis Comments TSH HI LOW REFLEX FREE T4 Routine 05/23/2017 10:32 AM CDT Irregular menses PAP IG LB+CT+NG+TV+HPV APTIMA RFLX 16,18/45 Routine 05/23/2017 10:15 AM CDT Routine gynecological examination Screening examination for venereal disease Special screening examination for human papillomavirus (HPV) documented in this encounter Results * TSH HI LOW REFLEX FREE T4 (05/23/2017 10:32 AM CDT) TSH 0.783 0.358 - 3.740 ulU/mL [facility] ACCOUNT BILL Blood BLOOD SPECIMEN / Unknown 05/23/2017 10:32 AM CDT 05/23/2017 Narrative Resulting Agency [facility] [address] [address] [place] [phone] Stacey Roblero DIRECTOR OF PROVIDER RELATIONS-PRINTED FORMS PROOFREADER LAB - CHEMISTRY O RDERABLES [facility] ACCOUNT BILL [address] [place] [address] * (ABNORMAL) PAP IG LB+CT+NG+TV+HPV APTIMA RFLX 16,18/45 (05/23/2017 10:15 AM CDT) Diagnosis (A) [facility] ACCOUNT BILL Comment: EPITHELIAL CELL ABNORMALITY. ATYPICAL SQUAMOUS CELLS OF UNDETERMINED SIGNIFICANCE. Specimen Adequacy [facility] ACCOUNT BILL Comment: Satisfactory for evaluation. ??Endocervical and/or squamous metaplastic cells (endocervical component) are present. Clinician Provided ICD10 [facility] ACCOUNT BILL Comment: Z01.419 Z11.3 Z11.51 N92.6 Performed by [facility] ACCOUNT BILL Comment:Hosea Johnson, Cytote chnologist (ASCP) Electronically Signed by [facility] ACCOUNT BILL Comment:Charles bentley MD (Charles), Pathologist Comment . [facility] ACCOUNT BILL Pathologist Provided ICD10 [facility] ACCOUNT BILL Comment:R87.610 Note [facility] ACCOUNT BILL Comment: The Pap smear is a screening test designed to aid in the detection of premalignant and malignant conditions of the uterine cervix. ??It is not a diagnostic procedure and should not be used as the sole means of detecting cervical cancer. ??Both false-positive and false-negative reports do occur. ? . IGLBP CPT Code Automation NOT NEEDED [facility] ACCOUNT BILL Comment: The Thin Prep(R) Die Maintenance Technician was unable to read this specimen. ??Therefore a manual review was performed. Ancillary determined the test is not needed Human papillomavirus Aptima Negative Negative [facility] ACCOUNT BILL Comment: This test detects fourteen high-risk HPV types (16/18/31/33/35/39/45/ 51/52/56/58/59/66/68) without differentiation. Chlamydia trachomatis JOHN Negative Negative [facility] ACCOUNT BILL GC JOHN Negative Negative [facility] ACCOUNT BILL Trichomonas vaginalis by JOHN Negative Negative [facility] ACCOUNT BILL ENTIRE ENDOCERVIX / Unknown 05/23/2017 10:15 AM CDT 05/24/2017 Narrative [facility] ACCOUNT BILL - 05/28/2017 1:08 PM CDT Source.............Endocervix No. of containers..01 CYTYC Thin Prep Vial Resulting Agency Comment [facility] [place] [address] [address] [phone] Stacey Roblero DIRECTOR OF PROVIDER RELATIONS-PRINTED FORMS PROOFREADER LAB - PATHOLOGY/C YTOLOGY ORDERABLES [facility] ACCOUNT BILL [address] [place] [address] documented in this encounter Visit Diagnoses Diagnosis Routine gynecological examination- Primary Screening examination for venereal disease Special screening examination for human papillomavirus (HPV) Irregular menses Irregular menstrual cycle documented in this encounter
--- OUTSIDE RECORDS SUMMARY | 2024-10-06 22:17 | XMS_ITS | Encounter Summary ---
Author Organization [facility] Address [address] [place] [address] Care Team Providers Care Extruding Department Supervisor Name Role Phone Unavailable Primary Care Provider Unavailabl e Encounter Details Date Type Department Care Team (Late st Contact Info) Description 11/25/2021 Lab Requisition [facility] Community Testing [facility] [address] [place], [place] [id number] Alfred Lopez MD [address] [place] [address] [place] [address] Social History Tobacco Use Types Packs/Day Years Used Date Smoking Tobacco: Never Assessed Comments Unknown Sex and Gender Information Value Date Recorded Sex Assigned at Not on file Legal 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
--- OUTSIDE RECORDS SUMMARY | 2024-10-06 22:17 | XMS_ITS | CONTINUITY OF CARE DOCUMENT ---
Author Name asad kamara Address Unknown Organization [facility] Address [address] [place] [address] [address] [place] [address] Phone [phone] Care Team Providers Care Ice Cream Vault Worker Name Role Phone Kaveh CERVANTES, Kaila Unavailable Kaila Linn MD Unavailable Lori Page MD Unavailable INSURANCE PROVIDERS Payer name Policy type / Coverage type [place] red constitution party ID [employer] Car Throttle insurance [employer] [id number]
--- OUTSIDE RECORDS SUMMARY | 2024-10-06 22:17 | XMS_ITS | Encounter Summary ---
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
--- OUTSIDE RECORDS SUMMARY | 2024-10-06 22:17 | XMS_ITS | Encounter Summary ---
Author Organization [facility] Address [address] [place] [address] Care Team Providers Care Analytics Architect Name Role Phone Unavailable Primary Care Provider Unavailabl e Encounter Details Date Type Department Care Team (Late st Contact Info) Description 10/18/2021 Lab Requisition [facility] Community Testing [facility] [address] [place] [address] Alfred Lopez MD [address] [place] [address] [place] [address] Social History Tobacco Use Types Packs/Day Years Used Date Smoking Tobacco: Never Assessed Comments Unknown Sex and Gender Information Value Date Recorded Sex Assigned at Not on file Legal Sex Female 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
--- OUTSIDE RECORDS SUMMARY | 2024-10-06 22:17 | XMS_ITS | Data Portability ---
Author Organization [facility] [place], Main Office Address [address] [place] [address] Assessment No assessment recorded. Plan of Treatment Reminders Order Date Submit Date Provider Last Modified By Organization Details Last Modified Time Details Appointments Any 15 2024 04:15P Diana Carrasco APRN Not available Not available Not available Lab CBC w/ auto diff 2023 024 [facility] (Lab), [address] [place], [address], 09/24/2024 08:48:49 CMP, serum or plasma 2023 024 [facility] (Lab), [address] [place], [address], 09/24/2024 08:48:49 BNP (B-type natriuret ic peptide), blood 2023 024 [facility], [address] [place], [address], 09/30/2024 09:25:36 lipid panel, serum 2023 024 [facility] (Lab), [address] [place], [address], 09/24/2024 08:48:49 TSH + free T4, serum 2023 024 [facility] (Lab), [address] [place], [address], 09/24/2024 08:48:49 hepatitis C virus Ab, serum 2023 [facility] (Lab), [address], [place], [address], 09/30/2024 09:25:36 HbA1c (hemoglob in A1c), blood 2023 [facility] (Lab), [address] [place], [address], 09/30/2024 09:25:36 Referral None recorded. Procedures None recorded. Surgeries None recorded. Imaging electroca rdiogram 2023 [facility] [place] [address], [place], [address], 09/23/2024 16:33:22 Medication Orders None recorded. Patient TargetsNo targets recorded. Patient Instructions Encounter Date Encounter Id Patient Instructions Last Modified By Organization Details Last Modified Time 09/23/2024 [id number] Follow up in 3 months Obtain labs Tests: Referral: Recommend: Tetanus vaccine Shingles vaccine [email or web address] Not available 09/17/2024 17:04:11 Reason for Referral None Reported. Results Created Date Observation Date Name Description Value Unit Range Abnormal Flag Note LastModifiedBy Organization Detail LastModifiedTime 09/23/20 elect rocar diogr am No observ ation record ed. [email or web address] [facility] [place] [address], [place], [address], 09/23/2024 15:34:33 09/23/20 24 09/23/2024 elect rocar diogr am No observ ation record ed. [facility] [address], [place], [address], 09/23/2024 16:40:51 Result Notes None recorded. Problems Name Problem SNOMED Code Status Onset Date Resolution Date Notes Provider Name and Address Organization Details Recorded Time Essential hypertension 07153525 Active 2023 Sloane Carrasco, TERRAZZO TI[employer] [address], [address], [place], [address], [facility] [employer] [facility] 15:26:07 Palpitations 34842145 Active 2023 Sloane Carrasco TER[employer] TI[employer] [address], [address], [place], [address], [facility] [employer] 15:31:50 Problem Notes None recorded. Procedures Surgical History None recorded. Imaging Results Imaging Date Name Status LastModified by Organization Details LastModified Time 09/23/2024 electrocardiogram completed [email or web address] [facility] [place] [address], [place], [address], 09/23/2024 15:34:33 09/23/2024 electrocardiogram completed [facility] [place] [address], [place], [address], 09/23/2024 16:40:51 Procedure Notes None recorded. Medical Equipment None Reported. Medications Name Sig Start Date Stop Date Status Note LastModified by Organization Details LastModified Time azithromyci n 250 mg tablet TAKE 2 TABLETS BY MOUTH ON DAY 1, THEN TAKE 1 TABLET DAILY ON DAYS 2-5 09/23 completed Not Available Not Available Not Available benzonatate 200 mg capsule TAKE ONE CAPSULE BY MOUTH THREE TIMES DAILY, MORNING, MIDDAY & IN THE EVENING NEEDED FOR COUGH 09/23 completed Not Available Not Available Not Available prednisone 20 mg tablet TAKE TWO TABLETS BY MOUTH ONCE EVERY DAY WITH FOOD FOR 5 DAYS 09/23 completed Not Available Not Available Not Available amlodipine 2.5 mg tablet TAKE ONE TABLET BY MOUTH EVERY DAY FOR BLOOD PRESSURE active Not Available Not Available No t Available dextrometho vik enesin 10 mg-100 mg/5 mL oral syrup TAKE 10 ML BY MOUTH EVERY 4 HOURS NEEDED FOR FOUR DAYS 09/23 completed Not Available Not Available Not Available meloxicam 7.5 mg tablet TAKE ONE TABLET BY MOUTH EVERY DAY FOR 10 DAYS FOR PAIN 09/23 completed Not Available Not Available Not Available losartan 100 mg-hydrochl orothiazide 25 mg tablet TAKE 1 TABLET BY MOUTH EVERY MORNING FOR BLOOD PRESSURE AND FLUID RETENTION active Not Available Not Available No t Available methylpredn isolone 4 mg tablets in a dose pack TAKE 6 TABLETS ON DAY 1 DIRECTED ON PACKAGE AND DECREASE BY 1 TAB EACH DAY FOR A TOTAL OF 6 DAYS 09/23 completed Not Available Not Available Not Available albuterol sulfate HFA 90 mcg/actuati on aerosol inhaler INHALE TWO PUFFS BY MOUTH EVERY 4 HOURS NEEDED FOR BREATHING active Not Available Not Available No t Available losartan 50 mg-hydrochl orothiazide 12.5 mg tablet TAKE ONE TABLET DAILY 09/23 completed Not Available Not Available Not Available losartan 100 mg-hydrochl orothiazide 12.5 mg tablet TAKE ONE TABLET DAILY 09/23 completed Not Available Not Available Not Available Vitals Date Recorded Body height Body mass index (BMI) Body weight Body temperature Heart rate Oxygen saturation Oxygen saturation in Arterial blood by Pulse oximetry Systolic blood pressure Diastolic blood pressure Provider Name and Address Organization Details Last Updated DateTime 4 167.64 cm 40.8 kg/m2 340014. 87 g 97.8 [degF] 89 /min 98 % 98 % 112 mm[Hg] 74 mm[Hg] Mary Bass MA [employer] 15:13:24 Social History Question Answer Notes LastModified by Organizat ion Details LastModified Time Tobacco Smoking Status Current Every Day Smoker Mary Bass MA [facility] [employer] 09/23/2024 15:19:21 What Is Your Level Of Alcohol Consumption? Occasional Information not available 09/23/2024 What Is Your Level Of Caffeine Consumption? Moderate Information not available 09/23/2024 In The 14 Days Before Symptom Onset, Have You Had Close Contact With A Laboratory-confir med COVID-19 While That Case Was Ill? No Information not available 09/23/2024 In The 14 Days Before Symptom Onset, Have You Had Close Contact With A Person Who Is Under Investigation For COVID-19 While That Person Was Ill? No Information not available 09/23/2024 Are You Currently Employed? Yes Information not available 09/23/2024 What Type Of Diet Are You Following? REGULAR Information not available 09/23/2024 Have There Been Any Changes To Your Family Or Social Situation? No Information no t available 09/23/2024 Do You Use Insect Repellent Routinely? No Information not available 09/23/2024 Where Do You Live? [place]iler Information not available 09/23/2024 What Was The Date Of Your Most Recent Tobacco Screening? 09/23/2024 Information not available 09/23/2024 How Many Children Do You Have? 3 Information not available 09/23/2024 Do You Have Any Pets? Yes Information not available 09/23/2024 What Is Your Relationship Status? Single Information not available 09/23/2024 Do You Use Your Seat Belt Or Car Seat Routinely? Yes Information not available 09/23/2024 Do You Have Smoke And Carbon Monoxide Detectors In Your Home? Yes Information not available 09/23/2024 At What Age Did You Start Smoking Tobacco? 15 Information not available 09/23/2024 Are You Passively Exposed To Smoke? Yes Information no t available 09/23/2024 Are There Any Smokers In Your House? No Information not available 09/23/2024 How Much Tobacco Do You Smoke? 0.5 PPD Information not available 09/23/2024 Do You Feel Stressed (tense, Restless, Nervous, Or Anxious, Or Unable To Sleep At Night)? [id number] Information not available 09/23/2024 Do You Use Any Illicit Or Recreational Drugs? No Information not available 09/23/2024 Do You Use Sunscreen Routinely? No Information not available 09/23/2024 Have You Recently Traveled Abroad? No Information not available 09/23/2024 Do You Have Any Dietary Restrictions? No Information not available 09/23/2024 Do You Or Have You Ever Used Any Other Forms Of Tobacco Or Nicotine? No Information not available 09/23/2024 Sex: Unknown Functional Status Question Answer Note LastModified by Organizat ion Details LastModified Time What is your exercise level? Occasional Information not available 09/23/2024 Mental Status None recorded. Family History Relationship Description Onset Age of this Age Resolved Age Notes LastModified by Organization Details LastModified Time Father Hypertensive disorder [email or web address] Not available 2023 15:15:40 Father Heart disease Father heart Valve issues [email or web address] Not available 09/23/2024 15:17:29 Mother Hypertensive disorder [email or web address] Not available 2023 15:15:40 Mother Heart irregularly irregular [email or web address] Not available 2023 15:17:54 Maternal Grandmother Diabetes mellitus [email or web address] Not available 2023 15:16:30 Paternal Grandmother Diabetes mellitus [email or web address] Not available 2023 15:16:30 Sister Diabetes mellitus [email or web address] Not available 2023 15:16:30 Sister Heart disease [email or web address] Not available 2023 15:16:58 Maternal Grandfather Heart disease [email or web address] Not available 2023 15:16:58 Medical History No medical history recorded. Gynecological History Statement/Question Response How many live births 3 Date of Last Pap Current Control Method None Date of Last Colonoscopy Date of Last Mammogram Date of LMP Obstetrics History GPAL:G 3 P 3 0 0 3 Type Value Multiple Births 0 Full Term 3 Induced 0 Spontaneous 0 Premature 0 Living 3 Ectopics 0 Total 3 Immunizations Vaccine Type Date Status Note Provider Nam e and Address Organization Details Recorded Time Influenza, split virus, quadrivalent, preservative 4 completed Sloane Carrasco APRN [address], [facility] [address], [place], [address], [facility] [employer] 09/23/2024 15:26:25 COVID-19, mRNA, LNP-S, PF, 30 mcg/0.3 mL dose 1 completed Sloane Carrasco APRN [address], [address], [place], [address], [facility] [employer] [facility] 09/23/2024 15:26:25 COVID-19, mRNA, LNP-S, PF, 30 mcg/0.3 mL dose 1 completed Sloane Carrasco APRN [address], [address], [place], [address], [facility] [employer] [facility] [employer] [facility] 09/23/2024 15:26:25 Tdap 9 completed Sloane Carrasco APRN [address], [address], [place], [address], [facility] [employer] [facility] [employer] [facility] 09/23/2024 15:26:25 Hep A, pediatric, unspecified formulation 0 completed Sloane Carrasco [employer] [address], [place], [address], [facility] [employer] [facility] [employer] [facility] 09/23/2024 15:26:25 Influenza, split virus, trivalent, PF 4 completed Sloane Carrasco APRN [address], [address], [place], [address], [employer] [facility] [employer] [facility] 09/23/2024 16:32:22 Past Encounters Encounter ID Performer Location Encounter Start Date Encounter Closed Date Diagnosis/Indication Diagnosis SNOMED-CT Code Diagnosis ICD10 Code [id number] Sloane Carrasco APRN [facility] Internal Med [address] [place] [address] 09/23/2024 14:52:54 09/23/2024 16:10:16 Diabetes mellitus screening 808132279 Z13.1 Hyperlipid emia screening 154883029 Z13.220 Screening for disorder 832315689 Z13.9 Thyroid di sorder screening 859143007 Z13.29 Hepatitis C screening 41 9995697 Z11.59 Administra tion of influenza vaccine 18498177 Z23 Palpitations 95520466 R0 0.2 Health Concerns Section Related Observation LastModified by Organization Detai ls LastModified Time None Recorded Concern Status LastModified by Organization Details LastModified Time None Recorded Advance Directives Directive None Recorded Payers Encounter Date Sequence Insurance Name Policy Number Policy Chung Covered Member ID Chung Member ID Guarantor Name 09/23/2024 1 [employer] Rachelle Dia [id number] Rachelle Dia Notes Date Note Type Note Provider Name and Address Organization Details Recorded Time 09/23/2024 text/html Rachelle presents today to establish care as a new patient. Patient states that she has been having numbness and tingling in to her hands and feet. She also states that she gets swelling in her hands and feet and has gained 20lbs in a month. She also states that she will wake up with heart palpitations. She states that her headaches have been better since she is on blood pressure medication. She was seeing a virtual provider but has decided to change to this provider. Sloane Carrasco, TER[employer]O TILE SETTER [address] [facility], [facility] [address], [place], [address], [place] [facility] [employer] 09/24/2024 08:07:47 OBGyn Episode No OBEpisode recorded.
--- OUTSIDE RECORDS SUMMARY | 2024-10-06 22:17 | XMS_ITS | Continuity of Care Document ---
Author Organization [place] - [facility] [employer] [facility], [facility] Internal Med [address] Address [address] [facility] [place] [address] Assessment No assessment recorded. Plan of Treatment Reminders Order Date Submit Date Provider Last Modified By Organization Details Last Modified Time Details Appointments Any 15 2024 04:15P Diana Carrasco, RESP THERAPIST Not available Not available Not available Lab CBC w/ auto diff 2023 024 [facility] (Lab), [address] [place], [address], 09/24/2024 08:48:49 CMP, serum or plasma 2023 024 [facility] (Lab), [address] [place], [address], 09/24/2024 08:48:49 BNP (B-type natriuret ic peptide), blood 2023 024 [facility] Out[facility] Lab, [address] [place], [address], 09/30/2024 09:25:36 lipid panel, serum 2023 024 [facility] (Lab), [address] [place], [address], 09/24/2024 08:48:49 TSH + free T4, serum 2023 024 [facility] (Lab), [address] [place], [address], 09/24/2024 08:48:49 hepatitis C virus Ab, serum 2023 [facility] (Lab), [address] [facility] [place], [address], 09/30/2024 09:25:36 HbA1c (hemoglob in A1c), blood 2023 [facility] (Lab), [address] [facility] [place], [address], 09/30/2024 09:25:36 Referral None recorded. Procedures None recorded. Surgeries None recorded. Imaging electroca rdiogram 2023 [facility] Internal [facility] [place] [address] [facility] [address], [place], [address], 09/23/2024 16:33:22 Medication Orders None recorded. Patient TargetsNo targets recorded. Patient Instructions Encounter Date Encounter Id Patient Instructions Last Modified By Organization Details Last Modified Time 09/23/2024 [id number] Follow up in 3 months Obtain labs Tests: Referral: Recommend: Tetanus vaccine Shingles vaccine [email or web address] Not available 09/17/2024 17:04:11 Reason for Referral None Reported. Results Created Date Observation Date Name Description Value Unit Range Abnormal Flag Note LastModifiedBy Organization Detail LastModifiedTime 09/23/20 elect rocar diogr am No observ ation record ed. [email or web address] [facility] [address], [place], [address], 09/23/2024 15:34:33 09/23/20 24 09/23/2024 elect rocar diogr am No observ ation record ed. BAR[facility] Internal Med [address], [place], [address], 09/23/2024 16:40:51 Result Notes None recorded. Problems Name Problem SNOMED Code Status Onset Date Resolution Date Notes Provider Name and Address Organization Details Recorded Time Essential hypertension 17336066 Active 2023 Sloane Carrasco APRN [address], [place], [address], [facility] [employer] [facility] 15:26:07 Palpitations 77026393 Active 2023 Sloane Carrasco APRN [address], [place], [address], [facility] [employer] [facility] [employer] [facility] 15:31:50 Problem Notes None recorded. Procedures Surgical History None recorded. Imaging Results Imaging Date Name Status LastModified by Organization Details LastModified Time 09/23/2024 electrocardiogram completed [email or web address] [facility] [address], [place], [address], 09/23/2024 15:34:33 Procedure Notes None recorded. Medical Equipment None [...] Available Not Available No t Available dextrometho rphan-guaif enesin 10 mg-100 mg/5 mL oral syrup [...] and Address Organization Details Last Updated DateTime 167.64 cm 40.8 kg/m2 181976. 87 g 97.8 [degF] 89 /min 98 % 98 % 112 mm[Hg] 74 mm[Hg] Mary Bass MA [employer] 15:13:24 Social History Question Answer Notes LastModified by Organizat ion Details LastModified Time Tobacco Smoking Status Current Every Day Smoker Mary Bass MA [facility] [employer] 09/23/2024 15:19:21 What Is Your Level Of [...] Anxious, Or Unable To Sleep At Night)? [id number] Information not available 09/23/2024 Do You Use [...] preservative 4 completed Sloane Carrasco APRN [address], [address], [address], [facility] [employer] [facility] 09/23/2024 15:26:25 COVID-19, mRNA, LNP-S, PF, 30 mcg/0.3 mL dose 1 completed Sloane Carrasco APRN [address], [place], [address], [facility] [employer] [facility] 09/23/2024 15:26:25 COVID-19, mRNA, LNP-S, PF, 30 mcg/0.3 mL dose 1 completed Sloane Carrasco APRN [address], [place], [address], [facility] [employer] [facility] [employer] [facility] 09/23/2024 15:26:25 Tdap 9 completed Sloane Carrasco APRN [address], [address], [place], [address], [facility] [employer] [facility] [employer] [facility] 09/23/2024 15:26:25 Hep A, pediatric, unspecified formulation 0 completed Sloane Carrasco APRN [address], [place], [address], [facility] [employer] [facility] [employer] [facility] 09/23/2024 15:26:25 Influenza, split virus, trivalent, PF 4 completed Sloane Carrasco APRN [address], [address], [place], [address], [facility] [employer] [facility] [employer] [facility] 09/23/2024 16:32:22 Past Encounters Encounter ID Performer Location Encounter Start Date Encounter Closed Date Diagnosis/Indication Diagnosis SNOMED-CT Code Diagnosis ICD10 Code [id number] Sloane Carrasco APRN [facility] Internal Med [address] [facility] [place] [address] 09/23/2024 14:52:54 09/23/2024 16:10:16 Diabetes mellitus screening 623988996 Z13.1 Hyperlipid emia screening 550223730 Z13.220 Screening for disorder 078933025 Z13.9 Thyroid di sorder screening 450941653 Z13.29 Hepatitis C screening 41 9846223 Z11.59 Administra tion of influenza vaccine 43415668 Z23 Palpitations 62214186 R0 0.2 Health Concerns Section Related Observation LastModified by Organization Detai ls LastModified Time None Recorded Concern Status LastModified by Organization Details LastModified Time None Recorded Payers Encounter Date Sequence Insurance Name Policy Number Policy Chung Covered Member ID Chung Member ID Guarantor Name 09/23/2024 1 [employer] [id number] Rachelle Dia Notes Date Note Type Note [...] to change to this provider. Sloane Carrasco, RESP THERAPIST [address] [facility], [facility] [address], [place], [address], [facility] [employer] [facility] 09/24/2024 08:07:47 OBGyn Episode No OBEpisode recorded.
--- OUTSIDE RECORDS SUMMARY | 2024-10-06 22:18 | XMS_ITS | Continuity of Care Document ---
Author Organization [facility] Address [address] [place] [address] Care Team Providers Care Room Service Runner Name Role Phone NABIL DONALDSON Primary Care Provider Assessment No assessment recorded. Plan of Treatment Reminders Order Date Submit Date Provider Last Modified By Organization Details Last Modified Time Details Appointments IOP Misc 2023 04:15P M Procedure Room Not available Not available Not available IOP COLPO 2023 04:30P M Karolina BARILLAS MD Not available Not available Not available U/S F/U 2023 10:00A M Karolina BARILLAS MD Not available Not available Not available Lab hormone panel, serum or plasma 2023 [facility] (Lab), [address], [place], [address], 09/14/2024 20:43:24 beta-HCG , quantita tive, serum or plasma 2023 [facility] (Lab), [address], [place], [address], 09/14/2024 20:43:23 prolacti n, serum 2023 [facility] (Lab), [address], [place], [address], 09/14/2024 20:43:23 TSH, serum or plasma 2023 [facility] (Lab), [address], [place], [address], 09/14/2024 20:43:23 HbA1c (hemoglo bin A1c), blood 2023 [facility] (Lab), [address], [place], [address], 09/14/2024 20:43:24 17-hydro xyproges terone, QN, serum 2023 [facility] (Lab), [address], [place], [address], 09/14/2024 20:43:24 CBC w/ auto diff 2023 [facility] (Lab), [address], [place], [address], 09/14/2024 20:43:22 CMP, serum or plasma 2023 [facility] (Lab), [address], [place], [address], 09/14/2024 20:43:23 Referral None recorded . Procedures None recorded . Surgeries None recorded . Imaging US, pelvis, complete 2023 Not available 09/12/2024 09:05:34 Medication Orders None recorded . Patient TargetsNo targets recorded. Patient InstructionsNo instructions recorded. Reason for Referral None Reported. Results Created Date Observation Date Name Description Value Unit Range Abnormal Flag Note LastModifiedBy Organization Detail LastModifiedTime 10/03/20 24 10/03/2024 US, pelvi s No observ ation record ed. [facility] [address], [place], [address], 10/03/2024 17:24:52 10/03/20 24 10/03/2024 US, trans vagin al No observ ation record ed. [facility] [address], [place], [address], 10/03/2024 17:25:03 10/03/20 24 10/03/2024 US, lisa s No observ ation record ed. [email or web address], [place], [address], 10/03/2024 20:07:47 Result Notes None recorded. 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;Record ed Elsewhere : No Locati on: [facility] So urce: EHR Chron ic: N Practic e ID: 0001 Bill able Time: 03:30:00 PM Not Available [facility] 0 18:03:13 Venereal disease screening Active 2013 Screening examinati on for venereal disease;R ecorded Elsewhere : No Locati on: [facility] So urce: EHR Chron ic: N Practic e ID: 0001 Bill able Time: 04:30:00 PM Not Available [facility] 0 18:03:13 Specializ ed medical examinati on Active 2013 Other specified chlamydia l diseases; Recorded Elsewhere : No Locati on: [facility] So urce: EHR Chron ic: N Practic e ID: 0001 Bill able Time: 04:30:00 PM Not Available [facility] 0 18:03:[address] Concept Active 2015 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) w/o abn findings; Recorded Elsewhere : No Locati on: [facility] So urce: EHR Chron ic: N Practic e ID: 0001 Bill able Time: 06:00:00 PM Not Available [facility] 0 18:03:14 Routine care Active 2012 Supervisi on of other normal ;Recorded Elsewhere : No Locati on: [facility] So urce: EHR Chron ic: N Practic e ID: 0001 Bill able Time: 01:30:00 PM Not Available [facility] 0 18:03:14 Pain in female genitalia Active 2015 Dysmenorr hea;Recor ded Elsewhere : No Locati on: [facility] So urce: EHR Chron ic: N Practic e ID: 0001 Bill able Time: 06:00:00 PM Not Available [facility] 0 18:03:14 Abnormal cervical Papanicol aou smear 910195793 Active 2014 Other abnormal papanicol aou smear of cervix and cervical HPV;Recor ded Elsewhere : No Locati on: [facility] So urce: EHR Chron ic: N Practic e ID: 0001 Bill able Time: 08:30:00 AM Not Available [facility] 0 18:03:14 Screening for malignant neoplasm of cervix Active 2012 Screening for malignant neoplasms of the cervix;Re corded Elsewhere : No Locati on: [facility] So urce: EHR Chron ic: N Practic e ID: 0001 Bill able Time: 10:00:00 AM Not Available [facility] 0 18:03:14 Family planning surveilla nce Active 2013 Contracep tive surveilla nce, unspecifi ed;Record ed Elsewhere : No Locati on: [facility] So urce: EHR Chron ic: N Practic e ID: 0001 Bill able Time: 03:45:00 PM Not Available [facility] 0 18:03:14 Benign paroxysma l positiona l vertigo 670897837 Active 2013 Benign paroxysma l positiona l vertigo;R ecorded Elsewhere : No Locati on: [facility] So urce: EHR Chron ic: N Practic e ID: 0001 Bill able Time: 02:30:00 PM Not Available [facility] 0 18:03:14 Atypical squamous cells of undetermi soha significa nce on cervical Papanicol aou smear 137889813 Active 2014 Atyp squam cell of undet signfc cyto smr crvx (ASC-US); Recorded Elsewhere : No Locati on: [facility] So urce: EHR Chron ic: N Practic e ID: 0001 Bill able Time: 04:00:00 PM Not Available [facility] 0 18:03:14 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 [id number] 841573 Active 2015 Cervical low risk HPV DNA test positive; Recorded Elsewhere : No Locati on: [facility] So urce: EHR Chron ic: N Practic e ID: 0001 Bill able Time: 08:30:00 AM Not Available [facility] 0 18:03:14 At increased risk of sexually transmitt ed infection 152388575 Active 2013 Contact with or exposure to venereal diseases; Recorded Elsewhere : No Locati on: [facility] So urce: EHR Chron ic: N Practic e ID: 0001 Bill able Time: 04:30:00 PM Not Available [facility] 0 18:03:14 test positive 875009611 Active 2012 examinati on or test, positive result;Re corded Elsewhere : No Locati on: [facility] So urce: EHR Chron ic: N Practic e ID: 0001 Bill able Time: 01:30:00 PM Not Available [facility] 0 18:03:14 test negative 880906307 Active 2014 Encounter for test, result negative; Recorded Elsewhere : No Locati on: [facility] So urce: EHR Chron ic: N Practic e ID: 0001 Bill able Time: 04:00:00 PM Not Available [facility] 0 18:03:14 Obstetric non-purul ent mastitis - delivered with complicat ion 790040440 Active 2012 Postpartu m nonpurule nt mastitis; Recorded Elsewhere : No Locati on: [facility] So urce: EHR Chron ic: N Practic e ID: 0001 Bill able Time: 02:15:00 PM Not Available [facility] 0 18:03:15 Postpartu m care Active 2012 Routine postpartu m follow-up ;Recorded Elsewhere : No Locati on: [facility] So urce: EHR Chron ic: N Practic e ID: 0001 Bill able Time: 10:45:00 AM Not Available [facility] 0 18:03:15 Body mass index 30+ - obesity 308279097 Active 2015 Body mass index (BMI) 34.0-34.9 , adult;Rec orded Elsewhere : No Locati on: [facility] So urce: EHR Chron ic: N Practic e ID: 0001 Bill able Time: 06:00:00 PM Not Available [facility] 0 18:03:15 Obesity 169914890 Active 2014 Obesity;R ecorded Elsewhere : No Locati on: [facility] So urce: EHR Chron ic: N Practic e ID: 0001 Bill able Time: 08:30:00 AM Not Available [facility] 0 18:03:15 Threatene d premature labor - not delivered 662680549 Active 2012 Threatene d premature labor, antepartu m;Practic e ID: 0001 Not Available [facility] 0 18:03:16 Delivery normal 66441753 Active 2012 Normal delivery; Practice ID: 0001 Not Available [facility] 0 18:03:16 Single live 592242462 Active 2012 Mother with single liveborn; Practice ID: 0001 Not Available [facility] 0 18:03:17 Problem Notes None recorded. Procedures Surgical History Date Name Laterality Status Provider Name and Address Organization Details Recorded Time 4 Date of Last Mammogram completed [facility] 09/05/2024 10:55:14 4 Date of Last Pap Smear completed [facility] 09/05/2024 10:55:14 Colposcopy completed [facility] 09/05/2024 11:01:09 Imaging Results None recorded. Procedure Notes None recorded. Medical Equipment None Reported. Allergies No known drug allergies Medications Name Sig Start Date Stop Date Status Note LastModified by Organization Details LastModified Time dicloxaci llin 500 mg capsule take 1 capsule (500MG) by oral route every 6 hours 1 hour before a meal or 2 hours after a meal 05/26 completed Prescrib ed Elsewher e: No Locat ion: [facility] M odify By: moses mariscal DateTime : 04/09/20 13 02:15:00 PM Not Available Not Available Not Available azithromy cathryn 250 mg tablet TAKE 2 TABLETS BY MOUTH ON DAY 1, THEN TAKE 1 TABLET DAILY ON DAYS 2-5 09/01 completed Not Available Not Available Not Available Necon 35 (28) 1 mg-35 mcg tablet take 1 tablet by oral route every day for 28 days 04/05 completed Prescrib ed Elsew e: No Locat ion: [facility] odify By: mario sweet DateTime : 03/09/20 14 02:30:00 PM Not Available Not Available Not Available benzonata te 200 mg capsule TAKE ONE CAPSULE BY MOUTH THREE TIMES DAILY, MORNING, MIDDAY & IN THE EVENING NEEDED FOR COUGH 09/05 completed Not Available Not Available Not Available prednison e 20 mg tablet TAKE TWO TABLETS BY MOUTH ONCE EVERY DAY WITH FOOD FOR 5 DAYS 09/05 completed Not Available Not Available Not Available amlodipin e 2.5 mg tablet TAKE ONE TABLET BY MOUTH EVERY DAY FOR BLOOD PRESSURE active Not Available Not Available No t Available dextromet horphan-g uaifenesi n 10 mg-100 mg/5 mL oral syrup TAKE 10 ML BY MOUTH EVERY 4 HOURS NEEDED FOR FOUR DAYS 09/05 completed Not Available Not Available Not Available meloxicam 7.5 mg tablet TAKE ONE TABLET BY MOUTH EVERY DAY FOR 10 DAYS FOR PAIN 09/05 completed Not Available Not Available Not Available losartan 100 mg-hydroc hlorothia zide 25 mg tablet TAKE 1 TABLET BY MOUTH EVERY MORNING FOR BLOOD PRESSURE AND FLUID RETENTIO N active Not Available Not Available No t Available methylpre dnisolone 4 mg tablets in a dose pack TAKE 6 TABLETS ON DAY 1 DIRECTED ON PACKAGE AND DECREASE BY 1 TAB EACH DAY FOR A TOTAL OF 6 DAYS 09/01 completed Not Available Not Available Not Available albuterol sulfate HFA 90 mcg/actua tion aerosol inhaler INHALE TWO PUFFS BY MOUTH EVERY 4 HOURS NEEDED FOR BREATHIN G active Not Available Not Available No t Available Vitamin D2 1,250 mcg (50,000 unit) capsule take 1 capsule (96691LR ITS) by oral route every week 05/26 completed Prescrib ed Elsewher e: No Locat ion: [facility] odify By: moses mariscal DateTime : 12/28/19 13 03:03:21 PM Not Available Not Available Not Available losartan 50 mg-hydroc hlorothia zide 12.5 mg tablet TAKE ONE TABLET DAILY 09/05 completed Not Available Not Available Not Available Zithromax 500 mg tablet take 2 tablet by oral route once 07/08 completed Prescrib ed Elsewher e: No [facility]at [facility] odify By: keaton sweet DateTime : 06/04/20 14 11:37:47 AM Not Available Not Available Not Available losartan 100 mg-hydroc hlorothia zide 12.5 mg tablet TAKE ONE TABLET DAILY 09/05 completed Not Available Not Available Not Available Lo Loestrin Fe 1 mg-10 mcg (24)/10 mcg (2) tablet take 1 tablet by oral route every day 06/02 completed Prescrib ed Elsewher e: No [facility]at [facility] odify By: keaton sweet DateTime : 12/11/19 14 03:45:00 PM Not Available Not Available Not Available Vitals Date Recorded Body weight Body mass index (BMI) Body height Systolic blood pressure Diastolic blood pressure Provider Name and Address Organization Details Last Updated DateTime 09/05/2024 669558.6 5 g 41.3 kg/m2 167.64 cm 145 mm[Hg] 86 mm[Hg] Cortney Berman [facility] 10:56:16 Social History Question Answer Notes LastModified by Organizat ion Details LastModified Time Tobacco Smoking Status Current Every Day Smoker Cortney Berman [facility] 09/05/2024 11:00:55 Do You Have An Advance Directive? No Information not available 09/05/2024 What Is Your Level Of Alcohol Consumption? Occasional Information not available 09/05/2024 How Many Years Have You Consumed Alcohol? 23 Information not available 09/05/2024 Are You Blind Or Do You Have Difficulty Seeing? No Information not available 09/05/2024 What Is Your Level Of Caffeine Consumption? Moderate Information not available 09/05/2024 How Much Tobacco Do You Chew? None Information not available 09/05/2024 In The 14 Days Before Symptom Onset, Have You Had Close Contact With A Laboratory-confir med COVID-19 While That Case Was Ill? No Information not available 09/05/2024 In The 14 Days Before Symptom Onset, Have You Had Close Contact With A Person Who Is Under Investigation For COVID-19 While That Person Was Ill? No Information not available 09/05/2024 Have You Been To An Area Known To Be High Risk For COVID-19? No Information not available 09/05/2024 Are You Deaf Or Do You Have Serious Difficulty Hearing? No Information not available 09/05/2024 What Type Of Diet Are You Following? REGULAR Information not available 09/05/2024 What Is The Highest Grade Or Level Of School You Have Completed Or The Highest Degree You Have Received? 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 No Information not available 09/05/2024 Do You Use Protection During Sex? Always Information not available 09/05/2024 Do You Use Your Seat Belt Or Car Seat Routinely? Yes Information not available 09/05/2024 Do You Have Smoke And Carbon Monoxide Detectors In Your Home? Yes Information not available 09/05/2024 At What Age Did You Start Smoking Tobacco? 16 Information not available 09/05/2024 How Much Tobacco Do You Smoke? 0.5 PPD Information not available 09/05/2024 Do You Feel Stressed (tense, Restless, Nervous, Or Anxious, Or Unable To Sleep At Night)? [id number] Information not available 09/05/2024 Do You Use Any Illicit Or Recreational Drugs? No Information not available 09/05/2024 Do You Use Sunscreen Routinely? Yes Information not available 09/05/2024 How Many Years Have You Smoked Tobacco? 20 Information not available 09/05/2024 Have You Used IV Drugs? No Information not available 09/05/2024 Sex: Unknown Functional Status Question Answer Note LastModified by Organization D etails LastModified Time Are you able to walk? YESWOREST Information not available 09/05/2024 What is your exercise level? None Information not available 09/05/2024 Mental Status None recorded. Family History Nothing Reported Notes:Father: Hypertension M aternal grandfather: Diabetes mellitus Maternal grandmother: Diabetes mellitus Paternal grandfather: Diabetes mellitus Paternal grandmother: Diabetes mellitus Medical History Condition Response Hypertension Y Gynecological History Statement/Question Response Date of Last Mammogram 08/01/2024 Date of LMP 05/08/2024 N Was last menstrual period normal Y STIs/STDs Y HPV Vaccine N Duration of Flow (days) 4 Current Control Method Abstinence Age at First Child 21 Sexually Active? Y Menses Monthly N Age of first menstrual cycle 13 Date of Last Pap Smear 07/12/2024 Sexual Problems? N LMP Approximate N 10/22/2002 Obstetrics History GPAL:G 3 P 3 0 0 3 Type Value Full Term 3 Living 3 Total 3 Past Encounters Encounter ID Performer Location Encounter Start Date Encounter Closed Date Diagnosis/Indication Diagnosis SNOMED-CT Code Diagnosis ICD10 Code [id number] VALERIY BUITRAGO NP [place] [address] [address] 09/05/2024 10:21:47 09/05/2024 12:27:43 Secondary amenorrhea 527058928 N91.1 History of abnormal cervical Papanicolaou smear 654716645 Z87.42 Bilateral discharge from nipples 2132489302 9662496 N64.52 Health Concerns Section Related Observation LastModified by Organization Detai ls LastModified Time None Recorded Concern Status LastModified by Organization Details LastModified Time None Recorded Payers Encounter Date Sequence Insurance Name Policy Number Policy Chung Covered Member ID Chung Member ID Guarantor Name 09/05/2024 1 ZARIATNA [id number] Rachelle Dia [id number] Rachelle Dia Notes Date Note Type Note Provider Name and Address Organization Details Recorded Time 09/05/2024 text/html New patient presents to establish care. 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 Patient denies ever needing to have a LEEP procedure, but did have LGSIL result in the past. Patient also reports that she has not had a period since April 2024. Her cycles prior to this have been at least every 1-2 months. Patient states that she has not been sexually active since March. Denies being , took several tests that have all been negative. Patient recently had a mammogram 08/01/24 d/t hx of spontaneous, intermittent bloody nipple discharge out of bilateral nipples that started one year ago. Patient states that mammogram showed a small 6 mm cyst on right breast only. PCP has ordered MRI for further evaluation, pt states that she needs to schedule MRI. Denies breast pain, skin changes, or lumps. VALERIY BUITRAGO, RIKKI [address], [place], [address], [place] [facility] 09/05/2024 12:23:54 OBGyn Episode No OBEpisode recorded.
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
--- OUTSIDE RECORDS SUMMARY | 2024-10-06 22:18 | XMS_ITS | Continuity of Care Document ---
Author Organization [facility] Address [address] [place] [address] Phone Care Team Providers Care Insurance Business Analyst Name Role Phone Elmer Turner MD Unavailable Unavailable Allergies, Adverse Reactions, Alerts Substance Reaction Status Criticality egg Active No Information Medications Medication Instructions Dosage Effective Dates (start - stop) Status Comments No Drug Therapy Prescribed Procedures Procedure Date OFFICE/OUTPATIENT VISIT, EST OFFICE/OUTPATIENT VISIT, EST OFFICE/OUTPATIENT VISIT, EST OFFICE/OUTPATIENT VISIT, EST PREV VISIT, EST, AGE 18-39 OFFICE/OUTPATIENT VISIT, EST PREV VISIT, NEW, AGE 18-39 Advance Directives Directive Yes / No Effective Date File Name No Information Encounters Encounter Description Practice Location Reason(s) For Visit Diagnoses Date Provider Providers Copied on Encounter OFFICE/OUTPA TIENT VISIT, EST [facility], [address], [address], tel:[phone] [facility] egg allergy1 (chief complaint) GERD1 (chief complaint) asthma1 (chief complaint) Allergy to other foodsOther asthma 6 Johnny Payne. [address] [place], [address]. tel:[phone] Referring Provider: Elmer Turner [address] [place], [place] [address], [place], [address]. tel:[phone] OFFICE/OUTPA TIENT VISIT, [facility], [address] [facility], [address], tel:[phone] [facility] rash (chief complaint) rash1 (chief complaint) Allergic urticaria 5 Johnny Payne. [address], [address], [place], [address]. [phone] Referring Provider: Radha Campos [address], [place], [address]. tel:[phone] OFFICE/OUTPA TIENT VISIT, EST [facility], [address], [place], [address], [place] tel:[phone] [facility] Medicine Wheezing (chief complaint) GERD (chief complaint) hematuria (chief complaint) Dietary surveillance and counselingAsthmaHEM ATURIA NOSGERDAbdominal Pain Jan-2 5 Johnny Payne. [address], [address], [place], [address]. [phone] Referring Provider: Radha Campos [address], [place], [address]. tel:[phone] OFFICE/OUTPA TIENT VISIT, EST [facility], [address], [place], [address], [place] tel:[phone] [facility] hematuria (chief complaint) GERD (chief complaint) HLP (chief complaint) vitamin D (chief complaint) Dietary surveillance and counselingHEMATURIA NOSOther and unspecified hyperlipidemiaUnspe cified vitamin d deficiency Jan-0 5 Johnny Payne. [address], [address], [place], [address]. [phone] Referring Provider: Radha Campos [address], [place], [address]. tel:[phone] PREV VISIT, EST, AGE 18-39 [facility], [address], [place], [address], [place] tel:[phone] [facility] Physical (chief complaint) Dietary surveillance and counselingRoutine Medical ExamRoutine Medical Exam 5 Johnny Payne. [address], [address], [place], [address]. [phone] Referring Provider: Radha Campos [address], [place], [address]. tel:[phone] OFFICE/OUTPA TIENT VISIT, EST [facility], [address], [place], [address], tel:[phone] [facility] skin infection (chief complaint) Cellulitis and abscess of leg, except footDietary surveillance and counseling Jan-1 0-201 4 Johnny Payne. [address], [address], [place], [facility]. tel:[phone] Referring Provider: Elmer Turner, [address], [place], [facility]. tel:[phone] PREV VISIT, NEW, AGE 18-39 [facility], [address], [place], [facility], tel:[phone] [facility] Physical (chief complaint) Routine Medical ExamRoutine Medical Exam Jan-2 6-201 3 Johnny Payne. [address], [address], [place], [facility]. tel:[phone] Referring Provider: Elmer Turner, [address], [place], [address]. tel:[phone] Family History Family Member Type Diagnosis Age At Onset Brother Problem (finding) Alive and well Mother Problem (finding) Alive and well Father Problem (finding) Coronary artery disease 56 Payers Payer name Insurance type Covered green party ID Authoriza tion(s) No Information Social History Type Description Quantity Date Captured Comments Alcohol Use Details No Caffeine Use Details Unknown Tobacco Use Status Smoker Smoking Status Current every day smoker 2015 Sex Female Vital Signs Date / Time: Height Weight BMI Pulse Rate Blood Pressure Temperature Respiratory Rate Body Surface Area Head Circumference BMI percentile Pulse Ox Inhaled Ox 12:57 PM 170.18 cm 211.00 lbs 33.0 5 kg/m eter (2) 108 /min 136/90 mm[Hg] 98.4 F 18 /min Chief Complaint And Reason For Visit From encounter dated '10/29/2015 10:45'. egg allergy1 (chief complaint). Description: Pt has history of egg allergy. Pt states that she has difficulty with breathing when consume eggs. Pt unable to get flu shot GERD1 (chief complaint). Description: Pt denies any abd pain. Pt denies any GERD symptoms. Pt has been off PPI for at least 3 months. asthma1 (chief complaint). Description: Pt denies any wheeinzing or SOB. Pt denies any need for anyinhaler Plan Of Treatment Date Type Action Status Referral Ordered: US EXAM, ABDOM, COMPLETE ordered Referral Ordered: CHEST X-RAY PA/LAT TWO-VIEWS ordered History Of Present Illness Encounter Date Complaint History Of Prese nt Illness egg allergy1 Pt has history o f egg allergy. Pt states that she has difficulty with breathing when consume eggs. Pt unable to get flu shot GERD1 Pt denies any ab d pain. Pt denies any GERD symptoms. Pt has been off PPI for at least 3 months. asthma1 Pt denies any wh eeinzing or SOB. Pt denies any need for any inhaler rash1 Pt c/o mildly it tyler rash on and off around abdomen and upper back and arm. Pt denies any itching or rash between finger or inner thigh. No sick contact. Pt states that itcing comes and goes and not worse at night. Pt denies any new hygiene product. Pt denies any trouble with breathing or any swallowing. No itching around pubic area, between finger or inner thigh area rash Medications Administered Medication Instructions Dosage Effective Dates (start - stop) Status Comments No Drug Therapy Prescribed Instructions Date Instruction Additional Infor mation Prescribed Diet Educ ation/Lifestyle Education Regarding Diet Related to Dietary Surveillance and Counseling Prescribed Activity and Exercise Education Related to Dietary Surveillance and Counseling Decrease caloric intake Related to Dietary surveillance counseling Physical activity counseling Rel ated to Dietary surveillance counseling Decrease caloric intake Related to Dietary surveillance counseling Physical activity counseling Rel ated to Dietary surveillance counseling Decrease caloric intake Related to Dietary surveillance counseling Physical activity counseling Rel ated to Dietary surveillance counseling Decrease caloric intake Related to Dietary surveillance counseling Dietary counseling Related to Di etary surveillance counseling Assessments Type Assessment Date assessment Allergy to other foods 16 assessment Other asthma Mental Status Date Cognitive Assessment Orientation - [place] ed to time, place, person, situation.
--- OUTSIDE RECORDS SUMMARY | 2024-10-06 22:18 | XMS_ITS | Clinical Summary ---
Author Organization [facility] Address [address] [place] [id number] Care Team Providers Care Ocean Export Account Manager Name Role Phone Ermelinda Mayberry Primary Care Provider [phone] Allergies Active Allergy Reactions Criticality Noted Date Comments Egg Blisters,Diarrhea,He adache,Itching,Sto mach upset,Swollen tongue High 09/26/2024 Egg White Swelling Medium 05/23/2017 Medications albuterol HFA (PROVENTIL HFA,VENTOLIN HFA,PROAIR HFA) 90 mcg/actuation inhaler INHALE TWO PUFFS BY MOUTH EVERY 4 HOURS NEEDED FOR BREATHING Active amLODIPine (NORVASC) 2.5 mg tablet Take 1 tablet (2.5 mg total) by mouth daily Active cholecalciferol (VITAMIN D-3) 2000 unit tablet Take 1 tablet every day by oral route as directed for 30 days. 4 Active docusate sodium (COLACE) 100 mg capsule Take 1 capsule (100 mg total) by mouth 2 (two) times a day 9 Active losartan-hydroc hlorothiazide (HYZAAR) 100-25 mg per tablet Take 1 tablet every day by oral route in the morning for 90 days, for HTN. 4 Active ferrous gluconate 324 mg (37.5 mg of elemental iron) tablet Take 1 tablet (324 mg total) by mouth daily Active Active Problems No known active problems Encounters Date Type Department Care Team Description 09/26/2024 7:50 AM [employer] Office Visit [facility] Orthopaedic Surgery [id number] [place] [address] [address] [place] [address] Tavares Garner MD Carpal tunnel syndrome, bilateral (Primary Dx) from Last 3 Months Medical History Medical History Date Comments Hypertension September 2023 Family History Medical History Relation Name Comments Hypertension Father Rhys Dia Early Maternal Grandfather Spencer Simon Diabetes Maternal Grandmother Rosetta Simon Stroke Mother Cassi Dia Diabetes Paternal Grandmother Noelle Dia Early Sister Yancy Dia Relation Name Status Comments Father Rhys Dia Maternal Grandfather Spencer Simon Maternal Grandmother Rosetta Simon Mother Cassi Dia Paternal Grandmother Noelle Dia Sister Yancy Dia Social History Tobacco Use Types Packs/Day Years Used Date Smoking Tobacco: Every Day Cigarettes 0.5 15 Tobacco Cessation:Ready to Q uit: Yes; Counseling Given: Not Answered Comments:I am in the process of quitting. I am down to 3 to 4 packs a week. Comments Unknown Sex and Gender Information Value Date Recorded Sex Assigned at Not on file Legal Sex Female 10:18 AM [employer] Gender Identity Female 09/26/2024 5:25 AM [employer] Sexual Orientation Straight 09/26/2024 5: 25 AM [employer] Obstetrics History Plan of Treatment Health Maintenance Due Date Last Done Comments Cervical Cancer Screening 1985 Depression Screening 1985 Hepatitis C Screening 1985 Pneumococcal vaccine <65 (1 of 2 - PCV) 1991 Varicella Vaccines (1 of 2 - 13+ 2-dose series) 1998 Hepatitis B Screening 2003 Regular Well Visit/Exam 18-64 2003 Covid-19 Vaccine (3 - 2023-2 5 season) 2024 05/07/2021, 04/16/2021 DTaP/Tdap/Td Vaccine (2 - Td or Tdap) 01/10/2029 01/10/2019 Influenza Vaccine Completed 09/23/2024, 11/07/2023 HPV Vaccines Aged Out No longer eligi ble based on patient's age to complete this topic Insurance [employer] COV[employer] HMO/POS Care Teams Ocean Export Account Manager Relationship Specialty Start Date End Date Ermelinda Mayberry PA [address] [place] [id number] PCP - General Physician Process Engineering Intern 06/12/24
--- OUTSIDE RECORDS SUMMARY | 2024-10-06 22:18 | XMS_ITS | Data Portability ---
Author Organization [facility] Address [address] [place] [address] Care Team Providers Care Resident Care Spec Name Role Phone NABIL DONALDSON Primary Care Provider Assessment No assessment recorded. Plan of Treatment Reminders Order Date Submit Date Provider Last Modified By Organization Details Last Modified Time Details Appointments IOP Misc 2023 04:15P M Procedure Room Not available Not available Not available IOP COLPO 2023 04:30P M Karolina BARILLAS MD Not available Not available Not available U/S F/U 2023 10:00A Diana BARILLAS MD Not available Not available Not available Lab hormone panel, serum or plasma 2023 [facility] (Lab), [address], [place], [address], 09/14/2024 20:43:24 beta-HCG , quantita tive, serum or plasma 2023 [facility] (Lab), [address], [place], [address], 09/14/2024 20:43:23 prolacti n, serum 2023 [facility] (Lab), [address], [place], [address], 09/14/2024 20:43:23 TSH, serum or plasma 2023 [facility] (Lab), [address], [place], [address], 09/14/2024 20:43:23 HbA1c (hemoglo bin A1c), blood 2023 024 [facility] (Lab), [address], [place], [address], 09/14/2024 20:43:24 17-hydro xyproges terone, QN, serum 2023 [facility] (Lab), [address], [place], [address], 09/14/2024 20:43:24 CBC w/ auto diff 2023 [facility] (Lab), [address], [place], [address], 09/14/2024 20:43:22 CMP, serum or plasma 2023 [facility] (Lab), [address], [place], [address], 09/14/2024 20:43:23 Referral None recorded . Procedures None recorded . Surgeries None recorded . Imaging US, pelvis, complete 2023 024 Not available 09/12/2024 09:05:34 US, pelvis 2023 024 [address]an [facility] [place], [address], [address], [place], [address], 10/03/2024 19:53:43 US, transvag inal 2023 024 thong [facility], [address], [address], [place], [address], 10/03/2024 19:53:43 Medication Orders None recorded . Patient TargetsNo targets recorded. Patient InstructionsNo instructions recorded. Reason for Referral None Reported. Results Created Date Observation Date Name Description Value Unit Range Abnormal Flag Note LastModifiedBy Organization Detail LastModifiedTime 09/05/20 24 09/05/2024 CBC W/DIF F WBC 6.2 10'3/ uL 3.5-10 .5 Not Available [facility] (Lab) [address], [place], [address], 09/14/2024 20:43:22 09/05/20 24 09/05/2024 CBC W/DIF F RBC 4.67 10'6/ uL (based on docume nted legal sex) 3.80-5 .20 Not Available [facility] (Lab) [address], [place], [address], 09/14/2024 20:43:22 09/05/20 24 09/05/2024 CBC W/DIF F HGB 14.1 g/dL (based on docume nted legal sex) 11.6-1 5.4 Not Available [facility] (Lab) [address], [place], [address], 09/14/2024 20:43:22 09/05/20 24 09/05/2024 CBC W/DIF F HCT 42.9 % (based on docume nted legal sex) 34.0-4 5.0 Not Available [facility] (Lab) [address], [place], [address], 09/14/2024 20:43:22 09/05/20 24 09/05/2024 CBC W/DIF F MCV 91.9 fL 80.0-9 9.0 Not Available [facility] (Lab) [address], [place], [address], 09/14/2024 20:43:22 09/05/20 24 09/05/2024 CBC W/DIF F MCH 30.2 pg 27.0-3 4.0 Not Available [facility] (Lab) [address], [place], [address], 09/14/2024 20:43:22 09/05/20 24 09/05/2024 CBC W/DIF F MCHC 32.9 g/dL 32.0-3 5.5 Not Available [facility] (Lab) [address], [place], [address], 09/14/2024 20:43:22 09/05/20 24 09/05/2024 CBC W/DIF F RDW 13.3 % 11.0-1 5.0 Not Available [facility] (Lab) [address], [place], [address], 09/14/2024 20:43:22 09/05/20 24 09/05/2024 CBC W/DIF F plt 299 10'3/ uL 150-40 0 Not Available [facility] (Lab) [address], [place], [address], 09/14/2024 20:43:22 09/05/20 24 09/05/2024 CBC W/DIF F MPV 9.2 fL 8.8-12 .1 Not Available [facility] (Lab) [address], [place], [address], 09/14/2024 20:43:22 09/05/20 24 09/05/2024 CBC W/DIF F NRBC's 0.0 % 0.0 Not Available [facility] (Lab) [address], [place], [address], 09/14/2024 20:43:22 09/05/20 24 09/05/2024 CBC W/DIF F absolute NRBCs 0.0 10'3/ uL no refere nce range establ ished Not Available [facility] (Lab) [address], [place], [address], 09/14/2024 20:43:22 09/05/20 24 09/05/2024 CBC W/DIF F neutrophils 54.5 % 34.0-7 3.0 Not Available [facility] (Lab) [address], [place], [address], 09/14/2024 20:43:22 09/05/20 24 09/05/2024 CBC W/DIF F lymphocytes 32.2 % 15.0-5 0.0 Not Available [facility] (Lab) [address] [place], [address], 09/14/2024 20:43:22 09/05/20 24 09/05/2024 CBC W/DIF F monocytes 6.8 % 1.0-15 .0 Not Available [facility] (Lab) [address], [place], [address], 09/14/2024 20:43:22 09/05/20 24 09/05/2024 CBC W/DIF F eosinophils 5.5 % 0.0-8. 0 Not Available [facility] (Lab) [address], [place], [address], 09/14/2024 20:43:22 09/05/20 24 09/05/2024 CBC W/DIF F basophils 0.7 % 0.0-2. 0 Not Available [facility] (Lab) [address], [place], [address], 09/14/2024 20:43:22 09/05/20 24 09/05/2024 CBC W/DIF F immature granulocytes 0.3 % no define d refere nce range Not Available [facility] (Lab) [address] , [place], [address], 09/14/2024 20:43:22 09/05/20 24 09/05/2024 CBC W/DIF F absolute neutrophils 3.4 10'3/ uL 1.5-8. 0 Not Available [facility] (Lab) [address], [place], [address], 09/14/2024 20:43:22 09/05/20 24 09/05/2024 CBC W/DIF F absolute lymphocytes 2.0 10'3/ uL 1.0-4. 0 Not Available [facility] (Lab) [address], [place], [address], 09/14/2024 20:43:22 09/05/20 24 09/05/2024 CBC W/DIF F absolute monocytes 0.4 10'3/ uL 0.2-1. 0 Not Available [facility] (Lab) [address], [place], [address], 09/14/2024 20:43:22 09/05/20 24 09/05/2024 CBC W/DIF F absolute eosinophils 0.3 10'3/ uL 0.0-0. 6 Not Available [facility] (Lab) [address], [place], [address], 09/14/2024 20:43:22 09/05/20 24 09/05/2024 CBC W/DIF F absolute basophils 0.0 10'3/ uL 0.0-0. 3 Not Available [facility] (Lab) [address], [place], [address], 09/14/2024 20:43:22 09/05/20 24 09/05/2024 CBC W/DIF F absolute immature granulocytes 0.0 10'3/ uL 0.00-0 .10 09/06 2:10 AM: P indic ates parti al resul ts on a panel have been relea sed. Addit ional resul ts will follo w. 09/06 2:10 AM: This resul t has been final verif ied. No addit ional or freeman ed resul ts are expec ruby. Not Available [facility] (Lab) [address], [place], [address], 09/14/2024 20:43:22 09/05/20 24 09/05/2024 CMP(C OMPRE HENSI VE METAB OLIC PANEL ) sodium 142 mmol/ L 133-14 6 Not Available [facility] (Lab) [address], [place], [address], 09/14/2024 20:43:23 09/05/20 24 09/05/2024 CMP(C OMPRE HENSI VE METAB OLIC PANEL ) potassium 4.1 mmol/ L 3.5-5. 1 Not Available [facility] (Lab) [address], [place], [address], 09/14/2024 20:43:23 09/05/20 24 09/05/2024 CMP(C OMPRE HENSI VE METAB OLIC PANEL ) chloride 102 mmol/ L 98-107 Not Available [facility] (Lab) [address], [place], [address], 09/14/2024 20:43:23 09/05/20 24 09/05/2024 CMP(C OMPRE HENSI VE METAB OLIC PANEL ) carbon dioxide 32 mmol/ L 21-31 high Not Available [facility] (Lab) [address], [place], [address], 09/14/2024 20:43:23 09/05/20 24 09/05/2024 CMP(C OMPRE HENSI VE METAB OLIC PANEL ) anion gap 8 mmol/ L 4-13 Not Available [facility] (Lab) [address], [place], [address], 09/14/2024 20:43:23 09/05/20 24 09/05/2024 CMP(C OMPRE HENSI VE METAB OLIC PANEL ) blood urea nitrogen 12 mg/dL 7-25 Not Available [facility] (Lab) [address], [place], [address], 09/14/2024 20:43:23 09/05/20 24 09/05/2024 CMP(C OMPRE HENSI VE METAB OLIC PANEL ) creatinine 0.86 mg/dL 0.60-1 .30 Not Available [facility] (Lab) [address], [place], [address], 09/14/2024 20:43:23 09/05/20 24 09/05/2024 CMP(C OMPRE HENSI VE METAB OLIC PANEL ) egfrcr (CKD-epi 2020) 88 mL/mi n/1.7 3_m2 >=60 Not Available [facility] (Lab) [address], [place], [address], 09/14/2024 20:43:23 09/05/20 24 09/05/2024 CMP(C OMPRE HENSI VE METAB OLIC PANEL ) calcium 9.3 mg/dL 8.3-10 .5 Not Available [facility] (Lab) [address], [place], [address], 09/14/2024 20:43:23 09/05/20 24 09/05/2024 CMP(C OMPRE HENSI VE METAB OLIC PANEL ) glucose 88 mg/dL 70-100 Not Available [facility] (Lab) [address], [place], [address], 09/14/2024 20:43:23 09/05/20 24 09/05/2024 CMP(C OMPRE HENSI VE METAB OLIC PANEL ) protein, total 6.8 g/dL 6.4-8. 3 Not Available [facility] (Lab) [address], [place], [address], 09/14/2024 20:43:23 09/05/20 24 09/05/2024 CMP(C OMPRE HENSI VE METAB OLIC PANEL ) albumin 4.3 g/dL 3.5-5. 0 Not Available [facility] (Lab) [address], [place], [address], 09/14/2024 20:43:23 09/05/20 24 09/05/2024 CMP(C OMPRE HENSI VE METAB OLIC PANEL ) ALT 18 units /L 9-43 Not Available [facility] (Lab) [address], [place], [address], 09/14/2024 20:43:23 09/05/20 24 09/05/2024 CMP(C OMPRE HENSI VE METAB OLIC PANEL ) alkaline phosphatase 63 units /L 34-104 Not Available [facility] (Lab) [address], [place], [address], 09/14/2024 20:43:23 09/05/20 24 09/05/2024 CMP(C OMPRE HENSI VE METAB OLIC PANEL ) AST 19 units /L 13-39 Not Available [facility] (Lab) [address], [place], [address], 09/14/2024 20:43:23 09/05/20 24 09/05/2024 CMP(C OMPRE HENSI VE METAB OLIC PANEL ) bilirubin, total 0.6 mg/dL 0.2-1. 2 Not Available [facility] (Lab) [address], [place], [address], 09/14/2024 20:43:23 09/05/20 24 09/05/2024 TSH, REFLE X FREE T4 TSH 1.52 uIU/m L 0.30-5 .33 Not Available [facility] (Lab) [address], [place], [address], 09/14/2024 20:43:23 09/05/20 24 09/05/2024 BHCG, QUANT ITATI VE B-HCG <0.2 mIU/m L This assay was perfo rmed using [employer] reage nts and test kits. Value s obtai soha with other assay metho ds or kits canno t be used inter freeman eably . Refer ence Range s: Non-p regna nt, preme nopau dee women : 0.0-5 .3 mIU/m L Postm enopa usal women : 0.0-7 .0 mIU/m L Michelle l Pregn robin: Gesta prosper l Age bHCG Conc. - mIU/m L 3 Weeks 5.8 - 71.7 4 Weeks 9.5 - 750 5 Weeks 217-7 138 6 Weeks 158 - 31,79 5 7 Weeks 3,697 - 162,5 63 8 Weeks 32,06 5 - 149,5 71 9 Weeks 63,80 3 - 151,4 10 10 Weeks 46,50 9 - 186,9 77 12 Weeks 27,83 2 - 210,6 12 14 Weeks 13,95 0 - 62,53 0 15 Weeks 12,03 9 - 70,97 1 16 Weeks 9,040 - 56,45 1 17 Weeks 8,175 - 55,86 8 18 Weeks 8,099 - 58,17 6 Not Available [facility] (Lab) [address] [place], [address], 09/14/2024 20:43:23 09/05/20 24 09/05/2024 PROLA CTIN prolactin, total 46.50 NG/mL 4.79-2 3.30 high This assay was perfo rmed using [employer] reage nts and test kits. Value s obtai soha with other assay metho ds or kits canno t be used inter freeman eably . Not Available [facility] (Lab) [address] [place], [address], 09/14/2024 20:43:23 09/05/20 24 09/05/2024 FSH, LH, ESTRA DIOL estradiol 40.1 pg/mL This assay was perfo rmed using [employer] reage nts and test kits. Value s obtai soha with other assay metho ds or kits canno t be used inter freeman eably . Femal e Estra diol Range s: Folli cular phase 12.4- 233 pg/mL Ovula tion phase 41.0- 398 pg/mL Lutea l phase 22.3- 341 pg/mL Postm enopa usal <5-13 8 pg/mL Healt hy Pregn ant Women 1st Trime ster 154-3 243 pg/mL 2nd Trime ster 1561- 10549 pg/mL 3rd Trime ster 8525- >3000 0 pg/mL Not Available [facility] (Lab) [address] [place], [address], 09/14/2024 20:43:24 09/05/20 24 09/05/2024 FSH, LH, ESTRA DIOL FSH 7.3 mIU/m L This assay was perfo rmed using [employer] reage nts and test kits. Value s obtai soha with other assay metho ds or kits canno t be used inter [facility] . Femal es Folli cular : 3.5-1 2.5 mIU/m L Ovula tion: 4.7-2 1.5 mIU/m L Lutea l: 1.7-7 .7 mIU/m L Postm enopa use: 25.8- 134.8 mIU/m L Not Available [facility] (Lab) [address], [place], [address], 09/14/2024 20:43:24 09/05/20 24 09/05/2024 FSH, LH, ESTRA DIOL LH 11.2 mIU/m L This assay was perfo rmed using [employer] reage nts and test kits. Value s obtai soha with other assay metho ds or kits canno t be used inter [facility] . Femal es Mid-F ollic ular: 2.4-1 2.6 mIU/m L Mid-C ycle: 14.0- 95.6 mIU/m L Mid-L uteal : 1.0-1 1.4 mIU/m L Postm enopa use: 7.7-5 8.5 mIU/m L Not Available [facility] (Lab) [address], [place], [address], 09/14/2024 20:43:24 09/05/20 24 09/05/2024 HEMOG LOBIN A1C hemoglobin A1C 5.4 % 0-5.6 The Ameri can Diabe jacquelyn Assoc iatio n recom mends that a prima ry goal of thera py oralia d be a HBA1C of < 7% and that physi cians oralia d reeva luate the treat ment regim en in patie nts with HBA1C value s consi stent ly > 8%. <5.7% Michelle l 5.7 - 6.4% Incre ased risk for diabe jacquelyn >=6.5 % Diagn ostic of diabe jacquelyn <7.0% Goal of thera py >8.0% Actio n sugge sted Not Available [facility] (Lab) [address], [place], [address], 09/14/2024 20:43:24 09/05/20 24 09/05/2024 17-OH PROGE STERO NE 17-hydroxypr ogesterone, lc/MS/MS 30 NG/dL Adult Femal e Refer ence Range s for 17-Hy droxy proge stero ne: Pre-M enopa usal Mid Folli cular : 23-10 2 ng/dL Pre-M enopa usal Surge : 67-34 9 ng/dL Pre-M enopa usal Mid Lutea l: 139-4 31 ng/dL Postm enopa usal Phase : < or = 45 ng/dL Pregn robin: First Trime ster: 78-45 7 ng/dL Secon d Trime ster: 90-35 7 ng/dL Third Trime ster: 144-5 78 ng/dL This test was devel oped and its fide tical perfo rmanc e montez cteri stics have been deter mined by [facility]. It has not been clear ed or appro alix by FDA. This assay has been valid ated pursu ant to the CLIA regul ation s and is used for clini hailee purpo ses. Perfo rming Organ izati on Infor matio n: Site ID: [id number] Name: [facility] an Ericdelroy sanchez , Addre ss: [id number] [facility] [place] [place] [address] Direc tor: Eloisa noyola MD,Ph D,INGRIS Not Available [facility] (Lab) [address], [place], [address], 09/14/2024 20:43:24 10/03/20 24 10/03/2024 PROLA CTIN prolactin, total 45.50 NG/mL 4.79-2 3.30 high This assay was perfo rmed using [employer] reage nts and test kits. Value s obtai soha with other assay metho ds or kits canno t be used inter freeman eably . Not Available [facility] (Lab) [address], [place], [address], 10/04/2024 09:59:25 10/03/20 24 10/03/2024 US, pelvi s No observ ation record ed. [facility] [address], [place], [address], 10/03/2024 17:24:52 10/03/20 24 10/03/2024 US, trans vagin al No observ ation record ed. [facility] [address], [place], [address], 10/03/2024 17:25:03 10/03/20 24 10/03/2024 US, pelvi s No observ ation record ed. [email or web address] [address], [place], [address], 10/03/2024 20:07:47 Result Notes None recorded. 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;Record ed Elsewhere : No Locati on: [facility] So urce: EHR Chron ic: N Practic e ID: 0001 Bill able Time: 03:30:00 PM Not Available [facility] 0 18:03:13 Venereal disease screening Active 2013 Screening examinati on for venereal disease;R ecorded Elsewhere : No Locati on: [facility] So urce: EHR Chron ic: N Practic e ID: 0001 Bill able Time: 04:30:00 PM Not Available [facility] 0 18:03:13 Specializ ed medical examinati on Active 2013 Other specified chlamydia l diseases; Recorded Elsewhere : No Locati on: [facility] So urce: EHR Chron ic: N Practic e ID: 0001 Bill able Time: 04:30:00 PM Not Available [facility] 0 18:03:[address] Concept Active 2015 Encntr for gin feeder exam (general) (routine) w/o abn findings; Recorded Elsewhere : No Locati on: [facility] So urce: EHR Chron ic: N Practic e ID: 0001 Bill able Time: 06:00:00 PM Not Available [facility] 0 18:03:14 Routine care Active 2012 Supervisi on of other normal ;Recorded Elsewhere : No Locati on: [facility] So urce: EHR Chron ic: N Practic e ID: 0001 Bill able Time: 01:30:00 PM Not Available [facility] 0 18:03:14 Pain in female genitalia Active 2015 Dysmenorr hea;Recor ded Elsewhere : No Locati on: [facility] So urce: EHR Chron ic: N Practic e ID: 0001 Bill able Time: 06:00:00 PM Not Available [facility] 0 18:03:14 Abnormal cervical Papanicol aou smear [id number] Active 2014 Other abnormal papanicol aou smear of cervix and cervical HPV;Recor ded Elsewhere : No Locati on: [facility] So urce: EHR Chron ic: N Practic e ID: 0001 Bill able Time: 08:30:00 AM Not Available [facility] 0 18:03:14 Screening for malignant neoplasm of cervix Active 2012 Screening for malignant neoplasms of the cervix;Re corded Elsewhere : No Locati on: [facility] So urce: EHR Chron ic: N Practic e ID: 0001 Bill able Time: 10:00:00 AM Not Available [facility] 0 18:03:14 Family planning surveilla nce Active 2013 Contracep tive surveilla nce, unspecifi ed;Record ed Elsewhere : No Locati on: [facility] So urce: EHR Chron ic: N Practic e ID: 0001 Bill able Time: 03:45:00 PM Not Available [facility] 0 18:03:14 Benign paroxysma l positiona l vertigo [id number] Active 2013 Benign paroxysma l positiona l vertigo;R ecorded Elsewhere : No Locati on: [facility] So urce: EHR Chron ic: N Practic e ID: 0001 Bill able Time: 02:30:00 PM Not Available [facility] 0 18:03:14 Atypical squamous cells of undetermi soha significa nce on cervical Papanicol aou smear [id number] Active 2014 Atyp squam cell of undet signfc cyto smr crvx (ASC-US); Recorded Elsewhere : No Locati on: [facility] So urce: EHR Chron ic: N Practic e ID: 0001 Bill able Time: 04:00:00 PM Not Available [facility] 0 18:03:14 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 [id number] 087315 Active 2015 Cervical low risk HPV DNA test positive; Recorded Elsewhere : No Locati on: [facility] So urce: EHR Chron ic: N Practic e ID: 0001 Bill able Time: 08:30:00 AM Not Available [facility] 0 18:03:14 At increased risk of sexually transmitt ed infection [id number] Active 2013 Contact with or exposure to venereal diseases; Recorded Elsewhere : No Locati on: [facility] So urce: EHR Chron ic: N Practic e ID: 0001 Bill able Time: 04:30:00 PM Not Available [facility] 0 18:03:14 test positive [id number] Active 2012 examinati on or test, positive result;Re corded Elsewhere : No Locati on: [facility] So urce: EHR Chron ic: N Practic e ID: 0001 Bill able Time: 01:30:00 PM Not Available [facility] 0 18:03:14 test negative [id number] Active 2014 Encounter for test, result negative; Recorded Elsewhere : No Locati on: [facility] So urce: EHR Chron ic: N Practic e ID: 0001 Bill able Time: 04:00:00 PM Not Available [facility] 0 18:03:14 Obstetric non-purul ent mastitis - delivered with complicat ion 232995578 Active 2012 Postpartu m nonpurule nt mastitis; Recorded Elsewhere : No Locati on: [facility] So urce: EHR Chron ic: N Practic e ID: 0001 Bill able Time: 02:15:00 PM Not Available [facility] 0 18:03:15 Postpartu m care Active 2012 Routine postpartu m follow-up ;Recorded Elsewhere : No Locati on: [facility] So urce: EHR Chron ic: N Practic e ID: 0001 Bill able Time: 10:45:00 AM Not Available [facility] 0 18:03:15 Body mass index 30+ - obesity 307791792 Active 2015 Body mass index (BMI) 34.0-34.9 , adult;Rec orded Elsewhere : No Locati on: [facility] So urce: EHR Chron ic: N Practic e ID: 0001 Bill able Time: 06:00:00 PM Not Available [facility] 0 18:03:15 Obesity 570331625 Active 2014 Obesity;R ecorded Elsewhere : No Locati on: [facility] So urce: EHR Chron ic: N Practic e ID: 0001 Bill able Time: 08:30:00 AM Not Available [facility] 0 18:03:15 Threatene d premature labor - not delivered 913404668 Active 2012 Threatene d premature labor, antepartu m;Practic e ID: 0001 Not Available [facility] 0 18:03:16 Delivery normal 05427563 Active 2012 Normal delivery; Practice ID: 0001 Not Available [facility] 0 18:03:16 Single live 561912366 Active 2012 Mother with single liveborn; Practice ID: 0001 Not Available [facility] 0 18:03:17 Problem Notes None recorded. Procedures Surgical History Date Name Laterality Status Provider Name and Address Organization Details Recorded Time 4 Date of Last Mammogram completed [facility] 09/05/2024 10:55:14 4 Date of Last Pap Smear completed [facility] 09/05/2024 10:55:14 Colposcopy completed Cortney Berman [facility] 09/05/2024 11:01:09 Imaging Results Imaging Date Name Status LastModified by Organization Details LastModified Time 10/03/2024 US, pelvis completed [email or web address] [address], [place], [address], 10/03/2024 17:24:52 10/03/2024 US, transvaginal completed doreen schroeder [address], [place], [address], 10/03/2024 17:25:03 10/03/2024 US, pelvis completed [email or web address] [address], [place], [address], 10/03/2024 20:07:47 Procedure Notes None recorded. Medical Equipment None Reported. Allergies No known drug allergies Medications Name Sig Start Date Stop Date Status Note LastModified by Organization Details LastModified Time dicloxaci llin 500 mg capsule take 1 capsule (500MG) by oral route every 6 hours 1 hour before a meal or 2 hours after a meal 05/26 completed Prescrib ed Elsewher e: No Locat ion: [facility] odify By: moses mariscal DateTime : 04/09/20 13 02:15:00 PM Not Available Not Available Not Available azithromy cathryn 250 mg tablet TAKE 2 TABLETS BY MOUTH ON DAY 1, THEN TAKE 1 TABLET DAILY ON DAYS 2-5 09/01 completed Not Available Not Available Not Available Necon 135 (28) 1 mg-35 mcg tablet take 1 tablet by oral route every day for 28 days 04/05 completed Prescrib ed Elsewher e: No [facility] By: mario sweet DateTime : [...] mcg (50,000 unit) capsule take 1 capsule (30841II ITS) by oral route every week 05/26 completed Prescrib ed Elsewher e: No [facility] By: moses mariscal DateTime : 12/28/19 13 03:03:21 PM Not Available Not Available Not Available losartan 50 mg-hydroc hlorothia zide 12.5 mg tablet TAKE ONE TABLET DAILY 09/05 completed Not Available Not Available Not Available Zithromax 500 mg tablet take 2 tablet by oral route once 07/08 completed Prescrib ed Elsewher e: No Locat ion: [facility] odify By: keaton sweet DateTime : 06/04/20 14 11:37:47 AM Not Available Not Available Not Available losartan 100 mg-hydroc hlorothia zide 12.5 mg tablet TAKE ONE TABLET DAILY 09/05 completed Not Available Not Available Not Available Lo Loestrin Fe 1 mg-10 mcg (24)/10 mcg (2) tablet take 1 tablet by oral route every day 06/02 completed Prescrib ed Cydney e: No Locat ion: [facility] odify By: keaton sweet DateTime : 12/11/19 14 03:45:00 PM Not Available Not Available Not Available Vitals Date Recorded Body weight Body mass index (BMI) Body height Systolic blood pressure Diastolic blood pressure Provider Name and Address Organization Details Last Updated DateTime 09/05/2024 363677.6 5 g 41.3 kg/m2 167.64 cm 145 mm[Hg] 86 mm[Hg] Cortney Donovanse [facility] 10:56:16 Social History Question Answer Notes LastModified by Organizat ion Details LastModified Time Tobacco Smoking Status Current Every Day Smoker Cortney Antonella null, [facility] 09/05/2024 11:00:55 Do You Have An [...] Or The Highest Degree You Have Received? [id number] Information not available 09/05/2024 What Is Your [...] Anxious, Or Unable To Sleep At Night)? [id number] Information not available 09/05/2024 Do You Use [...] Diagnosis/Indication Diagnosis SNOMED-CT Code Diagnosis ICD10 Code 838222 VALERIY BUITRAGO NP [place] [address] [address] 09/05/2024 10:21:47 09/05/2024 12:27:43 Secondary amenorrhea 027025434 N91.1 History of abnormal cervical Papanicolaou smear 468719483 Z87.42 Bilateral discharge from nipples 3023251648 0523892 N64.52 [id number] Geetha Sloankaykay [place] [address] [address] 10/03/2024 10:27:20 10/03/2024 11:34:34 Amenorrhea 13842753 N91.2 Health Concerns Section Related Observation LastModified by Organization Detai ls LastModified Time None Recorded Concern Status LastModified by Organization Details LastModified Time None Recorded Advance Directives Directive N: Payers Encounter Date Sequence Insurance Name Policy Number Policy Chung Covered Member ID Chung Member ID Guarantor Name 09/05/2024 1 [employer] [id number] Rachelle Diana South [id number] Rachelle Dia 10/03/2024 1 [employer] [id number] Rachelle Ortiz South [id number] Rachelle Diana South Notes Date Note Type Note Provider Name and Address Organization Details Recorded Time 09/05/2024 text/html New patient presents to establish care. Patient was referred to [facility] d/t recent abnormal pap smear - ASCUS, [...] lumps. VALERIY BUITRAGO, RIKKI [address], [place], [address], [facility] 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 Status 09/05/20 24 1 CLOSED Fetus Data First Name Last Name Admitted to NICU Weight (g) Sex Living Outcome Pediatric Complications Fetus ID Race Codes Race Delivery Type F Full Term [id number] Helen Calculation HELEN Calculation Method Initial Helen Date Initial Exam Date Initial Exam Provider Initial Ultrasound Date Last Menstrual Period Date Ultra Sound Weeks Gestation Conception by IVF Embryo Age at Transfer Date of Transfer 0 Eighteen To Twenty Week Helen Update Ultra Sound Date Fundal Height At Umbil Quickening Date Ultra Sound Latest Weeks Gestation Final Helen Confirmed By Final Helen Confirmed Date Final Helen Date Ultra Sound Latest Days Gestation 0 0 Menstrual History Last Menstrual Date Menses Monthly On Bcp Conception Prior Menses Frequency Hcg Plus Date Menarche Onset Age Delivery Information Delivery Date Delivery Type Labor Anesthesia Weeks Gestation Incision Type Labor Labor Length Hrs Delivered By Post Complications Tubal Sterilization Discharge Date Comments 9 Discharge Information Feeding Method Contraceptive Method Maternal HG B and HCT Levels Ob Episode Information Episode Created Date Number of Fetuses Patient Bloodtype Patient rh Status Prepregnancy Weight lbs Domestic Partner Domestic Partner Phone Father Name Steam Power Plant Operator Status 09/05/20 24 1 CLOSED Fetus Data First Name Last Name Admitted to NICU Weight (g) Sex Living Outcome Pediatric Complications Fetus ID Race Codes Race Delivery Type F Full Term [id number] Helen Calculation HELEN Calculation Method Initial Helen Date Initial Exam Date Initial Exam Provider Initial Ultrasound Date Last Menstrual Period Date Ultra Sound Weeks Gestation Conception by IVF Embryo Age at Transfer Date of Transfer 0 Eighteen To Twenty Week Helen Update Ultra Sound Date Fundal Height At Umbil Quickening Date Ultra Sound Latest Weeks Gestation Final Helen Confirmed By Final Helen Confirmed Date Final Helen Date Ultra Sound Latest Days Gestation 0 0 Menstrual History Last Menstrual Date Menses Monthly On Bcp Conception Prior Menses Frequency Hcg Plus Date Menarche Onset Age Delivery Information Delivery Date Delivery Type Labor Anesthesia Weeks Gestation Incision Type Labor Labor Length Hrs Delivered By Post Complications Tubal Sterilization Discharge Date Comments 3 Discharge Information Feeding Method Contraceptive Method Maternal HG B and HCT Levels Ob Episode Information Episode Created Date Number of Fetuses Patient Bloodtype Patient rh Status Prepregnancy Weight lbs Domestic Partner Domestic Partner Phone Father Name Steam Power Plant Operator Status 09/05/20 24 1 CLOSED Fetus Data First Name Last Name Admitted to NICU Weight (g) Sex Living Outcome Pediatric Complications Fetus ID Race Codes Race Delivery Type M Full Term [id number] Helen Calculation HELEN Calculation Method Initial Helen Date Initial Exam Date Initial Exam Provider Initial Ultrasound Date Last Menstrual Period Date Ultra Sound Weeks Gestation Conception by IVF Embryo Age at Transfer Date of Transfer 0 Eighteen To Twenty Week Helen Update Ultra Sound Date Fundal Height At Umbil Quickening Date Ultra Sound Latest Weeks Gestation Final Helen Confirmed By Final Helen Confirmed Date Final Helen Date Ultra Sound Latest Days Gestation 0 0 Menstrual History Last Menstrual Date Menses Monthly On Bcp Conception Prior Menses Frequency Hcg Plus Date Menarche Onset Age Delivery Information Delivery Date Delivery Type Labor Anesthesia Weeks Gestation Incision Type Labor Labor Length Hrs Delivered By Post Complications Tubal Sterilization Discharge Date Comments 6 Discharge Information Feeding Method Contraceptive Method Maternal HG B and HCT Levels
--- OUTSIDE RECORDS SUMMARY | 2024-10-06 22:18 | XMS_ITS | Encounter Summary ---
Author Organization [facility] Address [address] [place] [address] Phone Care Team Providers Care Component Inspector Name Role Phone Ermelinda Mayberry Primary Care Provider [phone] Reason for Visit * Reason Comments Pain Pain Encounter Details Date Type Department Care Team (Late st Contact Info) Description 09/26/2024 7:50 AM GLOBAL ANALYTICS HEAD Office Visit [facility] Orthopaedic Surgery [address] [facility] 2nd [address] [place] [id number] Tavares Garner MD [address] [facility] [address] [place] [address] Carpal tunnel syndrome, bilateral (Primary Dx) Social History Tobacco Use Types [...] on file Legal Sex Female 10:18 AM GLOBAL ANALYTICS HEAD Gender Identity Female 09/26/2024 5:25 AM GLOBAL ANALYTICS HEAD Sexual Orientation Straight 09/26/2024 5: 25 AM GLOBAL ANALYTICS HEAD documented as of this encounter Progress Notes * Tavares Garner MD - 09/26/2024 7:50 AM CST Images from the original note were not included. NEW PATIENT VISIT HISTORY OF PRESENT ILLNESS It has been my pleasure meeting this 38 year young woman. She has bilateral hand pain numbness and tingling nighttime wakening and dysfunction. Wakes her up at night. Swelling in the thumb index and middle. Here for evaluation and treatment. 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 PAST MEDICAL HISTORY She has a past medical history of Hypertension (September 2023). PAST SURGICAL HISTORY She has no past surgical history on file. INITIAL REVIEW OF MEDICATIONS She has a current medication list which includes the following prescription(s): cholecalciferol, docusate sodium, losartan-hydrochlorothiazide, albuterol hfa, amlodipine, and ferrous gluconate. DRUG ALLERGIES She is allergic to egg and egg white. SOCIAL HISTORY She reports that she has been smoking cigarettes. She has a 7.5 pack-year smoking history. She doesnot have any smokeless tobacco history on file. She reports current drug use. Drugs: Alcohol and Marijuana. No alcohol history on file. FAMILY HISTORY Her family history includes Diabetes in her maternal grandmother and paternal grandmother; Early in her maternal grandfather and sister; Hypertension in her father; Stroke in her mother. REVIEW OF SYSTEMS The intake questionnaire was reviewed. No relevant new findings (noted by the patient over the pastthirty days) were recorded. PHYSICAL EXAMINATION She looks well. Looks her stated age or younger. No distress. Alert and oriented x3. Positive Tinelbilaterally but minimally so. Thenar function within normal limits. Normal sensation. IMPRESSION/TREATMENT PLAN We are going to treat her non operatively for the time being. These do not do the trick for her then we will think about doing something for her in the new year. Tavares Garner M.D., MSc, [facility]) Professor [facility] Orthopedics AL ANALYTICS HEAD documented in this encounter Plan of Treatment Not on file documented as of this encounter Visit Diagnoses Diagnosis Carpal tunnel syndrome, bilateral- Primary Carpal tunnel syndrome documented in this encounter Historical Medications * This list may reflect changes made after this encounter. ferrous gluconate 324 mg (37.5 mg of elemental iron) tablet Take 1 tablet (324 mg total) by mouth daily losartan-hydroch lorothiazide (HYZAAR) 100-25 mg per tablet Take 1 tablet every day by oral route in the morning for 90 days, for HTN. 03/22/2024 docusate sodium (COLACE) 100 mg capsule Take 1 capsule (100 mg total) by mouth 2 (two) times a day 03/21/2019 cholecalciferol (VITAMIN D-3) 2000 unit tablet Take 1 tablet every day by oral route as directed for 30 days. 11/08/2023 amLODIPine (NORVASC) 2.5 mg tablet Take 1 tablet (2.5 mg total) by mouth daily albuterol HFA (PROVENTIL HFA,VENTOLIN HFA,PROAIR HFA) 90 mcg/actuation inhaler INHALE TWO PUFFS BY MOUTH EVERY 4 HOURS NEEDED FOR BREATHING added in this encounter Care Teams Component Inspector Relationship Specialty Start Date End Date Ermelinda Mayberry PA [address] [place] [id number] PCP - General Physician Florist Manager 06/12/24 documented as of this encounter
--- OUTSIDE RECORDS SUMMARY | 2024-10-06 22:18 | XMS_ITS | Referral Summary ---
Author Organization [facility] Address [address] [place] [address] Care Team Providers Care Home Appliance Washing Machine Mechanic Name Role Phone Ermelinda Mayberry Primary Care Provider [phone] Encounters Date Type Department Care Team Description 09/26/2024 7:50 AM ADVERTISING REPRESENTATIVE Office Visit [facility] Orthopaedic Surgery [address] [facility] 2[address] [place] [address] Tavares Garner MD Carpal tunnel syndrome, bilateral (Primary Dx) from Last 3 Months Allergies Active Allergy Reactions Criticality Noted Date [...] Active Active Problems No known active problems Social History Tobacco Use Types Packs/Day Years Used Date Smoking Tobacco: Every Day Cigarettes 0.5 15 Tobacco Cessation:Ready to Q uit: Yes; Counseling Given: Not Answered Comments:I am in the process of quitting. I am down to 3 to 4 packs a week. Comments Unknown Sex and Gender Information Value Date Recorded Sex Assigned at Not on file Legal Sex Female 10:18 AM ADVERTISING REPRESENTATIVE Gender Identity Female 09/26/2024 5:25 AM ADVERTISING REPRESENTATIVE Sexual Orientation Straight 09/26/2024 5: 25 AM ADVERTISING REPRESENTATIVE Plan of Treatment Not on file Insurance [id number] [id number] Care Teams Home Appliance Washing Machine Mechanic Relationship Specialty Start Date End Date Ermelinda Mayberry PA [address] [place] [address] PCP - General Physician Spearer 06/12/24
--- OUTSIDE RECORDS SUMMARY | 2024-10-06 22:18 | XMS_ITS | Continuity of Care Document ---
Author Organization [facility] Address [address] [place] [place] [address] Care Team Providers Care Printing Pressman Name Role Phone NABIL DONALDSON Primary Care Provider [phone] Assessment No assessment recorded. Plan of Treatment [...] Not available Not available Not available Lab None recorded . Referral None recorded . Procedures None recorded . Surgeries None recorded . Imaging US, pelvis 2023 024 [email or web address] [facility], [address], [place], [address], 10/03/2024 19:53:43 US, mohinder inal 2023 024 [email or web address] [facility], [address], [place], [address], 10/03/2024 19:53:43 Medication Orders None recorded . Patient TargetsNo targets recorded. Patient InstructionsNo instructions recorded. Reason for Referral None Reported. Results Created Date Observation Date Name Description Value Unit Range Abnormal Flag Note LastModifiedBy Organization Detail LastModifiedTime 10/03/2010/03/2024 US, pelvi s No observ ation record ed. [facility] [address], [place], [address], 10/03/2024 17:24:52 10/03/20 24 10/03/2024 US, trans vagin al No observ ation record ed. [facility] [address], [place], [address], 10/03/2024 17:25:03 10/03/20 24 10/03/2024 US, pelvi s No observ ation record ed. [email or web address] [address], [place], [address], 10/03/2024 20:07:47 Result Notes None recorded. 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 ON;Record ed Elsewhere : No Locati on: [facility] So urce: EHR Chron ic: N Practic e ID: 0001 Bill able Time: 03:30:00 PM Not Available [facility] 0 18:03:13 Venereal disease screening Active 2013 Screening examinati on for venereal disease;R ecorded Elsewhere : No Locati on: [facility] So urce: EHR Chron ic: N Practic e ID: 0001 Bill able Time: 04:30:00 PM Not Available [facility] 0 18:03:13 Specializ ed medical examinati on Active 2013 Other specified chlamydia l diseases; Recorded Elsewhere : No Locati on: [facility] So urce: EHR Chron ic: N Practic e ID: 0001 Bill able Time: 04:30:00 PM Not Available [facility] 0 18:03:[address] Concept Active 2015 Encntr for creping machine operator exam (general) (routine) w/o abn findings; Recorded Elsewhere : No Locati on: [facility] So urce: EHR Chron ic: N Practic e ID: 0001 Bill able Time: 06:00:00 PM Not Available [facility] 0 18:03:14 Routine care Active 2012 Supervisi on of other normal ;Recorded Elsewhere : No Locati on: [facility] So urce: EHR Chron ic: N Practic e ID: 0001 Bill able Time: 01:30:00 PM Not Available [facility] 0 18:03:14 Pain in female genitalia Active 2015 Dysmenorr hea;Recor ded Elsewhere : No Locati on: [facility] So urce: EHR Chron ic: N Practic e ID: 0001 Bill able Time: 06:00:00 PM Not Available [facility] 0 18:03:14 Abnormal cervical Papanicol aou smear 719349853 Active 2014 Other abnormal papanicol aou smear of cervix and cervical HPV;Recor ded Elsewhere : No Locati on: [facility] So urce: EHR Chron ic: N Practic e ID: 0001 Bill able Time: 08:30:00 AM Not Available [facility] 0 18:03:14 Screening for malignant neoplasm of cervix Active 2012 Screening for malignant neoplasms of the cervix;Re corded Elsewhere : No Locati on: [facility] So urce: EHR Chron ic: N Practic e ID: 0001 Bill able Time: 10:00:00 AM Not Available [facility] 0 18:03:14 Family planning surveilla nce Active 2013 Contracep tive surveilla nce, unspecifi ed;Record ed Elsewhere : No Locati on: [facility] So urce: EHR Chron ic: N Practic e ID: 0001 Bill able Time: 03:45:00 PM Not Available [facility] 0 18:03:14 Benign paroxysma l positiona l vertigo 245903932 Active 2013 Benign paroxysma l positiona l vertigo;R ecorded Elsewhere : No Locati on: [facility] So urce: EHR Chron ic: N Practic e ID: 0001 Bill able Time: 02:30:00 PM Not Available [facility] 0 18:03:14 Atypical squamous cells of undetermi soha significa nce on cervical Papanicol aou smear 648826971 Active 2014 Atyp squam cell of undet signfc cyto smr crvx (ASC-US); Recorded Elsewhere : No Locati on: [facility] So urce: EHR Chron ic: N Practic e ID: 0001 Bill able Time: 04:00:00 PM Not Available [facility] 0 18:03:14 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 91095498439 455563 Active 2015 Cervical low risk HPV DNA test positive; Recorded Elsewhere : No Locati on: [facility] So urce: EHR Chron ic: N Practic e ID: 0001 Bill able Time: 08:30:00 AM Not Available [facility] 0 18:03:14 At increased risk of sexually transmitt ed infection 367648351 Active 2013 Contact with or exposure to venereal diseases; Recorded Elsewhere : No Locati on: [facility] So urce: EHR Chron ic: N Practic e ID: 0001 Bill able Time: 04:30:00 PM Not Available [facility] 0 18:03:14 test positive 719403997 Active 2012 examinati on or test, positive result;Re corded Elsewhere : No Locati on: [facility] So urce: EHR Chron ic: N Practic e ID: 0001 Bill able Time: 01:30:00 PM Not Available [facility] 0 18:03:14 test negative 294239371 Active 2014 Encounter for test, result negative; Recorded Elsewhere : No Locati on: [facility] So urce: EHR Chron ic: N Practic e ID: 0001 Bill able Time: 04:00:00 PM Not Available [facility] 0 18:03:14 Obstetric non-purul ent mastitis - delivered with complicat ion 144718445 Active 2012 Postpartu m nonpurule nt mastitis; Recorded Elsewhere : No Locati on: [facility] So urce: EHR Chron ic: N Practic e ID: 0001 Bill able Time: 02:15:00 PM Not Available [facility] 0 18:03:15 Postpartu m care Active 2012 Routine postpartu m follow-up ;Recorded Elsewhere : No Locati on: [facility] So urce: EHR Chron ic: N Practic e ID: 0001 Bill able Time: 10:45:00 AM Not Available [facility] 0 18:03:15 Body mass index 30+ - obesity 162344401 Active 2015 Body mass index (BMI) 34.0-34.9 , adult;Rec orded Elsewhere : No Locati on: [facility] So urce: EHR Chron ic: N Practic e ID: 0001 Bill able Time: 06:00:00 PM Not Available [facility] 0 18:03:15 Obesity 806115894 Active 2014 Obesity;R ecorded Elsewhere : No Locati on: [facility] So urce: EHR Chron ic: N Practic e ID: 0001 Bill able Time: 08:30:00 AM Not Available [facility] 0 18:03:15 Threatene d premature labor - not delivered 282690282 Active 2012 Threatene d premature labor, antepartu m;Practic e ID: 0001 Not Available [facility] 0 18:03:16 Delivery normal 03291596 Active 2012 Normal delivery; Practice ID: 0001 Not Available [facility] 0 18:03:16 Single live 525649828 Active 2012 Mother with single liveborn; Practice ID: 0001 Not Available [facility] 0 18:03:17 Problem Notes None recorded. Procedures Surgical History Date Name Laterality Status Provider Name and Address Organization Details Recorded Time 4 Date of Last [facility]ammogram [facility]2024 10:55:14 4 Date of Last Pap Smear completed [facility] 09/05/2024 10:55:14 Colposcopy completed [facility] 09/05/2024 11:01:09 Imaging Results Imaging Date Name Status LastModified by Organization Details LastModified Time 10/03/2024 US, pelvis completed [email or web address] [address], [place], [address], 10/03/2024 17:24:52 10/03/2024 US, transvaginal completed [facility] [address], [place], [address], 10/03/2024 17:25:03 10/03/2024 US, pelvis completed [email or web address], [place], [address], 10/03/2024 20:07:47 Procedure Notes None recorded. Medical [...] Prescrib ed Elsewher e: No Locat ion: [facility] odify By: moses mariscal DateTime : 04/09/20 13 02:15:00 PM Not Available Not Available Not Available azithromy cathryn 250 mg tablet TAKE 2 TABLETS BY MOUTH ON DAY 1, THEN TAKE 1 TABLET DAILY ON DAYS 2-5 09/01 completed Not Available Not Available Not Available Necon 1/35 (28) 1 mg-35 mcg tablet take 1 tablet by oral route every day for 28 days 04/05 completed Prescrib ed Elsewher e: No Locat ion: [facility] odify By: mario sweet DateTime : [...] mcg (50,000 unit) capsule take 1 capsule (86536GD ITS) by oral route every week 05/26 completed Prescrib ed Elsewher e: No [facility] By: moses mariscal DateTime : 12/28/19 13 03:03:21 PM Not Available Not Available Not Available losartan 50 mg-hydroc hlorothia zide 12.5 mg tablet TAKE ONE TABLET DAILY 09/05 completed Not Available Not Available Not Available Zithromax 500 mg tablet take 2 tablet by oral route once 07/08 completed Prescrib ed Elsewher e: No Locat ion: [facility] odify By: keaton sweet DateTime : [...] ed Elsewher e: No Locat ion: [facility] Diana odconstance By: keaton Schroeder ncounter DateTime : 12/11/19 14 03:45:00 PM Not Available Not Available Not Available Vitals None Recorded Social History Question Answer Notes LastModified by Organizat ion Details LastModified Time Tobacco Smoking Status Current Every Day Smoker Cortney Antonella [facility] 09/05/2024 11:00:55 Do You Have An [...] Or The Highest Degree You Have Received? [id number] Information not available 09/05/2024 What Is Your [...] Anxious, Or Unable To Sleep At Night)? [id number] Information not available 09/05/2024 Do You Use [...] Diagnosis/Indication Diagnosis SNOMED-CT Code Diagnosis ICD10 Code [id number] VALERIY BUITRAGO NP [facility] [address] [address] 09/05/2024 10:21:47 09/05/2024 12:27:43 Secondary amenorrhea 384745347 N91.1 History of abnormal cervical Papanicolaou smear 700750437 Z87.42 Bilateral discharge from nipples 8476518023 9603670 N64.52 [id number] [facility] [address] [address] 10/03/2024 10:27:20 10/03/2024 11:34:34 Amenorrhea 16003024 N91.2 Health Concerns Section Related Observation LastModified by Organization Detai ls LastModified Time None Recorded Concern Status LastModified by Organization Details LastModified Time None Recorded Payers Encounter Date Sequence Insurance Name Policy Number Policy Chung Covered Member ID Chung Member ID Guarantor Name 10/03/2024 1 [employer] [id number] Rachelle Dia [id number] Rachelle Dia OBGyn Episode No OBEpisode recorded.
--- OUTSIDE RECORDS SUMMARY | 2024-10-06 22:18 | XMS_ITS | Data Portability ---
Author Organization [facility] Address [address] [place] [address] Care Team Providers Care Chargeback Specialist Name Role Phone NABIL DONALDSON Primary Care Provider Assessment No assessment recorded. Plan of Treatment Reminders Order Date Submit Date Provider Last Modified By Organization Details Last Modified Time Details Appointments None recorded. Lab erythrocyte sedimentati on rate by westergren method 2023 024 [facility], [address] [place] [address], [address], [place], [address], 4 11:14:39 rf (rheumatoid factor), serum 2023 024 [facility], [address] [place] [address], [address], [place], [address], 4 11:14:40 vitamin B12, serum 2023 024 [facility], [address] [place] [address], [address], [place], [address], 4 11:14:38 cytology report, thin prep, smear or scraping, cervical or vaginal 2023 024 [facility], [address] [place] [address], [address], [place], [address], 4 15:10:35 bacterial vaginosis score, JOHN+probe, vaginal fluid (OBS) 2023 [facility], [address] [facility], [address], [place], [address], 22:07:42 Referral None recorded. Procedures None recorded. Surgeries None recorded. Imaging electromyog caroline + nerve conduction study - Tingling and numbness of the fingertips of both hands 2023 [facility] (Cardiology & Emg), [address], [place], [address], 4 16:04:52 XR, chest, 2 view - Persistent cough with SOB 2023 [facility] [place] (Radiology), [address] [place], [address], 4 15:25:45 XR, hand, 3 or more view 2023 024 [facility] [place] (Radiology), [address] [place], [address], 4 12:29:02 MAMMO, diagnostic, digital, bilateral [email or web address] [facility], [address], [place], [address], 4 07:55:12 US, breast, bilateral, complete 2023 024 [email or web address], [address], [place], [address], 4 07:55:12 Medication Orders meloxicam 7.5 mg tablet 2023 024 [facility], [address], [place], [id number], 4 12:08:49 losartan 100 mg-hydrochl orothiazide 12.5 mg tablet 2023 024 [facility], [address] [place] [address], [id number], 4 10:47:12 Tussin DM 10 mg-100 mg/5 mL oral liquid 2023 [facility], [address] [place] [address], [id number], 4 10:27:07 losartan 100 mg-hydrochl orothiazide 25 mg tablet 2023 [facility], [address] [place] [address], [id number], 12:33:44 amlodipine 2.5 mg tablet 2023 [facility], [address] [place] [address], [id number], 16:42:56 Patient TargetsNo targets recorded. Patient Instructions Encounter Date Encounter Id Patient Instructions Last Modified By Organization Details Last Modified Time 03/27/2024 [id number] neuropathic pain : care instructions oajao Not available 03/27/2024 11:54:44 Take Losartan/HCTZ as prescribed BP check in 24 hours Labs EMG/NCS Meloxicam PRN Follow up in 5-6 weeks (post EMG/NCS) oajao Not available 03/27/2024 11:58:13 05/16/2024 [id number] [employer] Technician as referred (Scheduled) CXR Tussin DM Continue Losartan/HCTZ Start Amlodipine 2.5 mg Follow up in 4 weeks oajao Not available 05/16/2024 12:19:30 06/05/2024 [id number] A healthy lifestyle: care instructions kbarbero Not available 06/05/2024 10:22:20 Quitting Tobacco : Care Instructions kbarbero Not available 06/05/2024 10:32:59 08/28/2024 [id number] A healthy lifestyle: care instructions kbarbero Not available 08/28/2024 10:06:21 Reason for Referral None Reported. Results Created Date Observation Date Name Description Value Unit Range Abnormal Flag Note LastModifiedBy Organization Detail LastModifiedTime 03/27/20 24 03/28/2024 VITAM IN B12 vitamin B12 708 pg/mL 232-12 45 Not Available [facility] ([facility]) [address] [facility], [place], [address], 03/28/2024 11:14:38 03/27/20 24 03/28/2024 SEDIM ENTAT ION RATE- WESTE RGREN sedimentatio n rate-westerg roberto 3 mm/HR 0-32 Not Available [facility] ([facility]) [address] [facility], [place], [address], 03/28/2024 11:14:39 03/27/20 24 03/28/2024 RHEUM ATOID FACTO R (RF) rheumatoid factor (rf) <10.0 IU/mL <14.0 Not Available [facility] ([facility]) [address] [facility], [place], [address], 03/28/2024 11:14:40 07/11/20 24 07/15/2024 NUSWA B VG+, HSV atopobium vaginae LOW - 0 score Not Available [facility] ([facility]) [address] [facility], [place], [address], 07/15/2024 22:07:42 07/11/20 24 07/15/2024 NUSWA B VG+, HSV bvab 2 LOW - 0 score Not Available [facility] ([facility]) [address] [facility], [place], [address], 07/15/2024 22:07:42 07/11/20 24 07/15/2024 NUSWA B VG+, HSV megasphaera 1 LOW - 0 score Calcu late total score by aleena weber the 3 indiv idual bacte rial vagin osis (BV) marke r score s toget her. Total score is inter prete d as follo ws: Total score 0-1: Indic ates the absen ce of BV. Total score 2: Gagan lazar ate for BV. Addit ional clini hailee data shoul d be evalu ated to nirmala hu. Total score 3-6: Indic ates the prese nce of BV. Not Available [facility] ([facility]) [address] [facility], [place], [address], 07/15/2024 22:07:42 07/11/20 24 07/15/2024 NUSWA B VG+, HSV kelsy albicans, JOHN NEGATI VE negati ve Not Available [facility] ([facility]) [address] [facility], [place], [address], 07/15/2024 22:07:42 07/11/20 24 07/15/2024 NUSWA B VG+, HSV kelsy glabrata, JOHN NEGATI VE negati ve Not Available [facility] ([facility]) [address] [facility], [place], [address], 07/15/2024 22:07:42 07/11/20 24 07/15/2024 NUSWA B VG+, HSV trich vag by JOHN NEGATI VE negati ve Not Available [facility] ([facility]) [address] [facility], [place], [address], 07/15/2024 22:07:42 07/11/20 24 07/15/2024 NUSWA B VG+, HSV chlamydia trachomatis, JOHN NEGATI VE negati ve Not Available [facility] ([facility]) [address] [facility], [place], [address], 07/15/2024 22:07:42 07/11/20 24 07/15/2024 NUSWA B VG+, HSV neisseria gonorrhoeae, JOHN NEGATI VE negati ve Not Available [facility] ([facility]) [address] [place], [address], 07/15/2024 22:07:42 07/11/20 24 07/15/2024 NUSWA B VG+, HSV hsv 1 JOHN NEGATI VE negati ve Not Available [facility] ([facility]) [address] [facility], [place], [address], 07/15/2024 22:07:42 07/11/20 24 07/15/2024 NUSWA B VG+, HSV hsv 2 JOHN NEGATI VE negati ve Not Available [facility] ([facility]) [address] [facility], [place], [address], 07/15/2024 22:07:42 07/11/20 24 07/14/2024 IGP, APTIM A HPV, RFX 16/18 ,45 HPV aptima POSITI VE negati ve abnormal This nucle ic acid ampli ficat ion test detec ts fourt een high- risk HPV types (16,1 8,31, 33,35 ,39,4 5,51, 52,56 ,58,5 9,66, 68) witho ut diffe renti ation . Not Available [facility] ([facility]) [address] [facility], [place], [address], 07/17/2024 15:10:35 07/11/20 24 07/17/2024 IGP, APTIM A HPV, RFX 16/18 ,45 diagnosis: COMMEN T abnormal EPITH ELIAL CELL ABNOR MALIT Y. ATYPI HAILEE SQUAM OUS CELLS OF UNDET ERMIN ED SIGNI FICAN CE (ASC- US). Not Available [facility] ([facility]) [address] [facility], [place], [address], 07/17/2024 15:10:35 07/11/20 24 07/17/2024 IGP, APTIM A HPV, RFX 16/18 ,45 recommendati on: COMMEN T abnormal Sugge st follo w up as clini diego appro priat e. Not Available [facility] ([facility]) [address] [place], [address], 07/17/2024 15:10:35 07/11/20 24 07/17/2024 IGP, APTIM A HPV, RFX 16/18 ,45 specimen adequacy: RIGO Badillo Satis facto ry for evalu ation . Endoc ervic al and/o r squam ous metap lasti c cells (endo cervi hailee compo nent) are prese nt. Not Available [facility] ([facility]) [address] [place], [address], 07/17/2024 15:10:35 07/11/20 24 07/17/2024 IGP, APTIM A HPV, RFX 16/18 ,45 clinician provided ICD10: RIGO Badillo Z12.4 Not Available [facility] ([facility]) [address] [place], [address], 07/17/2024 15:10:35 07/11/20 24 07/17/2024 IGP, APTIM A HPV, RFX 16/18 ,45 performed by: RIGO Gonzalez , Cytot echno logis t (ASCP ) Not Available [facility] ([facility]) [address] [place], [address], 07/17/2024 15:10:35 07/11/20 24 07/17/2024 IGP, APTIM A HPV, RFX 16/18 ,45 electronical ly signed by: RIGO george MD, Patho logis t Not Available [facility] ([facility]) [address] [place], [address], 07/17/2024 15:10:35 07/11/20 24 07/17/2024 IGP, APTIM A HPV, RFX 16/18 ,45 . . Not Available [facility] ([facility]) [address] [place], [address], 07/17/2024 15:10:35 07/11/20 24 07/17/2024 IGP, APTIM A HPV, RFX 16/18 ,45 pathologist provided ICD10: RIGO Badillo R87.6 10 Not Available [facility] ([facility]) [address] [place], [address], 07/17/2024 15:10:35 07/11/20 24 07/17/2024 IGP, APTIM A HPV, RFX 16/18 ,45 note: RIGO T The Pap smear is a scree alverto test desig soha to aid in the detec tion of samy ligna nt and malig nant condi tions of the uteri ne cervi x. It is not a diagn ostic proce dure and shoul d not be used as the sole means of detec ting cervi hailee cance r. Both false -posi tive and false -nega tive repor ts do occur . Not Available [facility] ([facility]) [address] [facility], [place], [address], 07/17/2024 15:10:35 07/11/20 24 07/17/2024 IGP, APTIM A HPV, RFX 16/18 ,45 test methodology: RIGO Badillo This liqui d based ThinP rep(R ) pap test was scree soha with the use of an image guide hamilton mccarty. Not Available [facility] ([facility]) [address] [facility], [place], [address], 07/17/2024 15:10:35 07/11/20 24 07/17/2024 IGP, APTIM A HPV, RFX 16/18 ,45 HPV genotype reflex COMMTOMASA T Crite ivonne not met, HPV Genot ype not perfo rmed. Not Available [facility] ([facility]) [address] [place], [address], 07/17/2024 15:10:35 04/23/20 24 04/23/2024 elect romyo gram + nerve condu ction study No observ ation record ed. [facility] [address], [place], [address], 05/16/2024 12:00:16 05/16/20 24 05/16/2024 XR, chest , 2 view No observ ation record ed. [facility] [address] [place], [address], 05/16/2024 16:01:04 06/06/20 24 06/06/2024 XR, hand, 3 or more view No observ ation record ed. [facility] [address], [place], [address], 06/06/2024 17:03:48 08/01/20 24 08/01/2024 MAMMO , diagn ostic , digit al, bilat eral No observ ation record ed. [facility] [address], [place], [address], 08/01/2024 14:31:08 08/02/20 24 08/01/2024 MAMMO , diagn ostic , digit al, bilat eral No observ ation record ed. [facility] [address], [place], [address], 08/05/2024 14:44:48 10/06/20 24 10/03/2024 MRI, breas t, bilat eral, w/wo contr ast No observ ation record ed. [facility] [address], [place], [address], 10/06/2024 12:47:44 Result Notes None recorded. Problems Name Problem SNOMED Code Status Onset Date Resolution Date Notes Provider Name and Address Organization Details Recorded Time Benign essential hypertension 4738528 Active 2023 MINOO OVALLE Attn: Brenda weber,[address] [place], [address], [facility] 09:53:22 Vitamin D deficiency 96037250 Active 2023 Rodriguez Erickson MD Attn: Brenda weber,[address] [place], [address], [facility] 11:22:08 Problem Notes None recorded. Procedures Surgical History None recorded. Imaging Results Imaging Date Name Status LastModified by Organization Details LastModified Time 04/23/2024 electromyogram + nerve conduction study completed [address], [place], [address], 05/16/2024 12:00:16 05/16/2024 XR, chest, 2 view completed [facility] [address] [place], [address], 05/16/2024 16:01:04 06/06/2024 XR, hand, 3 or more view completed [facility] [address] [place], [address], 06/06/2024 17:03:48 08/01/2024 MAMMO, diagnostic, digital, bilateral completed [facility] [address], [place], [address], 08/01/2024 14:31:08 08/01/2024 MAMMO, diagnostic, digital, bilateral completed [facility] [address], [place], [address], 08/05/2024 14:44:48 10/03/2024 MRI, breast, bilateral, w/wo contrast active [address], [place], [address], 10/06/2024 12:47:44 Procedure Notes None recorded. Medical Equipment None Reported. Allergies No known drug allergies Medications Name Sig Start Date Stop Date Status Note LastModified by Organization Details LastModified Time azithromy cathryn 250 mg tablet TAKE 2 TABLETS BY MOUTH ON DAY 1, THEN TAKE 1 TABLET DAILY ON DAYS 2-5 08/28 completed Not Available Not Available Not Available benzonata te 200 mg capsule TAKE ONE CAPSULE BY MOUTH THREE TIMES DAILY, MORNING, MIDDAY & IN THE EVENING NEEDED FOR COUGH 08/28 completed Not Available Not Available Not Available prednison e 20 mg tablet TAKE TWO TABLETS BY MOUTH ONCE EVERY DAY WITH FOOD FOR 5 DAYS 06/05 completed Not Available Not Available Not Available amlodipin e 2.5 mg tablet TAKE ONE TABLET BY MOUTH EVERY DAY FOR BLOOD PRESSURE active Not Available Not Available No t Available dextromet horphan-g uaifenesi n 10 mg-100 mg/5 mL oral syrup TAKE 10 ML BY MOUTH EVERY 4 HOURS NEEDED FOR FOUR DAYS 06/05 completed Not Available Not Available Not Available meloxicam 7.5 mg tablet TAKE ONE TABLET BY MOUTH EVERY DAY FOR 10 DAYS FOR PAIN 05/16 completed Not Available Not Available Not Available losartan 100 mg-hydroc hlorothia zide 25 mg tablet Take 1 tablet every day by oral route in the morning for 90 days, for HTN. 2023 active Not Available Not Available Not Avai labmitzi Tushaheenin DM 10 mg-100 mg/5 mL oral liquid Take 10 mL every 4 hours by oral route as needed for 4 days, for Cough. 06/05 completed Not Available Not Available Not Available methylpre dnisolone 4 mg tablets in a dose pack TAKE 6 TABLETS ON DAY 1 DIRECTED ON PACKAGE AND DECREASE BY 1 TAB EACH DAY FOR A TOTAL OF 6 DAYS 11/07 completed Not Available Not Available Not Available albuterol sulfate HFA 90 mcg/actua tion aerosol inhaler INHALE TWO PUFFS BY MOUTH EVERY 4 HOURS NEEDED FOR BREATHIN G active Not Available Not Available No t Available losartan 50 mg-hydroc hlorothia zide 12.5 mg tablet TAKE ONE TABLET DAILY 03/27 completed Not Available Not Available Not Available losartan 100 mg-hydroc hlorothia zide 12.5 mg tablet Take 1 tablet every day by oral route as directed for 30 days, for HTN. 03/28 completed Changed to 100/25 Not Available Not Available Not Available Vitamin D3 50 mcg (2,000 unit) tablet Take 1 tablet every day by oral route as directed for 30 days. 2023 active Not Available Not Available Not Avai labmitzi Vitals Date Recorded Body height Body mass index (BMI) Body weight Oxygen saturation Oxygen saturation in Arterial blood by Pulse oximetry Heart rate Body temperature Systolic blood pressure Diastolic blood pressure Provider Name and Address Organization Details Last Updated DateTime 4 170.18 cm 37.3 kg/m2 072444. 98 g 98 % 98 % 83 /min 97.9 [degF] 160 mm[Hg] 90 mm[Hg] Sofia Garcia MA [facility] 4 11:28:22 Date Recorded Body height Body mass index (BMI) Body weight Heart rate Oxygen saturation Oxygen saturation in Arterial blood by Pulse oximetry Respiratory rate Body temperature Systolic blood pressure Diastolic blood pressure Provider Name and Address Organization Details Last Updated DateTime 4 170.18 cm 37.4 kg/m2 492576. 58 g 78 /min 98 % 98 % 16 /min 98.3 [degF] 134 mm[Hg] 90 mm[Hg] Sofia Garcia MA [facility] 4 11:52:52 Date Recorded Body height Body mass index (BMI) Body weight Oxygen saturation Oxygen saturation in Arterial blood by Pulse oximetry Heart rate Respiratory rate Systolic blood pressure Diastolic blood pressure Provider Name and Address Organization Details Last Updated DateTime 4 170.18 cm 37.2 kg/m2 521116. 79 g 98 % 98 % 96 /min 17 /min 145 mm[Hg] 88 mm[Hg] Raissa Franco MA [facility] 4 10:14:19 Date Recorded Systolic blood pressure Diastolic blood pressure Systolic blood pressure Diastolic blood pressure Provider Name and Address Organization Details Last Updated DateTime 06/05/2024 120 mm[Hg] 80 mm[Hg] 116 mm[Hg] 80 mm[Hg] MINOO OVALLE Attn: Accounting ,[address] [place], [address] , [facility] 4 10:45:13 Date Recorded Body height Body mass index (BMI) Body weight Oxygen saturation Oxygen saturation in Arterial blood by Pulse oximetry Heart rate Respiratory rate Systolic blood pressure Diastolic blood pressure Provider Name and Address Organization Details Last Updated DateTime 4 170.18 cm 36 kg/m2 777229. 25 g 97 % 97 % 97 /min 16 /min 118 mm[Hg] 84 mm[Hg] Neela Lindsay MA [facility] 4 13:46:02 Date Recorded Body height Body mass index (BMI) Body weight Oxygen saturation Oxygen saturation in Arterial blood by Pulse oximetry Heart rate Respiratory rate Systolic blood pressure Diastolic blood pressure Provider Name and Address Organization Details Last Updated DateTime 4 170.18 cm 40.1 kg/m2 404156. 65 g 98 % 98 % 93 /min 16 /min 126 mm[Hg] 85 mm[Hg] Neela Lindsay MA [facility] 4 08:30:04 Social History Question Answer Notes LastModified by Organizat ion Details LastModified Time Tobacco Smoking Status Current Every Day Smoker Sofia Garcia MA null, [place] - [facility] 11/07/2023 10:27:46 What Is Your Level Of Alcohol Consumption? Occasional Information not available 11/07/2023 How Many Years Have You Consumed Alcohol? 20 Information not available 11/07/2023 Are You Blind Or Do You Have Difficulty Seeing? No Information not available 11/07/2023 What Is Your Level Of Caffeine Consumption? Occasional Information not available 11/07/2023 Are You Currently Employed? Yes Information not available 11/07/2023 Are You Deaf Or Do You Have Serious Difficulty Hearing? No Information not available 11/07/2023 What Type Of Diet Are You Following? REGULAR Information not available 11/07/2023 What Was The Date Of Your Most Recent Tobacco Screening? 07/11/2024 [email or web address] Information not available 07/11/2024 Do You Have Smoke And Carbon Monoxide Detectors In Your Home? Yes Information not available 11/07/2023 At What Age Did You Start Smoking Tobacco? 16 Information not available 11/07/2023 How Much Tobacco Do You Smoke? 1 PPD Information not available 03/27/2024 Do You Use Any Illicit Or Recreational Drugs? Yes Marijuana Information not available 11/07/2023 Has Tobacco Cessation Counseling Been Provided? Yes Information not available 11/07/2023 On What Date Was Tobacco Cessation Counseling Provided? 07/11/2024 [email or web address] Information not available 07/11/2024 How Many Years Have You Smoked Tobacco? 22 Information not available 11/07/2023 Sex: Unknown Functional Status Question Answer Note LastModified by Organization D etails LastModified Time Are you able to care for yourself? Yes Information n ot available 11/07/2023 Mental Status None recorded. Family History Relationship Description Onset Age of this Age Resolved Age Notes LastModified by Organization Details LastModified Time Sister Hypertensive disorder [email or web address] Not available 2023 10:33:46 Sister Heart failure [email or web address] Not available 2023 10:34:13 Sister Diabetes mellitus [email or web address] Not available 2023 10:34:54 Mother Hypertensive disorder hdoverma Not available 2023 10:33:50 Mother Irregular heart beat hdoverma Not available 11/07 10:34:23 Father Hypertensive disorder hdoverma Not available 2023 10:33:53 Maternal Grandmother Diabetes mellitus hdoverma Not available 2023 10:34:44 Paternal Grandmother Diabetes mellitus hdoverma Not available 2023 10:34:58 Medical History Condition Response Coronary Artery Disease N Other N Atrial Fibrillation N High Blood Pressure N Thyroid Problems N Kidney or Bladder Problems N GI Problems N Depression N COPD N Blood Clots N Skin Problems N Anemia N Heart Attack (SD) N Anxiety Disorder N Diabetes N Muscle, Joint, or Bone Problems N Seizures/Epilepsy N Acid Reflux (GERD) N Cancer N Stroke N Asthma N Allergies N High Cholesterol N Hepatitis N Liver Disease N Headaches N Osteoporosis N Heart Failure N Gynecological History Statement/Question Response Flow Moderate Date of LMP 05/09/2024 Menses Monthly Y Date of Last Pap Smear Duration of Flow (days) 6 Age at Menarche 13 Current Control Method None Age at First Child 19 LMP Approximate Obstetrics History GPAL:G 3 P 3 0 0 3 Type Value Full Term 3 Living 3 Total 3 Immunizations Vaccine Type Date Status Note Provider Nam e and Address Organization Details Recorded Time Tdap 9 completed Sofia Garcia MA null, [place] [facility] 11/07/2023 10:14:36 COVID-19, mRNA, LNP-S, PF, 30 mcg/0.3 mL dose 1 completed Rodriguez Erickson MD Attn: Accounting,[address] [facility], [place], [address], [place] [facility] 03/27/2024 11:44:34 COVID-19, mRNA, LNP-S, PF, 30 mcg/0.3 mL dose 1 completed Rodriguez Erickson MD Attn: Accounting,[address] [facility], [place], [address], [facility] 03/27/2024 11:44:34 Hep A, pediatric, unspecified formulation 0 completed Rodriguez Erickson MD Attn: Accounting,[address] [facility], [place], [address], [facility] 03/27/2024 11:44:34 Influenza, split virus, quadrivalent, preservative 4 completed Rodriguez Erickson MD Attn: Accounting,[address] [facility], [place], [address], [facility] 11/07/2023 13:28:26 Past Encounters Encounter ID Performer Location Encounter Start Date Encounter Closed Date Diagnosis/Indication Diagnosis SNOMED-CT Code Diagnosis ICD10 Code [id number] [facility] [address] [place] [address] 11/07/2023 10:10:21 11/08/2023 16:21:44 Administration of influenza vaccine 75227254 Z23 General ex amination of patient 270681013 Z00.01 Snoring 34056941 R06.83 Immunization advised 310 037107 Z71.9 Benign ess ential hypertension 1113841 I10 Body mass index 30+ - obesity 133885371 Z68.37 Overweight 903019335 E66 .3 Nicotine dependence 5629 4008 F17.200 Screening for malignant neoplasm of cervix 395551057 Z12.4 [id number] MD Abbe Vivas (Adult Med) [address] [place] [phone] 11/28/2023 10:43:23 11/30/2023 13:11:01 Vitamin D deficiency 92369008 E55.9 Benign ess ential hypertension 3785479 I10 Immunization advised 310 883285 Z71.9 [id number] MD Abbe Vivas (Adult Med) [address] [place] [address], [place] [address] 03/27/2024 11:05:59 03/28/2024 16:05:24 Benign essential hypertension 7954050 I10 Pain of bi lateral hands 8095784148 0197834 M79.641 M79.642 Neuropathy 600249631 G62 .9 [id number] Rodriguez Erickson MD [facility] (Adult Med) [address] [place] [phone] 05/16/2024 11:24:20 05/20/2024 12:07:08 Benign essential hypertension 7437693 I10 Neuropathy 188555669 G62 .9 Persistent cough 9043146 02 R05.3 [id number] MINOO OVALLE [facility] [address] [place] [address] 06/05/2024 10:07:20 06/05/2024 10:44:15 Depression screening 471722806 Z13.31 Screening for malignant neoplasm of cervix 354656535 Z12.4 Obesity 948628519 E66.8 Pain of bi lateral hands 5963336215 7277545 M79.641 Essential hypertension 02144034 I10 Smoker 71051047 F17.387 [id number] MINOO OVALLE [facility] [address] [place] [address] 07/11/2024 13:40:09 07/11/2024 14:17:55 Screening for malignant neoplasm of cervix [id number] Z12.4 Depression screening 171 [id number] Z13.31 Bloody nip ple discharge [id number] N64.52 [id number] MINOO OVALLE [facility] [address] [place] [address] 08/28/2024 08:27:14 08/28/2024 08:52:55 Morbid obesity 872467310 E66.01 Pain of bi lateral hands [id number] M79.641 Abnormal c ervical Papanicolaou smear [id number] R87.619 Bloody nip ple discharge [id number] N64.52 Health Concerns Section Related Observation LastModified by Organization Detai ls LastModified Time None Recorded Concern Status LastModified by Organization Details LastModified Time None Recorded Advance Directives Directive None Recorded Payers Encounter Date Sequence Insurance Name Policy Number Policy Chung Covered Member ID Chung Member ID Guarantor Name 03/27/2024 1 *SELF PAY* Corin Dia 03/27/2024 1 [employer] [id number] Rachelle Dia [id number] Rachelle Dia 05/16/2024 1 [employer] [id number] Rachelle Dia [id number] Rachelle Dia 06/05/2024 1 [employer] [id number] Rachelle Dia [id number] Rachelle Dia 07/11/2024 1 [employer] [id number] Rachelle Dia [id number] Rachelle Dia 08/28/2024 1 [employer] [id number] Rachelle Dia [id number] Rachelle Dia Notes Date Note Type Note Provider Name and Address Organization Details Recorded Time 03/27/2024 text/html Hand/FingersRepo rted bypatient.Hand Dominance:right Location:bilateral Quality:aching; worsening Severity:severe Duration:weeks Timing:chronic; morning; intermittent episodes lasting: Context:cannot identify Alleviating Factors:nothing helps Aggravating Factors:cannot identify Associated Symptoms:no weakness; no swelling; no redness; no warmth; no ecchymosis; no catching/locking; no popping/clicking; no buckling; no grinding; no instability; no drainage; no fever; no chills; no weight loss; no change in bowel/bladder habits;numbness;tingli ng;radiating to thumb/index/middle Previous Surgery:none Prior Imaging:none Previous Injections:none Previous PT:none Work Related:yes Working:regular dutyHypertension F/UReported bypatient.Associated Symptoms:no dizziness; no lightheadedness; no chest pain; no shortness of breath; no palpitations; no edema; no calf pain with exertion Medications:not taking medications as directed; checks blood pressure at home, range: (158/115) My hands I did forget to take my medications last night She complains of swelling, morning stiffness and pain in both hands, initial event was in August with complete resolution. It then started again a week ago., they started again a week ago. She also complains of tingling in the 1st 2nd and 3rd fingers of both hands. 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 Rodriguez Erickson MD Attn: Accounting,[address] [facility], [place], [address], [facility] 03/27/2024 19:13:42 05/16/2024 text/html CoughReported bypatient.Quality:hars h Severity:worsening Duration:constant Timing:worse Context:smoker Modifying Factors:OTC medication; inhaler Associated Symptoms:no fever; no chills; no heartburn; no nausea; no vomiting; no edema; no agitation; no post nasal drip;chest pain;wheezingHypertens ion F/UReported bypatient.Associated Symptoms:no dizziness; no lightheadedness; no chest pain; no palpitations; no edema; no calf pain with exertion;shortness of breath Lifestyle:regular exercise; limiting/avoiding salt Medications:taking medications as directed; no side effects from medication; checks blood pressure at home, range: (130/90) I haven't been smoking as much She has had a cough on and off for at least 2 weeks, no fever or SOB. Sputum is white/clear Rodriguez Erickson MD Attn: Accounting,[address] [facility], [place], [address], [facility] 05/16/2024 13:10:07 06/05/2024 text/html Pt presents to establish care as a new patient. Transfer from [facility]. C/o hand swelling and pain x10 months. States that symptoms started last August and flared this January. Describes as fingertips tingling and hands feel tight all the time. 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 R hand is worse than L, pt is R hand dominant. Takes tylenol w/o relief. Pt endorses she had normal nerve conduction study and would like to know what next steps are. MINOO OVALEL Attn: Accounting,[address] [facility], [place], [address], [facility] 06/06/2024 08:37:36 07/11/2024 text/html Pt presents for WWE. , vaginal births. 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 LMP 05/09/24. Denies hematuria, dysuria, odor, irritation, urinary frequency/urgency, or discharge. H/o gonorrhea 2013, treated. Pt is not sexually active. No FH of breast/cervical/ovaria n cancer.H/o skipping periods since 2018. LMP 05/09/24, skipped May and has not started cycle yet this month.C/o milky and bloody discharge from bilateral nipples x1 yr. Occurs a couple times per month. States that blood is dried in her bras, size of a nickel. Denies pain or tenderness. Pt stopped breast feeding 4 yrs ago. MINOO OVALLE Attn: Accounting,[address] [facility], [place], [address], [facility] 07/11/2024 17:01:52 08/28/2024 text/html Pt presents to [employer]ML[employer] and STD paperwork for bilateral hand pain. 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 States that her boss told her to complete paperwork if she needs to miss work for hand pain. Pt reports that she wants to work 40 hrs/wk, but would like to have 2 days per month covered if she is unable to work due to pain. Pt has upcoming appt with Hand Specialist next month. MINOO OVALLE Attn: Accounting,[address] [facility], [place], [address], [facility] 08/28/2024 10:07:30 OBGyn Episode No OBEpisode recorded.
--- OUTSIDE RECORDS SUMMARY | 2024-10-06 22:18 | XMS_ITS | Encounter Summary ---
Author Organization [facility] Address [address] [place] [address] Care Team Providers Care Palliative Medicine Physician Name Role Phone Unavailable Primary Care Provider Unavailabl e Encounter Details Date Type Department Care Team (Late st Contact Info) Description 01/25/2012 6:57 PM CDT - 01/25/2012 10:12 PM CDT Hospital Encounter [facility] Nerissa Dunaway MD [address] [place] [id number] Low back pain Social History Tobacco Use Types Packs/Day Years Used Date Smoking Tobacco: Never Assessed Comments Unknown Sex and Gender Information Value Date Recorded Sex Assigned at Not on file Legal Sex Female 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
== END 2024-10-03 14:42 | disposition home or self-care (01) ==
LOC: ANHIMG 14:43
PROVIDERS: PCP Physician Assistant; Visit Provider Physician Assistant
DX: N64.52 Nipple discharge (principal); R92.8 Other abnormal and inconclusive findings on diagnostic imaging of breast
CPT/HCPCS: 77049; A9577; C8908

== ENCOUNTER 2024-11-22 09:26 | Outpatient (CLI) | payer OTHER, SELFPAY ==
--- NOTE | ~2024-11-22 | MR_ITS ---
EXAMINATION: MR pituitary wo/w con DATE: 11/22/2024 10:42 INDICATION: Irregular periods. TECHNIQUE: Magnetic resonance imaging (MRI) of the brain and brainstem was performed without and with 20 mL MultiHance intravenous contrast. COMPARISON: None. FINDINGS: The pituitary is normal in size with height of 5 mm. There is no intracranial hemorrhage, a cute infarction, or abnormal intracranial mass lesion. The ventricles are normal in size. There is a mucous retention cyst in left maxillary sinus. The orbits are normal. The mastoid air cells are neftali l. IMPRESSION: 1. Normal brain. Normal pituitary. Reviewed, dictated and finalized at location A. UP AND DELIVERY DRIVER
--- OUTSIDE RECORDS SUMMARY | 2024-11-22 09:29 | XMS_ITS | Referral Summary ---
Author Organization [facility] Address [address] [place] [phone] Care Team Providers Care Manager Beauty Name Role Phone Ermelinda Mayberry Primary Care Provider Encounters Date Type Department Care Team Description 09/26/2024 7:50 AM POWDER MONKEY Office Visit [facility] Orthopaedic Surgery [address] [place] [address] Tavares Garner MD Carpal tunnel [...] on file Legal Sex Female 10:18 AM POWDER MONKEY Gender Identity Female 09/26/2024 5:25 AM POWDER MONKEY Sexual Orientation Straight 09/26/2024 5: 25 AM POWDER MONKEY Plan of Treatment Not on file Insurance [id number] [id number] Care Teams Manager Beauty Relationship Specialty Start Date End Date Ermelinda Mayberry PA [address] [place] [address] PCP - General Physician Water Plant Operator 06/12/24
--- OUTSIDE RECORDS SUMMARY | 2024-11-22 09:29 | XMS_ITS | Clinical Summary ---
Author Organization [facility] Address [address] [place] [phone] Care Team Providers Care Food Server Name Role Phone Ermelinda Mayberry Primary Care Provider [phone] Allergies Active Allergy Reactions Criticality Noted Date [...] Department Care Team Description 09/26/2024 7:50 AM JERKER Office Visit [facility] Orthopaedic Surgery [id number] [place] [address] [address] [place] [address] Tavares Garner MD Carpal tunnel [...] on file Legal Sex Female 10:18 AM JERKER Gender Identity Female 09/26/2024 5:25 AM JERKER Sexual Orientation Straight 09/26/2024 5: 25 AM JERKER Obstetrics History Plan of Treatment Health Maintenance [...] topic Insurance [employer] H[employer]/POS Care Teams Food Server Relationship Specialty Start Date End Date Ermelinda Mayberry PA [address] [place] [id number] PCP - General Physician Front Desk Coordinator 06/12/24
--- OUTSIDE RECORDS SUMMARY | 2024-11-22 09:29 | XMS_ITS | Data Portability ---
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 Plan of Treatment Reminders Order Date Submit Date Provider Last Modified By Organization Details Last Modified Time Details Appointments None recorded. Lab hormone panel, serum or plasma 2023 [facility] (Lab), [address] [place], [address], 4 20:43:24 beta-HCG, quantitativ e, serum or plasma 2023 [facility] (Lab), [address], [place], [address], 4 20:43:23 prolactin, serum 2023 [facility] (Lab), [address] [place], [address], 4 20:43:23 TSH, serum or plasma 2023 [facility] (Lab), [address] , [place], [address], 4 20:43:23 HbA1c (hemoglobin A1c), blood 2023 [facility] (Lab), [address] [place], [address], 4 20:43:24 17-hydroxyp rogesterone , QN, serum 2023 [facility] (Lab), [address], [place], [address], 4 20:43:24 CBC w/ auto diff 2023 [facility] (Lab), [address], [place], [address], 4 20:43:22 CMP, serum or plasma 2023 [facility] (Lab), [address], [place], [address], 4 20:43:23 test, urine 2023 024 [email or web address] [place], [address], [address], [place], [address], 4 17:41:49 Referral None recorded. Procedures None recorded. Surgeries None recorded. Imaging US, pelvis, complete 2023 024 Not available 4 09:05:34 US, pelvis 2023 024 [email or web address] [place], [address], [address], [place], [address], 4 19:53:43 US, transvagina l 2023 024 [email or web address] [place], [address], [address], [place], [address], 4 19:53:43 Medication Orders None recorded. Patient TargetsNo targets recorded. Patient InstructionsNo instructions recorded. Reason for Referral None Reported. Results Created Date Observation Date Name Description Value Unit Range Abnormal Flag Note LastModifiedBy Organization Detail LastModifiedTime 09/05/20 24 09/05/2024 CBC W/DIF F WBC 6.2 10'3/ uL 3.5-10 .5 Not Available [facility] (Lab) [address] , [place], [address], 09/14/2024 20:43:22 09/05/20 24 09/05/2024 CBC W/DIF F RBC 4.67 10'6/ uL (based on docume nted legal sex) 3.80-5 .20 Not Available [facility] (Lab) [address], [place], [address], 09/14/2024 20:43:22 09/05/20 24 09/05/2024 CBC W/DIF F HGB 14.1 g/dL (based on docume nted legal sex) 11.6-1 5.4 Not Available [facility] (Lab) [address], [place], [address], 09/14/2024 20:43:22 09/05/20 24 09/05/2024 CBC W/DIF F HCT 42.9 % (based on docume nted legal sex) 34.0-4 5.0 Not Available [facility] (Lab) [address], [place], [address], 09/14/2024 20:43:22 09/05/20 24 09/05/2024 CBC W/DIF F MCV 91.9 fL 80.0-9 9.0 Not Available [facility] (Lab) [address], [place], [address], 09/14/2024 20:43:22 09/05/20 24 09/05/2024 CBC W/DIF F MCH 30.2 pg 27.0-3 4.0 Not Available [facility] (Lab) [address], [place], [address], 09/14/2024 20:43:22 09/05/20 24 09/05/2024 CBC W/DIF F MCHC 32.9 g/dL 32.0-3 5.5 Not Available [facility] (Lab) [address], [place], [address], 09/14/2024 20:43:22 09/05/20 24 09/05/2024 CBC W/DIF F RDW 13.3 % 11.0-1 5.0 Not Available [facility] (Lab) [address], [place], [address], 09/14/2024 20:43:22 09/05/20 24 09/05/2024 CBC W/DIF F plt 299 10'3/ uL 150-40 0 Not Available [facility] (Lab) [address], [place], [address], 09/14/2024 20:43:22 09/05/20 24 09/05/2024 CBC W/DIF F MPV 9.2 fL 8.8-12 .1 Not Available [facility] (Lab) [address], [place], [address], 09/14/2024 20:43:22 09/05/20 24 09/05/2024 CBC W/DIF F NRBC's 0.0 % 0.0 Not Available [facility] (Lab) [address], [place], [address], 09/14/2024 20:43:22 09/05/20 24 09/05/2024 CBC W/DIF F absolute NRBCs 0.0 10'3/ uL no refere nce range establ ished Not Available [facility] (Lab) [address], [place], [address], 09/14/2024 20:43:22 09/05/20 24 09/05/2024 CBC W/DIF F neutrophils 54.5 % 34.0-7 3.0 Not Available [facility] (Lab) [address], [place], [address], 09/14/2024 20:43:22 09/05/20 24 09/05/2024 CBC W/DIF F lymphocytes 32.2 % 15.0-5 0.0 Not Available [facility] (Lab) [address], [place], [address], 09/14/2024 20:43:22 09/05/20 24 09/05/2024 CBC W/DIF F monocytes 6.8 % 1.0-15 .0 Not Available [facility] (Lab) [address], [place], [address], 09/14/2024 20:43:22 09/05/20 24 09/05/2024 CBC W/DIF F eosinophils 5.5 % 0.0-8. 0 Not Available [facility] (Lab) [address], [place], [address], 09/14/2024 20:43:22 09/05/20 24 09/05/2024 CBC W/DIF F basophils 0.7 % 0.0-2. 0 Not Available [facility] (Lab) [address], [place], [address], 09/14/2024 20:43:22 09/05/20 24 09/05/2024 CBC W/DIF F immature granulocytes 0.3 % no define d refere nce range Not Available [facility] (Lab) [address], [place], [address], 09/14/2024 20:43:22 09/05/20 24 09/05/2024 CBC W/DIF F absolute neutrophils 3.4 10'3/ uL 1.5-8. 0 Not Available [facility] (Lab) [address], [place], [address], 09/14/2024 20:43:22 09/05/20 24 09/05/2024 CBC W/DIF F absolute lymphocytes 2.0 10'3/ uL 1.0-4. 0 Not Available [facility] (Lab) [address], [place], [address], 09/14/2024 20:43:22 09/05/20 24 09/05/2024 CBC W/DIF F absolute monocytes 0.4 10'3/ uL 0.2-1. 0 Not Available [facility] (Lab) [address], [place], [address], 09/14/2024 20:43:22 09/05/20 24 09/05/2024 CBC W/DIF F absolute eosinophils 0.3 10'3/ uL 0.0-0. 6 Not Available [facility] (Lab) [address], [place], [address], 09/14/2024 20:43:22 09/05/20 24 09/05/2024 CBC W/DIF F absolute basophils 0.0 10'3/ uL 0.0-0. 3 Not Available [facility] (Lab) [address], [place], [address], 09/14/2024 20:43:22 09/05/20 24 09/05/2024 CBC W/DIF [...] resul ts are expec ruby. Not Available [facility] (Lab) [address], [place], [address], 09/14/2024 20:43:22 09/05/20 24 09/05/2024 CMP(C OMPRE HENSI VE METAB OLIC PANEL ) sodium 142 mmol/ L 133-14 6 Not Available [facility] (Lab) [address], [place], [address], 09/14/2024 20:43:23 09/05/20 24 09/05/2024 CMP(C OMPRE HENSI VE METAB OLIC PANEL ) potassium 4.1 mmol/ L 3.5-5. 1 Not Available [facility] (Lab) [address], [place], [address], 09/14/2024 20:43:23 09/05/20 24 09/05/2024 CMP(C OMPRE HENSI VE METAB OLIC PANEL ) chloride 102 mmol/ L 98-107 Not Available [facility] (Lab) [address], [place], [address], 09/14/2024 20:43:23 09/05/20 24 09/05/2024 CMP(C OMPRE HENSI VE METAB OLIC PANEL ) carbon dioxide 32 mmol/ L 21-31 high Not Available [facility] (Lab) [address], [place], [address], 09/14/2024 20:43:23 09/05/20 24 09/05/2024 CMP(C OMPRE HENSI VE METAB OLIC PANEL ) anion gap 8 mmol/ L 4-13 Not Available [facility] (Lab) [address], [place], [address], 09/14/2024 20:43:23 09/05/20 24 09/05/2024 CMP(C OMPRE HENSI VE METAB OLIC PANEL ) blood urea nitrogen 12 mg/dL 7-25 Not Available [facility] (Lab) [address] [place], [address], 09/14/2024 20:43:23 09/05/20 24 09/05/2024 CMP(C OMPRE HENSI VE METAB OLIC PANEL ) creatinine 0.86 mg/dL 0.60-1 .30 Not Available [facility] (Lab) [address], [place], [address], 09/14/2024 20:43:23 09/05/20 24 09/05/2024 CMP(C OMPRE HENSI VE METAB OLIC PANEL ) egfrcr (CKD-epi 2020) 88 mL/mi n/1.7 3_m2 >=60 Not Available [facility] (Lab) [address], [place], [address], 09/14/2024 20:43:23 09/05/20 24 09/05/2024 CMP(C OMPRE HENSI VE METAB OLIC PANEL ) calcium 9.3 mg/dL 8.3-10 .5 Not Available [facility] (Lab) [address], [place], [address], 09/14/2024 20:43:23 09/05/20 24 09/05/2024 CMP(C OMPRE HENSI VE METAB OLIC PANEL ) glucose 88 mg/dL 70-100 Not Available [facility] (Lab) [address], [place], [address], 09/14/2024 20:43:23 09/05/20 24 09/05/2024 CMP(C OMPRE HENSI VE METAB OLIC PANEL ) protein, total 6.8 g/dL 6.4-8. 3 Not Available [facility] (Lab) [address], [place], [address], 09/14/2024 20:43:23 09/05/20 24 09/05/2024 CMP(C OMPRE HENSI VE METAB OLIC PANEL ) albumin 4.3 g/dL 3.5-5. 0 Not Available [facility] (Lab) [address], [place], [address], 09/14/2024 20:43:23 09/05/20 24 09/05/2024 CMP(C OMPRE HENSI VE METAB OLIC PANEL ) ALT 18 units /L 9-43 Not Available [facility] (Lab) [address], [place], [address], 09/14/2024 20:43:23 09/05/20 24 09/05/2024 CMP(C OMPRE HENSI VE METAB OLIC PANEL ) alkaline phosphatase 63 units /L 34-104 Not Available [facility] (Lab) [address], [place], [address], 09/14/2024 20:43:23 09/05/20 24 09/05/2024 CMP(C OMPRE HENSI VE METAB OLIC PANEL ) AST 19 units /L 13-39 Not Available [facility] (Lab) [address], [place], [address], 09/14/2024 20:43:23 09/05/20 24 09/05/2024 CMP(C OMPRE HENSI VE METAB OLIC PANEL ) bilirubin, total 0.6 mg/dL 0.2-1. 2 Not Available [facility] (Lab) [address], [place], [address], 09/14/2024 20:43:23 09/05/20 24 09/05/2024 TSH, REFLE X FREE T4 TSH 1.52 uIU/m L 0.30-5 .33 Not Available [facility] (Lab) [address] [place], [address], 09/14/2024 20:43:23 09/05/20 24 09/05/2024 BHCG, QUANT [...] Weeks 8,099 - 58,17 6 Not Available [facility] (Lab) [address], [place], [address], 09/14/2024 20:43:23 09/05/20 24 09/05/2024 PROLA CTIN prolactin, total 46.50 NG/mL 4.79-2 3.30 high This assay was perfo rmed using [employer] ratio n reage nts and test kits. Value s obtai soha with other assay metho ds or kits canno t be used inter freeman eably . Not Available [facility] (Lab) [address], [place], [address], 09/14/2024 20:43:23 09/05/20 24 09/05/2024 FSH, LH, [...] 154-3 243 pg/mL 2nd Trime ster 1561- 99621 pg/mL 3rd Trime ster 8525- >3000 0 pg/mL Not Available [facility] (Lab) [address], [place], [address], 09/14/2024 20:43:24 09/05/20 24 09/05/2024 FSH, LH, ESTRA DIOL FSH 7.3 mIU/m L This assay was perfo rmed using [employer] reage nts and test kits. Value s obtai soha with other assay metho ds or kits canno t be used inter [facility] . Femal es Folli cular : 3.5-1 2.5 mIU/m L Ovula tion: 4.7-2 1.5 mIU/m L Lutea l: 1.7-7 .7 mIU/m L Postm enopa use: 25.8- 134.8 mIU/m L Not Available [facility] (Lab) [address], [place], [address], 09/14/2024 20:43:24 09/05/20 24 09/05/2024 FSH, LH, ESTRA DIOL LH 11.2 mIU/m L This assay was perfo rmed using [employer] reage nts and test kits. Value s obtai soha with other assay metho ds or kits canno t be used inter [facility] . Femal es Mid-F ollic ular: 2.4-1 2.6 mIU/m L Mid-C ycle: 14.0- 95.6 mIU/m L Mid-L uteal : 1.0-1 1.4 mIU/m L Postm enopa use: 7.7-5 8.5 mIU/m L Not Available [facility] (Lab) [address], [place], [address], 09/14/2024 20:43:24 09/05/20 24 09/05/2024 HEMOG LOBIN A1C hemoglobin A1C 5.4 % 0-5.6 The Ameri can Diabe jacquelyn Assoc iatio n recom mends that a prima ry goal of thera py katharinaul d be a HBA1C of < 7% and that physi cians shoul d reeva luate the treat ment regim en in patie nts with HBA1C value s consi stent ly > 8%. <5.7% Michelle l 5.7 - 6.4% Incre ased risk for diabe jacquelyn >=6.5 % Diagn ostic of diabe jacquelyn <7.0% Goal of thera py >8.0% Actio n sugge sted Not Available [facility] (Lab) [address], [place], [address], 09/14/2024 20:43:24 09/05/20 24 09/05/2024 17-OH PROGE [...] cteri stics have been deter mined by [employer]. It has not been clear ed or appro alix by FDA. This assay has been valid ated pursu ant to the CLIA regul ation s and is used for clini hailee purpo ses. Perfo rming Organ izati on Infor matio n: Site ID: [id number] Name: [facility] Eric [place] daniel , Addre ss: [id number] [facility] [place] [address] Direc tor: Eloisa noyola MD,Ph D,INGRIS Not Available [facility] (Lab) [address], [place], [address], 09/14/2024 20:43:24 10/03/20 24 10/03/2024 PROLA CTIN prolactin, total 45.50 NG/mL 4.79-2 3.30 high This assay was perfo rmed using [employer] reage nts and test kits. Value s obtai soha with other assay metho ds or kits canno t be used inter freeman eably . 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 GROSS DESCR IPTIO N: A. Cervi x. The speci men is label ed with the patie nt's name, demog raphi cs and Cx Bx . Recei alix in forma prasanna is a 0.3 cm piece of white -reeves tissu e mixed with mucoi d mater ial. The entir e speci men is submi tted in one casse tte. Gross ed by Darren Jain Not Available [facility] (Lab) [address], [place], [address], 10/09/2024 15:22:44 10/08/20 24 10/08/2024 pregn robin test, urine HCG negati ve Not Available [place] [address], [place], [address], 10/08/2024 17:41:40 10/03/20 24 10/03/2024 US, pelvi s No observ ation record ed. [facility] [address], [place], [address], 10/03/2024 17:24:52 10/03/20 24 10/03/2024 US, trans vagin al No observ ation record ed. [facility] [address], [place], [address], 10/03/2024 17:25:03 10/03/20 24 10/03/2024 US, pelvi s No observ ation record ed. [email or web address], [place], [address], 10/03/2024 20:07:47 Result Notes None recorded. 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;Record ed Elsewhere : No Locati on: [facility] So urce: EHR Chron ic: N Practic e ID: 0001 Bill able Time: 03:30:00 PM Not Available [facility] 0 18:03:13 Venereal disease screening Active 2013 Screening examinati on for venereal disease;R ecorded Elsewhere : No Locati on: [facility] So urce: EHR Chron ic: N Practic e ID: 0001 Bill able Time: 04:30:00 PM Not Available [facility] 0 18:03:13 Specializ ed medical examinati on Active 2013 Other specified chlamydia l diseases; Recorded Elsewhere : No Locati on: [facility] So urce: EHR Chron ic: N Practic e ID: 0001 Bill able Time: 04:30:00 PM Not Available [facility] 0 18:03:[address] Concept Active 2015 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) w/o abn findings; Recorded Elsewhere : No Locati on: [facility] So urce: EHR Chron ic: N Practic e ID: 0001 Bill able Time: 06:00:00 PM Not Available [facility] 0 18:03:14 Routine care Active 2012 Supervisi on of other normal ;Recorded Elsewhere : No Locati on: [facility] So urce: EHR Chron ic: N Practic e ID: 0001 Bill able Time: 01:30:00 PM Not Available [facility] 0 18:03:14 Pain in female genitalia Active 2015 Dysmenorr hea;Recor ded Elsewhere : No Locati on: [facility] So urce: EHR Chron ic: N Practic e ID: 0001 Bill able Time: 06:00:00 PM Not Available [facility] 0 18:03:14 Abnormal cervical Papanicol aou smear [id number] Active 2014 Other abnormal papanicol aou smear of cervix and cervical HPV;Recor ded Elsewhere : No Locati on: [facility] So urce: EHR Chron ic: N Practic e ID: 0001 Bill able Time: 08:30:00 AM Not Available [facility] 0 18:03:14 Screening for malignant neoplasm of cervix Active 2012 Screening for malignant neoplasms of the cervix;Re corded Elsewhere : No Locati on: [facility] So urce: EHR Chron ic: N Practic e ID: 0001 Bill able Time: 10:00:00 AM Not Available [facility] 0 18:03:14 Family planning surveilla nce Active 2013 Contracep tive surveilla nce, unspecifi ed;Record ed Elsewhere : No Locati on: [facility] So urce: EHR Chron ic: N Practic e ID: 0001 Bill able Time: 03:45:00 PM Not Available [facility] 0 18:03:14 Benign paroxysma l positiona l vertigo 181582701 Active 2013 Benign paroxysma l positiona l vertigo;R ecorded Elsewhere : No Locati on: [facility] So urce: EHR Chron ic: N Practic e ID: 0001 Bill able Time: 02:30:00 PM Not Available [facility] 0 18:03:14 Atypical squamous cells of undetermi soha significa nce on cervical Papanicol aou smear 558016068 Active 2014 Atyp squam cell of undet signfc cyto smr crvx (ASC-US); Recorded Elsewhere : No Locati on: [facility] So urce: EHR Chron ic: N Practic e ID: 0001 Bill able Time: 04:00:00 PM Not Available [facility] 0 18:03:14 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 [id number] 551080 Active 2015 Cervical low risk HPV DNA test positive; Recorded Elsewhere : No Locati on: [facility] So urce: EHR Chron ic: N Practic e ID: 0001 Bill able Time: 08:30:00 AM Not Available [facility] 0 18:03:14 At increased risk of sexually transmitt ed infection 521024670 Active 2013 Contact with or exposure to venereal diseases; Recorded Elsewhere : No Locati on: [facility] So urce: EHR Chron ic: N Practic e ID: 0001 Bill able Time: 04:30:00 PM Not Available [facility] 0 18:03:14 test positive 479157119 Active 2012 examinati on or test, positive result;Re corded Elsewhere : No Locati on: [facility] So urce: EHR Chron ic: N Practic e ID: 0001 Bill able Time: 01:30:00 PM Not Available [facility] 0 18:03:14 test negative 661600174 Active 2014 Encounter for test, result negative; Recorded Elsewhere : No Locati on: [facility] So urce: EHR Chron ic: N Practic e ID: 0001 Bill able Time: 04:00:00 PM Not Available [facility] 0 18:03:14 Obstetric non-purul ent mastitis - delivered with complicat ion 819409847 Active 2012 Postpartu m nonpurule nt mastitis; Recorded Elsewhere : No Locati on: [facility] So urce: EHR Chron ic: N Practic e ID: 0001 Bill able Time: 02:15:00 PM Not Available [facility] 0 18:03:15 Postpartu m care Active 2012 Routine postpartu m follow-up ;Recorded Elsewhere : No Locati on: [facility] So urce: EHR Chron ic: N Practic e ID: 0001 Bill able Time: 10:45:00 AM Not Available [facility] 0 18:03:15 Body mass index 30+ - obesity 771528765 Active 2015 Body mass index (BMI) 34.0-34.9 , adult;Rec orded Elsewhere : No Locati on: [facility] So urce: EHR Chron ic: N Practic e ID: 0001 Bill able Time: 06:00:00 PM Not Available [facility] 0 18:03:15 Obesity 335568612 Active 2014 Obesity;R ecorded Elsewhere : No Locati on: [facility] So urce: EHR Chron ic: N Practic e ID: 0001 Bill able Time: 08:30:00 AM Not Available [facility] 0 18:03:15 Threatene d premature labor - not delivered 803487399 Active 2012 Threatene d premature labor, antepartu m;Practic e ID: 0001 Not Available [facility] 0 18:03:16 Delivery normal 02519842 Active 2012 Normal delivery; Practice ID: 0001 Not Available [facility] 0 18:03:16 Single live 724357572 Active 2012 Mother with single liveborn; Practice ID: 0001 Not Available [facility] 18:03:17 Problem Notes None recorded. Procedures Surgical History Date Name Laterality Status Provider Name and Address Organization Details Recorded Time 10/08/20 24 Colposcopy completed Beny Charles MD [address], [place], [address], [facility] 10/08/2024 18:11:47 10/08/20 24 Colposcopy completed [facility] 10/10/2024 10:59:07 10/08/20 24 Colposcopy completed [facility] 10/10/2024 10:59:49 08/01/20 24 Date of Last Mammogram completed [facility] 09/05/2024 10:55:14 07/12/20 24 Date of Last Pap Smear completed [facility] 09/05/2024 10:55:14 Colposcopy completed [facility] 09/05/2024 11:01:09 Imaging Results Imaging Date Name Status LastModified by Organization Details LastModified Time 10/03/2024 US, pelvis completed doreen Velásquez [address], [place], [address], 10/03/2024 17:24:52 10/03/2024 US, transvaginal completed doreen schroeder [address], [place], [address], 10/03/2024 17:25:03 10/03/2024 US, pelvis completed [email or web address], [place], [address], 10/03/2024 20:07:47 Procedure Notes None recorded. Medical [...] Elsewher e: No Locat ion: [facility] odify By: moses mariscal DateTime : [...] Prescrib ed Elsewher e: No Locat [facility]: [facility] odify By: mario sweet DateTime : [...] mcg (50,000 unit) capsule take 1 capsule (61348MW ITS) by oral route every week 05/26 completed Prescrib ed Elsewher e: No Locat ion: [facility] [address] odify By: moses mariscal DateTime : 12/28/19 13 03:03:21 PM Not Available Not Available Not Available losartan 50 mg-hydroc hlorothia zide 12.5 mg tablet TAKE ONE TABLET DAILY 09/05 completed Not Available Not Available Not Available Zithromax 500 mg tablet take 2 tablet by oral route once 07/08 completed Prescrib ed Elsewher e: No Locat ion: [facility] [address] odify By: keaton sweet DateTime : 06/04/20 14 11:37:47 AM Not Available Not Available Not Available losartan 100 mg-hydroc hlorothia zide 12.5 mg tablet TAKE ONE TABLET DAILY 09/05 completed Not Available Not Available Not Available Lo Loestrin Fe 1 mg-10 mcg (24)/10 mcg (2) tablet take 1 tablet by oral route every day 06/02 completed Prescrib ed Elsewher e: No Locat ion: [facility] [address] odify By: keaton sweet DateTime : 12/11/19 14 03:45:00 PM Not Available Not Available Not Available Vitals Date Recorded Body weight Body mass index (BMI) Body height Systolic blood pressure Diastolic blood pressure Provider Name and Address Organization Details Last Updated DateTime 09/05/2024 569121.6 5 g 41.3 kg/m2 167.64 cm 145 mm[Hg] 86 mm[Hg] Cortney Berman [facility] 4 10:56:16 Date Recorded Body height Body mass index (BMI) Body weight Systolic blood pressure Diastolic blood pressure Provider Name and Address Organization Details Last Updated DateTime 10/08/2024 167.64 cm 40.8 kg/m2 233758.8 7 g 138 mm[Hg] 91 mm[Hg] Nehal Mcgrawer [facility] 4 17:39:24 Date Recorded Body height Body mass index (BMI) Body weight Systolic blood pressure Diastolic blood pressure Provider Name and Address Organization Details Last Updated DateTime 10/10/2024 167.64 cm 41.2 kg/m2 591050.0 5 g 136 mm[Hg] 82 mm[Hg] Nehal Johnathan [facility] 4 10:58:43 Social History Question Answer Notes LastModified by Organizat ion Details LastModified Time Tobacco Smoking Status Current Every Day Smoker Cortney Antonella castro, [facility] 09/05/2024 11:00:55 Do You Have An [...] Or The Highest Degree You Have Received? [id number] Information not available 09/05/2024 What Is Your [...] Anxious, Or Unable To Sleep At Night)? [id number] Information not available 09/05/2024 Do You Use [...] 09/05/2024 Mental Status None recorded. Family History Relationship Description Onset Age of this Age Resolved Age Notes LastModified by Organization Details LastModified Time Father Hypertensive disorder [email or web address] Not available 2023 17:40:32 Maternal Grandmother Diabetes mellitus [email or web address] Not available 2023 17:40:48 Maternal Grandfather Diabetes mellitus [email or web address] Not available 2023 17:40:48 Paternal Grandfather Diabetes mellitus [email or web address] Not available 2023 17:41:21 Notes:Father: Hypertension M aternal grandfather: Diabetes mellitus Maternal grandmother: Diabetes mellitus Paternal grandfather: Diabetes mellitus Paternal grandmother: Diabetes mellitus Medical History Condition Response History of abnormal pap Y Hypertension Y Gynecological History Statement/Question Response Abnormal Pap Y Date of Last Mammogram 08/01/2024 Date of LMP 05/08/2024 N Was last menstrual period normal Y STIs/STDs Y HPV Vaccine N Colposcopy 10/08/2024 Duration of Flow (days) 4 Current Control [...] Diagnosis/Indication Diagnosis SNOMED-CT Code Diagnosis ICD10 Code Diagnosis Note [id number] VALERIY BUITRAGO NP [place] [address] [address] 09/05/2024 10:21:47 09/05/2024 12:27:43 Secondary amenorrhea 738219269 N91.1 Recommende d lab work to evaluate for causes of amenorrhea . Discussed potential causes, including hormonal imbalance r/t PCOS or perimenopa use.Ordere d ultrasound to assess uterine lining and r/o endometria l hyperplasi a.Patient verbalized understand ing of POC. History of abnormal cervical Papanicolaou smear [id number] Z87.42 Recommende d colposcopy due to history of abnormal pap smears and recent result of ASCUS/HPV positive.P atient to schedule colposcopy . Bilateral discharge from nipples [id number] N64.52 Will check prolactin level.No abnormalit ies noted or nipple discharge manually expressed on exam.Patie nt to schedule MRI of breasts DAVID (PCP ordered). [place] [facility].Con tinue to monitor breasts and report any abnormalit ies or concerns. [id number] Geetha Gunter [place] [address] [address] 10/03/2024 10:27:20 10/03/2024 11:34:34 Amenorrhea 47274465 N91.2 [id number] Beny Charles MD [place] [address] [address] 10/08/2024 17:20:29 10/08/2024 18:17:33 Screening procedure 99975664 Z13.9 Abnormal c ervical Papanicolaou smear 497143692 R87.619 colposcopy was performed. It was satisfacto ry. Two biopsies were obtained from the anterior transition zone. [id number] Beny Charles MD [place] [address] [address] 10/10/2024 10:24:42 10/10/2024 14:45:09 Hyperprolactinemia 936393639 E22.1 this patient is a 39-year-ol d female presents for ultrasound follow-up. Ultrasound is normal. Patient has not had a period for over 7 months. She also has bilateral nipple discharge. She has an elevated prolactin. We are concerned about hyperprola ctinemia and its treatment. We talked about treatment options. Talked about evaluation . We are going to get an MRI of her pituitary and send her to Endocrinol erick. I spent over 20 minutes on patient's care Health Concerns Section Related Observation LastModified by Organization Detai ls LastModified Time None Recorded Concern Status LastModified by Organization Details LastModified Time None Recorded Advance Directives Directive N: Payers Encounter Date Sequence Insurance Name Policy Number Policy Chung Covered Member ID Chung Member ID Guarantor Name 09/05/2024 1 [employer] [id number] Rachelle Dia [id number] Rachelle Dia 10/03/2024 1 [employer] [id number] Rachelle Dia [id number] Rachelle Dia 10/08/2024 1 [employer] [id number] Rachelle Dia [id number] Rachelle Dia 10/10/2024 1 [employer] [id number] Rachelle Dia [id number] Rachelle Dia Notes Date Note Type Note Provider Name and Address Organization Details Recorded Time text/html New patient presents to establish care. Patient was referred to [facility] [employer] d/t recent abnormal pap smear - ASCUS, [...] breast pain, skin changes, or lumps. VALERIY BUITRAGO NP [address], [place], [address], [facility] 09/05/2024 12:23:54 4 text/html This patient is a 39-year-old female presents for colposcopy. The procedure was explained to the patient in detail. She understands the procedure. She understands the risks, benefits, and alternatives. She has completed the informed consent process and is ready to proceed. eBny Charles MD [address], [place], [address], [facility] 10/08/2024 18:12:37 4 text/html this patient is a 39-year-old female presents for ultrasound follow-up. Ultrasound is normal. Patient has not had a period for over 7 months. She also has bilateral nipple discharge. She has an elevated prolactin. We are concerned about hyperprolactinemia and its treatment. We talked about treatment options. Talked about evaluation. We are going to get an MRI of her pituitary and send her to Endocrinology. I spent over 20 minutes on patient's care Beny Charles MD [address], [place], [address], [facility] 10/10/2024 14:34:00 OBGyn Episode Ob Episode Information Episode Created Date Number of Fetuses Patient Bloodtype Patient rh Status Prepregnancy Weight lbs Domestic Partner Domestic Partner Phone Father Name Batching Operator Status 09/05/20 24 1 CLOSED Fetus Data First Name Last Name Admitted to NICU Weight (g) Sex Living Outcome Pediatric Complications Fetus ID Race Codes Race Delivery Type F Full Term [id number] Wale Calculation Initial Wale Date Initial Exam Date Initial Exam Provider Initial Ultrasound Date Last Menstrual Period Date Ultra Sound Weeks Gestation 0 Eighteen To Twenty Week Wale Update Ultra Sound Date Fundal Height At Umbil Quickening Date Ultra Sound Latest Weeks Gestation Final Wale Confirmed By Final Wale Confirmed Date Final Wale Date Ultra Sound Latest Days Gestation 0 [...] Domestic Partner Domestic Partner Phone Father Name Batching Operator Status 09/05/20 24 1 CLOSED Fetus Data First Name Last Name Admitted to NICU Weight (g) Sex Living Outcome Pediatric Complications Fetus ID Race Codes Race Delivery Type F Full Term [id number] Wale Calculation Initial Wale Date Initial Exam Date Initial Exam Provider Initial Ultrasound Date Last Menstrual Period Date Ultra Sound Weeks Gestation 0 Eighteen To Twenty Week Wale Update Ultra Sound Date Fundal Height At Umbil Quickening Date Ultra Sound Latest Weeks Gestation Final Wale Confirmed By Final Wale Confirmed Date Final Wale Date Ultra Sound Latest Days Gestation 0 [...] Domestic Partner Domestic Partner Phone Father Name Batching Operator Status 09/05/20 24 1 CLOSED Fetus Data First Name Last Name Admitted to NICU Weight (g) Sex Living Outcome Pediatric Complications Fetus ID Race Codes Race Delivery Type M Full Term [id number] Wale Calculation Initial Wale Date Initial Exam Date Initial Exam Provider Initial Ultrasound Date Last Menstrual Period Date Ultra Sound Weeks Gestation 0 Eighteen To Twenty Week Wale Update Ultra Sound Date Fundal Height At Umbil Quickening Date Ultra Sound Latest Weeks Gestation Final Wale Confirmed By Final Wale Confirmed Date Final Wale Date Ultra Sound Latest Days Gestation 0 [...]
--- OUTSIDE RECORDS SUMMARY | 2024-11-22 09:29 | XMS_ITS | Data Portability ---
Author Organization [facility] NATADigna Address [address] [place] [address] Care Team Providers Care Information Technology Internship Name Role Phone NABIL DONALDSON Primary Care Provider [phone] Assessment No assessment recorded. Plan of Treatment Reminders Order Date Submit Date Provider Last Modified By Organization Details Last Modified Time Details Appointments None recorded. Lab erythrocyte sedimentati on rate by westergren method 2023 024 [facility], [address] [place] [address], [address], [place], [address], 4 11:14:39 rf (rheumatoid factor), serum 2023 024 [facility], [address] [place] [address], [address], [place], [address], 4 11:14:40 vitamin B12, serum 2023 024 [facility], [address] [place] [address], [address], [place], [address], 4 11:14:38 cytology report, thin prep, smear or scraping, cervical or vaginal 2023 024 [facility], [address] [place] [address], [address], [place], [address], 4 15:10:35 bacterial vaginosis score, JOHN+probe, vaginal fluid (OBS) 2023 [facility], [address] [facility], [address], [place], [address], 22:07:42 Referral None recorded. Procedures None recorded. Surgeries None recorded. Imaging electromyog caroline + nerve conduction study - Tingling and numbness of the fingertips of both hands 2023 [facility] (Cardiology & Emg), [address], [place], [address], 4 16:04:52 XR, chest, 2 view - Persistent cough with SOB 2023 [facility] (Radiology), [address] [place], [address], 4 15:25:45 XR, hand, 3 or more view 2023 024 [facility] (Radiology), [address] [place], [address], 4 12:29:02 MAMMO, diagnostic, digital, bilateral [email or web address] [facility] [address] [facility], [address], [place], [address], 4 07:55:12 US, breast, bilateral, complete 2023 024 [email or web address] [facility], [address], [place], [address], 4 07:55:12 Medication Orders meloxicam 7.5 mg tablet 2023 024 [facility], [address], [place], [id number], 4 12:08:49 losartan 100 mg-hydrochl orothiazide 12.5 mg tablet 2023 024 [facility], [address] [place] [address], [id number], 4 10:47:12 Tussin DM 10 mg-100 mg/5 mL oral liquid 2023 [facility], [address] [place] [address], [id number], 4 10:27:07 losartan 100 mg-hydrochl orothiazide 25 mg tablet 2023 [facility], [address] [place] [address], [id number], 12:33:44 amlodipine 2.5 mg tablet 2023 [facility], [address] [place] [address], [id number], 16:42:56 Patient TargetsNo targets recorded. Patient Instructions Encounter Date Encounter Id Patient Instructions Last Modified By Organization Details Last Modified Time 03/27/2024 [id number] neuropathic pain : care instructions oajao Not available 03/27/2024 11:54:44 Take Losartan/HCTZ as prescribed BP check in 24 hours Labs EMG/NCS Meloxicam PRN Follow up in 5-6 weeks (post EMG/NCS) oajao Not available 03/27/2024 11:58:13 05/16/2024 [id number] Casing Puller as referred (Scheduled) CXR Tussin DM Continue Losartan/HCTZ Start Amlodipine 2.5 mg Follow up in 4 weeks oajao Not available 05/16/2024 12:19:30 06/05/2024 [id number] A healthy lifestyle: care instructions kbarbero Not available 06/05/2024 10:22:20 Quitting Tobacco : Care Instructions kbarbero Not available 06/05/2024 10:32:59 08/28/2024 [id number] A healthy lifestyle: care instructions [email or web address] Not available 08/28/2024 10:06:21 Reason for Referral None Reported. Results Created Date Observation Date Name Description Value Unit Range Abnormal Flag Note LastModifiedBy Organization Detail LastModifiedTime 03/27/20 24 03/28/2024 VITAM IN B12 vitamin B12 708 pg/mL 232-12 45 Not Available [facility] ([facility]) [address] [facility], [place], [address], 03/28/2024 11:14:38 03/27/20 24 03/28/2024 SEDIM ENTAT ION RATE- WESTE RGREN sedimentatio n rate-westerg roberto 3 mm/HR 0-32 Not Available [facility] ([facility]) [address] [facility], [place], [address], 03/28/2024 11:14:39 03/27/20 24 03/28/2024 RHEUM ATOID FACTO R (RF) rheumatoid factor (rf) <10.0 IU/mL <14.0 Not Available [facility] ([facility]) [address] [facility], [place], [address], 03/28/2024 11:14:40 07/11/20 24 07/15/2024 NUSWA B VG+, HSV atopobium vaginae LOW - 0 score Not Available [facility] ([facility]) [address] [facility], [place], [address], 07/15/2024 22:07:42 07/11/20 24 07/15/2024 NUSWA B VG+, HSV bvab 2 LOW - 0 score Not Available [facility] ([facility]) [address] [facility], [place], [address], 07/15/2024 22:07:42 07/11/20 24 07/15/2024 NUSWA B [...] data shoul d be evalu ated to nirmlaa hu. Total score 3-6: Indic ates the prese nce of BV. Not Available [facility] ([facility]) [address] [facility], [place], [address], 07/15/2024 22:07:42 07/11/20 24 07/15/2024 NUSWA B VG+, HSV kelsy albicans, JOHN NEGATI VE negati ve Not Available [facility] ([facility]) [address] [facility], [place], [address], 07/15/2024 22:07:42 07/11/20 24 07/15/2024 NUSWA B VG+, HSV kelsy glabrata, JOHN NEGATI VE negati ve Not Available [facility] ([facility]) [address] [facility], [place], [address], 07/15/2024 22:07:42 07/11/20 24 07/15/2024 NUSWA B VG+, HSV trich vag by JOHN NEGATI VE negati ve Not Available [facility] ([facility]) [address] [facility], [place], [address], 07/15/2024 22:07:42 07/11/20 24 07/15/2024 NUSWA B VG+, HSV chlamydia trachomatis, JOHN NEGATI VE negati ve Not Available [facility] ([facility]) [address] [facility], [place], [address], 07/15/2024 22:07:42 07/11/20 24 07/15/2024 NUSWA B VG+, HSV neisseria gonorrhoeae, JOHN NEGATI VE negati ve Not Available [facility] ([facility]) [address] [place], [address], 07/15/2024 22:07:42 07/11/20 24 07/15/2024 NUSWA B VG+, HSV hsv 1 JOHN NEGATI VE negati ve Not Available [facility] ([facility]) [address] [facility], [place], [place], , 07/15/2024 22:07:42 07/11/20 24 07/15/2024 NUSWA B VG+, HSV hsv 2 JOHN NEGATI VE negati ve Not Available [facility] ([facility]) [address] [facility], [place], [address], 07/15/2024 22:07:42 07/11/20 24 07/14/2024 IGP, APTIM A HPV, RFX 16/18 ,45 HPV aptima POSITI VE negati ve abnormal This nucle ic acid ampli ficat ion test detec ts fourt een high- risk HPV types (16,1 8,31, 33,35 ,39,4 5,51, 52,56 ,58,5 9,66, 68) witho ut diffe renti ation . Not Available [facility] ([facility]) [address] [facility], [place], [address], 07/17/2024 15:10:35 07/11/20 24 07/17/2024 IGP, APTIM A HPV, RFX 16/18 ,45 diagnosis: COMMEN T abnormal EPITH ELIAL CELL ABNOR MALIT Y. ATYPI HAILEE SQUAM OUS CELLS OF UNDET ERMIN ED SIGNI FICAN CE (ASC- [place]). Not Available [facility] ([facility]) [address] [facility], [place], [address], 07/17/2024 15:10:35 07/11/20 24 07/17/2024 IGP, APTIM A HPV, RFX 16/18 ,45 recommendati on: COMMEN T abnormal Sugge st follo w up as clini diego appro priat e. Not Available [facility] ([facility]) [address] [place], [address], 07/17/2024 15:10:35 07/11/20 24 07/17/2024 IGP, APTIM A HPV, RFX 16/18 ,45 specimen adequacy: RIGO Badillo Satis facto ry for evalu ation . Endoc ervic al and/o r squam ous metap lasti c cells (endo cervi hailee compo nent) are prese nt. Not Available [facility] ([facility]) [address] [place], [address], 07/17/2024 15:10:35 07/11/20 24 07/17/2024 IGP, APTIM A HPV, RFX 16/18 ,45 clinician provided ICD10: RIGO Badillo Z12.4 Not Available [facility] ([facility]) [address] [place], [address], 07/17/2024 15:10:35 07/11/20 24 07/17/2024 IGP, APTIM A HPV, RFX 16/18 ,45 performed by: RIGO Gonzalez , [employer] echno logis t (ASCP ) Not Available [facility] ([facility]) [address] [place], [address], 07/17/2024 15:10:35 07/11/20 24 07/17/2024 IGP, APTIM A HPV, RFX 16/18 ,45 electronical ly signed by: RIGO george MD, Patho logis t Not Available [facility] ([facility]) [address] [place], [address], 07/17/2024 15:10:35 07/11/20 24 07/17/2024 IGP, APTIM A HPV, RFX 16/18 ,45 . . Not Available [facility] ([facility]) [address] [place], [address], 07/17/2024 15:10:35 07/11/20 24 07/17/2024 IGP, APTIM A HPV, RFX 16/18 ,45 pathologist provided ICD10: RIGO Badillo R87.6 10 Not Available [facility] ([facility]) [address] [place], [address], 07/17/2024 15:10:35 07/11/20 24 07/17/2024 IGP, APTIM [...] ts do occur . Not Available [facility] ([facility]) [address] [facility], [place], [address], 07/17/2024 15:10:35 07/11/20 24 07/17/2024 IGP, APTIM A HPV, RFX 16/18 ,45 test methodology: RIGO Badillo This liqui d based ThinP rep(R ) pap test was scree soha with the use of an image guide hamilton mccarty. Not Available [facility] ([facility]) [address] [facility], [place], [address], 07/17/2024 15:10:35 07/11/20 24 07/17/2024 IGP, APTIM A HPV, RFX 16/18 ,45 HPV genotype reflex COMMTOMASA T Crite ivonne not met, HPV Genot ype not perfo rmed. Not Available [facility] ([facility]) [address] [place], [address], 07/17/2024 15:10:35 04/23/20 24 04/23/2024 elect romyo gram + nerve condu ction study No observ ation record ed. [facility] [address], [place], [address], 05/16/2024 12:00:16 05/16/20 24 05/16/2024 XR, chest , 2 view No observ ation record ed. [facility] [address] [place], [address], 05/16/2024 16:01:04 06/06/20 24 06/06/2024 XR, hand, 3 or more view No observ ation record ed. [facility] [address] [facility], [place], [address], 06/06/2024 17:03:48 08/01/20 24 08/01/2024 MAMMO , diagn ostic , digit al, bilat eral No observ ation record ed. [facility] [address], [place], [address], 08/01/2024 14:31:08 08/02/20 24 08/01/2024 MAMMO , diagn ostic , digit al, bilat eral No observ ation record ed. [facility] [address], [place], [address], 08/05/2024 14:44:48 10/06/20 24 10/03/2024 MRI, breas t, bilat eral, w/wo contr ast No observ ation record ed. [facility] [address], [place], [address], 10/16/2024 08:05:51 Result Notes None recorded. Problems Name Problem SNOMED Code Status Onset Date Resolution Date Notes Provider Name and Address Organization Details Recorded Time Benign essential hypertension 4141835 Active 2023 MINOO OVALLE Attn: Brenda weber,[address] [facility], [place], [address], [place] [facility] 09:53:22 Vitamin D deficiency 78190650 Active 2023 Rodriguez Erickson MD Attn: Brenda weber,[address] [facility], [place], [address], [place] [facility] 11:22:08 Problem Notes None recorded. Procedures Surgical History None recorded. Imaging Results Imaging Date Name Status LastModified by Organization Details LastModified Time 04/23/2024 electromyogram + nerve conduction study completed [address], [place], [address], 05/16/2024 12:00:16 05/16/2024 XR, chest, 2 view completed [facility] [address] [place], [address], 05/16/2024 16:01:04 06/06/2024 XR, hand, 3 or more view completed [facility] [address] [place], [address], 06/06/2024 17:03:48 08/01/2024 MAMMO, diagnostic, digital, bilateral completed [facility] [address], [place], [address], 08/01/2024 14:31:08 08/01/2024 MAMMO, diagnostic, digital, bilateral completed [facility] [address], [place], [address], 08/05/2024 14:44:48 10/03/2024 MRI, breast, bilateral, w/wo contrast completed [address], [place], [address], 10/16/2024 08:05:51 Procedure Notes None recorded. Medical Equipment None [...] active Not Available Not Available Not Avai lable Tussin DM 10 mg-100 mg/5 mL oral [...] active Not Available Not Available Not Avai lable Vitals Date Recorded Body height Provider Name an d Address Organization Details Last Updated DateTime 03/27/2024 170.18 cm Sofia Garcia [place] 11:18:50 Date Recorded Body mass index (BMI) Body weight Provider Name and Address Organization Details Last Updated DateTime 03/27/2024 37.3 kg/m2 841233.98 g Sofia Garcia MA [facility] 03/27/2024 11:25:12 Date Recorded Oxygen saturation Oxygen saturation in Arterial blood by Pulse oximetry Provider Name and Address Organization Details Last Updated DateTime 03/27/2024 98 % 98 % Sofia WacoLATONIA marie [facility] 03/27/2024 11:28:25 Date Recorded Heart rate Provider Name an d Address Organization Details Last Updated DateTime 03/27/2024 83 /min Sofia JoseLATONIA marie [facility] 11:28:46 Date Recorded Body temperature Provider Name a nd Address Organization Details Last Updated DateTime 03/27/2024 97.9 [degF] Sofia WacoLATONIA marie [facility] 2023 11:29:18 Date Recorded Body height Provider Name an d Address Organization Details Last Updated DateTime 05/16/2024 170.18 cm Sofia Garcia MA [facility] 11:44:42 Date Recorded Body mass index (BMI) Body weight Provider Name and Address Organization Details Last Updated DateTime 05/16/2024 37.4 kg/m2 261974.58 g Sofia Garcia MA [facility] 05/16/2024 11:51:53 Date Recorded Heart rate Provider Name an d Address Organization Details Last Updated DateTime 05/16/2024 78 /min Sofia JoseLATONIA marie [facility] 11:52:53 Date Recorded Oxygen saturation Oxygen saturation in Arterial blood by Pulse oximetry Provider Name and Address Organization Details Last Updated DateTime 05/16/2024 98 % 98 % Sofia Waco, [facility] 05/16/2024 11:52:56 Date Recorded Respiratory rate Provider Name a nd Address Organization Details Last Updated DateTime 05/16/2024 16 /min Sofia JoseLATONIA marie [facility] 024 11:53:03 Date Recorded Body temperature Provider Name a nd Address Organization Details Last Updated DateTime 05/16/2024 98.3 [degF] Sofia JoseLATONIA [facility] 2023 11:53:43 Date Recorded Body height Provider Name an d Address Organization Details Last Updated DateTime 06/05/2024 170.18 cm Raissa Franco MA [facility] 10:10:18 Date Recorded Body mass index (BMI) Body weight Provider Name and Address Organization Details Last Updated DateTime 06/05/2024 37.2 kg/m2 797115.79 g Raissa Franco MA [facility] 06/05/2024 10:14:25 Date Recorded Oxygen saturation Oxygen saturation in Arterial blood by Pulse oximetry Provider Name and Address Organization Details Last Updated DateTime 06/05/2024 98 % 98 % Raissa Franco MA [facility] 06/05/2024 10:14:27 Date Recorded Heart rate Provider Name an d Address Organization Details Last Updated DateTime 06/05/2024 96 /min Raissa Franco MA [facility] 10:14:30 Date Recorded Respiratory rate Provider Name a nd Address Organization Details Last Updated DateTime 06/05/2024 17 /min Raissa Franco MA [facility] 10:14:33 Date Recorded Body height Provider Name an d Address Organization Details Last Updated DateTime 07/11/2024 170.18 cm Neela Lindsay MA [facility] 13:45:56 Date Recorded Body mass index (BMI) Body weight Provider Name and Address Organization Details Last Updated DateTime 07/11/2024 36 kg/m2 424940.25 g Neela Lindsay MA [facility] 0 07/11/2024 13:46:06 Date Recorded Oxygen saturation Oxygen saturation in Arterial blood by Pulse oximetry Provider Name and Address Organization Details Last Updated DateTime 07/11/2024 97 % 97 % Neela Lindsay MA [facility] 07/11/2024 13:46:09 Date Recorded Heart rate Provider Name an d Address Organization Details Last Updated DateTime 07/11/2024 97 /min Neela Lindsay MA [facility] 13:46:11 Date Recorded Respiratory rate Provider Name a nd Address Organization Details Last Updated DateTime 07/11/2024 16 /min Neela Lindsay MA [facility] 4 13:46:15 Date Recorded Body height Provider Name an d Address Organization Details Last Updated DateTime 08/28/2024 170.18 cm Neela Lindsay MA [facility] 4 08:29:57 Date Recorded Body mass index (BMI) Body weight Provider Name and Address Organization Details Last Updated DateTime 08/28/2024 40.1 kg/m2 795122.65 g Neela Lindsay MA [facility] 08/28/2024 08:30:18 Date Recorded Oxygen saturation Oxygen saturation in Arterial blood by Pulse oximetry Provider Name and Address Organization Details Last Updated DateTime 08/28/2024 98 % 98 % Neela Lindsay MA [facility] 08/28/2024 08:30:20 Date Recorded Heart rate Provider Name an d Address Organization Details Last Updated DateTime 08/28/2024 93 /min Neela Lindsay MA [facility] 08:30:28 Date Recorded Respiratory rate Provider Name a nd Address Organization Details Last Updated DateTime 08/28/2024 16 /min Neela Lindsay MA [facility] 4 08:30:30 Date Recorded Systolic blood pressure Diastolic blood pressure Provider Name and Address Organization Details Last Updated DateTime 03/27/2024 160 mm[Hg] 90 mm[Hg] Sofia Garcia MA [facility] 03/27/2024 11:28:22 Date Recorded Systolic blood pressure Diastolic blood pressure Provider Name and Address Organization Details Last Updated DateTime 05/16/2024 134 mm[Hg] 90 mm[Hg] Sofia Garcia MA [facility] 05/16/2024 11:52:52 Date Recorded Systolic blood pressure Diastolic blood pressure Provider Name and Address Organization Details Last Updated DateTime 06/05/2024 145 mm[Hg] 88 mm[Hg] Raissa Franco MA [facility] 06/05/2024 10:14:19 Date Recorded Systolic blood pressure Diastolic blood pressure Provider Name and Address Organization Details Last Updated DateTime 06/05/2024 120 mm[Hg] 80 mm[Hg] MINOO OVALLE Attn: Accounting,[address] [place], [address], [place] - [facility] 06/05/2024 10:45:04 Date Recorded Systolic blood pressure Diastolic blood pressure Provider Name and Address Organization Details Last Updated DateTime 06/05/2024 116 mm[Hg] 80 mm[Hg] MINOO OVALLE Attn: Accounting,[address] [facility], [place], [address], [facility] 06/05/2024 10:45:13 Date Recorded Systolic blood pressure Diastolic blood pressure Provider Name and Address Organization Details Last Updated DateTime 07/11/2024 118 mm[Hg] 84 mm[Hg] Neela Lindsay MA [facility] 07/11/2024 13:46:02 Date Recorded Systolic blood pressure Diastolic blood pressure Provider Name and Address Organization Details Last Updated DateTime 08/28/2024 126 mm[Hg] 85 mm[Hg] Neela Lindsay MA [facility] 08/28/2024 08:30:04 Social History Question Answer Notes LastModified by Organizat ion Details LastModified Time Tobacco Smoking Status Current Every Day Smoker Sofia Garcia MA [email or web address], [facility] 11/07/2023 10:27:46 What Is Your Level Of [...] Of Your Most Recent Tobacco Screening? 07/11/2024 [email or web address] Information not available 07/11/2024 Do You Have [...] Date Was Tobacco Cessation Counseling Provided? 07/11/2024 Information not available 07/11/2024 How Many Years [...] Response Coronary Artery Disease N Other N High Blood Pressure N Atrial Fibrillation N Kidney or Bladder Problems N Thyroid Problems N GI Problems N Depression N [...] Immunizations Vaccine Type Date Status Note Provider Umer e and Address Organization Details Recorded Time Tdap 9 completed Sofia Garcia MA null, [place] [facility] 11/07/2023 10:14:36 COVID-19, mRNA, LNP-S, PF, 30 mcg/0.3 mL dose 1 completed Rodriguez Erickson MD Attn: Accounting,[address] [place], [place], [address] [place] [address], [place] [facility] 03/27/2024 11:44:34 COVID-19, mRNA, LNP-S, PF, 30 mcg/0.3 mL dose 1 completed Rodriguez Erickson MD Attn: Accounting,[address] [place], [place], [address] [place] [address], [facility] - [facility] 03/27/2024 11:44:34 Hep A, pediatric, unspecified formulation 0 completed Rodriguez Erickson MD Attn: Accounting,[address] [place], [place], [address] [place] [address], [place] [facility] 03/27/2024 11:44:34 Influenza, split virus, quadrivalent, preservative 4 completed Rodriguez Erickson MD Attn: Accounting,[address] [place], [place], [address] [place] [address] - [facility] 11/07/2023 13:28:26 Past Encounters Encounter ID Performer Location Encounter Start Date Encounter Closed Date Diagnosis/Indication Diagnosis SNOMED-CT Code Diagnosis ICD10 Code Diagnosis Note [id number] Rodriguez Erickson MD [facility] (Adult Med) [address] [place] [id number] 11/07/2023 10:10:21 11/08/2023 16:21:44 Administration of influenza vaccine 83089042 Z23 General ex amination of patient 423972017 Z00.01 Snoring 16362993 R06.83 AddendumEp worth score 11Sleep medicine Immunization advised 310 227106 Z71.9 Benign ess ential hypertension 6584980 I10 DiscussedS tart Losartan/H CTZ, side effects including but not limited to dizziness, headaches and allergic reactions were discussed Body mass index 30+ - obesity 940076418 Z68.37 Overweight 132651281 E66 .3 Nicotine dependence 5629 4008 F17.200 Screening for malignant neoplasm of cervix 321517769 Z12.4 [id number] MD [facility] (Adult Med) [address] [place] [id number] 11/28/2023 10:43:23 11/30/2023 13:11:01 Vitamin D deficiency 88265338 E55.9 Labs 11/07/2023, Vitamin D 21.Continu e Vitamin D Benign ess ential hypertension 5626446 I10 Increase Losartan/H CTZ to 100/12.5, side effects including but not limited to angioedema , dizziness and a headache were discussed. OV 11/07/[address] Losartan/H CTZ, side effects including but not limited to dizziness, headaches and allergic reactions were discussed Immunization advised 310 125315 Z71.9 [id number] MD [facility] (Adult Med) [address] [place] [phone] 03/27/2024 11:05:59 03/28/2024 16:05:24 Benign essential hypertension 0286305 I10 She has not taken her medication s and I am unable to determine whether or not, her blood pressure is controlled OV 11/28/2022I ncrease Losartan/H CTZ to 100/12.5, side effects including but not limited to angioedema , dizziness and a headache were discussed. OV 11/07/[address] Losartan/H CTZ, side effects including but not limited to dizziness, headaches and allergic reactions were discussed Pain of bi lateral hands 6354244872 5004544 M79.641 M79.642 Neuropathy 260304714 G62 .9 NL TSH [id number] MD [facility] (Adult Med) [address] [place] [phone] 05/16/2024 11:24:20 05/20/2024 12:07:08 Benign essential hypertension 6817983 I10 Uncontroll edContinue Losartan/H CTZ 100/25Add Amlodipine 2.5 mg po daily, side effects were discussed. Neuropathy 743312737 G62 .9 NL TSH, B12 and EMG/NCS Persistent cough 0501280 02 R05.3 Asthma?URI ? [id number] MINOO OVALLE [facility] [address] [place] [address] 06/05/2024 10:07:20 06/05/2024 10:44:15 Depression screening 872342560 Z13.31 PHQ 3 Screening for malignant neoplasm of cervix 882642309 Z12.4 will schedule WWE Obesity 066790264 E66.8 BMI 37.2review ed labs from 10/2023, nl Pain of bi lateral hands [id number] 4975959 M79.641 x10 months, intermitte nthand swelling, tightness, tingling to fingertips , R>Lwears compressio n gloves and wrist bracesRA labs nl- ESR, RFEMG nl 04/23/2024E x- nlXR bilat hands, if nl will refer to hand specialist Essential hypertension 16455846 I10 BP 145/88, 120/80, 116/80c/w losartan 100/HCTZ 25 and amlodipine 2.5has BP cuff at home, 140-150/85 -90sc/w checking at home and f/u if BP increases Smoker 52237998 F17.200 1 carton lasts 1 month, trying to quit on her own [id number] MINOO O[facility] [address] [place] [address] 07/11/2024 13:40:09 07/11/2024 14:17:55 Screening for malignant neoplasm of cervix 416811429 Z12.4 last pap 5 yrs agoh/o HPV+, dysplasia and colposcopi esPEx- sample taken for papsent nuab Depression screening 171 720192 Z13.31 PHQ 0 Bloody nip ple discharge 124075800 N64.52 and milky colored x1 yr, bilaterall yoccurs a couple times a monthdried blood in bra, size of a nickelno painPEx- nlordered mammo diagnostic and [place] [id number] MINOO OVALLE [facility] [address] [place] [address] 08/28/2024 08:27:14 08/28/2024 08:52:55 Morbid obesity 211028655 E66.01 gained 26 lbs since 07/11/24dis cussed increasing exercise and healthier food options, high protein, low fat diet Pain of bi lateral hands 6363636874 1376010 M79.641 08/28/24: requesting FMLA and STD paperwork for bilateral hand painmakes cannabis gummies, uses hands all dayrequest ing 2 days per month covered if she is unable to work due to painupcomi ng appt with hand specialist next month 06/06/24: XR hands nl, refer to hand specialist 06/05/24: x10 months, intermitte nthand swelling, tightness, tingling to fingertips , R>Lwears compressio n gloves and wrist bracesRA labs nl- ESR, RFEMG nl 4PE x- nlXR bilat hands, if nl will refer to hand specialist Abnormal c ervical Papanicolaou smear 636723052 R87.619 07/17/24- atypical cells and HPV Positive, will refer to [facility] for colposcopy has upcoming appt with [facility] Bloody nip ple discharge [id number] N64.52 08/28/24: printed off MRI breast order and encouraged pt to call to schedule appt 08/01/24: Mammogram and US nl, rec'd MRI breasts 07/11/24: and milky colored x1 yr, bilaterall yoccurs a couple times a monthdried blood in bra, size of a nickelno painPEx- nlordered mammo diagnostic and [facility] Concerns Section Related Observation LastModified by Organization Detai ls LastModified Time None Recorded Concern Status LastModified by Organization Details LastModified Time None Recorded Advance Directives Directive None Recorded Payers Encounter Date Sequence Insurance Name Policy Number Policy Chung Covered Member ID Chung Member ID Guarantor Name 03/27/2024 1 *SELF PAY* Corin annabel Dia 03/27/2024 1 [employer] [id number] Rachelle Dia [id number] Rachelle Dia 05/16/2024 1 [employer] [id number] Rachelle Dia [id number] Rachelle Dia 06/05/2024 1 [employer] [id number] Rachelle Dia [id number] Rachelle Dia 07/11/2024 1 [employer] [id number] Rachelle Dia [id number] Rachelle Dia 08/28/2024 1 [employer] [id number] Rachelle Dia [id number] Rachelle Dia Notes Date Note Type [...] kitchen. Rodriguez Erickson MD Attn: Accounting,[address] [place], [address], [place] 03/27/2024 19:13:42 05/16/2024 text/html CoughReported bypatient.Quality:hars h [...] white/clear Rodriguez Erickson MD Attn: Accounting,[address] [facility], [place], [address], [facility] 05/16/2024 13:10:07 06/05/2024 text/html Pt presents to establish care as a new patient. Transfer from [facility]. C/o hand swelling and pain x10 months. [...] to know what next steps are. MINOO OVALLE Attn: Accounting,[address] [facility], [place], [address], [facility] 06/06/2024 08:37:36 07/11/2024 text/html Pt presents for WWE. , vaginal births. 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 LMP 05/09/24. Denies hematuria, dysuria, odor, irritation, urinary frequency/urgency, or discharge. H/o gonorrhea 2013, treated. Pt is not sexually active. No FH of breast/cervical/ovaria n cancer.H/o skipping periods since 2019. LMP 05/09/24, skipped May and has not started cycle yet this month.C/o milky and bloody discharge from bilateral nipples x1 yr. Occurs a couple times per month. States that blood is dried in her bras, size of a nickel. Denies pain or tenderness. Pt stopped breast feeding 4 yrs ago. MINOO OVALLE Attn: Accounting,[address] [facility], [place], [address], [facility] 07/11/2024 17:01:52 08/28/2024 text/html Pt presents to [...] next month. MINOO OVALLE Attn: Accounting,[address] [facility], [place], [address], [facility] 08/28/2024 10:07:30 OBGyn Episode No OBEpisode recorded.
--- OUTSIDE RECORDS SUMMARY | 2024-11-22 09:29 | XMS_ITS | Encounter Summary ---
Author Organization [facility] Address [address] [place] [address] Care Team Providers Care Librarian School Name Role Phone Unavailable Primary Care Provider Unavailabl e Encounter Details Date Type Department Care Team (Late st Contact Info) Description 10/26/2015 Lab Requisition [facility] [address] [place] [address] Unknown, Provider Social History Tobacco Use Types [...]
--- OUTSIDE RECORDS SUMMARY | 2024-11-22 09:29 | XMS_ITS | Continuity of Care Document ---
Author Organization [facility] Address [address] [place] [address] Phone Care Team Providers Care Small Engine Trainer Name Role Phone Elmer Turner MD Unavailable Unavailable Allergies, Adverse Reactions, Alerts Substance Reaction Status Criticality egg Active No Information Medications Medication Instructions Dosage Effective Dates (start - stop) Status Comments No Drug Therapy Prescribed Procedures Procedure Date OFFICE/OUTPATIENT VISIT, EST OFFICE/OUTPATIENT VISIT, EST OFFICE/OUTPATIENT VISIT, EST OFFICE/OUTPATIENT VISIT, EST PREV VISIT, [facility], AGE 18-39 OFFICE/OUTPATIENT VISIT, EST PREV VISIT, NEW, AGE 18-39 Advance Directives Directive Yes / No Effective Date File Name No Information Encounters Encounter Description Practice Location Reason(s) For Visit Diagnoses Date Provider Providers Copied on Encounter OFFICE/OUTPA TIENT VISIT, [facility], [address], [address], [place] tel:[phone] [facility] egg allergy1 (chief complaint) GERD1 (chief complaint) asthma1 (chief complaint) Allergy to other foodsOther asthma 6 Johnny Payne. [address], [address] , [place]. tel:[phone] Referring Provider: Elmer Turner [address] [facility], [place], [place], [address]. tel:[phone] OFFICE/OUTPA TIENT VISIT, [facility], [address] [place], [place], [address], [place] tel:[phone] [facility] rash (chief complaint) rash1 (chief complaint) Allergic urticaria 5 Johnny Payne. [address], [place], [place], [address] , [place]. [phone] Referring Provider: Elmer Turner, [address], [place], [place], [address]. tel:[phone] OFFICE/OUTPA TIENT VISIT, EST [facility], [address], [place], [place], [address], [place] [phone] [facility] Medicine Wheezing (chief complaint) GERD (chief complaint) hematuria (chief complaint) Dietary surveillance and counselingAsthmaHEM ATURIA NOSGERDAbdominal Pain Jan-2 5 Johnny Cardoso [address], [place], [place], [address] , [place]. [phone] Referring Provider: Radha Campos [address], [place], [place], [address]. tel:[phone] OFFICE/OUTPA TIENT VISIT, [facility], [address], [place], [place], [address], [place] tel:[phone] [facility] hematuria (chief complaint) GERD (chief complaint) HLP (chief complaint) vitamin D (chief complaint) Dietary surveillance and counselingHEMATURIA NOSOther and unspecified hyperlipidemiaUnspe cified vitamin d deficiency Jan-0 5 Johnny Payne. [address], [place], [place], [address] , [place]. [phone] Referring Provider: Elmer Turner, [address], [place], [place], [address]. tel:[phone] PREV VISIT, EST, AGE 18-39 [facility], [address], [place], [place], [address], [place] tel:[phone] [facility] Medicine Physical (chief complaint) Dietary surveillance and counselingRoutine Medical ExamRoutine Medical Exam 5 Johnny Payne. [address], [place], [place], [address] , [place]. tel:[phone] Referring Provider: Radha Campos [address], [place], [place], [address]. tel:[phone] OFFICE/OUTPA TIENT VISIT, EST [facility], [address], [place], [place], [address], [place] tel:[phone] [facility] skin infection (chief complaint) Cellulitis and abscess of leg, except footDietary surveillance and counseling Jan- 0201 4 Johnny Payne. [address], [place], [place], [address] , [place]. tel:[phone] Referring Provider: Elmer Turner, [address] [facility] [address], [place], [place], [address]. tel:[phone] PREV VISIT, NEW, AGE 18-39 [facility], [address], [place], [place], [address], [place] tel:[phone] [facility] Physical (chief complaint) Routine Medical ExamRoutine Medical Exam Jan- 3 Johnny Payne. [address], [place], [place], [address] , [place]. tel:[phone] Referring Provider: Radha Campos [address], [place], [place], [address]. tel:[phone] Family History Family Member Type Diagnosis Age At Onset Brother Problem (finding) Alive and well Mother Problem (finding) Alive and well Father Problem (finding) Coronary artery disease 56 Payers Payer name Insurance type Covered alliance party ID Authoriza tion(s) No Information Social [...] Date Complaint History Of Prese nt Illness asthma1 Pt denies any wh eeinzing or SOB. Pt denies any need for any inhaler GERD1 Pt denies any ab d pain. Pt denies any GERD symptoms. Pt has been off PPI for at least 3 months. egg allergy1 Pt has history o f egg allergy. Pt states that she has difficulty with breathing when consume eggs. Pt unable to get flu shot rash rash1 Pt c/o mildly it tyler rash [...] area, between finger or inner thigh area Medications Administered Medication Instructions Dosage Effective Dates [...] Mental Status Date Cognitive Assessment Orientation - [place] ed to time, place, person, situation.
--- OUTSIDE RECORDS SUMMARY | 2024-11-22 09:29 | XMS_ITS | Clinical Summary ---
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 Gender Identity Not on file Sexual Orientation Not on file Plan of Treatment Health Maintenance Due Date Last Done Comments Hepatitis C Virus (HCV) Screening 1985 TdaP Immunization 1985 Hepatitis B Immunization (1 of 3 - 19+ 3-dose series) 2004 Pap Smear 2006 Cervical Cancer Screening (CCS) 2015 HPV/Cotest 2015 Influenza Immunization (#1) 2024 SARS-COV-2 Immunization ( season) 2024 Respiratory Syncytial Virus (RSV) Immunization (Adult) (1 - 1-dose 75+ series) 2060 Meningococcal Immunization (ACWY) Aged Out No longer eligible based on patient's age to complete this topic Pneumococcal Immunization Combined Aged Out No longer eligible based on patient's age to complete this topic Rotavirus Immunization Aged Out No lo nger eligible based on patient's age to complete this topic
--- OUTSIDE RECORDS SUMMARY | 2024-11-22 09:30 | XMS_ITS | Patient Health Summary ---
Author Organization [facility] [employer] Address [address] [place] [address] Care Team Providers Care Internal Controls Manager Name Role Phone Unavailable Primary Care Provider Unavailabl e Note from [facility] [employer] [facility],non-owned Affiliates and Associated Physician Practices is amultiple site organization consisting of ambulatory clinics and hospital sitesin [place], [place], [place] and [place]. This disclosure is being madepursuant to the Care Everywhere program and may not contain all information available regarding this patient. Last updated 18.[facility] [employer] Allergies * Albumin(Swelling) Medications * Be aware [...] for Supervision of high-risk of young multigravida ([facility]), Obesity affecting in third trimester ([facility]), BMI 40.0-44.9, adult ([facility]) * STREP B JOHN(Performed 03/11/2019) Performed for care, subsequent , third trimester ([facility]), 37 weeks gestation of ([facility]) * BIOPHYSICAL PROFILE W NST(Performed 03/11/2019) Performed for Supervision of high-risk of young multigravida ([facility]), Obesity affecting in third trimester ([facility]), BMI 40.0-44.9, adult ([facility]) * BIOPHYSICAL PROFILE W NST(Performed 03/04/2019) Performed for Obesity affecting in third trimester ([facility]) * BIOPHYSICAL PROFILE WO NST(Performed 02/28/2019) Performed for Excessive growth affecting management of in third trimester, single or unspecified fetus ([facility]) * URINE MICROSCOPIC ONLY REFLEX TO CULTURE(Performed 02/26/2019) Performed for Lower abdominal pain * URINALYSIS REFLEX MICROSCOPIC REFLEX CULTURE(Performed 02/26/2019) Performed for Lower abdominal pain * CULTURE URINE(Performed 02/26/2019) Performed for Lower abdominal pain * SONOGRAM - COMPLETE(Performed 02/14/2019) Performed for Excessive growth affecting management of in third trimester, single or unspecified fetus ([facility]) * CULTURE URINE(Performed 02/10/2019) Performed for care, subsequent , third trimester ([facility]), 33 weeks gestation of ([facility]), Hematuria, unspecified type * GTT 3 HR (100G) GESTATIONAL DIAGNOSTIC(Performed 01/20/2019) Performed for Abnormal maternal glucose tolerance, antepartum ([facility]) * SONOGRAM - COMPLETE(Performed 01/17/2019) Performed for Uterine size date discrepancy , third trimester ([facility]) * RPR(Performed 01/13/2019) Performed for care, subsequent , second trimester ([facility]), 25 weeks gestation of ([facility]) * CBC W/O DIFFERENTIAL(Performed 01/13/2019) Performed for care, subsequent , second trimester ([facility]), 25 weeks gestation of ([facility]) * GLUCOSE CHALLENGE(Performed 01/13/2019) Performed for care, subsequent , second trimester ([facility]), 25 weeks gestation of ([facility]) * SONOGRAM - LIMITED(Performed 12/10/2018) Performed [...] resultswithin the time period is included. Pathologist [facility] [place] Uric Acid 5.9 2.6 - 6.0 mg/dL 03/21/2019 9:26 AM CDT [facility] Blood BLOOD SPECIMEN / Unknown Venipuncture / Unknown 03/21/2019 8:56 AM CDT 03/21/2019 9:01 AM CDT Julissa Mcwilliams DO LAB - CHEMISTRY PEDRO LANG [facility] [address] [place] [address] * (ABNORMAL) CBC W AUTO DIFFERENTIAL (03/21/2019 8:56 AM CDT) Only the most recent of2 resultswithin the time period is included. WBC 7.9 4.4 - 10.7 x10E9/L 03/21/2019 9:10 AM CDT [facility] WBC Corrected x10E9/L 03/21/2019 9:10 AM CDT [facility] RBC 3.64(L) 3.80 - 5.20 x10E12/L 03/21/2019 9:10 AM CDT [facility] Hemoglobin 10.4(L) 12.0 - 15.6 gm/dL 03/21/2019 9:10 AM CDT [facility] Hematocrit 31.2(L) 35.9 - 45.5 % 03/21/2019 9:10 AM CDT [facility] MCV 85.7 80.7 - 98.3 fl 03/21/2019 9:10 AM CDT [facility] MCH 28.6 26.7 - 34.0 pg 03/21/2019 9:10 AM CDT [facility] MCHC 33.3 30.8 - 35.9 gm/dL 03/21/2019 9:10 AM T [facility] Platelet Count 203 153 - 416 x10E9/L 03/21/2019 9:10 AM [facility] RDW-CV 13.8 12.1 - 14.9 % 03/21/2019 9:10 AM T [facility] MPV 9.0(L) 9.4 - 12.9 fl 03/21/2019 9:10 AM [facility] Neutrophils % 74.9(H) 44.0 - 73.0 % 03/21/2019 9:10 AM T [facility] Lymphocytes % 17.1(L) 20.0 - 43.0 % 03/21/2019 9:10 AM [facility] Monocytes % 5.2 5.0 - 13.0 % 03/21/2019 9:10 AM [facility] Eosinophils % 2.1 0.0 - 6.0 % 03/21/2019 9:10 AM [facility] Basophils % 0.3 0.0 - 2.0 % 03/21/2019 9:10 AM T [facility] Immature Granulocytes 0.4 0 - 1 % 03/21/2019 9:10 AM [facility] Neutrophil Absolute 5.93 2.01 - 7.14 x10E9/L 03/21/2019 9:10 AM [facility] Lymphocytes Absolute 1.35 1.07 - 3.94 x10E9/L 03/21/2019 9:10 AM [facility] Monocytes Absolute 0.41 0.26 - 1.07 x10E9/L 03/21/2019 9:10 AM T [facility] Eosinophils Absolute 0.17 0 - 0.47 x10E9/L 03/21/2019 9:10 AM [facility] Basophils Absolute 0.02 0 - 0.08 x10E9/L 03/21/2019 9:10 AM [facility] Immature Granulocytes Absolute 0.03 0.00 - 0.06 x10E9/L 03/21/2019 9:10 AM [facility] nRBC Auto 0 /100 WBC 03/21/2019 9:10 AM T [facility] Blood BLOOD SPECIMEN / Unknown Venipuncture / Unknown 03/21/2019 8:56 AM CDT 03/21/2019 9:01 AM CDT Julissa Mcwilliams LAB - HEMATOLOGY ORD ERABLES [facility] [address] [place] [address] * (ABNORMAL) COMPREHENSIVE METABOLIC PANEL (03/21/2019 8:56 AM CDT) Only the most recent of2 resultswithin the time period is included. Glucose 80 74 - 106 mg/dL 03/21/2019 9:29 AM [facility] Sodium 140 136 - 145 mmol/L 03/21/2019 9:29 AM [facility] Potassium 3.6 3.5 - 5.1 mmol/L 03/21/2019 9:29 AM [facility] Chloride 106 98 - 107 mmol/L 03/21/2019 9:29 AM T [facility] CO2 24 23 - 31 mmol/L 03/21/2019 9:29 AM T [facility] Calcium 9.0 8.4 - 10.2 mg/dL 03/21/2019 9:29 AM [facility] Anion Gap 10 8 - 16 mmol/L 03/21/2019 9:29 AM [facility] BUN 7 7 - 18.7 mg/dL 03/21/2019 9:29 AM T [facility] Creatinine 0.66 0.55 - 1.02 mg/dL 03/21/2019 9:29 AM [facility] Alkaline Phosphatase 110 40 - 150 U/L 03/21/2019 9:29 AM T [facility] ALT 17 13 - 61 U/L 03/21/2019 9:29 AM [facility] AST 25 5 - 34 U/L 03/21/2019 9:29 AM [facility] Protein Total 6.0(L) 6.4 - 8.3 gm/dL 03/21/2019 9:29 AM [facility] Albumin 3.1(L) 3.5 - 5.2 gm/dL 03/21/2019 9:29 AM CDT [facility] Bilirubin Total 0.3 0.2 - 1.0 mg/dL 03/21/2019 9:29 AM CDT [facility] eGFR by MDRD >60 >60 mL/min/1.7 3m2 03/21/2019 9:29 AM CDT [facility] eGFR by MDRD >60 >60 mL/min/1.7 3m2 03/21/2019 9:29 AM CDT [facility] Blood BLOOD SPECIMEN / Unknown Venipuncture / Unknown 03/21/2019 8:56 AM CDT 03/21/2019 9:01 AM CDT Narrative [facility] - 03/21/2019 9:29 AM CDT Attention clinician: BUN Reference Range has changed. Julissa Mcwilliams DO LAB - CHEMISTRY PEDRO LANG Performing Organization Address [facility] de Phone Number [facility] [address] [place], [place] [id number] * (ABNORMAL) LDH BLOOD (03/21/2019 8:56 AM CDT) Only the most recent of2 resultswithin the time period is included. LDH 271(H) 125 - 220 U/L 03/21/2019 9:26 AM CDT [facility] Blood BLOOD SPECIMEN / Unknown Venipuncture / Unknown 03/21/2019 8:56 AM CDT 03/21/2019 9:01 AM CDT Julissa Mcwilliams DO LAB - CHEMISTRY ORDNancy LANG Performing Organization Address [facility] de Phone Number [facility] [address] [place] [address] * (ABNORMAL) URINALYSIS REFLEX TO MICROSCOPIC NO CULTURE (03/19/2019 3:34 AM CDT) Color UA Yellow Straw, Yellow 03/19/2019 6:12 AM CDT [facility] Clarity UA Slt Cloudy(A) Clear 03/19/2019 6:12 AM CDT [facility] Glucose UA Negative Negative 03/19/2019 6:12 AM CDT [facility] Bilirubin UA Negative Negative 03/19/2019 6:12 AM CDT [facility] Ketone UA Negative Negative 03/19/2019 6:12 AM CDT [facility] Specific [place] UA 1.011 1.005 - 1.030 03/19/2019 6:12 AM CDT [facility] Blood UA Negative Negative 03/19/2019 6:12 AM CDT [facility] pH UA 7.0 5.0 - 8.0 pH 03/19/2019 6:12 AM CDT [facility] Protein UA Negative Negative 03/19/2019 6:12 AM CDT [facility] Urobilinogen UA Negative Negative mg/dL 03/19/2019 6:12 AM CDT [facility] Nitrite UA Negative Negative 03/19/2019 6:12 AM CDT [facility] Leukocyte UA Negative Negative 03/19/2019 6:12 AM CDT [facility] Urine Microscopy Urine microscopy not indicated 03/19/2019 6:12 AM CDT [facility] Urine URINE SPECIMEN OBTAINED BY CLEAN CATCH PROCEDURE / Unknown Collection / Unknown 03/19/2019 3:34 AM CDT 03/19/2019 6:03 AM CDT Narrative [facility] - 03/19/2019 6:12 AM CDT Julissa Mcwilliams DO LAB - URINALYSIS ORD ERABLES [facility] [address] [place] [address] * DRUG SCREEN TOX URINE PANEL (03/19/2019 3:34 AM CDT) [facility] Amphetamines Screen Urine Not Detected Not Detected 03/19/2019 4:08 AM CDT [facility] Barbiturates Screen Urine Not Detected Not Detected 03/19/2019 4:08 AM CDT [facility] Benzodiazepines Screen Urine Not Detected Not Detected 03/19/2019 4:08 AM CDT [facility] Cannabinoids Screen Urine Not Detected Not Detected 03/19/2019 4:08 AM CDT [facility] Cocaine Screen Urine Not Detected Not Detected 03/19/2019 4:08 AM CDT [facility] Methadone Screen Urine Not Detected Not Detected 03/19/2019 4:08 AM CDT [facility] Opiate Screen Urine Not Detected Not Detected 03/19/2019 4:08 AM CDT [facility] Phencyclidine Screen Urine Not Detected Not Detected 03/19/2019 4:08 AM CDT [facility] Urine URINE / Unknown Collection / Unknown 03/19/2019 3:34 AM CDT 03/19/2019 3:43 AM CDT Narrative [facility] - 03/19/2019 4:08 AM CDT This [...] URINE CHEMISTR Y ORDERABLES Performing Organization Address [facility] Co de Phone Number [facility] [id number] [place] [address] * PROTEIN CREATININE RATIO URINE RANDOM PNL (03/19/2019 3:34 AM CDT) Protein Urine 7.8 mg/dL 03/19/2019 6:22 AM CDT [facility] Creatinine Urine 70.41 mg/dL 03/19/2019 6:22 AM CDT [facility] Protein/Creatin ine Ratio Urine 0.11 03/19/2019 6:22 AM CDT [facility] Urine URINE SPECIMEN OBTAINED BY CLEAN CATCH PROCEDURE / Unknown Collection / Unknown 03/19/2019 3:34 AM CDT 03/19/2019 6:03 AM CDT Julissa Mcwilliams DO LAB - URINE CHEMISTR Y ORDERABLES Performing Organization Address [facility] Co de Phone Number [facility] [address] [place] [address] * TYPE + SCREEN PANEL (03/18/2019 11:57 PM CDT) ABO O 03/19/2019 1:33 AM CDT [facility] Rh Type Positive 03/19/2019 1:33 AM CDT [facility] Comment:History checked. Col lect retype. Antibody Screen Negative 03/19/2019 1:33 AM CDT [facility] Blood Bank BLOOD SPECIMEN / Unknown Venipuncture / Unknown 03/18/2019 11:57 PM CDT 03/19/2019 12:10 AM CDT Julissa Mcwilliams DO LAB - BLOOD BANK ORD ERABLES [facility] [address] [place] [address], [facility] * BIOPHYSICAL PROFILE W NST (03/18/2019 11:42 AM CDT) Only the most recent of3 resultswithin the time period is included. Anatomical Region Laterality Modality Other 03/18/2019 11:4 2 AM CDT Narrative 03/18/2019 12:11 PM CDT ?[facility] ? TESTING CENTER ?FAX: ?? Pat. Name: ?RACHELLE DIA. No: ?[id number] Study Date: ?? 03/18/2019 ??11:42am , Age: ? 1985, 33 Pregnancies: ?? 3, Para 2002 Height: ? 67 in Weight: ? 231 lb LMP: ?Unknown GA by Base: ?? 38w6d ?? HELEN: 03/26/2019 GA Selected: ??38w6d (From [facility]) HELEN: ?03/26/2019 Referring MD: Julissa Mcwilliams MD Drafter Structural: ??Deisy Cordoba, [facility] CPT4: ? 01945,97411 BMI: ?36.18 Hist/Ind: ? testing (BPP) ?LGA [...] <Electronic Signature> ??03/18/2019 12:11pm Julissa Mcwilliams DO [facility] ORDERABLES * STREP B JOHN (03/11/2019 2:03 PM CDT) Strep B JOHN Negative Negative [facility] ACCOUNT BILL Comment: Centers for Disease Control and Prevention (CDC) and [place] [employer] of Obstetricians and Gynecologists (ACOG) guidelines [...] Resulting Agency Comment Lab Testing performed at: [address] ??[facility] [phone] Julissa Mcwilliams DO LAB - MICROBIOLOGY O RDERABLES [facility] ACCOUNT [place] [address] [place] [address] * BIOPHYSICAL PROFILE WO NST (02/28/2019 9:53 AM CDT) Anatomical Region Laterality Modality Other 02/28/2019 9:53 AM CDT Narrative 02/28/2019 10:29 AM CDT ?[facility] ? TESTING CENTER ?FAX: ?? Pat. Name: ?RACHELLE DIA Pat. No: ?[id number] Study Date: ?? 02/28/2019 ??9:53am , Age: ? 1985, 33 Pregnancies: ?? 3, Para 2002 Height: ? 67 in Weight: ? 231 lb LMP: ?Unknown GA by Base: ?? 36w2d ?? HELEN: 03/26/2019 GA Selected: ??36w2d (From [facility]) HELEN: ?03/26/2019 Referring MD: Julissa Mcwilliams MD Drafter Structural: ??Maryam Lara, MONICA, JESS CPT4: ? 32242,28688 BMI: ?36.18 Hist/Ind: ? LGA ?Class II [...] MD <Electronic Signature> ??02/28/2019 10:29am Julissa Mcwilliams [facility] ORDERABLES * (ABNORMAL) URINE MICROSCOPIC ONLY REFLEX TO CULTURE (02/26/2019 1:18 PM CDT) Reflex Status Culture to follow 02/26/2019 1:36 PM CDT [facility] RBC UA 0-2 None Seen, 0-2, [...] None seen /hpf 02/26/2019 1:36 PM CDT [facility] Urine URINE SPECIMEN OBTAINED BY CLEAN CATCH PROCEDURE / Unknown Collection / Unknown 02/26/2019 1:18 PM CDT 02/26/2019 1:22 PM CDT Narrative [facility] - 02/26/2019 1:36 PM CDT Cheryl Germain FAST FOOD SHIFT SUPERVISOR-GUEST EXPERIENCE REPRESENTATIVE LAB - URINALYSI S ORDERABLES [facility] [address] [place] [address] * (ABNORMAL) URINALYSIS REFLEX MICROSCOPIC REFLEX CULTURE (02/26/2019 1:18 PM CDT) Color UA Yellow Straw, Yellow 02/26/2019 1:35 PM CDT [facility] Clarity UA Cloudy(A) Clear 02/26/2019 1:35 PM CDT [facility] Glucose UA Negative Negative 02/26/2019 1:35 PM CDT [facility] Bilirubin UA Negative Negative 02/26/2019 1:35 PM CDT [facility] Ketone UA Negative Negative 02/26/2019 1:35 PM CDT [facility] Specific [place] UA 1.023 1.005 - 1.030 02/26/2019 1:35 PM CDT [facility] Blood UA Negative Negative 02/26/2019 1:35 PM CDT [facility] pH UA 6.0 5.0 - 8.0 pH 02/26/2019 1:35 PM CDT [facility] Protein UA 1+(A) Negative 02/26/2019 1:35 PM CDT [facility] Urobilinogen UA Negative Negative mg/dL 02/26/2019 1:35 PM CDT [facility] Nitrite UA Negative Negative 02/26/2019 1:35 PM CDT [facility] Leukocyte UA 3+(A) Negative 02/26/2019 1:35 PM CDT [facility] Urine Microscopy Urine microscopy to follow 02/26/2019 1:35 PM CDT [facility] Reflex Status Culture to follow 02/26/2019 1:35 PM CDT [facility] Urine URINE SPECIMEN OBTAINED BY CLEAN CATCH PROCEDURE / Unknown Collection / Unknown 02/26/2019 1:18 PM CDT 02/26/2019 1:22 PM CDT Narrative [facility] - 02/26/2019 1:35 PM CDT Ascorbic Acid can cause false negative urine strip tests for blood, glucose, nitrite, and bilirubin. Cheryl Germain APRN-[facility] LAB - URINALYSI S ORDERABLES Performing Organization Address City/[facility]/ZIP Co de Phone Number [facility] [address] [place] [address] * CULTURE URINE (02/26/2019 1:18 PM CDT) Only the most recent of5 resultswithin the time period is included. Culture Urine 10,000-50,000 CFU/mL urogenital sirena CHUCK 02/27/2019 1:34 PM CDT [facility] Urine URINE SPECIMEN OBTAINED BY CLEAN CATCH PROCEDURE / Unknown Collection / Unknown 02/26/2019 1:18 PM CDT 02/26/2019 1:22 PM CDT Cheryl Bryant Esters FAST FOOD SHIFT SUPERVISOR-GUEST EXPERIENCE REPRESENTATIVE LAB - MICROBIOL OGY ORDERABLES [facility] [address] [place] [id number] [place] [address] * SONOGRAM - COMPLETE (02/14/2019 11:31 AM CDT) Only the most recent of4 resultswithin the time period is included. Anatomical Region Laterality Modality Other 02/14/2019 11:3 1 AM CDT Narrative 02/14/2019 1:31 PM CDT ?[facility] ?[facility] ? TESTING CENTER ?FAX: ?? Pat. Name: ?RACHELLE DIA Pat. No: ?[id number] Study Date: ?? 02/14/2019 ??11:31am , Age: ? 1985, 33 Pregnancies: ?? 3, Para 2002 Height: ? 67 in Weight: ? 231 lb LMP: ?Unknown GA by Base: ?? 34w2d ?? HELEN: 03/26/2019 GA by US: ? 36w1d ?? HELEN: 03/13/2019 GA Selected: ??34w2d (From [facility]) HELEN: ?03/26/2019 Referring MD: Julissa Mcwilliams MD Drafter Structural: ??Maryam Lara, MONICA, JESS CPT4: ? 77308 BMI: ?36.18 Hist/Ind: ? LGA ?Class II obesity ?Completed Anatomy MEASUREMENTS & AGE ? GROWTH EVALUATION Measurement ??GA ? Range ? Srce %for GA Ratios ----- ---- ------- BPD ??8.6 cm 34w4d (61t0h-76j2g) Hadl BPD 56% FL/BPD 0.83 (0.71 - 0.87) HC ??32.1 cm 36w2d (06p8l-85n0h) Hadl HC ??65% FL/AC ??0.21 (0.20 - 0.24) AC ??33.5 cm 37w3d (37r9g-20h6s) Hadl AC ??>99 HC/AC ??0.96 (0.94 - 1.13) FL ?? 7.1 cm 36w3d (21j2d-33r0w) Hadl FL ??89% CI ? 0.74 (0.70 - 0.86) HL ?? 6.7 cm 39w1d (00e9r-20l8o) Chente HL ??>95 GA for sonogram 36w1d (00t9u-83t0a) ?? Weight Estimate: based on (BPD,HC,AC,FL) Avg [...] AM CDT 01/20/2019 Narrative Resulting Agency Comment [facility] ??[facility] [phone] Julissa Kalpesh Mcwilliams DO LAB - CHEMISTRY ORDNancy LANG [facility] ACCOUNT BILL [address] [place] [address] * RPR (01/13/2019 10:54 AM CDT) Pathologist [facility] RPR Non Reactive Non Reactive [facility] ACCOUNT BILL Blood BLOOD SPECIMEN / Unknown 01/13/2019 10:54 AM CDT 01/13/2019 Narrative Resulting Agency Comment [facility] [place] [address] ??[facility] [phone] Julissa Posey Oj ANAYA LAB - CHEMISTRY ORDE RICKEY [facility] ACCOUNT BILL [address] [place] [address] * (ABNORMAL) CBC W/O DIFFERENTIAL (01/13/2019 10:53 [...] CDT 01/13/2019 Narrative Resulting Agency Comment [facility] [address] ??[facility] [phone] Julissa Mcwilliams DO LAB - HEMATOLOGY ORD NKECHI Performing Organization Address City/[facility]/ZIP Co de Phone Number [facility] ACCOUNT BILL [address] [place] [address] * GLUCOSE CHALLENGE (01/13/2019 10:53 AM CDT) [facility] Signature GTT 1Hr 134 65 - [...] CDT 01/13/2019 Narrative Resulting Agency Comment [facility] [address] ??[facility] [phone] Julissa Mcwilliams DO LAB - CHEMISTRY PEDRO LANG Performing Organization Address City/[facility]/ZIP Co de Phone Number [facility] ACCOUNT BILL [address] [place] [address] * SONOGRAM - LIMITED (12/10/2018 7:13 AM DYNAMIC BALANCER) Anatomical Region Laterality Modality Other 12/10/2018 7:13 AM DYNAMIC BALANCER Narrative 12/10/2018 10:58 AM DYNAMIC BALANCER ?[facility] ? TESTING CENTER ?FAX: ?? Pat. Name: ?RACHELLE DIA Pat. No: ?[id number] Study Date: ?? 12/10/2018 ??7:13am , Age: ? 1985, 33 Pregnancies: ?? 3, Para 2 Height: ? 67 in Weight: ? 231 lb LMP: ?Unknown GA by Base: ?? 24w6d ?? HELEN: 03/26/2019 GA Selected: ??24w6d (From [facility]) HELEN: ?03/26/2019 Referring MD: Julissa Mcwilliams MD Drafter Structural: ??Emam Fagan RDMS CPT4: ? [address]309 BMI: ?36.18 Hist/Ind: ? Follow up anatomic [...] <Electronic Signature> ??12/10/2018 10:58am Tejinder Solorio MD [facility] ORDERABLES * FIRST TRI NUCHAL TRANSLUCENCY W:SEQ SCREEN (09/17/2018 7:32 AM DYNAMIC BALANCER) Anatomical Region Laterality Modality Other 09/17/2018 7:32 AM DYNAMIC BALANCER Narrative 09/17/2018 4:41 PM DYNAMIC BALANCER ?[facility] ?[facility] ? TESTING CENTER ?FAX: ?? Pat. Name: ?MINH DIAICA Pat. No: ?[id number] Study Date: ?? 09/17/2018 ??7:32am , Age: ? 1985, 33 Pregnancies: ?? 3, Para 2 Height: ? 67 in Weight: ? 231 lb LMP: ?Unknown GA by US: ? 13w1d ?? HELEN: 03/24/2019 GA Selected: ??12w6d (From Known E) HELEN: ?03/26/2019 Referring MD: Julissa Mcwilliams MD Drafter Structural: ??Maryam Lara RDMS CPT4: ? [id number] BMI: ?36.18 Hist/Ind: ? Nuchal Translucency ?Maternal obesity MEASUREMENTS & AGE ? GROWTH EVALUATION Measurement ??GA ? Range ? Srce %for GA Ratios ----- ---- ------- CRL ??6.9 cm 13w1d ([id number]) Hadl CRL 61% GA for sonogram 13w1d (42i6y-45p2c) based on (CRL) Avg ? Markers for [...] CDT 08/07/2018 Narrative Resulting Agency Comment [facility] [address] ??[facility] [phone] Julissa Mcwilliams DO LAB - SEROLOGY ORDER FADY [facility] ACCOUNT BILL [address] [place] [address] * (ABNORMAL) PROFILE I W/ HBSAG (08/07/2018 [...] CDT 08/07/2018 Narrative Resulting Agency Comment [facility] [address] [place] [address] ??[facility] [phone] Julissa Mcwilliams DO LAB - CHEMISTRY PEDRO LANG [facility] ACCOUNT BILL [address] [place] [address] * HEMOGLOBIN ELECTROPHORESIS (08/07/2018 4:49 PM CDT) [...] PM CDT 08/07/2018 Narrative Resulting Agency Comment [facility] [place] [address] ??[place] [phone] Julissa Mcwilliams DO LAB - CHEMISTRY PEDRO LANG [facility] ACCOUNT [place]IND [address] [place] [address] * CYSTIC FIBROSIS MUTATION PNL (08/07/2018 4:49 [...] a carrier of cystic fibrosis, please contact [facility] at for a revised report. Mutation [...] ? Rate Ashkenazi ? 11/16 to ?97% Quaker ? 11/15 to ?90% (non-) -Belgian ? to ?69% ? to ?73% ? to ?55% This interpretation is based on the clinical and family relationship information provided and the current understanding of the molecular genetics of this condition. MUTATIONS ANALYZED: G85E ?V520F ?H9014G ? 2183AA to G R117H ? G542X ?L3791R ? 2184delA R334W ? S549N ?394delTT ? 2789+5G to A R347H ? S549R ?621+1G to T ?3120+1G to A R347P ? G551D ?711+1G to T ?3659delC A455E ? R553X ?1078delT ? 3849+10kbC to T NtufkN200 ?? R560T ?1717-1G to A ?? 3876delA MdafsF591 ?? O3332K ?? 1898+1G to A ?? 3905insT METHODS/LIMITATIONS: DNA is isolated from the sample and tested for the 32 CF mutations on the [place] Array Platform ([employer]). Regions of the CFTR gene are amplified enzymatically and subjected to a solution-phase multiplex allele-specific primer extension with subsequent hybridization to a bead array and fluorescence detection. ??Polymorphisms F508C, I506V and I507V are included in this panel to rule out false positive tomoeB866 homozygotes. ??Reflex testing of 5T is included in the panel for R117H interpretation. False positive or negative results may occur for reasons that include genetic variants, blood transfusions, bone marrow transplantation, erroneous representation of family relationships or contamination of a sample with maternal cells. REFERENCES: 1. Updates on Carrier Screening for Cystic Fibrosis. (2011) ?? Am J Ob Gynecol 117(4):1028-2854 2. Torey et al. (2004) Dea Med 6:387-91 3. Yasmin et al. (2002) Dea Med 4:379-391 4. Preconception and carrier screening for cystic ?? fibrosis: (2001)ACOG.ACMG publication Results Released By: Dustin Mccallum, Ph.D., Fittings Finisher Released By: Dustin Mccallum, Ph.D., Director Comment [...] Resulting Agency Comment [facility] [place] [address] ??[place] [phone] Julissa Mcwilliams DO LAB - HEMATOLOGY ORD ERABLES [facility] ACCOUNT BILL [address] [place] [address] * HEMOGLOBIN A1C (08/07/2018 3:51 PM CDT) Hemoglobin A1c 5.2 4.2 - 6.3 % [facility] ACCOUNT BILL Comment:AVERAGE GLUCOSE MG/D L BLOOD 103 mg/dL Blood BLOOD SPECIMEN / Unknown 08/07/2018 3:51 PM CDT 08/07/2018 Narrative Resulting Agency [facility] [address] ??[place] [phone] Julissa Mcwilliams DO LAB - CHEMISTRY ORDE RICKEY [facility] ACCOUNT BILL [address] [place] [address] * (ABNORMAL) DRUG ABUSE URINE PANEL 7 [...] [facility] [address] ??[place] [id number] Julissa Mcwilliams DO LAB - URINE CHEMISTR Y ORDERABLES [facility] ACCOUNT BILL [address] [place] [address] * PAP IG LB+CT+NG+TV+HPV APTIMA RFLX 16,18/45 (08/07/2018 3:34 PM CDT) Only the most recent of2 resultswithin the time period is included. Diagnosis [facility] ACCOUNT BILL Comment: NEGATIVE FOR INTRAEPITHELIAL LESION AND MALIGNANCY. THIS SPECIMEN WAS RESCREENED PART OF OUR MANAGER GAME PROGRAM. Specimen Adequacy [facility] ACCOUNT BILL Comment: Satisfactory for evaluation. ??No endocervical component is identified. An endocervical component is not commonly seen in the patient. Clinician Provided ICD10 [facility] ACCOUNT BILL Comment: Z34.81 Z3A.01 Z32.01 Z11.51 Z11.3 Z68.36 Performed by [facility] ACCOUNT BILL Comment:Mercy Simons, Noc Engineer (ASCP) QC Reviewed by [facility] ACCOUNT BILL Comment:Jo Melgar [facility] Noc Engineer (ASC) Comment . [facility] ACCOUNT BILL Note [...] Agency Comment [facility] [place] ??[place] [phone] Julissa Mcwilliams DO LAB - PATHOLOGY/CYTO LOGY ORDERABLES [facility] ACCOUNT BILL [address] [place] [address] * (ABNORMAL) HCG URINE QUALITATIVE - POINT OF CARE (AMB) STL (08/07/2018) HCG Qual Urine Positive(A) Negative HCG Urine QC NEG NEGATIVE NEGATIVE - POSITIVE HCG Urine QC POS POSITIVE NEGATIVE - POSITIVE Expiration Date 02/19/2020 Lot # [id number] Urine URINE / Unknown 08/07/2018 Julissa Mcwilliams [...] CPT [facility] ACCOUNT BILL Comment: CPT ?. 194184, [id number] Pathology/Cytolog y CERVICAL BIOPSY SPECIMEN / Unknown 08/08/2017 1:13 PM CDT 08/09/2017 Narrative Resulting Agency Comment [facility] [place] [facility] [address] ??[facility] [phone] Julissa Mcwilliams DO LAB - PATHOLOGY/CYTO LOGY ORDERABLES [facility] ACCOUNT BILL [address] [place] [address] * TSH HI LOW REFLEX FREE T4 (08/08/2017 12:58 PM CDT) Only the most recent of2 resultswithin the time period is included. TSH 1.04 0.358 - 3.740 ulU/mL [facility] ACCOUNT BILL Blood BLOOD SPECIMEN / Unknown 08/08/2017 12:58 PM CDT 08/08/2017 Narrative Resulting Agency Comment [facility] [address] ??[place] [phone] Julissa Posey Tiffanywesly DO LAB - CHEMISTRY ORDE [employer] [facility] ACCOUNT BILL [address] [place] [address] * PROLACTIN (08/08/2017 12:58 PM CDT) Prolactin 15.00 ng/mL [facility] ACCOUNT BILL Comment: Prolactin Reference Interval: ?Female Non: 2.80 - ??29.20 ??ng/mL ? Female : 9.70 - 208.50 ??ng/mL Female Postmenopausal: 1.80 - ??20.39 ??ng/mL ?Male: 2.10 - ??17.70 ??ng/mL Blood BLOOD SPECIMEN / Unknown 08/08/2017 12:58 PM CDT 08/08/2017 Narrative Resulting Agency Comment [facility] [address] ??[place] [phone] Julissa Kalpesh Mcwilliams DO LAB - CHEMISTRY ORDE RABTR[employer] [facility] ACCOUNT BILL [address] [place] [address] * ESTRADIOL (08/08/2017 12:58 PM CDT) Estradiol [...] 08/08/2017 Narrative Resulting Agency Comment [facility] [address] ??[facility] [phone] Julissa Mcwilliams DO LAB - CHEMISTRY PEDRO LANG [facility] ACCOUNT BILL [address] [place] [address] * HCG BETA BLOOD QUANTITATIVE (08/08/2017 12:58 [...] PM CDT 08/08/2017 Narrative Resulting Agency Comment [facility] [address] ??[place] [phone] Julissa Mcwilliams DO LAB - CHEMISTRY PEDRO LANG [facility] ACCOUNT BILL [address] [place] [address] * FSH + LH PANEL (08/08/2017 12:58 [...] PM CDT 08/08/2017 Narrative Resulting Agency Comment [facility] [address] [place] [address] ??[facility] [phone] Julissa Mcwilliams DO LAB - CHEMISTRY PEDRO LANG [facility] Organization Address City/State/ZIP Co de Phone Number [facility] ACCOUNT BILL [address] [place] [address] * XR HAND 3+ VW RIGHT (04/19/2017 [...] IMPRESSION No acute fracture. Mulu Jamie Viau FAST FOOD SHIFT SUPERVISOR-GUEST EXPERIENCE REPRESENTATIVE DIAGNOSTIC IMAGIN G ORDERABLES * XR [...] evident. IMPRESSION No acute fracture. Mulu Mendez FAST FOOD SHIFT SUPERVISOR-GUEST EXPERIENCE REPRESENTATIVE DIAGNOSTIC IMAGIN G ORDERABLES * RUBEOLA ANTIBODY IGG (10/26/2015 8:15 AM DYNAMIC BALANCER) Measles (Rubeola) Antibody IgG 131.0 Immune >29.9 AU/mL 10/28/2015 12:21 PM DYNAMIC BALANCER [facility] ([facility]) Comment: ? Negative ?<25.0 ? Equivocal 25.0 - 29.9 ? Positive ?>29.9 Presence of antibodies to Rubeola is presumptive evidence of immunity except when acute infection is suspected. Blood specimen (specimen) BLOOD SPECIMEN / Unknown Venipuncture / Unknown 10/26/2015 8:15 AM DYNAMIC BALANCER 10/26/2015 7:57 PM DYNAMIC BALANCER Narrative [facility] ([facility]) - 10/28/2015 12:21 PM DYNAMIC BALANCER Performed at: ??01 - [address] ??[id number] Team Primary Care Physician: Karsten Lake PhD, Phone: ??[phone] Provider Unknown LAB - CHEMISTRY PEDRO LANG Performing Organization Address City/[facility]/ZIP Co de Phone Number [facility] ([facility]) * MUMPS ANTIBODY IGG (10/26/2015 8:15 AM DYNAMIC BALANCER) Mumps Virus Antibody IgG Index 93.4 Immune >10.9 AU/mL 10/28/2015 12:21 PM DYNAMIC BALANCER [facility] ([facility]) Comment: ?Negative ? <9.0 ?Equivocal ??9.0 - 10.9 ?Positive ?>10.9 A positive result generally indicates past exposure to Mumps virus or previous vaccination. Blood specimen (specimen) BLOOD SPECIMEN / Unknown Venipuncture / Unknown 10/26/2015 8:15 AM DYNAMIC BALANCER 10/26/2015 7:57 PM DYNAMIC BALANCER Narrative [facility] ([facility]) - 10/28/2015 12:21 PM DYNAMIC BALANCER Performed at: ??[address] - [address] ??[id number] Team Primary Care Physician: Karsten Lake PhD, Phone: ??[phone] Provider Unknown LAB - CHEMISTRY PEDRO LANG Performing Organization Address [facility]/ZIP Co de Phone Number [facility] ([facility]) * VARICELLA ZOSTER ANTIBODY IGG (10/26/2015 8:15 AM DYNAMIC BALANCER) Varicella zoster Virus Antibody IgG 2153 Immune >165 index 10/28/2015 12:21 PM DYNAMIC BALANCER [facility] ([facility]) Comment: ? Negative ?<135 ? Equivocal ?135 - 165 ? Positive ?>165 A positive result generally indicates exposure to the pathogen or administration of specific immunoglobulins, but it is not indication of active infection or stage of disease. Blood specimen (specimen) BLOOD SPECIMEN / Unknown Venipuncture / Unknown 10/26/2015 8:15 AM DYNAMIC BALANCER 10/26/2015 7:57 PM DYNAMIC BALANCER Narrative [facility] ([facility]) - 10/28/2015 12:21 PM DYNAMIC BALANCER Performed at: ??01 - [address] ??[id number] Team Primary Care Physician: Karsten Lake PhD, Phone: ??[phone] Provider Unknown LAB - CHEMISTRY ORDE RICKEY Performing Organization Address [facility] de Phone Number [facility] * RUBELLA ANTIBODY IGG (10/26/2015 8:15 AM DYNAMIC BALANCER) Rubella Antibody IgG Positive - Immune 10/26/2015 8:36 PM DYNAMIC BALANCER [facility] Blood BLOOD SPECIMEN / Unknown Venipuncture / Unknown 10/26/2015 8:15 AM DYNAMIC BALANCER 10/26/2015 7:57 PM DYNAMIC BALANCER Provider Unknown LAB - SEROLOGY ORDER FADY Performing Organization Address [facility] Co de Phone Number [facility] [address] [place] [address] * HEPATITIS B SURFACE ANTIBODY (10/26/2015 8:15 AM DYNAMIC BALANCER) HBsAb Non Reactive Non Reactive 10/26/2015 8:23 PM DYNAMIC BALANCER [facility] Blood BLOOD SPECIMEN / Unknown Venipuncture / Unknown 10/26/2015 8:15 AM DYNAMIC BALANCER 10/26/2015 7:57 PM DYNAMIC BALANCER Provider Unknown LAB - CHEMISTRY PEDRO LANG [facility] [address] [place], [place] [id number]
--- OUTSIDE RECORDS SUMMARY | 2024-11-22 09:30 | XMS_ITS | CONTINUITY OF CARE DOCUMENT ---
Author Name rohithlesaasad Address Unknown Organization [facility] Address [address] [place] [address] Phone [phone] Care Team Providers Care Redrying Machine Operator Name Role Phone Deandre CERVANTES, Theodore Unavailable [phone] Camilo CERVANTES, Lori Unavailable [phone] Lori Page MD Unavailable [phone] PROBLEMS Condition Status Date Provider Notes Cardiology examination active Daniel Martin Edema active Daniel Sloane Murmur active Daniel Sloane Hypertension active Daniel Martin FHx of CHF active Daniel Sloane Palpitations active Daniel Martin BROOK ? - workup in progress 10/10/2024 active 0 Daniel Martin ENCOUNTERS Date Type Provider Location Encounter Diag nosis - In-person encounter Office Visit Theodore Carrera MD [facility] Cardiology examinationEdemaMurmurHypertensionFHx of CHFPalpitationsOSA ? - workup in progress 10/10/2024 VITAL SIGNS Date Observation Value Provider weight E&M 253 [lb_av] Alba Osbaldon g blood pressure, diastolic 80 mm[Hg] Li nkLogic blood pressure, systolic 130 mm[Hg] Merly kLogic Body Mass Index (Ratio) 40.83 kg/m2 Cristian teodoro Sloane blood pressure, diastolic 80 mm[Hg] Rizwan Lopessimranmark anthonychantel blood pressure, systolic 130 mm[Hg] Ryan faye Tahira oxygen saturation, oximetry 98 % Megan Tahira pulse rate 75 /min Megan Lopesemanuelalexandre arielaer weight E&M 253 [lb_av] Megan Lopesweslypolo er height E&M 66 [in_i] Megan Lopesady [facility] HISTORY OF MEDICATION USE Medication Status Instructions Dates Provider Indications Com ments amlodipine 2.5 mg tablet active TAKE 1 TABLET BY MOUTH EVERY DAY Megan Tahira losartan-hydroch lorothiazide 100-25 mg tablet active TAKE 1 TABLET DAILY Megan Tahira INSURANCE PROVIDERS Payer name Policy type / Coverage type [place] [employer] ID [employer] CHOICE POS [employer] insurance company [id number] ADVANCE DIRECTIVES Name Date DISCUSSED - NO DECISION MADE TREATMENT PLAN Date Name Performer Electrophysiology:Wo rkup pending Daniel Anton Electrophysiology: H er updated medication list for this problem includes: Amlodipine 2.5 Mg Tablet (Amlodipine) ..... Take 1 tablet by mouth every day Losartan-hydrochlorothiazide 100-25 Mg Tablet (Losartan-hydrochlorothiazide) ..... Take 1 tablet daily BP today: 130/80 Daniel Anton Electrophysiology:ma y be related to her amlodpine 2.5mg which can contribute to swelling C heck echo due to FHx of CHF C ompression advised Daniel Anton Electrophysiology:Ch phuong echo Daniel Anton Date Name Stress Routine Monitor - Telemetry (Mobile Cardiac) Complete Echo HISTORY OF PROCEDURES Procedure Date Procedure Name Provider Procedure Notes S tatus EKG Theodore Carrera MD comp leted
--- OUTSIDE RECORDS SUMMARY | 2024-11-22 09:30 | XMS_ITS | Data Portability ---
Author Organization [place] - [facility] [employer], Main Office Address [address] [place] [address] Care Team Providers Care School Library Media Specialist Name Role Phone JUDE SOTO Primary Care Provider RENATO CORRALES Insurance Claim Approver Assessment Encounter Date Assessment Date Assessment LastModified by Organization Details LastModified Time 10/30/2024 10/30/2024 Time spent with patient included: preparing to see patient by reviewing tests, obtaining and reviewing history, medical examination and evaluation, counseling and educating the patient, ordering medications and tests, documenting clinical information in EHR, independently interpreting results and communicating results to the patient for a total of 40 minutes. [email or web address] Not available 10/30/2024 16:40:03 Plan of Treatment Reminders Order Date Submit Date Provider Last Modified By Organization Details Last Modified Time Details Appointments Any 15 2024 04:15P Diana Soto, REKHA Not available Not available Not available Lab CBC w/ auto diff 2023 024 [facility] (Lab), [address] [place], [address], 09/24/2024 08:48:49 CMP, serum or plasma 2023 024 [facility] (Lab), [address] [place], [address], 09/24/2024 08:48:49 BNP (B-type natriuret ic peptide), blood 2023 024 [facility], [address] [place], [address], 09/30/2024 09:25:36 lipid panel, serum 2023 024 [facility] (Lab), [address] [place], [address], 09/24/2024 08:48:49 TSH + free T4, serum 2023 024 [facility] (Lab), [address] [place], [address], 09/24/2024 08:48:49 hepatitis C virus Ab, serum 2023 024 [facility] (Lab), [address] [place], [address], 09/30/2024 09:25:36 HbA1c (hemoglob in A1c), blood 2023 024 [facility] (Lab), [address] [place], [address], 09/30/2024 09:25:36 Referral hand surgeon referral - Please call patient to schedule. 2024 025 [place], [address] [place], [address], 11/04/2024 17:30:40 Procedures None recorded. Surgeries None recorded. Imaging electroca rdiogram [address] [facility] [address] [facility] [address], [place], [address], 09/23/2024 16:33:22 home sleep study - Please call patient to arrange. 2024 025 [facility] [place], [address] [place], [address], 11/06/2024 09:05:20 Medication Orders None recorded. Patient TargetsNo targets recorded. Patient Instructions Encounter Date Encounter Id Patient Instructions Last Modified By Organization Details Last Modified Time 09/23/2024 [id number] Follow up in 3 months Obtain labs Tests: Referral: Recommend: Tetanus vaccine Shingles vaccine Not available 09/17/2024 17:04:11 11/03/2024 [id number] Follow up in December Referral: Dr. Lemus- hand surgery-2nd opinion Recommend: Not available 11/03/2024 16:48:03 Reason for Referral Hand Surgeon Referral for Pa in of bilateral hands Please call patient to schedule. Referring Physician: Jude Soto, Internal Medicine, Encounter Date: 11/03/2024 Results Created Date Observation Date Name Description Value Unit Range Abnormal Flag Note LastModifiedBy Organization Detail LastModifiedTime 09/23/20 elect rocar diogr am No observ ation record ed. [email or web address] [facility] [place] [address], [place], [address], 09/23/2024 15:34:33 09/23/20 24 09/23/2024 elect rocar diogr am No observ ation record ed. BARCODE [facility] [address], [place], [address], 09/23/2024 16:40:51 Result Notes None recorded. Problems Name Problem SNOMED Code Status Onset Date Resolution Date Notes Provider Name and Address Organization Details Recorded Time Essential hypertensio n 33353267 Active 2023 Jude Soto APRN [address], [address], [place], [address], [employer] 4 15:26:07 Palpitation s 63707152 Active 2023 Jude Soto APRN [address], [address], [place], [address], [employer] 4 15:31:50 Sleep apnea 38923138 Active 2024 Jude Soto APRN [address], [address], [place], [address], [facility] [employer] [facility] 16:26:22 Cigarette smoker 59321030 Active 2024 Jude Soto APRN [address], [address], [place], [address], [facility] [employer] [facility] 16:26:11 Marijuana user 334563068 Active 2024 Jude Soto APRN [address] [facility], [address], [place], [address], [facility] [employer] [facility] 16:26:15 Pain of bilateral hands 3633280398352 9109 Active 2024 Jude Soto APRN [address], [address], [place], [address], [facility] [employer] [facility] 16:46:29 Problem Notes None recorded. Procedures Surgical History None recorded. Imaging Results Imaging Date Name Status LastModified by Organization Details LastModified Time 09/23/2024 electrocardiogram completed [email or web address] [facility] Internal [facility] [address], [place], [address], 09/23/2024 15:34:33 09/23/2024 electrocardiogram completed BARCODE [facility] [address], [place], [address], 09/23/2024 16:40:51 Procedure Notes None recorded. Medical [...] Not Available Vitals Date Recorded Body height Provider Name an d Address Organization Details Last Updated DateTime 09/23/2024 167.64 cm Mary Bass MA [employer] 09/23/2024 15:10:33 Date Recorded Body mass index (BMI) Body weight Provider Name and Address Organization Details Last Updated DateTime 09/23/2024 40.8 kg/m2 581355.87 g Mary Bass MA [employer] 09/23/2024 15:10:39 Date Recorded Body temperature Provider Name a nd Address Organization Details Last Updated DateTime 09/23/2024 97.8 [degF] Mary Bass MA [employer] 09/23/2024 15:11:12 Date Recorded Heart rate Provider Name an d Address Organization Details Last Updated DateTime 09/23/2024 89 /min Mary Bass MA [employer] 09/23/2024 15:11:19 Date Recorded Oxygen saturation Oxygen saturation in Arterial blood by Pulse oximetry Provider Name and Address Organization Details Last Updated DateTime 09/23/2024 98 % 98 % Mary Bass MA [facility] [employer] [facility] 09/23/2024 15:11:24 Date Recorded Pain severity - 0-10 verbal numeric rating [Score] - Reported Provider Name and Address Organization Details Last Updated DateTime 09/23/2024 5 Mary Bass MA [facility] [employer] [facility] 09/23/2024 15:11:36 Date Recorded Body height Provider Name an d Address Organization Details Last Updated DateTime 10/30/2024 167.64 cm Shannon Pendleton MA [facility] [employer] [facility] 10/30/2024 16:05:57 Date Recorded Body mass index (BMI) Body weight Provider Name and Address Organization Details Last Updated DateTime 10/30/2024 41.8 kg/m2 684615.42 g Shannon Pendleton MA [facility] [employer] [facility] 10/30/2024 16:08:41 Date Recorded Body temperature Provider Name a nd Address Organization Details Last Updated DateTime 10/30/2024 97.9 [degF] Shannon Pendelton MA [facility] [employer] [facility] 10/30/2024 16:11:36 Date Recorded Heart rate Provider Name an d Address Organization Details Last Updated DateTime 10/30/2024 94 /min Shannon Pendleton MA [facility] [employer] [facility] 10/30/2024 16:12:01 Date Recorded Oxygen saturation Oxygen saturation in Arterial blood by Pulse oximetry Provider Name and Address Organization Details Last Updated DateTime 10/30/2024 98 % 98 % Shannon Pendleton MA [facility] [employer] [facility] 10/30/2024 16:12:04 Date Recorded Body height Provider Name an d Address Organization Details Last Updated DateTime 11/03/2024 167.64 cm Mary Bass MA [facility] [employer] [facility] 11/03/2024 16:16:01 Date Recorded Body mass index (BMI) Body weight Provider Name and Address Organization Details Last Updated DateTime 11/03/2024 42.1 kg/m2 532820.61 g Mary Bass MA [facility] [employer] [facility] 11/03/2024 16:19:36 Date Recorded Body temperature Provider Name a nd Address Organization Details Last Updated DateTime 11/03/2024 97.8 [degF] Mary Bass MA [facility] 11/03/2024 16:20:35 Date Recorded Heart rate Provider Name an d Address Organization Details Last Updated DateTime 11/03/2024 89 /min Mary Bass MA [facility] 11/03/2024 16:20:42 Date Recorded Oxygen saturation Oxygen saturation in Arterial blood by Pulse oximetry Provider Name and Address Organization Details Last Updated DateTime 11/03/2024 97 % 97 % Mary Bass MA [facility] [employer] [facility] 11/03/2024 16:20:50 Date Recorded Pain severity - 0-10 verbal numeric rating [Score] - Reported Provider Name and Address Organization Details Last Updated DateTime 11/03/2024 6 Mary Bass MA [facility] [employer] [facility] 11/03/2024 16:21:02 Date Recorded Systolic blood pressure Diastolic blood pressure Provider Name and Address Organization Details Last Updated DateTime 09/23/2024 112 mm[Hg] 74 mm[Hg] Mary Bass MA [facility] 09/23/2024 15:13:24 Date Recorded Systolic blood pressure Diastolic blood pressure Provider Name and Address Organization Details Last Updated DateTime 10/30/2024 112 mm[Hg] 70 mm[Hg] Shannon Pendleton MA [facility] 10/30/2024 16:13:30 Date Recorded Systolic blood pressure Diastolic blood pressure Provider Name and Address Organization Details Last Updated DateTime 11/03/2024 124 mm[Hg] 76 mm[Hg] Mary Bass MA [facility] 11/03/2024 16:22:34 Social History Question Answer Notes LastModified by Organizat ion Details LastModified Time Tobacco Smoking Status Current Every Day Smoker Mary Bass MA [facility] 09/23/2024 15:19:21 What Is Your Level Of [...] You Following? REGULAR Information not available 09/23/2024 Do You Have An Electrostatic Air Filter? No Information not available 10/30/2024 Have There Been Any Changes To Your Family Or Social Situation? No Information no t available 09/23/2024 Do You Have A Humidifier? No Information not available 10/30/2024 Do You Use Insect Repellent Routinely? No Information not available 09/23/2024 Where Do You Live? Trailer Information not available 09/23/2024 Do You Have Moisture Problems In Your Home? No Information not available 10/30/2024 What Was The Date Of Your Most Recent Tobacco Screening? 11/03/2024 Information not available 11/03/2024 How Many Children Do You Have? 3 [...] Anxious, Or Unable To Sleep At Night)? [id number] Information not available 09/23/2024 Do You Use [...] Influenza, split virus, quadrivalent, preservative 4 completed Jude Soto APRN [address], [address], [place], [address], [facility] [facility] 09/23/2024 15:26:25 COVID-19, mRNA, LNP-S, PF, 30 mcg/0.3 mL dose 1 completed Jude Soto APRN [address], [address], [place], [address], [facility] [employer] [facility] 09/23/2024 15:26:25 COVID-19, mRNA, LNP-S, PF, 30 mcg/0.3 mL dose 1 completed Jude Soto APRN [address], [address], [place], [address], [facility] 09/23/2024 15:26:25 Tdap 9 completed Jude Soto APRN [address], [place], [address], [facility] [employer] [facility] 09/23/2024 15:26:25 Hep A, pediatric, unspecified formulation 0 jerry Soto APRN [address], [address], [place], [address], [facility] 09/23/2024 15:26:25 Influenza, split virus, trivalent, PF 4 jerry Soto APRN [address], [place], [address], [facility] [employer] [facility] 09/23/2024 16:32:22 Past Encounters Encounter ID Performer Location Encounter Start Date Encounter Closed Date Diagnosis/Indication Diagnosis SNOMED-CT Code Diagnosis ICD10 Code Diagnosis Note [id number] Jude Soto APRN [facility] [place] [address] [address] 09/23/2024 14:52:54 09/23/2024 16:10:16 Diabetes mellitus screening 990342652 Z13.1 Hyperlipid emia screening 575085939 Z13.220 Screening for disorder 382629395 Z13.9 Thyroid di sorder screening 415329340 Z13.29 Hepatitis C screening 41 9972024 Z11.59 Administra tion of influenza vaccine 87909802 Z23 Palpitations 91220999 R0 0.2 [id number] Jude Soto APRN [facility] Internal Med [facility] [address] [address] 11/03/2024 16:09:51 11/03/2024 16:55:39 Pain of bilateral hands 8154588861 7974504 M79.642 M79.821 [id number] Renato Corrales NP S_[facility] Pulmonolo gy [address] [address] 10/30/2024 16:00:03 11/05/2024 13:43:09 Sleep apnea 33111716 G47.30 G47.33 G47.34 Home sleep study order today-has kids at home and single momESS-6Di scussed sleep hygeineAdv ised good sleep habits and patterns:- Set a goal for at least 7 to 8 hours of sleep time per day-Use the bed mainly for sleep and to go to bed only when tired. If unable to fall asleep after 30 minutes, patient should get out of bed but should not engage in any activity that requires sustained mental alertness. -Maintain a bedtime and wake-up time even on weekends or day off of work.-Avoi d excessive naps during the daytime. If a nap is necessary, limit to no more than 30 minutes.-M inimize enviroment al noise, bright lights, and extremties in bedroom temperatur es.-Avoid alcohol, caffeinate d beverages, and nicotine products for at least 6 hours prior to bedtime.-A void strenuous exercise and large meals for at least 4 hours prior to bedtime.-D iscussed reportable signs and symptoms of concernF/u after home sleep study Body mass index 40+ - severely obese 929293843 Z68.41 Encourage healthy diet and exercise to improve weightdisc ussed weight effect on sleep and sleep apnea Cigarette smoker 3722703 7 F17.210 Patient is a smoker and has been counseled to quit. We discussed the many reasons to quit smoking. We discussed the various methods of smoking cessation- counseled 5 minutes. Marijuana user 068832905 F12.90 encouraged to use a different method Health Concerns Section Related Observation LastModified by Organization Detai ls LastModified Time None Recorded Concern Status LastModified by Organization Details LastModified Time None Recorded Advance Directives Directive None Recorded Payers Encounter Date Sequence Insurance Name Policy Number Policy Chung Covered Member ID Chung Member ID Guarantor Name 09/23/2024 1 [employer] [id number] Rachelle Dia [id number] Rachelle Dia 10/30/2024 1 [employer] [id number] Rachelle Dia [id number] Rachelle Dia 11/03/2024 1 [employer] [id number] Rachelle Dia [id number] Rachelle Dia Notes Date Note Type Note Provider Name and Address Organization Details Recorded Time 09/23/2024 text/html Rachelle present s today to establish care as a new [...] has decided to change to this provider. Jude Soto, BELLSTAND ATTENDANT [address] [facility] [facility] [address], [place], [address], [facility] [employer] 09/24/2024 08:07:47 10/30/2024 text/html Obstructive Slee p ApneaReported bypatient.Severity:wor sening Timing:gradual Context:inconsistent sleep routine; periodic limb movement in sleep; hypertension; gastroesophageal reflux disease; sleep hours per night5-7; cardiovascular disease Aggravating Factors:fatigue; alcohol; positioning; irregular sleep schedule; caffeine prior to sleep; sleep disruption Alleviating Factors:positioning Associated Symptoms:no morning dry mouth; no dysphagia; no suddenly falling asleep during the day; no impaired work performance; no gasping for air; no witnessed apnea; no hyponasal speech; normal concentration;morning headache;postnasal drip;awakening short of breath;night sweats;daytime sleepiness;excess napping;nasal congestion;loud snoring;mouth breathing;hyperactivit y;amnesia;irritability Notes:sent by primary and cardiology for sleep apnea+smoker marijuana, 1/2 ppd smokerhx of palpitations and htn Renato Corrales NP [address] [facility], [place], [address], [employer] 10/30/2024 16:41:47 11/03/2024 text/html Rachelle present s today for assistance filling out paperwork for her job. 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 She also states that she has seen a hand specialists and patient states that she has received no testing for a diagnosis, but was told that she had bilateral carpal tunnel syndrome. 4Ashadi presents today to establish care as a [...] has decided to change to this provider. Jude Soto APRN [address], [address], [place], [address], [employer] 11/03/2024 16:48:11 OBGyn Episode No OBEpisode recorded.
--- OUTSIDE RECORDS SUMMARY | 2024-11-22 09:30 | XMS_ITS | Referral Summary ---
Author Organization [facility] Address [address] [place] [address] Care Team Providers Care Broiler Manager Name Role Phone Unavailable Primary Care Provider Unavailabl e Source Comments [facility],non-owned Affiliates and Associated Physician Practices is amultiple site organization consisting of ambulatory clinics and hospital sitesin [place], [place], [place] and [place]. This disclosure is being madepursuant to the Care Everywhere program and may not contain all information available regarding this patient. Last updated 18.[place] [facility] Allergies Active Allergy Reactions Criticality Noted Date [...] to Health Maintenance Results * STREP B JHON (03/11/2019 2:03 PM CDT) Strep B JOHN Negative Negative [facility] ACCOUNT BILL Comment: Centers for Disease Control and Prevention (CDC) and [place] [employer] of Obstetricians and Gynecologists (ACOG) guidelines [...] Agency Comment Lab Testing performed at: [facility] [place] [address] ??[facility] [phone] Julissa Mcwilliams DO LAB - MICROBIOLOGY O RDERAELAINA [facility] ACCOUNT BILL [address] [place] [address] * (ABNORMAL) GTT 3 HR (100G) GESTATIONAL DIAGNOSTIC (01/20/2019 7:16 AM CDT) Pathologist [facility] [place] Glucose Fasting Gest Tolerance 78 65 - [...] CDT 01/20/2019 Narrative Resulting Agency Comment [facility] [place] [address] [facility] ??[facility] [phone] Julissa Mcwilliams DO LAB - CHEMISTRY ORDE RAB Performing Organization Address City/[facility]/ZIP Co de Phone Number [facility] ACCOUNT BILL [address] [place] [address] * HIV-1 HIV-2 ANTIGEN/ANTIBODY W RFLX (08/07/2018 4:50 PM CDT) Pathologist [facility] [place] HIV Screen 4th Generation w Reflex Non Reactive Non Reactive [facility] ACCOUNT BILL Blood BLOOD SPECIMEN / Unknown 08/07/2018 4:50 PM CDT 08/07/2018 Narrative Resulting Agency Comment [facility] [place] [address] ??[place] [phone] Julissa Mcwilliams DO LAB - SEROLOGY ORDER FADY [facility] ACCOUNT BILL [address] [place] [address] * PAP IG LB+CT+NG+TV+HPV APTIMA RFLX 16,18/45 (08/07/2018 3:34 PM CDT) Diagnosis [facility] ACCOUNT BILL Comment: NEGATIVE FOR INTRAEPITHELIAL LESION AND MALIGNANCY. THIS SPECIMEN WAS RESCREENED PART OF OUR HAND FILER BALANCE WHEEL PROGRAM. Specimen Adequacy [facility] ACCOUNT BILL Comment: Satisfactory for evaluation. ??No endocervical component is identified. An endocervical component is not commonly seen in the patient. Clinician Provided ICD10 [facility] ACCOUNT BILL Comment: Z34.81 Z3A.01 Z32.01 Z11.51 Z11.3 Z68.36 Performed by [facility] ACCOUNT BILL Comment:Mercy Simons, Medical Economics Consultant (ASC) QC Reviewed by [facility] ACCOUNT BILL Comment:[facility] Medical Economics Consultant ([facility]) Comment . [facility] ACCOUNT BILL Note [facility] [...] Vial Resulting Agency Comment [facility] [place] [address] [place] ??[place] [phone] Julissa Mcwilliams DO LAB - PATHOLOGY/CYTO LOGY ORDERABLES [facility] ACCOUNT BILL [address] [place] [address] from Last 3 Months or Most Recently Relevant to Health Maintenance Advance Directives * Full Code (Latest Code Status on File) Date Activated Date Inactivated Comments 03/18/2019 11:54 PM 03/22/2019 12:05 PM * Full Code Date Activated Date Inactivated Comments 02/26/2019 12:58 PM 02/26/2019 3:41 PM
--- OUTSIDE RECORDS SUMMARY | 2024-11-22 09:30 | XMS_ITS | Encounter Summary ---
Author Organization [facility] Address [address] [place] [address] Care Team Providers Care Terra Cotta Mason Name Role Phone Unavailable Primary Care Provider Unavailabl e Encounter Details Date Type Department Care Team (Late st Contact Info) Description 10/26/2015 Lab Requisition [facility] [address] [place] [address] Unknown, Provider Social History Tobacco Use Types [...] RUBEOLA ANTIBODY IGG Routine 10/26/2015 8:15 AM ROUTING EQUIPMENT TENDER MUMPS ANTIBODY IGG Routine 10/26/2015 8: 15 AM ROUTING EQUIPMENT TENDER VARICELLA ZOSTER ANTIBODY IGG Routine 10/26/2015 8:15 AM ROUTING EQUIPMENT TENDER RUBELLA ANTIBODY IGG Routine 10/26/2015 8:15 AM ROUTING EQUIPMENT TENDER HEPATITIS B SURFACE ANTIBODY Routine 10/26/2015 8:15 AM ROUTING EQUIPMENT TENDER documented in this encounter Results * VARICELLA ZOSTER ANTIBODY IGG (10/26/2015 8:15 AM ROUTING EQUIPMENT TENDER) Varicella zoster Virus Antibody IgG 2153 Immune >165 index 10/28/2015 12:21 PM ROUTING EQUIPMENT TENDER [facility] ([facility]) Comment: ? Negative ?<135 ? Equivocal ?135 - 165 ? Positive ?>165 A positive result generally indicates exposure to the pathogen or administration of specific immunoglobulins, but it is not indication of active infection or stage of disease. Blood specimen (specimen) BLOOD SPECIMEN / Unknown Venipuncture / Unknown 10/26/2015 8:15 AM ROUTING EQUIPMENT TENDER 10/26/2015 7:57 PM ROUTING EQUIPMENT TENDER Narrative [facility] ([facility]) - 10/28/2015 12:21 PM ROUTING EQUIPMENT TENDER Performed at: ??01 - [address] ??[id number] [place] Supervisor: Karsten Lake PhD, Phone: ??[phone] Provider Unknown LAB - CHEMISTRY PEDRO LANG [facility] * RUBEOLA ANTIBODY IGG (10/26/2015 8:15 AM ROUTING EQUIPMENT TENDER) Measles (Rubeola) Antibody IgG 131.0 Immune >29.9 AU/mL 10/28/2015 12:21 PM ROUTING EQUIPMENT TENDER [facility] ([facility]) Comment: ? Negative ?<25.0 ? Equivocal 25.0 - 29.9 ? Positive ?>29.9 Presence of antibodies to Rubeola is presumptive evidence of immunity except when acute infection is suspected. Blood specimen (specimen) BLOOD SPECIMEN / Unknown Venipuncture / Unknown 10/26/2015 8:15 AM ROUTING EQUIPMENT TENDER 10/26/2015 7:57 PM ROUTING EQUIPMENT TENDER Narrative [facility] - 10/28/2015 12:21 PM ROUTING EQUIPMENT TENDER Performed at: ??01 - [address] ??[id number] [place] Supervisor: Karsten Lake PhD, Phone: ??[phone] Provider Unknown LAB - CHEMISTRY PEDRO LANG Performing Organization Address [facility] de Phone Number [facility] ([facility]) * MUMPS ANTIBODY IGG (10/26/2015 8:15 AM ROUTING EQUIPMENT TENDER) Pathologist [facility] Mumps Virus Antibody IgG Index 93.4 Immune >10.9 AU/mL 10/28/2015 12:21 PM ROUTING EQUIPMENT TENDER [facility] Comment: ?Negative ? <9.0 ?Equivocal ??9.0 - 10.9 ?Positive ?>10.9 A positive result generally indicates past exposure to Mumps virus or previous vaccination. Blood specimen (specimen) BLOOD SPECIMEN / Unknown Venipuncture / Unknown 10/26/2015 8:15 AM ROUTING EQUIPMENT TENDER 10/26/2015 7:57 PM ROUTING EQUIPMENT TENDER Narrative [facility] ([facility]) - 10/28/2015 12:21 PM ROUTING EQUIPMENT TENDER Performed at: ??01 - [address] ??[id number] [place] Supervisor: Karsten Lake PhD, Phone: ??[phone] Provider Unknown LAB - CHEMISTRY PEDRO LANG [facility] ([facility]) * RUBELLA ANTIBODY IGG (10/26/2015 8:15 AM ROUTING EQUIPMENT TENDER) Rubella Antibody IgG Positive - Immune 10/26/2015 8:36 PM ROUTING EQUIPMENT TENDER [facility] Blood BLOOD SPECIMEN / Unknown Venipuncture / Unknown 10/26/2015 8:15 AM ROUTING EQUIPMENT TENDER 10/26/2015 7:57 PM ROUTING EQUIPMENT TENDER Provider Unknown LAB - SEROLOGY ORDER FADY [facility] [address] [place], [place] [id number] * HEPATITIS B SURFACE ANTIBODY (10/26/2015 8:15 AM ROUTING EQUIPMENT TENDER) Pathologist [facility] HBsAb Non Reactive Non Reactive 10/26/2015 8:23 PM ROUTING EQUIPMENT TENDER [facility] Blood BLOOD SPECIMEN / Unknown Venipuncture / Unknown 10/26/2015 8:15 AM ROUTING EQUIPMENT TENDER 10/26/2015 7:57 PM ROUTING EQUIPMENT TENDER Provider Unknown LAB - CHEMISTRY ORDE RAB [facility] [address] [place] [address] documented in this encounter Visit Diagnoses Not on filedocumented in this encounter
--- OUTSIDE RECORDS SUMMARY | 2024-11-22 09:30 | XMS_ITS | Clinical Summary ---
Author Organization [facility] [employer] Address [address] [place] [address] Care Team Providers Care Channel Marketing Coordinator Name Role Phone Unavailable Primary Care Provider Unavailabl e Source Comments [facility] [employer],non-owned Affiliates and Associated Physician Practices is amultiple site organization consisting of ambulatory clinics and hospital sitesin [place], [place], [place] and [place]. This disclosure is being madepursuant to the Care Everywhere program and may not contain all information available regarding this patient. Last updated [employer] Allergies Active Allergy Reactions Criticality Noted Date [...] 2004 PAP with HPV 08/07/2023 08/07/2018, 05/23/2017 COVID-19 VACCINE (1 - 2023-2 5 season) 2024 INFLUENZA VACCINE (#1) 2024 DEPRESSION SCREENING 10/22/2024 DTAP/TDAP/TD VACCINES (2 - T d or Tdap) 01/10/2029 01/10/2019 ZOSTER VACCINE (1 of 2) 2035 HIV SCREENING Completed 08/07/2018 HIB VACCINE Aged Out No longer eligi ble based on patient's age to complete this topic HPV VACCINE Aged Out No longer eligi ble based on patient's age to complete this topic MENINGOCOCCAL (Group B) VACCINE Aged Out No longer eligible b ased on patient's age to complete this topic [...] venereal disease PAP IG LB+CT+NG+TV+HPV APTIMA RFLX ,18/45 Routine 08/07/2018 3:34 PM CDT care, subsequent [...] for Disease Control and Prevention (CDC) and [place] [employer] Gynec[employer] (ACOG) guidelines [...] Resulting Agency Comment Lab Testing performed at: [facility] ??[facility] [id number] Julissa Mcwilliams DO LAB - MICROBIOLOGY O RDERABLES [facility] ACCOUNT BILL [address] [place] [address] * (ABNORMAL) GTT 3 HR (100G) GESTATIONAL [...] Agency Comment [facility] [address] ??[facility] [id number] Julissa Mcwilliams DO LAB - CHEMISTRY ORDE RABLES [facility] ACCOUNT BILL [address] [place] [address] * HIV-1 HIV-2 ANTIGEN/ANTIBODY W RFLX (08/07/2018 4:50 PM CDT) HIV Screen 4th Generation w Reflex Non Reactive Non Reactive [facility] ACCOUNT BILL Blood BLOOD SPECIMEN / Unknown 08/07/2018 4:50 PM CDT 08/07/2018 Narrative Resulting Agency Comment [facility] [place] [address] ??[facility] [id number] Julissa Mcwilliams DO LAB - SEROLOGY ORDER FADY Performing Organization Address City/[facility]/ZIP Co de Phone Number [facility] ACCOUNT BILL [address] [place] [address] * PAP IG LB+CT+NG+TV+HPV APTIMA RFLX 16,18/45 (08/07/2018 3:34 PM CDT) Diagnosis [facility] ACCOUNT BILL Comment: NEGATIVE FOR INTRAEPITHELIAL LESION AND MALIGNANCY. THIS SPECIMEN WAS RESCREENED PART OF OUR FURNACE HELPER PROGRAM. Specimen Adequacy [facility] ACCOUNT BILL Comment: Satisfactory for evaluation. ??No endocervical component is identified. An endocervical component is not commonly seen in the patient. Clinician Provided ICD10 [facility] ACCOUNT BILL Comment: Z34.81 Z3A.01 Z32.01 Z11.51 Z11.3 Z68.36 Performed by [facility] ACCOUNT BILL Comment:Mercy Simons, Public Works Technician (ASCP) QC Reviewed by [facility] ACCOUNT BILL Comment:[facility] Public Works Technician (ASCP) Comment . [facility] ACCOUNT BILL Note [...] Agency Comment [facility] [place] [phone] Julissa Mcwilliams DO LAB - PATHOLOGY/CYTO LOGY ORDERABLES [facility] ACCOUNT BILL [address] [place] [address] from Last 3 Months or Most Recently Relevant to Health Maintenance Advance Directives * Full Code (Latest Code Status on File) Date Activated Date Inactivated Comments 03/18/2019 11:54 PM 03/22/2019 12:05 PM * Full Code Date Activated Date Inactivated Comments 02/26/2019 12:58 PM 02/26/2019 3:41 PM
== END 2024-11-22 09:27 | disposition home or self-care (01) ==
PROVIDERS: Visit Provider Obstetrics & Gynecology
DX: N92.6 Irregular menstruation, unspecified (principal)
CPT/HCPCS: 70553; A9577